=== PATIENT | male | born 1945 | race Caucasian/White ===

== ENCOUNTER 2019-05-22 14:24 | Emergency (ER) | payer OTHER, SELFPAY ==
[2019-05-22 14:37] VITALS: BP 130/67; PULSE 61; RESP 16; TEMP 36.6; O2SAT 96; BMI 32.8
--- NOTE | 2019-05-22 14:43 | ED_ITS ---
Entered by Mary Rob, acting as scribe for May 22, 2019 14:24 HPI - Abdominal Pain General: Chief Complaint: Abdominal Pain Stated Complaint: ABD pain Time Seen by Provider: 05/22/19 14:54 Source: patient and family Mode of arrival: ambulatory Limitations: no limitations History of Present Illness: HPI narrative: 73 yo male presents with abdomen pain. pt states this started couple days ago. pt states has had nausea and diarrhea. pt states nothing makes the pain better and movement makes it worse. pt states in the past 6 years ago he was told he needed his gallbladder out. pt denies any other symptoms at this time. MD elicited complaint: abdominal pain Pertinent past history: none Onset (ago): day(s) Pain Consistency: constant Location: Diffuse Severity: mild Quality: sharp Migration to: no migration Exacerbating factors: nothing Relieving factors: nothing Associated Symptoms: Reports diarrhea, nausea and other (pain with urination ); Denies chills and fever(s) Review of Systems Const: Denies: fever, chills, body aches, change in appetite, fatigue or malaise ENMT: Denies: throat pain, ear pain, nasal discharge or nasal congestion Card: Denies: chest pain, edema, shortness of breath on exertion or shortness of breath when lying down Resp: Denies: shortness of breath, productive cough or non-productive cough GI: Reports: nausea, diarrhea and other (pain with urination ) Skin/Breast: Denies: rash or itching PFSH ED PFSH: Social History Smoking and tobacco status: former smoker Physical Exam Const: COMMON NORMALS: no apparent distress GENERAL APPEARANCE: cooperative and comfortable ORIENTATION/CONSCIOUSNESS: Yes awake, Yes oriented to person, Yes oriented to place and Yes oriented to time HENMT: COMMON NORMALS: normocephalic, head/scalp atraumatic, hearing grossly normal bilaterally, external ears normal, EAC's normal, TM's normal bilaterally, nasal mucous membranes and turbinates normal, moist oral mucous membranes and oropharynx normal HEAD & SCALP: normocephalic and atraumatic NOSE: nasal mucous membranes and turbinates normal EXTERNAL EAR: Yes external ears normal EXTERNAL AUDITORY CANAL: EAC's normal TYMPANIC MEMBRANE: TM's normal bilaterally Eye: COMMON NORMALS: PERRL, EOMs intact bilaterally, conjunctivae normal and no scleral icterus CONJUNCTIVA: Yes conjunctivae normal PUPIL: Yes PERRL Neck/C-Spine: COMMON NORMALS: full ROM, no lymphadenopathy, supple and no JVD Lymph: LYMPHATIC: no lymphadenopathy noted and no lymphedema noted Resp: COMMON NORMALS: normal respiratory effort, no retractions, no use of accessory muscles and clear to auscultation bilaterally AUSCULTATION: clear to auscultation bilaterally Cardio: COMMON NORMALS: no JVD, regular rate, regular rhythm and no murmurs RATE: regular rate RHYTHM: regular rhythm Extremity: COMMON NORMALS: normal to inspection, normal capillary refill, no clubbing, cyanosis or edema, no calf tenderness and no pedal edema Neuro: SENSORIUM/ORIENTATION: Yes oriented to person, Yes oriented to place and Yes oriented to time Skin: COMMON NORMALS: no rashes or lesions noted GENERAL SKIN EXAM: no rashes or lesions noted Course Vital Signs: Vital signs: Vital Signs Temperature 97.8 F 05/22/19 14:37 Pulse Rate 74 05/22/19 17:49 Respiratory Rate 16 05/22/19 17:49 Blood Pressure 135/78 05/22/19 17:49 Pulse Oximetry 94 05/22/19 17:49 MDM - Abdominal Pain MDM Narrative: Medical decision making narrative: Patient had minimal residual. Symptoms are gone now we will go ahead and discharge him home on Flomax follow-up with primary care doctor within the week recheck in the ER if has any worsening or changes symptoms Lab Data: Labs: Lab Results 05/22/19 05/22/19 05/22/19 Range/Units 15:10 15:10 15:16 WBC 8.3 (4.0-10.0) 10^3/ uL RBC 5.02 (4.1-5.3) 10^6/u L Hgb 14.9 (11.7-16.6) g/dL Hct 45.5 (42.0-52.0) % MCV 90.6 (80-94) fL MCH 29.7 (28.0-34.0) pg MCHC 32.7 (30.0-36.0) g/dL RDW 13.2 (12.1-15.1) % Plt Count 198 (130-400) 10^3/c mm MPV 12.2 H (7.4-10.4) fL Neut % (Auto) 56.9 % Lymph % (Auto) 26.5 % [place] % (Auto) 13.7 % Eos % (Auto) 1.7 % Baso % (Auto) 0.7 % Neut # (Auto) 4.7 (1.8-7.7) 10^3/u L Lymph # (Auto) 2.2 (0.8-4.8) 10^3/u L [place] # (Auto) 1.1 H (0.2-0.9) 10^3/u L Eos # (Auto) 0.1 (0.0-0.8) 10^3/u L Baso # (Auto) 0.1 (0.0-0.1) 10^3/u L Nucleated RBC % (a uto) 0 % Nucleated RBCs # 0.0 /100WBC Sodium 138 (136-145) mmol/L Potassium 4.2 (3.5-5.1) mmol/L Chloride 101 (98-107) mmol/L Carbon Dioxide 22 (22-29) mmol/L Anion Gap 19.2 H (5-19) BUN 21 (8-23) mg/dL Creatinine 1.2 (0.7-1.2) mg/dL Glucose 147 H (65-115) mg/dL Calculated Osmolal ity 285 (285-295) mOsm/k g Calcium 9.5 (8.5-10.5) mg/dL Total Bilirubin 0.4 (0.15-1.2) mg/dL AST 25 (0-40) U/L ALT 40 (0-41) U/L Alkaline Phosphata se 66 (40-130) IU/L Total Protein 6.9 (6.6-8.7) g/dL Albumin 4.0 (3.5-5.2) g/dL Globulin 2.9 (1.3-4.6) g/dL Lipase 38 (13-60) U/L Urine Color Yellow (Yellow) Urine Appearance Clear (CLEAR) Urine pH 5 (5-7) Ur Specific Gravit y 1.020 (1.005-1.030) Urine Protein Neg (Negative) Urine Glucose (UA) Norm (Normal) Urine Ketones Negative (Negative) Urine Blood Neg (Negative) Urine Nitrate Negative (Negative) Urine Bilirubin Neg (NEGATIVE) Urine Urobilinogen Norm (Negative) mg/dL Ur Leukocyte Gavi ase Negative (Negative) Imaging Data ^: CT Abd/Pel: Radiologist's impression: [facility] [address] [place] [address] CT Scan Report Signed Patient: Rashad Michel #: [id number] : 7Acct#:[id number] Age/Sex: 73 / MADM Date: 05/22/19 Loc: ERRoom/Bed: Attending Dr: Ordering Provider/Ordering MD: Vasiliy Sevilla DO Date of Service: 05/22/19 Procedure(s): CT abdomen pelvis w con* [id number] Accession Number(s): [id number] Report Number: [id number] WS: [id number] CT ABDOMEN PELVIS TECHNIQUE: Contrast-enhanced CT of the abdomen and pelvis with coronal and sagittal reformatted images. CLINICAL INFORMATION: abd pain COMPARISON: None. DLP: 1140.[address] scans at [facility] use at least one of these dose optimization techniques: automated exposure control; mA and/or kV adjustment per patient size (includes targeted exams where dose is matched to clinical indication); or iterative reconstruction. FINDINGS: Mild diffuse fatty infiltration liver. Normal portal and splenic vein. Normal gallbladder. Splenic and hepatic granulomas. Adrenal glands are normal. Normal renal parenchymal enhancement. Right renal cyst measuring 3.5 cm. Slight atelectasis in the lung bases. A few tiny noncalcified subpleural pulmonary nodules measuring 2-3 mm in the right lower lobe and right middle lobe. Heterogeneous slightly enlarged prostate measuring 4.5 x 4.1 CM. Recommend correlation PSA. Diverticulosis. No evidence of acute diverticulitis. Incidental fat-containing umbilical hernia. Aortic calcification. Normal caliber abdominal aorta. Mild bladder wall thickening can be seen with chronic cystitis or bladder outlet obstruction. CT/CT abdomen pelvis w con* [id number] IMPRESSION: 1. Mild diffuse fatty infiltration the liver. 2. No evidence of small or large bowel obstruction. 3. Enlarged heterogeneous prostate measuring 4.1 x 4.5 cm with heterogeneous central enhancement. Correlation PSA. 4. Diffuse bladder wall thickening can be seen with chronic cystitis or bladder outlet obstruction. 5. Several tiny noncalcified subpleural nodules in the lung bases and right middle lobe. Recommend 12 month follow-up. 6. Right renal cyst measuring 3.5 cm. Dictated By:Chava Bender MD Signed By:Chava Bender MDSigned Date/Time:05/22/19 1620 Discharge Plan Discharge Patient Disposition: Home, Self-Care Clinical Impression: Abdominal pain in male, Benign prostatic hyperplasia Condition: Stable Prescriptions: New Colace Clear 50 mg capsule 50 mg PO BID Qty: 60 RF: 0 Changed Flomax 0.4 mg Capsule 0.8 mg PO QPM Qty: 0 RF: 0 No Action venlafaxine 75 mg Tablet 75 mg PO DAILY RF: 0 Aspir-81 81 mg Tablet,Delayed Release (Dr/Ec) 81 mg PO DAILY RF: 0 pantoprazole 20 mg Tablet,Delayed Release (Dr/Ec) 20 mg PO DAILY RF: 0 meclizine 25 mg Tablet 50 mg PO QPM RF: 0 amlodipine 10 mg Tablet 10 mg PO BEDTIME RF: 0 naproxen sodium 220 mg Tablet 220 mg PO BID PRN (Reason: Pain) RF: 0 metoprolol tartrate 50 mg Tablet 25 mg PO BID RF: 0 ProAir HFA 90 mcg/actuation Hfa Aerosol Inhaler 2 puff INHALATION QID PRN (Reason: Shortness Of Breath) RF: 0 losartan 100 mg Tablet 100 mg PO DAILY RF: 0 rosuvastatin 40 mg Tablet 40 mg PO QPM RF: 0 Fish Oil 1,000 mg (120 mg-180 mg) Capsule 1 cap PO BID RF: 0 tiotropium-olodaterol 2.5-2.5 mcg/actuation Mist 2 puff INHALATION DAILY PRN (Reason: unknown) RF: 0 Discharge Orders: Discharge Order (Routine); Ordered 05/22/19 Ordered By: Vasiliy Sevilla Referrals: Haresh Dorman DO [Primary Care Provider] - Discharge Diet: Usual diet Discharge Activity: Resume usual activity Patient Instructions: Benign Prostatic Hypertrophy (ED), Abdominal Pain (ED) Activity Restrictions/Additional Instructions: Follow-up with your primary care doctor as needed Discharge Date/Time: 05/22/19 17:50 Coding Level of Care Code ED Sample Preparation Supervisor for Chg Fwd Exam Comprehensive The documentation recorded by the Darron spring Bridget Annette, accurately reflects the service I personally performed and the decisions made by Di paulino Curtis L, DO May 22, 2019 14:24
[2019-05-22] MEDS: sodium chloride 0.9% 1,000 ML 999 ML IV (15:14)
[2019-05-22] MEDS: ondansetron 2 mg/ML SDV 2 mL 4 MG IVP (15:14)
[2019-05-22 15:17] LABS: Basophils # 0.1 10^3/uL (0.0-0.1); Basophils % 0.7 %; Eosinophils # 0.1 10^3/uL (0.0-0.8); Eosinophils % 1.7 %; Hematocrit 45.5 % (42.0-52.0); Hemoglobin 14.9 g/dL (11.7-16.6); Lymphocytes # 2.2 10^3/uL (0.8-4.8); Lymphocytes % 26.5 %; Mean Corpuscular HGB Conc 32.7 g/dL (30.0-36.0); Mean Corpuscular Hemoglobin 29.7 pg (28.0-34.0); Mean Corpuscular Volume 90.6 fL (80-94); Mean Platelet Volume 12.2 fL (7.4-10.4); Monocytes # 1.1 10^3/uL (0.2-0.9); Monocytes % 13.7 %; Neutrophils # 4.7 10^3/uL (1.8-7.7); Neutrophils % 56.9 %; Nucleated Red Blood Cells % 0 %; Platelet Count 198 10^3/cmm (130-400); Red Blood Count 5.02 10^6/uL (4.1-5.3); Red Cell Distribution Width 13.2 % (12.1-15.1); White Blood Count 8.3 10^3/uL (4.0-10.0)
--- NOTE | 2019-05-22 15:20 | CT_ITS ---
WS: [id number] CT ABDOMEN PELVIS TECHNIQUE: Contrast-enhanced CT of the abdomen and pelvis with coronal and sagittal reformatted image s. CLINICAL INFORMATION: abd pain COMPARISON: None. DLP: 1140.[address] scans at [facility] use at least one of these dose optimization techniques: automat ed exposure control; mA and/or kV adjustment per patient size (includes targeted exams where dose is matched to clinical indication); or iterative reconstruction. FINDINGS: Mild diffuse fatty infiltration liver. Normal portal and splenic vein. Normal gallbladder. Splenic an d hepatic granulomas. Adrenal glands are normal. Normal renal parenchymal enhancement. Right renal cy st measuring 3.5 cm. Slight atelectasis in the lung bases. A few tiny noncalcified subpleural pulmonary nodules measuring 2-3 mm in the right lower lobe and right middle lobe. Heterogeneous slightly enlarged prostate measur ing 4.5 x 4.1 CM. Recommend correlation PSA. Diverticulosis. No evidence of acute diverticulitis. Incidental fat-containing umbilical hernia. Aort ic calcification. Normal caliber abdominal aorta. Mild bladder wall thickening can be seen with chron ic cystitis or bladder outlet obstruction. CT/CT abdomen pelvis w con* [id number] IMPRESSION: 1. Mild diffuse fatty infiltration the liver. 2. No evidence of small or large bowel obstruction. 3. Enlarged heterogeneous prostate measuring 4.1 x 4.5 cm with heterogeneous c entral enhancement. Correlation PSA. 4. Diffuse bladder wall thickening can be seen with chronic cystitis or bladde r outlet obstruction. 5. Several tiny noncalcified subpleural nodules in the lung bases and right mi ddle lobe. Recommend 12 month follow-up. 6. Right renal cyst measuring 3.5 cm.
[2019-05-22 15:25] LABS: Add Urine Microscopic? NO
[2019-05-22 15:32] LABS: Bilirubin Urine Neg (NEGATIVE); Blood Urine Neg (Negative); Glucose Urine UA Norm (Normal); Ketones Urine Negative (Negative); Leukocyte Esterase Urine Negative (Negative); Nitrate Urine Negative (Negative); Protein Urine Neg (Negative); Urine Appearance Clear (CLEAR); Urine Color Yellow (Yellow); Urobilinogen Urine Norm (Negative); pH Urine 5 (5-7)
[2019-05-22 15:39] LABS: Alanine Aminotransferase 40 U/L (0-41); Alkaline Phosphatase 66 IU/L (40-130); Anion Gap 19.2 (5-19); Blood Urea Nitrogen 21 mg/dL (8-23); Calcium 9.5 mg/dL (8.5-10.5); Carbon Dioxide 22 mmol/L (22-29); Chloride 101 mmol/L (98-107); Globulin 2.9 g/dL (1.3-4.6); Glucose 147 mg/dL (65-115); Lipase 38 U/L (13-60); Osmolality Calculated 285 mOsm/kg (285-295); Potassium 4.2 mmol/L (3.5-5.1); Sodium 138 mmol/L (136-145); Total Bilirubin 0.4 mg/dL (0.15-1.2); Total Protein 6.9 g/dL (6.6-8.7)
[2019-05-22] MEDS: iohexol 300 mg/mL 100 mL Btl IV (15:47)
[2019-05-22 16:05] LABS: Aspartate Amino Transferase 25 U/L (0-40)
[2019-05-22 17:49] VITALS: BP 135/78; PULSE 74; RESP 16; O2SAT 94
== END 2019-05-22 17:50 | disposition home or self-care (01) ==
PROVIDERS: Emergency Provider Family Medicine; Family Provider Emergency Medicine Emergency Medical Services; PCP Emergency Medicine Emergency Medical Services
DX: N40.0 Benign prostatic hyperplasia without lower urinary tract symptoms (principal); R10.9 Unspecified abdominal pain; Z87.891 Personal history of nicotine dependence
CPT/HCPCS: 12345; 36415; 74177; 80053; 81003; 83690; 85025; 96361; 96374; 96375; 99282; 99283; J2405; J7030; Q9967

== ENCOUNTER 2019-07-17 12:33 | Outpatient (CLI) | payer OTHER, SELFPAY ==
--- NOTE | 2019-07-17 13:00 | CT_ITS ---
WS: [id number] CT CHEST TECHNIQUE: Noncontrast CT of the chest with coronal and sagittal reformatted images. CLINICAL INFORMATION: Pulmonary nodule COMPARISON: CTA June 02, [address] abdomen pelvis May 22, 2019 DLP: 1000.[address] scans at [facility] use at least one of these dose optimization techniques: automat ed exposure control; mA and/or kV adjustment per patient size (includes targeted exams where dose is matched to clinical indication); or iterative reconstruction. FINDINGS: Moderate diffuse chronic emphysematous changes. Multiple calcified granulomas. Calcified hilar nodes. A few tiny noncalcified nodules in both lung bases and right middle lobe appears stable since the pr ior examinations. Largest nodule measures approximately 4 mm in the right upper lobe. No mediastinal or hilar lymphadenopathy. No acute pulmonary infiltrates. No consolidation or pleural fluid. Dense thoracic aortic atheromatous disease. . Coronary calcification. No axillary lymphadenopathy. No rmal GE junction. Adrenal glands are normal. Right renal cyst measuring 3.[address]/CT chest wo con [id number] IMPRESSION: 1. Moderate to advanced chronic emphysematous changes. No acute pulmonary infi ltrates. 2. A few small noncalcified pulmonary nodules in both lower lobes and right up per lobe the largest measuring 4 mm. Recommend 12 month follow-up. 3. Chronic granulomatous disease with calcified granulomas. 4. Dense aortic atheromatous disease with coronary calcification.
== END 2019-07-17 12:34 | disposition home or self-care (01) ==
LOC: RADWPI 12:37
PROVIDERS: Family Provider Emergency Medicine Emergency Medical Services; PCP Emergency Medicine Emergency Medical Services; Visit Provider Internal Medicine Critical Care Medicine
DX: R91.8 Other nonspecific abnormal finding of lung field (principal); D71 Functional disorders of polymorphonuclear neutrophils; L92.9 Granulomatous disorder of the skin and subcutaneous tissue, unspecified; I70.0 Atherosclerosis of aorta
CPT/HCPCS: 71250

== ENCOUNTER 2020-09-10 09:55 | Outpatient (CLI) | payer OTHER, SELFPAY ==
--- NOTE | 2020-09-10 10:01 | USCV_ITS ---
Rashad Michel Age: 75 Gender: M : 1945 Exam Date: 09/10/2020 10:19 Ordering Phys: Carlos Gonzalez Technologist: Rosanne Brantley Exam Location: [facility] [place] Indication: ischemic HD BP: / HR: 51 Rhythm: Sinus Technical Quality: Adequate MEASUREMENTS (Male / Female) Normal Values 2D ECHO LV Diastolic Diameter PLAX 4.7 cm 4.2 - 5.9 / 3.9 - 5.3 cm LV Systolic Diameter PLAX 2.4 cm LV Chamber Size 3.5 cm IVS Diastolic Thickness 0.9 cm 0.6 - 1.0 / 0.6 - 0.9 cm IVS Systolic Thickness 1.5 cm LVPW Diastolic Thickness 1.7 cm 0.6 - 1.0 / 0.6 - 0.9 cm LVPW Systolic Thickness 1.7 cm RV Chamber Size 2.0 cm LVOT Diameter 2.0 cm LV Ejection Fraction 2D Teich 80.5 % LV Ejection Fraction MOD 2C 66.3 % LV Ejection Fraction 2C AL 67.2 % LA Diameter 4.3 cm LA Width 2.8 cm LA Height 4.7 cm RA Width 4.1 cm RA Height 4.3 cm Aorta at Sinotubular Diameter 2.4 cm M-MODE LV Diastolic Diameter MM 5.1 cm 4.2 - 5.9 / 3.9 - 5.3 cm LV Systolic Diameter MM 3.1 cm LV Ejection Fraction MM Teich 70.5 % IVS Diastolic Thickness MM 1.7 cm 0.6 - 1.0 / 0.6 - 0.9 cm IVS Systolic Thickness MM 2.0 cm LVPW Diastolic Thickness MM 1.3 cm 0.6 - 1.0 / 0.6 - 0.9 cm LVPW Systolic Thickness MM 1.9 cm RV Diastolic Diameter MM 2.1 cm Aortic Annulus Diameter 2.9 cm LA Ao Ratio MM 1.8 MV E Point Septal Separation 0.9 cm DOPPLER AV Peak Velocity 155.0 cm/s LVOT Peak Velocity 94.0 cm/s AV Area Cont Eq vti 2.1 cm squared AV Area Cont Eq pk 2.0 cm squared MV Area PHT 4.1 cm squared Mitral E to A Ratio 1.6 MV E' Velocity 55.0 cm/s Mitral E to MV E' Ratio 7.2 Mitral E to LV E' Lateral Ratio 7.5 Mitral E to LV E' Septal Ratio 6.9 TR Peak Velocity 277.9 cm/s TR Peak Gradient 30.9 mmHg TR Mean Velocity 208.0 cm/s TR Mean Gradient 19.5 mmHg TR Velocity Time Integral 108.4 cm TV Peak E Velocity 68.0 cm/s Right Atrial Pressure 3.0 mmHg Pulmonary Artery Systolic Pressu 33.9 mmHg PV Peak Velocity 70.0 cm/s RV Acceleration Time 0.1 s RV Ejection Time 0.5 s RV AcT/ET 0.3 FINDINGS Left Ventricle Normal left ventricular size. LV systolic function is normal with EF of 55-60%. No regional wall motion abnormalities. Normal diastolic filling pattern. Right Ventricle The right ventricle is normal in size and function. Right Atrium The right atrium is normal in size. Left Atrium The left atrium is mildly dilated Mitral Valve Structurally normal mitral valve without significant stenosis or prolapse. There is no mitral regurgitation. Aortic Valve Structurally normal aortic valve without significant sclerosis or stenosis. There is no aortic regurgitation. Tricuspid Valve Structurally normal tricuspid valve without significant stenosis. Mild tricuspid regurgitation. RVSP is 30-35mmHg. Pulmonic Valve Structurally normal pulmonic valve without significant stenosis. There is no pulmonic regurgitation. Pericardium Normal pericardium without effusion. Aorta Normal ascending aorta dimension. CONCLUSIONS LV systolic function is normal with EF of 55-60% Diastolic function is normal Mild tricuspid regurgitation. RVSP is 30-35mmHg Compared to prior echocardiogram from 10/08/2018, no significant changes are noted Sourav Padilla MD (Electronically Signed) Final Date: 15 September 2020 18:15 S
[2020-09-10 10:49] LABS: Add Urine Microscopic? NO; Charge for UA Resulting for Rev
[2020-09-10 11:11] LABS: Bilirubin Urine Neg (Negative); Blood Urine Neg (Negative); Glucose Urine UA Norm (Normal); Ketones Urine Negative (Negative); Leukocyte Esterase Urine Negative (Negative); Nitrate Urine Negative (Negative); Protein Urine Neg (Negative); Urine Appearance Clear (CLEAR); Urine Color Yellow (Yellow); Urobilinogen Urine 1 mg/dL (Negative); pH Urine 5 (5-7)
[2020-09-10 11:13] LABS: Alanine Aminotransferase 52 U/L (0-41); Alkaline Phosphatase 67 IU/L (40-130); Anion Gap 13.6 (5-19); Aspartate Amino Transferase 32 U/L (0-40); Blood Urea Nitrogen 20 mg/dL (8-23); Calcium 8.5 mg/dL (8.5-10.5); Carbon Dioxide 27 mmol/L (22-29); Chloride 107 mmol/L (98-107); Globulin 2.7 g/dL (1.3-4.6); Glucose 140 mg/dL (65-115); Osmolality Calculated 301 mOsm/kg (285-295); Potassium 4.6 mmol/L (3.5-5.1); Sodium 143 mmol/L (136-145); Total Bilirubin 0.4 mg/dL (0.15-1.2); Total Protein 6.7 g/dL (6.6-8.7)
== END 2020-09-10 09:56 | disposition home or self-care (01) ==
LOC: RAD 09:59
PROVIDERS: PCP Emergency Medicine Emergency Medical Services; Visit Provider Chiropractor
DX: I25.9 Chronic ischemic heart disease, unspecified (principal); I25.10 Atherosclerotic heart disease of native coronary artery without angina pectoris; I07.1 Rheumatic tricuspid insufficiency
CPT/HCPCS: 36415; 80053; 81003; 93306

== ENCOUNTER 2021-01-29 14:05 | Emergency (ER) | payer OTHER, SELFPAY ==
--- NOTE | 2021-01-29 14:09 | XR_ITS ---
WS: [id number] Portable AP upright chest, 01/29/2021 Clinical Data: chest pain Comparison: Portable chest, 02/05/2019. Findings: No nodules, masses or effusions are seen. The heart is normal. The pulmonary vascularity is not increased. No pneumonia or pneumothorax is seen. The aortic arch shows calcification and tortuos ity. XR/XR chest 1V portable [id number] Impression: Atherosclerosis.
[2021-01-29 14:34] VITALS: BP 166/77; PULSE 118; RESP 18; TEMP 36.9; O2SAT 94; BMI 33.6
[2021-01-29 14:53] VITALS: BP 109/70; PULSE 88; RESP 18; TEMP 36.8; O2SAT 95
[2021-01-29 14:57] LABS: Basophils # 0.1 10^3/uL (0.0-0.1); Basophils % 0.9 %; Eosinophils # 0.2 10^3/uL (0.0-0.8); Eosinophils % 2.6 %; Hematocrit 47.1 % (42.0-52.0); Hemoglobin 15.7 g/dL (11.7-16.6); Lymphocytes # 2.4 10^3/uL (0.8-4.8); Lymphocytes % 30.5 %; Mean Corpuscular HGB Conc 33.3 g/dL (30.0-36.0); Mean Corpuscular Hemoglobin 29.7 pg (28.0-34.0); Mean Corpuscular Volume 89.2 fl (80-94); Mean Platelet Volume 11.4 fL (7.4-10.4); Monocytes # 0.7 10^3/uL (0.2-0.9); Monocytes % 8.8 %; Neutrophils # 4.54 10^3/uL (1.8-7.7); Neutrophils % 56.9 %; Nucleated Red Blood Cells % 0 %; Platelet Count 241 10^3/cmm (130-400); Red Blood Count 5.28 10^6/uL (4.1-5.3); Red Cell Distribution Width 14.1 % (12.1-15.1)
[2021-01-29 15:02] VITALS: O2SAT 95
--- NOTE | 2021-01-29 15:18 | ED_ITS ---
HPI - Chest Pain General: Chief Complaint: Chest Pain Stated Complaint: CHEST PRESSURE,SOB; HR 139 LAST PM: HX AFIB Time Seen by Provider: 01/29/21 14:55 PFSH ED PFSH: Medical History Afib CHF (congestive heart failure) COPD (chronic obstructive pulmonary disease) Depression GERD (gastroesophageal reflux disease) Heart attack Hemorrhoid HTN (hypertension) Hyperlipidemia Prostate enlargement Ventricular arrhythmia Surgical History H/O hemorrhoidectomy Stented coronary artery Family History Father Cancer Lung Mother Cancer Lung Brother , Age 32 CAD (coronary artery disease) Social History Smoking and tobacco status: former smoker Quit status (tobacco): has quit using tobacco Year quit tobacco: 1992 PPD x 40 Years Alcohol intake: never Lives independently: Yes Household members: spouse Marital status: service: Yes Current occupational status: retired History of recent travel: No Current gender identity: Male Physical Exam Const: COMMON NORMALS: no acute distress, patient oriented x3 and healthy appearing HENMT: COMMON NORMALS: normocephalic and atraumatic HEAD & SCALP: normocephalic and atraumatic Eye: COMMON NORMALS: Equal, round and reactive pupils present and EOMs intact bilaterally PUPIL: Yes Equal, round and reactive pupils present Neck/C-Spine: COMMON NORMALS: full ROM, supple and no JVD Lymph: LYMPHATIC: no lymphadenopathy noted Chest: COMMONS NORMALS: normal inspection of the chest and normal palpation of entire chest wall Resp: COMMON NORMALS: normal respiratory effort, No retractions and clear to auscultation bilaterally EFFORT & INSPECTION: Yes able to speak in complete sentences and Yes symmetric chest movement AUSCULTATION: clear to auscultation bilaterally Cardio: COMMON NORMALS: no JVD and regular rhythm RATE: tachycardic RHYTHM: regular rhythm and abnormal rhythm GI: COMMON NORMALS: Normal to inspection, nondistended, normoactive bowel sounds present, Soft to palpation and non-tender INSPECTION: Yes normal to inspection PALPATION: Yes Soft to palpation : COMMON NORMALS: Yes no CVA tenderness BLADDER/KIDNEY EXAM: Yes no CVA tenderness Back/Pelvis: COMMON NORMALS: no CVA tenderness Extremity: COMMON NORMALS: normal to inspection and full ROM Neuro: COMMON NORMALS: patient oriented x3, CN's II-XII intact bilaterally, moves all extremities and no focal motor deficits Psych: COMMON NORMALS: mental status grossly normal, Normal thought process present, cooperative and normal affect THOUGHT PROCESS: Normal thought process present Skin: COMMON NORMALS: no rashes or lesions noted GENERAL SKIN EXAM: no rashes or lesions noted Course ED course: Due to the patient's symptoms and condition lab work and imaging will be obtained underlying A. fib rate controlled in the 90s was noted during his exam and during his time the emergency department. Will be provide the patient with additional dose of Lasix to do with heart failure I believe he may need a stronger dose of his Cardizem or Lopressor however at this time he is stable for subsequent discharged home advised further follow-up with microarray analyst or primary care in 3 to 5 days which is advised return the interim if any of his symptoms persist or worse. Vital Signs: Vital signs: Vital Signs Temperature 98.3 F 01/29/21 14:53 Pulse Rate 90 01/29/21 16:36 Respiratory Rate 16 01/29/21 16:36 Blood Pressure 145/87 01/29/21 16:36 Pulse Oximetry 93 01/29/21 16:36 MDM - Chest Pain Lab Data: Labs: Lab Results 01/29/21 01/29/21 01/29/21 14:30 14:30 14:30 WBC 8.0 10^3/uL 10^3/ uL (4.0-10.0) RBC 5.28 10^6/uL 10^6 /uL (4.1-5.3) Hgb 15.7 g/dL g/dL (11.7-16.6) Hct 47.1 % % (42.0-52.0) MCV 89.2 fl fl (80-94) MCH 29.7 pg pg (28.0-34.0) MCHC 33.3 g/dL g/dL (30.0-36.0) RDW 14.1 % % (12.1-15.1) Plt Count 241 10^3/cmm 10^3 /cmm (130-400) MPV 11.4 fL H fL (7.4-10.4) Neut % (Auto) 56.9 % % Lymph % (Auto) 30.5 % % [place] % (Auto) 8.8 % % Eos % (Auto) 2.6 % % Baso % (Auto) 0.9 % % Neut # (Auto) 4.54 10^3/uL 10^3 /uL (1.8-7.7) Lymph # (Auto) 2.4 10^3/uL 10^3/ uL (0.8-4.8) [place] # (Auto) 0.7 10^3/uL 10^3/ uL (0.2-0.9) Eos # (Auto) 0.2 10^3/uL 10^3/ uL (0.0-0.8) Baso # (Auto) 0.1 10^3/uL 10^3/ uL (0.0-0.1) Nucleated RBC % (a uto) 0 % % Nucleated RBCs # 0.0 /100WBC /100W BC PT INR Sodium 138 mmol/L mmol/L (136-145) Potassium 4.3 mmol/L mmol/L (3.5-5.1) Chloride 105 mmol/L mmol/L (98-107) Carbon Dioxide 17 mmol/L L mmol/ L (22-29) Anion Gap 20.3 H (5-19) BUN 21 mg/dL mg/dL (8-23) Creatinine 0.9 mg/dL mg/dL (0.7-1.2) GFR Calculation Not Reportable Glucose 160 mg/dL H mg/dL (65-115) Calculated Osmolal ity 292 mOsm/kg mOsm/ kg (285-295) Calcium 9.0 mg/dL mg/dL (8.5-10.5) Magnesium 1.9 mg/dL mg/dL (1.7-2.3) Total Bilirubin 0.3 mg/dL mg/dL (0.15-1.2) AST 33 U/L U/L (0-40) ALT 51 U/L H U/L (0-41) Alkaline Phosphata se 59 IU/L IU/L (40-130) Troponin T Baselin e 11 ng/L ng/L (0-15) Troponin T 120 Min [place] Troponin T NT-Pro-B Natriuret Pep Total Protein 6.2 g/dL L g/dL (6.6-8.7) Albumin 4.2 g/dL g/dL (3.5-5.2) Globulin 2.0 g/dL g/dL (1.3-4.6) Lipase TSH 1.74 uIU/mL uIU/m L (0.27-4.20) Urine Color Urine Appearance Urine pH Ur Specific Gravit y Urine Protein Urine Glucose (UA) Urine Ketones Urine Blood Urine Nitrate Urine Bilirubin Urine Urobilinogen Ur Leukocyte Gavi ase 01/29/21 01/29/21 01/29/21 14:30 14:30 15:46 WBC RBC Hgb Hct MCV MCH MCHC RDW Plt Count MPV Neut % (Auto) Lymph % (Auto) [place] % (Auto) Eos % (Auto) Baso % (Auto) Neut # (Auto) Lymph # (Auto) [place] # (Auto) Eos # (Auto) Baso # (Auto) Nucleated RBC % (a uto) Nucleated RBCs # PT 13.90 SECONDS SEC ONDS (12.1-14.9) INR 1.04 (0.8-1.2) Sodium Potassium Chloride Carbon Dioxide Anion Gap BUN Creatinine GFR Calculation Glucose Calculated Osmolal ity Calcium Magnesium Total Bilirubin AST ALT Alkaline Phosphata se Troponin T Baselin e Troponin T 120 Min [place] Troponin T NT-Pro-B Natriuret Pep 1295 pg/mL H pg/m L (0-125) Total Protein Albumin Globulin Lipase 34 U/L U/L (13-60) TSH Urine Color Yellow (Yellow) Urine Appearance Clear (CLEAR) Urine pH 5 (5-7) Ur Specific Gravit y 1.020 (1.005-1.030) Urine Protein Neg (Negative) Urine Glucose (UA) Norm (Normal) Urine Ketones Negative (Negative) Urine Blood Neg (Negative) Urine Nitrate Negative (Negative) Urine Bilirubin Neg (Negative) Urine Urobilinogen Norm mg/dL mg/dL (Negative) Ur Leukocyte Gavi ase Negative (Negative) 01/29/21 16:19 WBC RBC Hgb Hct MCV MCH MCHC RDW Plt Count MPV Neut % (Auto) Lymph % (Auto) [place] % (Auto) Eos % (Auto) Baso % (Auto) Neut # (Auto) Lymph # (Auto) [place] # (Auto) Eos # (Auto) Baso # (Auto) Nucleated RBC % (a uto) Nucleated RBCs # PT INR Sodium Potassium Chloride Carbon Dioxide Anion Gap BUN Creatinine GFR Calculation Glucose Calculated Osmolal ity Calcium Magnesium Total Bilirubin AST ALT Alkaline Phosphata se Troponin T Baselin e Troponin T 120 Min [place] 10.96 ng/L ng/L (0-15) Delta Troponin T -0.04 ABS# L ABS# (0-10) NT-Pro-B Natriuret Pep Total Protein Albumin Globulin Lipase TSH Urine Color Urine Appearance Urine pH Ur Specific Gravit y Urine Protein Urine Glucose (UA) Urine Ketones Urine Blood Urine Nitrate Urine Bilirubin Urine Urobilinogen Ur Leukocyte Gavi ase Discharge Plan Discharge Patient Disposition: Home Clinical Impression: CHF (congestive heart failure), Afib, Dehydration Condition: Stable Prescriptions: New Lasix 40 mg tablet 40 mg PO DAILY Qty: 7 RF: 0 No Action Aspir-81 81 mg tablet,delayed release (DR/EC) 325 mg PO DAILY RF: 0 B Complex Plus Vitamin C 25-63-33-5-300 mg capsule 1 cap PO DAILY RF: 0 metformin 500 mg tablet 500 mg PO BID RF: 0 budesonide-formoterol [Symbicort] 160-4.5 mcg/actuation HFA aerosol inhaler 2 puff INHALATION BID Qty: 10.2 RF: 3 Spiriva Respimat 2.5 mcg/actuation mist 2 inh INHALATION QAM Qty: 4 RF: 3 venlafaxine 75 mg Tablet 75 mg PO DAILY RF: 0 pantoprazole 20 mg Tablet,Delayed Release (Dr/Ec) 20 mg PO DAILY RF: 0 amlodipine 10 mg Tablet 10 mg PO BEDTIME RF: 0 naproxen sodium 220 mg Tablet 220 mg PO BID PRN (Reason: Pain) RF: 0 metoprolol tartrate 50 mg Tablet 25 mg PO BID RF: 0 ProAir HFA 90 mcg/actuation Hfa Aerosol Inhaler 2 puff INHALATION QID PRN (Reason: Shortness Of Breath) RF: 0 losartan 100 mg Tablet 100 mg PO DAILY RF: 0 rosuvastatin 40 mg Tablet 40 mg PO QPM RF: 0 Fish Oil 1,000 mg (120 mg-180 mg) Capsule 1 cap PO BID RF: 0 Flomax 0.4 mg Capsule 0.8 mg PO QPM Qty: 0 RF: 0 Colace Clear 50 mg capsule 50 mg PO BID Qty: 60 RF: 0 meclizine 25 mg tablet 25 mg PO QPM RF: 0 Discharge Orders: Discharge ED (Routine); Ordered 01/29/21 Ordered By: Alirio Vega Referrals: Haresh Dorman, [Primary Care Provider] - Discharge Diet: Advance as tolerated Discharge Activity: Resume usual activity Patient Instructions: Congestive Heart Failure, A-fib (Atrial Fibrillation) (ED), Opioid Safety Activity Restrictions/Additional Instructions: Rashad please follow-up with your primary care doctor or microarray analyst next 2 to 3 days for further evaluation of your medications for your atrial fibrillation and heart failure in addition please increase your water consumption when you are busy at work to reduce the likelihood of additional dehydration and concerns of going in A. fib. Is advised for you to return the interim if any of her symptoms persist or worse. Coding Level of Care Code ED [place] for [place]
[2021-01-29 15:25] LABS: Troponin(5th) Baseline 11 ng/L (0-15)
[2021-01-29 15:28] LABS: Alanine Aminotransferase 51 U/L (0-41); Albumin Level 4.2 g/dL (3.5-5.2); Alkaline Phosphatase 59 IU/L (40-130); Anion Gap 20.3 (5-19); Aspartate Amino Transferase 33 U/L (0-40); Blood Urea Nitrogen 21 mg/dL (8-23); Carbon Dioxide 17 mmol/L (22-29); Chloride 105 mmol/L (98-107); Glucose 160 mg/dL (65-115); Magnesium 1.9 mg/dL (1.7-2.3); Osmolality Calculated 292 mOsm/kg (285-295); Potassium 4.3 mmol/L (3.5-5.1); Sodium 138 mmol/L (136-145); Thyroid Stimulating Hormone 1.74 uIU/mL (0.27-4.20); Total Bilirubin 0.3 mg/dL (0.15-1.2); Total Protein 6.2 g/dL (6.6-8.7)
[2021-01-29 15:38] VITALS: BP 129/78; PULSE 98; RESP 16; O2SAT 96
[2021-01-29 15:46] LABS: INR 1.04 (0.8-1.2)
[2021-01-29 15:51] LABS: Add Urine Microscopic? NO; Charge for UA Resulting for Rev
[2021-01-29 16:03] LABS: Lipase 34 U/L (13-60); NT Pro B Type Natriuretic Pept 1295 pg/mL (0-125)
[2021-01-29 16:07] LABS: Bilirubin Urine Neg (Negative); Blood Urine Neg (Negative); Glucose Urine UA Norm (Normal); Ketones Urine Negative (Negative); Nitrate Urine Negative (Negative); Protein Urine Neg (Negative); Urine Appearance Clear (CLEAR); Urine Color Yellow (Yellow); pH Urine 5 (5-7)
[2021-01-29 16:08] LABS: Leukocyte Esterase Urine Negative (Negative); Urobilinogen Urine Norm (Negative)
[2021-01-29 16:36] VITALS: BP 145/87; PULSE 87; PULSE 90; RESP 16; O2SAT 93
[2021-01-29] MEDS: sodium chloride 0.9% 1,000 ML 999 ML IV (16:36)
--- NOTE | 2021-01-29 17:20 | ECG_ITS ---
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 Measurements Intervals [place] Rate: 90 P: [place]: QRS: 87 QRSD: 112 T: -43 QT: 341 QTc: 418 Interpretive Statements ATRIAL FIBRILLATION INFERIOR MYOCARDIAL INFARCTION , OF INDETERMINATE AGE [40+ ms Q WAVE AND/OR ST/T ABNORMALITY IN II/aVF] Compared to ECG 01/29/2021 14:28:36 Right-axis deviation no longer present Myocardial infarct finding still present Electronically Signed On 01-29-2021 23:56:22 ORACLE SQL DEVELOPER by Siva Bardales M.D. [email or web address].[employer]/store/[id number]
[2021-01-29 17:21] LABS: Troponin 5 2HR 10.96 ng/L (0-15)
[2021-01-29 17:22] LABS: Troponin 5 2HR Delta -0.04 ABS# (0-10)
--- NOTE | 2021-01-29 17:59 | PC.NURSE ---
Report to ERNESTINA Ziegler
[2021-01-29] MEDS: FUROsemide 10 mg/mL SDV 4mL 40 MG IVP (18:03)
--- NOTE | 2021-01-29 20:09 | ECG_ITS ---
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 Measurements Intervals [place] Rate: 118 P: ND: QRS: 106 QRSD: 103 T: -50 QT: 298 QTc: 419 Interpretive Statements ATRIAL FIBRILLATION WITH RAPID VENTRICULAR RESPONSE RIGHT AXIS DEVIATION [QRS AXIS > 100] PROBABLE INFERIOR MYOCARDIAL INFARCTION , OF INDETERMINATE AGE [35 ms Q WAVE IN II/aVF] Nonspecific T wave change Compared to ECG 02/05/2019 18:54:23 Right-axis deviation now present Myocardial infarct finding still present Electronically Signed On 01-29-2021 23:55:49 LAWNMOWER MECHANIC by Siva Bardales M.D. [email or web address].greene county hospitalProject Airplanemercy health anderson hospital.GaBoom/store/Om/[id number]
== END 2021-01-29 18:25 | disposition home or self-care (01) ==
PROVIDERS: Emergency Medicine; Emergency Provider Emergency Medicine; PCP Emergency Medicine Emergency Medical Services
DX: I11.0 Hypertensive heart disease with heart failure (principal); I50.9 Heart failure, unspecified; I48.91 Unspecified atrial fibrillation; E86.0 Dehydration; Z79.84 Long term (current) use of oral hypoglycemic drugs; Z79.82 Long term (current) use of aspirin; J44.9 Chronic obstructive pulmonary disease, unspecified; E78.5 Hyperlipidemia, unspecified; Z87.891 Personal history of nicotine dependence
CPT/HCPCS: 36415; 71045; 80053; 81003; 83690; 83735; 83880; 84443; 84484; 85025; 85610; 93005; 96361; 96374; 99284; J1940; J7030

== ENCOUNTER → 2021-02-19 13:34 | Outpatient (BNVA) | payer OTHER, SELFPAY | PROVIDERS: PCP Emergency Medicine Emergency Medical Services; Visit Provider Specialist | DX: M25.551 Pain in right hip (principal); M25.552 Pain in left hip | CPT/HCPCS: 73523 ==

== ENCOUNTER 2021-02-28 06:00 | Outpatient (RCR) | payer OTHER, SELFPAY | END 2021-02-28 23:59 | disposition home or self-care (01) | LOC: WPT 06:00 | PROVIDERS: PCP Emergency Medicine Emergency Medical Services; Referring Provider Specialist; Visit Provider Specialist | DX: M25.552 Pain in left hip (principal); M25.551 Pain in right hip | CPT/HCPCS: 97110; 97162 ==

== ENCOUNTER 2021-03-01 06:00 | Outpatient (RCR) | payer OTHER, SELFPAY | END 2021-03-31 23:59 | disposition home or self-care (01) | LOC: WPT 06:00 | PROVIDERS: PCP Emergency Medicine Emergency Medical Services; Referring Provider Specialist; Visit Provider Specialist | DX: M25.552 Pain in left hip (principal); M25.551 Pain in right hip | CPT/HCPCS: 97110; 97140; 97530 ==

== ENCOUNTER 2021-04-07 09:48 | Emergency (ER) | payer OTHER, SELFPAY ==
[2021-04-07 10:02] VITALS: BP 99/65; PULSE 87; RESP 16; TEMP 36.7; O2SAT 94; BMI 33.6
--- NOTE | 2021-04-07 10:07 | ECG_ITS ---
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 Measurements Intervals [place] Rate: 87 P: [place]: QRS: 69 QRSD: 109 T: -51 QT: 348 QTc: 420 Interpretive Statements ATRIAL FIBRILLATION INFERIOR MYOCARDIAL INFARCTION , OF INDETERMINATE AGE [40+ ms Q WAVE AND/OR ST/T ABNORMALITY IN II/aVF] INTERPRETATION BASED ON A DEFAULT AGE OF 40 YEARS Compared to ECG 01/29/2021 16:35:17 No significant changes Electronically Signed On 04-08-2021 5:10:01 ROAST MASTER by Jeannette Rodríguez M.D. [email or web address] Attorneyscrestwood medical centerOpen Gardenket[facility].Keen Impressions/store/NU/[id number] f
[2021-04-07 10:25] LABS: Basophils # 0.1 10^3/uL (0.0-0.1); Basophils % 0.9 %; Eosinophils # 0.2 10^3/uL (0.0-0.8); Eosinophils % 2.2 %; Hematocrit 49.9 % (42.0-52.0); Hemoglobin 16.6 g/dL (11.7-16.6); Lymphocytes # 2.4 10^3/uL (0.8-4.8); Lymphocytes % 25.3 %; Mean Corpuscular HGB Conc 33.3 g/dL (30.0-36.0); Mean Corpuscular Hemoglobin 30.1 pg (28.0-34.0); Mean Corpuscular Volume 90.6 fl (80-94); Mean Platelet Volume 11.8 fL (7.4-10.4); Monocytes # 0.9 10^3/uL (0.2-0.9); Monocytes % 9.4 %; Neutrophils # 5.81 10^3/uL (1.8-7.7); Neutrophils % 61.9 %; Nucleated Red Blood Cells % 0 %; Platelet Count 244 10^3/cmm (130-400); Red Blood Count 5.51 10^6/uL (4.1-5.3); Red Cell Distribution Width 13.6 % (12.1-15.1); White Blood Count 9.4 10^3/uL (4.0-10.0)
[2021-04-07 10:42] LABS: Alanine Aminotransferase 83 U/L (0-41); Albumin Level 4.1 g/dL (3.5-5.2); Alkaline Phosphatase 62 IU/L (40-130); Anion Gap 19.5 (5-19); Aspartate Amino Transferase 45 U/L (0-40); Blood Urea Nitrogen 19 mg/dL (8-23); Calcium 9.7 mg/dL (8.5-10.5); Carbon Dioxide 19 mmol/L (22-29); Chloride 104 mmol/L (98-107); Globulin 2.5 g/dL (1.3-4.6); Glucose 193 mg/dL (65-115); Osmolality Calculated 294 mOsm/kg (285-295); Potassium 4.5 mmol/L (3.5-5.1); Sodium 138 mmol/L (136-145); Total Bilirubin 0.4 mg/dL (0.15-1.2); Total Protein 6.6 g/dL (6.6-8.7)
[2021-04-07 10:43] LABS: Troponin(5th) Baseline 13 ng/L (0-15)
[2021-04-07 10:49] VITALS: BP 131/86; PULSE 82; RESP 15; O2SAT 95
--- NOTE | 2021-04-07 10:59 | W.ED.ARRPALP ---
HPI - Arrhythmia/Palpitations General: Chief Complaint: Shortness of Breath/Dyspnea Stated Complaint: afib Time Seen by Provider: 04/07/21 10:41 History of Present Illness: 75-year-old male presents emergency room complaining of palpitations. Patient is a known history of atrial fibrillation and is currently on metoprolol has not missed any doses or any dose change recently. In addition to that he is diabetic. He is ago patient had episode of palpitations and racing heart his heart rate went up to the 140s according to his check and monitoring at home. It resolved and since then he says been in the 70s to the 90s. He does still feel like he is having an irregular heartbeat. He is not on any anticoagulations. No chest pain through any of these episodes. MD complaint: rapid heart beat, heart racing , skipped beats , palpitations and irregular heart beat Onset (ago): hour(s) Duration: intermittent and now resolved Severity: mild Context: occurred during rest Arrhythmia history: atrial fibrillation Associated symptoms: Deny anxiety, cough, diaphoresis, muscle cramps, nausea, paresthesias, pre-syncope, sense of impending doom, short of breath, syncope or vomiting Treatments prior to arrival: beta-leryo Review of Systems Const: Denies: diaphoresis ENMT: Denies: throat pain, ear or mastoid pain, nasal discharge or nasal congestion Card: Denies: syncope or pre-syncope Resp: Denies: dyspnea, productive cough or non-productive cough GI: Denies: nausea or vomiting : Denies: flank pain, dysuria, urinary frequency or urinary urgency Musc: Denies: muscle cramps Skin/Breast: Denies: rash or pruritus Psych: Denies: anxiety PFSH ED PFSH: Medical History Afib CHF (congestive heart failure) COPD (chronic obstructive pulmonary disease) Depression GERD (gastroesophageal reflux disease) Heart attack Hemorrhoid HTN (hypertension) Hyperlipidemia Prostate enlargement Ventricular arrhythmia Surgical History H/O hemorrhoidectomy Stented coronary artery Family History Father Cancer Lung Mother Cancer Lung Brother , Age 32 CAD (coronary artery disease) Social History Quit status (tobacco): has quit using tobacco Year quit tobacco: 1992 - PPD x 40 Years Alcohol intake: never Lives independently: Yes Household members: spouse Marital status: service: Yes Current occupational status: retired History of recent travel: No Current gender identity: Male Physical Exam Const: COMMON NORMALS: no acute distress GENERAL APPEARANCE: cooperative and comfortable ORIENTATION/CONSCIOUSNESS: Yes awake, Yes oriented to person, Yes oriented to place and Yes oriented to time HENMT: COMMON NORMALS: normocephalic, atraumatic and hearing grossly normal bilaterally HEAD & SCALP: normocephalic and atraumatic Neck/C-Spine: COMMON NORMALS: no JVD Resp: COMMON NORMALS: normal respiratory effort, No retractions, No use of accessory muscles and clear to auscultation bilaterally AUSCULTATION: clear to auscultation bilaterally Cardio: COMMON NORMALS: no JVD, regular rate and No murmurs present (Cardio) RATE: regular rate RHYTHM: abnormal rhythm irregularly irregular GI: COMMON NORMALS: Soft to palpation and No hepatosplenomegaly present AUSCULTATION: Yes normoactive bowel sounds PALPATION: Yes Soft to palpation, No Tenderness to palpation present (GI), No Guarding due to palpation present (GI) and Yes No hepatosplenomegaly present Extremity: COMMON NORMALS: normal to inspection, capillary refill normal, no clubbing, cyanosis or edema, no calf tenderness and no pedal edema Neuro: SENSORIUM/ORIENTATION: Yes oriented to person, Yes oriented to place and Yes oriented to time Skin: COMMON NORMALS: no rashes or lesions noted GENERAL SKIN EXAM: no rashes or lesions noted Course Vital Signs: Vital signs: Vital Signs Temperature 98.1 F 04/07/21 10:02 Pulse Rate 102 H 04/07/21 11:15 Respiratory Rate 18 04/07/21 11:15 Blood Pressure 118/80 04/07/21 11:15 Pulse Oximetry 94 04/07/21 11:15 MDM - Arrhythmia/Palpitations Medical Decision Making EKG shows atrial fibrillation no acute ST changes rate well controlled. Decrease amlodipine to 5 mg p.o. daily increase metoprolol to 50 p.o. 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 Return if has further problems. Medical Records I reviewed the patient's medical records. Lab Data I reviewed the patient's lab results. : 04/07/21 10:17 04/07/21 10:17 Laboratory Results WBC 9.4 10^3/uL (4.0-10.0) 04/07/21 10:17 RBC 5.51 10^6/uL (4.1-5.3) H 04/07/21 10:17 Hgb 16.6 g/dL (11.7-16.6) 04/07/21 10:17 Hct 49.9 % (42.0-52.0) 04/07/21 10:17 MCV 90.6 fl (80-94) 04/07/21 10:17 MCH 30.1 pg (28.0-34.0) 04/07/21 10:17 MCHC 33.3 g/dL (30.0-36.0) 04/07/21 10:17 RDW 13.6 % (12.1-15.1) 04/07/21 10:17 Plt Count 244 10^3/cmm (130-400) 04/07/21 10:17 MPV 11.8 fL (7.4-10.4) H 04/07/21 10:17 Neut % (Auto) 61.9 % 04/07/21 10:17 Lymph % (Auto) 25.3 % 04/07/21 10:17 [place] % (Auto) 9.4 % 04/07/21 10:17 Eos % (Auto) 2.2 % 04/07/21 10:17 Baso % (Auto) 0.9 % 04/07/21 10:17 Neut # (Auto) 5.81 10^3/uL (1.8-7.7) 04/07/21 10:17 Lymph # (Auto) 2.4 10^3/uL (0.8-4.8) 04/07/21 10:17 [place] # (Auto) 0.9 10^3/uL (0.2-0.9) 04/07/21 10:17 Eos # (Auto) 0.2 10^3/uL (0.0-0.8) 04/07/21 10:17 Baso # (Auto) 0.1 10^3/uL (0.0-0.1) 04/07/21 10:17 Nucleated RBC % (auto) 0 % 04/07/21 10:17 Nucleated RBCs # 0.0 /100WBC 04/07/21 10:17 Sodium 138 mmol/L (136-145) 04/07/21 10:17 Potassium 4.5 mmol/L (3.5-5.1) 04/07/21 10:17 Chloride 104 mmol/L (98-107) 04/07/21 10:17 Carbon Dioxide 19 mmol/L (22-29) L 04/07/21 10:17 Anion Gap 19.5 (5-19) H 04/07/21 10:17 BUN 19 mg/dL (8-23) 04/07/21 10:17 Creatinine 0.8 mg/dL (0.7-1.2) 04/07/21 10:17 GFR Calculation Not Reportable 04/07/21 10:17 Glucose 193 mg/dL (65-115) H 04/07/21 10:17 Calculated Osmolality 294 mOsm/kg (285-295) 04/07/21 10:17 Calcium 9.7 mg/dL (8.5-10.5) 04/07/21 10:17 Total Bilirubin 0.4 mg/dL (0.15-1.2) 04/07/21 10:17 AST 45 U/L (0-40) H 04/07/21 10:17 ALT 83 U/L (0-41) H 04/07/21 10:17 Alkaline Phosphatase 62 IU/L (40-130) 04/07/21 10:17 Troponin T Baseline 13 ng/L (0-15) 04/07/21 10:17 Total Protein 6.6 g/dL (6.6-8.7) 04/07/21 10:17 Albumin 4.1 g/dL (3.5-5.2) 04/07/21 10:17 Globulin 2.5 g/dL (1.3-4.6) 04/07/21 10:17 Discharge Plan Discharge Patient Disposition: Home Clinical Impression: Afib Condition: Stable Prescriptions: Changed amlodipine 10 mg Tablet 5 mg PO BEDTIME Qty: 0 0RF metoprolol tartrate 50 mg Tablet 50 mg PO BID Qty: 0 0RF No Action Aspir-81 81 mg tablet,delayed release (DR/EC) 325 mg PO DAILY 0RF B Complex Plus Vitamin C 24-02-60-5-300 mg capsule 1 cap PO DAILY 0RF Rx Instructions: give with food (meal/snack) metformin 500 mg tablet 500 mg PO BID 0RF Lasix 20 mg tablet 20 mg PO DAILY Qty: 90 3RF budesonide-formoterol [Symbicort] 160-4.5 mcg/actuation HFA aerosol inhaler 2 puff INHALATION BID Qty: 10.2 3RF Spiriva Respimat 2.5 mcg/actuation mist 2 inh INHALATION QAM Qty: 4 3RF venlafaxine 75 mg Tablet 75 mg PO DAILY 0RF pantoprazole 20 mg Tablet,Delayed Release (Dr/Ec) 20 mg PO DAILY 0RF naproxen sodium 220 mg Tablet 220 mg PO BID PRN (Reason: Pain) 0RF ProAir HFA 90 mcg/actuation Hfa Aerosol Inhaler 2 puff INHALATION QID PRN (Reason: Shortness Of Breath) 0RF losartan 100 mg Tablet 100 mg PO DAILY 0RF rosuvastatin 40 mg Tablet 40 mg PO QPM 0RF Fish Oil 1,000 mg (120 mg-180 mg) Capsule 1 cap PO BID 0RF Flomax 0.4 mg Capsule 0.8 mg PO QPM Qty: 0 0RF Colace Clear 50 mg capsule 50 mg PO BID Qty: 60 0RF meclizine 25 mg tablet 25 mg PO QPM 0RF Discharge Orders: Discharge ED (Routine); Ordered 04/07/21 Ordered By: Vasiliy Sevilla Referrals: Haresh Dorman, DO [Primary Care Provider] - Discharge Diet: Usual diet Discharge Activity: Resume usual activity Patient Instructions: Opioid Safety Activity Restrictions/Additional Instructions: Follow-up with Dr. Schneider within the next week to reevaluate blood pressure and heart rate. Discussed with Dr. Padilla whether or not you should be on anticoagulants. Coding Level of Care Code ED Hand Finisher for Su [place]
[2021-04-07 11:15] VITALS: BP 118/80; PULSE 102; RESP 18; O2SAT 94
== END 2021-04-07 11:16 | disposition home or self-care (01) ==
PROVIDERS: Emergency Provider Family Medicine; PCP Emergency Medicine Emergency Medical Services
DX: I48.91 Unspecified atrial fibrillation (principal); Z79.82 Long term (current) use of aspirin; Z79.84 Long term (current) use of oral hypoglycemic drugs; I11.0 Hypertensive heart disease with heart failure; I50.9 Heart failure, unspecified; J44.9 Chronic obstructive pulmonary disease, unspecified; E78.5 Hyperlipidemia, unspecified; Z87.891 Personal history of nicotine dependence
CPT/HCPCS: 80053; 84484; 85025; 93005; 99283

== ENCOUNTER 2021-07-05 14:20 | Emergency (ER) | payer OTHER, SELFPAY ==
[2021-07-05 14:22] VITALS: BP 133/76; PULSE 71; RESP 20; TEMP 37.2; O2SAT 92
--- NOTE | 2021-07-05 14:35 | XRR_ITS ---
PROCEDURE INFORMATION: Exam: XR Chest Exam date and time: 07/05/2021 3:09 PM Age: 76 years old Clinical indication: Cough and dyspnea; Additional info: Dyspnea/cough TECHNIQUE: Imaging protocol: XR of the chest. Views: 1 view. COMPARISON: CR XR chest 1V portable [id number] 01/29/2021 2:22 PM FINDINGS: Lungs: Bibasilar atelectasis versus infiltrate. Scattered calcified granulomas again seen. Pleural spaces: Unremarkable. No pleural effusion. No pneumothorax. Heart/Mediastinum: Cardiomegaly. Bones/joints: Unremarkable. XR/XR chest 1V portable [id number] IMPRESSION: 1. Cardiomegaly. 2. Bibasilar atelectasis versus infiltrate. 3. Scattered calcified granulomas again seen.
--- NOTE | 2021-07-05 14:36 | ECG_ITS ---
[facility] Test Date: 2021-07-05 Pat Name: Rashad Michel Department: Room: Gender: Male Assessment Nurse: : 1945 Requested By: Vasiliy Lyn Order Number: [id number] Dayanna MD: Siva Bardales M.D. Measurements Intervals [place] Rate: 67 P: 44 [place]: 172 QRS: 68 QRSD: 107 T: -6 QT: 366 QTc: 388 Interpretive Statements SINUS RHYTHM PROBABLE INFERIOR MYOCARDIAL INFARCTION , OF INDETERMINATE AGE [35 ms Q WAVE IN II/aVF] Compared to ECG 04/07/2021 09:57:31 Atrial fibrillation no longer present Myocardial infarct finding still present Electronically Signed On 07-05-2021 22:00:07 CDT by Siva Bardales M.D. [id number]
--- NOTE | 2021-07-05 14:37 | ED_ITS ---
HPI - SOB/Dyspnea General: Chief Complaint: Shortness of Breath/Dyspnea Stated Complaint: SOB, coughing Time Seen by Provider: 07/05/21 14:33 Source: patient Mode of arrival: ambulatory Limitations: no limitations History of Present Illness: HPI Narrative: 76-year-old male presents emergency room with complaints of shortness of breath he says for months he has had shortness of breath with the last few days has been increasing. Moderately productive cough no fever sweats or chills no chest pain no nausea vomiting or diarrhea denies dysuria urgency or frequency. He is on long acting beta agonist inhaled corticosteroid as well as anticholinergics. He denies missing any medications or any change in medicines recently. MD elicited complaint: shortness of breath and cough Pertinent past history: COPD Onset (ago): month(s) (2) Timing: intermittent Severity: moderate Exacerbating factors: exertion and coughing Relieving factors: nothing Associated symptoms: Deny abdominal pain, chest congestion, chest pain, cough, diaphoresis, dizziness, extremity pain, fever(s), hemoptysis, lightheadedness, myalgias, nausea, orthopnea, palpitations, paresthesias, polydipsia, polyuria, rash, sense of impending doom, syncope or vomiting Treatment prior to arrival: none Review of Systems Const: Denies: fever(s), chills, body aches or diaphoresis Card: Denies: chest pain, palpitations, lightheadedness, syncope or orthopnea Resp: Reports: dyspnea, non-productive cough and wheezing; Denies: productive cough, hemoptysis or chest congestion GI: Denies: abdominal pain, nausea or vomiting : Denies: flank pain, difficulty urinating, dysuria, urinary frequency or urinary urgency Musc: Denies: extremity pain Neuro: Denies: dizziness Endo: Denies: polyuria or polydipsia PFSH ED PFSH: Medical History Afib CHF (congestive heart failure) COPD (chronic obstructive pulmonary disease) Depression Diabetes GERD (gastroesophageal reflux disease) Heart attack Hemorrhoid HTN (hypertension) Hyperlipidemia Prostate enlargement Ventricular arrhythmia Surgical History H/O hemorrhoidectomy History of colonoscopy 2017 Stented coronary artery Family History Father Cancer Lung Mother Cancer Lung Brother , Age 32 CAD (coronary artery disease) Social History Smoking and tobacco status: former smoker Quit status (tobacco): has quit using tobacco Year quit tobacco: 1992 - PPD x 40 Years Alcohol intake: never Lives independently: Yes Household members: spouse Marital status: service: Yes Current occupational status: retired History of recent travel: No Current gender identity: Male Physical Exam Const: COMMON NORMALS: no acute distress GENERAL APPEARANCE: cooperative and comfortable ORIENTATION/CONSCIOUSNESS: Yes awake, Yes oriented to person, Yes oriented to place and Yes oriented to time HENMT: COMMON NORMALS: normocephalic, atraumatic and hearing grossly normal bilaterally HEAD & SCALP: normocephalic and atraumatic Neck/C-Spine: COMMON NORMALS: no JVD Resp: COMMON NORMALS: normal respiratory effort, No retractions and No use of accessory muscles AUSCULTATION: wheezes expiratory wheezes (Scant bilateral) Cardio: COMMON NORMALS: no JVD, regular rate, regular rhythm and No murmurs present (Cardio) RATE: regular rate RHYTHM: regular rhythm GI: COMMON NORMALS: Soft to palpation and No hepatosplenomegaly present AUSCULTATION: Yes normoactive bowel sounds PALPATION: Yes Soft to palpation, No Tenderness to palpation present (GI), No Guarding due to palpation present (GI) and Yes No hepatosplenomegaly present Extremity: COMMON NORMALS: normal to inspection, capillary refill normal, no clubbing, cyanosis or edema, no calf tenderness and no pedal edema Neuro: SENSORIUM/ORIENTATION: Yes oriented to person, Yes oriented to place and Yes oriented to time Skin: COMMON NORMALS: no rashes or lesions noted GENERAL SKIN EXAM: no rashes or lesions noted Course Vital Signs: Vital signs: Vital Signs Temperature 99.0 F 07/05/21 14:22 Pulse Rate 79 07/05/21 15:03 Respiratory Rate 17 07/05/21 14:56 Blood Pressure 133/76 07/05/21 14:22 Pulse Oximetry 93 07/05/21 14:56 MDM - SOB/Dyspnea Medical Decision Making No clear infiltrates or signs of congestive heart failure he is improved after being given albuterol inhaler. We will discharge him home on a course of tapering steroids doxycycline encouraged him to use albuterol more aggressively follow-up with his primary care to see about adjustments of his long-term medications. Medical Records I reviewed the patient's medical records. Lab Data I reviewed the patient's lab results. : 07/05/21 14:54 07/05/21 14:54 Labs/Radiology: Radiology Impressions Chest X-Ray 07/05/21 14:35 IMPRESSION: 1. Cardiomegaly. 2. Bibasilar atelectasis versus infiltrate. 3. Scattered calcified granulomas again seen. Laboratory Results WBC 6.8 10^3/uL (4.0-10.0) 07/05/21 14:54 RBC 5.41 10^6/uL (4.1-5.3) H 07/05/21 14:54 Hgb 16.2 g/dL (11.7-16.6) 07/05/21 14:54 Hct 48.4 % (42.0-52.0) 07/05/21 14:54 MCV 89.5 fl (80-94) 07/05/21 14:54 MCH 29.9 pg (28.0-34.0) 07/05/21 14:54 MCHC 33.5 g/dL (30.0-36.0) 07/05/21 14:54 RDW 13.6 % (12.1-15.1) 07/05/21 14:54 Plt Count 213 10^3/cmm (130-400) 07/05/21 14:54 MPV 11.8 fL (7.4-10.4) H 07/05/21 14:54 Neut % (Auto) 60.2 % 07/05/21 14:54 Lymph % (Auto) 25.6 % 07/05/21 14:54 [place] % (Auto) 10.7 % 07/05/21 14:54 Eos % (Auto) 2.8 % 07/05/21 14:54 Baso % (Auto) 0.6 % 07/05/21 14:54 Neut # (Auto) 4.06 10^3/uL (1.8-7.7) 07/05/21 14:54 Lymph # (Auto) 1.7 10^3/uL (0.8-4.8) 07/05/21 14:54 [place] # (Auto) 0.7 10^3/uL (0.2-0.9) 07/05/21 14:54 Eos # (Auto) 0.2 10^3/uL (0.0-0.8) 07/05/21 14:54 Baso # (Auto) 0.0 10^3/uL (0.0-0.1) 07/05/21 14:54 Nucleated RBC % (auto) 0 % 07/05/21 14:54 Nucleated RBCs # 0.0 /100WBC 07/05/21 14:54 Specimen Type Arterial 07/05/21 15:00 Sample Site Radial, right 07/05/21 15:00 ABG pH 7.43 (7.35-7.45) 07/05/21 15:00 ABG pCO2 36.3 mmHg (35-45) 07/05/21 15:00 ABG pO2 64.9 mmHg (80.0-100.0) L 07/05/21 15:00 ABG HCO3 24.1 mmol/L (22-26) 07/05/21 15:00 ABG O2 Saturation 94.5 07/05/21 15:00 ABG Base Excess 0.1 mmol/L (-2.0-2.0) 07/05/21 15:00 Tristin Test Pos 07/05/21 15:00 A-a O2 Gradient 5.0 mmHg (5-10) 07/05/21 15:00 Hematocrit 50.2 % (42-52) 07/05/21 15:00 Hgb O2 Saturation 92.7 % (95-100) L 07/05/21 15:00 Carboxyhemoglobin 1.0 %THgb (0.4-20.1) 07/05/21 15:00 Methemoglobin 0.9 % (0.4-1.5) 07/05/21 15:00 Total Hemoglobin 16.4 g/dL (14-18) 07/05/21 15:00 Sodium 139.0 mmol/L (131-143) 07/05/21 15:00 Potassium 4.2 mmol/L (3.5-5.0) 07/05/21 15:00 Glucose 255.0 mg/dL (70-115) H 07/05/21 15:00 Ionized Calcium 1.2 mmol/L (1.1-1.4) 07/05/21 15:00 O2 Delivery Device Room air 07/05/21 15:00 FiO2 21.0 % 07/05/21 15:00 Silk Screen Repairer ID Ed 07/05/21 15:00 Sodium 135 mmol/L (136-145) L 07/05/21 14:54 Potassium 4.2 mmol/L (3.5-5.1) 07/05/21 14:54 Chloride 100 mmol/L (98-107) 07/05/21 14:54 Carbon Dioxide 22 mmol/L (22-29) 07/05/21 14:54 Anion Gap 17.2 (5-19) 07/05/21 14:54 BUN 14 mg/dL (8-23) 07/05/21 14:54 Creatinine 0.8 mg/dL (0.7-1.2) 07/05/21 14:54 GFR Calculation Not Reportable 07/05/21 14:54 Glucose 263 mg/dL (65-115) H 07/05/21 14:54 Calculated Osmolality 290 mOsm/kg (285-295) 07/05/21 14:54 Calcium 9.3 mg/dL (8.5-10.5) 07/05/21 14:54 Total Bilirubin 0.3 mg/dL (0.15-1.2) 07/05/21 14:54 AST 46 U/L (0-40) H 07/05/21 14:54 ALT 75 U/L (0-41) H 07/05/21 14:54 Alkaline Phosphatase 74 IU/L (40-130) 07/05/21 14:54 Troponin T Baseline 11 ng/L (0-15) 07/05/21 14:54 NT-Pro-B Natriuret Pep 119 pg/mL (0-450) 07/05/21 14:54 Total Protein 6.9 g/dL (6.6-8.7) 07/05/21 14:54 Albumin 4.3 g/dL (3.5-5.2) 07/05/21 14:54 Globulin 2.6 g/dL (1.3-4.6) 07/05/21 14:54 Discharge Plan Discharge Patient Disposition: Home Clinical Impression: Acute exacerbation of chronic obstructive airways disease Condition: Stable Prescriptions: New doxycycline hyclate 100 mg capsule 100 mg PO BID 10 Days Qty: 20 0RF prednisone 20 mg tablet 20 mg PO TID Qty: 15 0RF Rx Instructions: 1 p.o. 3 times daily x3 days, 1 p.o. twice daily x2 days, 1 p.o. daily x2 days albuterol sulfate 90 mcg/actuation HFA aerosol inhaler 2 inh INHALATION Q4H PRN (Reason: shortness of breath or wheezing) Qty: 18 0RF No Action Aspir-81 81 mg tablet,delayed release (DR/EC) 325 mg PO DAILY 0RF B Complex Plus Vitamin C 82-65-10-5-300 mg capsule 1 cap PO DAILY 0RF Rx Instructions: give with food (meal/snack) metformin 500 mg tablet 500 mg PO BID 0RF magnesium oxide 400 mg (241.3 mg magnesium) tablet 400 mg PO DAILY 0RF Eliquis 5 mg tablet 5 mg PO BID Qty: 180 3RF metoprolol tartrate 50 mg tablet 50 mg PO DIRECTED Qty: 0 0RF Rx Instructions: Take 1/2 tab in the AM and take 1 tab in the PM. Lasix 20 mg tablet 20 mg PO DAILY Qty: 90 3RF budesonide-formoterol [Symbicort] 160-4.5 mcg/actuation HFA aerosol inhaler 2 puff INHALATION BID Qty: 10.2 3RF Spiriva Respimat 2.5 mcg/actuation mist 2 inh INHALATION QAM Qty: 4 3RF venlafaxine 75 mg Tablet 75 mg PO DAILY 0RF pantoprazole 20 mg Tablet,Delayed Release (Dr/Ec) 20 mg PO DAILY 0RF ProAir HFA 90 mcg/actuation Hfa Aerosol Inhaler 2 puff INHALATION QID PRN (Reason: Shortness Of Breath) 0RF losartan 100 mg Tablet 100 mg PO DAILY 0RF rosuvastatin 40 mg Tablet 40 mg PO QPM 0RF Fish Oil 1,000 mg (120 mg-180 mg) Capsule 1 cap PO BID 0RF Flomax 0.4 mg Capsule 0.8 mg PO QPM Qty: 0 0RF Colace Clear 50 mg capsule 50 mg PO BID Qty: 60 0RF meclizine 25 mg tablet 25 mg PO QPM 0RF naproxen sodium 220 mg tablet 220 mg PO BID PRN (Reason: Pain) 0RF Label Comments: pt states he is no longer taking amlodipine 10 mg Tablet 5 mg PO BEDTIME Qty: 0 0RF Discharge Orders: Discharge ED (Routine); Ordered 07/05/21 Ordered By: Vasiliy Sevilla Referrals: Haresh Dorman DO [Primary Care Provider] - Discharge Diet: Usual diet Discharge Activity: Increase activity as tolerated Patient Instructions: Opioid Safety Activity Restrictions/Additional Instructions: Follow-up with your doctor within the week. Return to the ER if you have furthe r problems. 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
[2021-07-05 14:56] VITALS: PULSE 69; RESP 17; O2SAT 93
[2021-07-05] MEDS: ipratropium-albuterol 3 mL Neb INHALATION (14:56)
[2021-07-05 15:00] LABS: Basophils % 0.6 %; Eosinophils # 0.2 10^3/uL (0.0-0.8); Eosinophils % 2.8 %; Hematocrit 48.4 % (42.0-52.0); Hemoglobin 16.2 g/dL (11.7-16.6); Lymphocytes # 1.7 10^3/uL (0.8-4.8); Lymphocytes % 25.6 %; Mean Corpuscular HGB Conc 33.5 g/dL (30.0-36.0); Mean Corpuscular Hemoglobin 29.9 pg (28.0-34.0); Mean Corpuscular Volume 89.5 fl (80-94); Mean Platelet Volume 11.8 fL (7.4-10.4); Monocytes # 0.7 10^3/uL (0.2-0.9); Monocytes % 10.7 %; Neutrophils # 4.06 10^3/uL (1.8-7.7); Neutrophils % 60.2 %; Nucleated Red Blood Cells % 0 %; Platelet Count 213 10^3/cmm (130-400); Red Blood Count 5.41 10^6/uL (4.1-5.3); Red Cell Distribution Width 13.6 % (12.1-15.1); White Blood Count 6.8 10^3/uL (4.0-10.0)
[2021-07-05 15:03] VITALS: PULSE 79
[2021-07-05 15:07] LABS: ABG PCO2 36.3 mmHg (35-45); ABG PH Result 7.43 (7.35-7.45); Arterial Blood Gas Hematocrit 50.2 % (42-52); Base Excess ABG 0.1 mmol/L (-2.0-2.0); Blood Gas Allen Test Pos; Blood Gas Operator Identificat ED; Blood Gas Sample Site Radial, right; Blood Gas Sample Type Arterial; HCO3 ABG 24.1 mmol/L (22-26); HGB O2 Sat 92.7 % (95-100); Ionized Calcium Level - ABG 1.2 mmol/L (1.1-1.4); Methemoglobin 0.9 % (0.4-1.5); Oxygen Device ROOM AIR; Oxygen Saturation ABG 94.5; PO2 ABG 64.9 mmHg (80.0-100.0); Potassium Level - ABG 4.2 mmol/L (3.5-5.0); Total Hemoglobin 16.4 g/dL (14-18)
[2021-07-05 15:20] LABS: Troponin(5th) Baseline 11 ng/L (0-15)
[2021-07-05 15:29] LABS: Alanine Aminotransferase 75 U/L (0-41); Albumin Level 4.3 g/dL (3.5-5.2); Alkaline Phosphatase 74 IU/L (40-130); Anion Gap 17.2 (5-19); Aspartate Amino Transferase 46 U/L (0-40); Blood Urea Nitrogen 14 mg/dL (8-23); Calcium 9.3 mg/dL (8.5-10.5); Carbon Dioxide 22 mmol/L (22-29); Chloride 100 mmol/L (98-107); Globulin 2.6 g/dL (1.3-4.6); Glucose 263 mg/dL (65-115); NT Pro B Type Natriuretic Pept 119 pg/mL (0-450); Osmolality Calculated 290 mOsm/kg (285-295); Potassium 4.2 mmol/L (3.5-5.1); Sodium 135 mmol/L (136-145); Total Bilirubin 0.3 mg/dL (0.15-1.2); Total Protein 6.9 g/dL (6.6-8.7)
[2021-07-05 16:02] VITALS: BP 123/71; PULSE 90; RESP 18; O2SAT 90
== END 2021-07-05 16:03 | disposition home or self-care (01) ==
PROVIDERS: Emergency Provider Family Medicine; PCP Emergency Medicine Emergency Medical Services
DX: J44.1 Chronic obstructive pulmonary disease with (acute) exacerbation (principal); E11.9 Type 2 diabetes mellitus without complications; E78.5 Hyperlipidemia, unspecified; K21.9 Gastro-esophageal reflux disease without esophagitis; I48.91 Unspecified atrial fibrillation; I11.0 Hypertensive heart disease with heart failure; I50.9 Heart failure, unspecified; I25.2 Old myocardial infarction
CPT/HCPCS: 36600; 71045; 80048; 80051; 80053; 82330; 82805; 83880; 84484; 85025; 93005; 94640; 99284

== ENCOUNTER → 2021-07-21 15:26 | Outpatient (BNVA) | payer OTHER, SELFPAY | PROVIDERS: PCP Emergency Medicine Emergency Medical Services; Visit Provider Nurse Practitioner Family | DX: I48.91 Unspecified atrial fibrillation (principal); I25.10 Atherosclerotic heart disease of native coronary artery without angina pectoris; I11.0 Hypertensive heart disease with heart failure; I50.9 Heart failure, unspecified; Z87.891 Personal history of nicotine dependence | CPT/HCPCS: 99214 ==

== ENCOUNTER → 2021-07-30 14:07 | Outpatient (BNVA) | payer OTHER, SELFPAY | PROVIDERS: PCP Emergency Medicine Emergency Medical Services; Visit Provider Internal Medicine Critical Care Medicine | DX: J44.9 Chronic obstructive pulmonary disease, unspecified (principal); R91.1 Solitary pulmonary nodule; G47.30 Sleep apnea, unspecified; Z87.891 Personal history of nicotine dependence; I10 Essential (primary) hypertension; E78.5 Hyperlipidemia, unspecified; K21.9 Gastro-esophageal reflux disease without esophagitis; E11.8 Type 2 diabetes mellitus with unspecified complications | CPT/HCPCS: 99214 ==

== ENCOUNTER 2021-10-08 09:55 | Outpatient (CLI) | payer OTHER, SELFPAY ==
--- NOTE | 2021-10-08 14:16 | PFTS_ITS ---
Date of Study:10/08/21 Date of Dictation: 10/13/2021 MECHANICS: Postbronchodilator forced vital capacity (FVC) is reduced. Postbronchodilator forced expiratory volume in one second (FEV1) is moderately reduced. FEV1/FVC is reduced. There is no significant response to bronchodilator. FLOW VOLUME LOOP: Sloping of end expiratory limb suggestive of airflow obstruction . LUNG VOLUMES: Total lung capacity (TLC) is normal. Residual volume (RV) is normal. DIFFUSING CAPACITY FOR CARBON MONOXIDE: Mildly reduced . INTERPRETATION: The postbronchodilator spirometry showed moderate airflow obstruction.? Although the percentage of change in postbronchodilator FVC and FEV1 is less than 12%- patient did have near significant response to bronchodilators.? Lung volumes are normal.? There is mild gas transfer defect.? Clinical correlation recommended. MTDD
== END 2021-10-08 09:56 | disposition home or self-care (01) ==
LOC: RT 09:55
PROVIDERS: PCP Emergency Medicine Emergency Medical Services; Visit Provider Internal Medicine Critical Care Medicine
DX: J44.9 Chronic obstructive pulmonary disease, unspecified (principal)
CPT/HCPCS: 94060; 94618; 94726; 94729; J7611

== ENCOUNTER → 2021-10-16 12:42 | Outpatient (BNVA) | payer OTHER, SELFPAY | PROVIDERS: PCP Emergency Medicine Emergency Medical Services; Visit Provider Internal Medicine | DX: I11.0 Hypertensive heart disease with heart failure (principal); I50.9 Heart failure, unspecified; I48.91 Unspecified atrial fibrillation; Z79.01 Long term (current) use of anticoagulants; E78.5 Hyperlipidemia, unspecified; I25.10 Atherosclerotic heart disease of native coronary artery without angina pectoris; G47.30 Sleep apnea, unspecified; Z87.891 Personal history of nicotine dependence; J43.2 Centrilobular emphysema; R91.1 Solitary pulmonary nodule; Z91.19 Patient's noncompliance with other medical treatment and regimen | CPT/HCPCS: 99214 ==

== ENCOUNTER 2021-11-02 00:23 | Emergency (ER) | payer OTHER, SELFPAY ==
[2021-11-02] VITALS (7 sets, daily range): BP systolic 116–150; BP diastolic 69–85; PULSE 57–74; RESP 14–19; TEMP 36.8; O2SAT 92–98; BMI 31.3
[2021-11-02 04:55] LABS: Basophils # 0.1 10^3/uL (0.0-0.1); Basophils % 0.6 %; Eosinophils # 0.2 10^3/uL (0.0-0.8); Eosinophils % 2.8 %; Hematocrit 50.7 % (42.0-52.0); Hemoglobin 16.7 g/dL (11.7-16.6); Lymphocytes # 2.2 10^3/uL (0.8-4.8); Lymphocytes % 26.1 %; Mean Corpuscular HGB Conc 32.9 g/dL (30.0-36.0); Mean Corpuscular Hemoglobin 30.3 pg (28.0-34.0); Mean Corpuscular Volume 91.8 fl (80-94); Monocytes % 12.3 %; Neutrophils # 4.87 10^3/uL (1.8-7.7); Neutrophils % 57.6 %; Nucleated Red Blood Cells % 0 %; Platelet Count 194 10^3/cmm (130-400); Red Blood Count 5.52 10^6/uL (4.1-5.3); Red Cell Distribution Width 13.1 % (12.1-15.1); White Blood Count 8.5 10^3/uL (4.0-10.0)
[2021-11-02 05:17] LABS: Alanine Aminotransferase 66 U/L (0-41); Albumin Level 4.5 g/dL (3.5-5.2); Alkaline Phosphatase 82 U/L (40-130); Anion Gap 16.6 (5-19); Aspartate Amino Transferase 44 U/L (0-40); Blood Urea Nitrogen 17 mg/dL (8-23); Calcium 9.6 mg/dL (8.5-10.5); Carbon Dioxide 24 mmol/L (22-29); Chloride 99 mmol/L (98-107); Glucose 284 mg/dL (65-115); Lipase 40 U/L (13-60); Osmolality Calculated 292 mOsm/kg (285-295); Potassium 4.6 mmol/L (3.5-5.1); Sodium 135 mmol/L (136-145); Total Bilirubin 0.5 mg/dL (0.15-1.2); Total Protein 7.5 g/dL (6.6-8.7)
--- NOTE | 2021-11-02 05:27 | CTR_ITS ---
PROCEDURE INFORMATION: Exam: CT Abdomen And Pelvis With Contrast Exam date and time: 11/02/2021 6:54 AM Age: 76 years old Clinical indication: Epigastric abdominal pain. TECHNIQUE: Imaging protocol: Computed tomography of the abdomen and pelvis with contrast. Radiation optimization: All CT scans at this facility use at least one of these dose optimization techniques: automated exposure control; mA and/or kV adjustment per patient size (includes targeted exams where dose is matched to clinical indication); or iterative reconstruction. Contrast material: OMNI 350; Contrast volume: 80 ml; Contrast route: INTRAVENOUS (IV); COMPARISON: CT abdomen pelvis w con* [id number] 05/22/2019 3:50 PM RADIATION DOSE METRICS: Total DLP (mGy-cm): 793.36 FINDINGS: Lungs: There are numerous calcified granulomata the lung bases. A solid fissural nodule on the right measures 2.5 mm (image 3). A solid nodule in the left measures 3.2 mm (image 1). These nodules have been stable since at least June 2019 and are almost certainly benign by Fleischner society criteria. Liver: The liver is enlarged measuring 21.1 cm. There is probable hepatic steatosis. There are calcified granulomata in the liver. There is possible early hepatic cirrhosis. Gallbladder and bile ducts: The gallbladder is distended. There is slight haziness adjacent to the gallbladder. No definite stone is seen. The gallbladder wall is mildly prominent. Recommend ultrasound further assess. Pancreas: The pancreas is unremarkable. Spleen: The spleen is enlarged measuring 13.9 cm. Small hypodense lesions in the spleen may reflect hemangiomas. Adrenal glands: The adrenal glands are unremarkable. Kidneys and ureters: A simple right renal cyst measures 3.4 cm. Subcentimeter renal hypodensities are too small to accurately characterize and require no follow-up. Stomach and bowel: The stomach and small bowel are unremarkable. Colonic diverticula without evidence of acute diverticulitis. Appendix: The appendix is unremarkable. Intraperitoneal space: No free intraperitoneal air is seen. Vasculature: Possible pulmonary emboli in the lung bases. Consider CTA chest to further assess. No abdominal aortic aneurysm. Lymph nodes: A periportal lymph node measures 1.8 x 1.0 cm. A lymph node in the jose david hepatis/gallbladder fossa measures 1.1 x 1.0 cm. A gastrohepatic lymph node measures 1.7 x 1.8 cm. Urinary bladder: The bladder wall appears thickened and trabeculated. The prostate is enlarged with mass effect on the bladder base. Reproductive: The prostate measures 4.4 x 4.6 cm. Bones/joints: No acute fracture is identified. Soft tissues: No subcutaneous soft tissue swelling is seen. CT/CT abdomen pelvis w con* [id number] IMPRESSION: 1. The gallbladder is distended. There is slight haziness adjacent to the gallbladder. No definite stone is seen. The gallbladder wall is mildly prominent. Recommend ultrasound further assess. 2. Possible pulmonary emboli in the lung bases. Consider CTA chest to further assess. 3. Hepatosplenomegaly with probable hepatic steatosis, possible early hepatic cirrhosis and periportal/retroperitoneal lymphadenopathy. 4. The bladder wall is thickened and trabeculated. This likely reflects partial bladder outlet obstruction. Superimposed cystitis is not excluded. Correlate with urinalysis. 5. Enlarged prostate. Correlate with serum PSA. 6. Colonic diverticulosis. COMMENTS: Consistent with the [employer]'s Incidental Findings Committee white paper (J Am Nidhi [employer]iol 2018): Any incidental renal lesion less than 1 cm or classified as too small to characterize, or any incidental cystic renal lesion characterized as simple-appearing, is likely benign. No follow-up imaging is recommended for these lesions per consensus recommendations based on imaging criteria.
[2021-11-02 06:39] LABS: Add Urine Microscopic? YES; Bilirubin Urine Neg (Negative); Blood Urine Neg (Negative); Glucose Urine UA 4+ (Normal); Ketones Urine 1+ (Negative); Leukocyte Esterase Urine Negative (Negative); Nitrate Urine Negative (Negative); Protein Urine 1+ (Negative); Urine Appearance Clear (CLEAR); Urine Color Yellow (Yellow); Urobilinogen Urine Norm (Negative); pH Urine 5 (5-7)
[2021-11-02 06:40] LABS: Add Urine Culture? No; Bacteria Urine TRACE /hpf; Coarse Granular Casts Urine 0-4 /lpf; Mucus Urine 1+ /hpf; WBC Urine 0-4 /hpf (0-5)
--- NOTE | 2021-11-02 06:42 | W.ED.ABDPA2 ---
Documented by User: Patrick Sanders DO 11/02/21 16:43 HPI - Abdominal Pain General: Chief Complaint: Abdominal Pain Stated Complaint: abd pain Time Seen by Provider: 11/02/21 05:51 Source: patient and family History of Present Illness: 76-year-old male who has had for the past 3 nights episodes of right upper quadrant and epigastric pain. He has had some diarrhea as well. No vomiting. He has nausea. No fever. He was told long ago that he had a bad gallbladder . He was also told that if it was not bothering him at that time, not to worry about it. He is on anticoagulation. MD elicited complaint: abdominal pain Pertinent past history: other Onset (ago): day(s) Pain Consistency: intermittent Location: RUQ Radiation: none Migration to: no migration Relieving factors: nothing Associated Symptoms: Reports change in bowel habits, nausea and vomiting; Denies dysuria and fever(s) Review of Systems Const: Denies: fever(s) Eyes: Denies: change in vision Card: Denies: chest pain or palpitations Resp: Denies: dyspnea, productive cough, non-productive cough or wheezing GI: Reports: nausea, vomiting and change in bowel habits : Denies: dysuria Skin/Breast: Denies: rash Neuro: Denies: headache(s), weakness in extremities, dizziness or confusion PFSH ED PFSH: Medical History Afib CHF (congestive heart failure) COPD (chronic obstructive pulmonary disease) Depression Diabetes GERD (gastroesophageal reflux disease) Heart attack Hemorrhoid HTN (hypertension) Hyperlipidemia Prostate enlargement Ventricular arrhythmia Surgical History H/O hemorrhoidectomy History of colonoscopy 2017 Stented coronary artery Family History Father Cancer Lung Mother Cancer Lung Brother , Age 32 CAD (coronary artery disease) Social History Smoking and tobacco status: former smoker Quit status (tobacco): has quit using tobacco Year quit tobacco: 1992 - PPD x 40 Years Alcohol intake: never Lives independently: Yes Household members: spouse Marital status: service: Yes Current occupational status: retired History of recent travel: No Current gender identity: Male Physical Exam Const: COMMON NORMALS: no acute distress GENERAL APPEARANCE: cooperative; not ill appearing and not frail appearing HENMT: COMMON NORMALS: normocephalic, atraumatic and Normal external nose present HEAD & SCALP: normocephalic and atraumatic FACE & SINUS: normal facial exam and face symmetric NOSE: Normal external nose present Eye: COMMON NORMALS: Equal, round and reactive pupils present and EOMs intact bilaterally PUPIL: Yes Equal, round and reactive pupils present Neck/C-Spine: GENERAL: Yes trachea midline Chest: CHEST: Yes Symmetrical chest wall rise Resp: COMMON NORMALS: normal respiratory effort, No retractions, No use of accessory muscles and clear to auscultation bilaterally AUSCULTATION: clear to auscultation bilaterally Cardio: COMMON NORMALS: regular rate and regular rhythm RATE: regular rate RHYTHM: regular rhythm GI: COMMON NORMALS: Normal to inspection, nondistended, normoactive bowel sounds present PALPATION: Yes Tenderness to palpation present (GI) Details: RUQ : COMMON NORMALS: Yes no CVA tenderness BLADDER/KIDNEY EXAM: Yes no CVA tenderness Back/Pelvis: COMMON NORMALS: no CVA tenderness Extremity: COMMON NORMALS: no pedal edema Neuro: BISI COMA SCALE: document GCS findings [place] coma scale eye opening: Spontaneous [place] coma scale verbal response: Orientated [place] coma scale motor response: Obey commands B[place] coma scale total score: 15 SENSORY EXAM: Yes extremities (intact) Psych: COMMON NORMALS: speech normal SPEECH: Yes normal speech Skin: COMMON NORMALS: no rashes or lesions noted GENERAL SKIN EXAM: no rashes or lesions noted Course Vital Signs: Vital signs: Vital Signs Temperature 98.3 F 11/02/21 00:34 Pulse Rate 63 11/02/21 09:09 Respiratory Rate 14 11/02/21 09:09 Blood Pressure 150/85 11/02/21 09:09 Pulse Oximetry 92 11/02/21 09:09 Oxygen Delivery Me thod 11/02/21 06:34 MDM - Abdominal Pain Medical Decision Making CBC is not remarkable. BMP shows hyperglycemia. Liver enzymes are not elevated significantly. Bilirubin is 0.5. CT of the abdomen is pending Lab Data : 11/02/21 04:40 11/02/21 04:40 Labs/Radiology: Radiology Impressions Abdomen/Pelvis CT 11/02/21 05:27 IMPRESSION: 1. The gallbladder is distended. There is slight haziness adjacent to the gallbladder. No definite stone is seen. The gallbladder wall is mildly prominent. Recommend ultrasound further assess. 2. Possible pulmonary emboli in the lung bases. Consider CTA chest to further assess. 3. Hepatosplenomegaly with probable hepatic steatosis, possible early hepatic cirrhosis and periportal/retroperitoneal lymphadenopathy. 4. The bladder wall is thickened and trabeculated. This likely reflects partial bladder outlet obstruction. Superimposed cystitis is not excluded. Correlate with urinalysis. 5. Enlarged prostate. Correlate with serum PSA. 6. Colonic diverticulosis. COMMENTS: Consistent with the [place] [employer]'s Incidental Findings Committee white paper (J Am Nidhi Radiol 2018): Any incidental renal lesion less than 1 cm or classified as too small to characterize, or any incidental cystic renal lesion characterized as simple-appearing, is likely benign. No follow-up imaging is recommended for these lesions per consensus recommendations based on imaging criteria. ADDENDUM: 11/02/[address] Cortez at 11/02/2021 7:23 AM CDT. Abdomen Ultrasound 11/02/21 07:23 IMPRESSION: 1. Hepatomegaly with diffuse hepatic steatosis. 2. No cholelithiasis. There is mild nonspecific prominence of the gallbladder wall. Laboratory Results WBC 8.5 10^3/uL (4.0-10.0) 11/02/21 04:40 RBC 5.52 10^6/uL (4.1-5.3) H 11/02/21 04:40 Hgb 16.7 g/dL (11.7-16.6) H 11/02/21 04:40 Hct 50.7 % (42.0-52.0) 11/02/21 04:40 MCV 91.8 fl (80-94) 11/02/21 04:40 MCH 30.3 pg (28.0-34.0) 11/02/21 04:40 MCHC 32.9 g/dL (30.0-36.0) 11/02/21 04:40 RDW 13.1 % (12.1-15.1) 11/02/21 04:40 Plt Count 194 10^3/cmm (130-400) 11/02/21 04:40 MPV 12.0 fL (7.4-10.4) H 11/02/21 04:40 Neut % (Auto) 57.6 % 11/02/21 04:40 Lymph % (Auto) 26.1 % 11/02/21 04:40 [place] % (Auto) 12.3 % 11/02/21 04:40 Eos % (Auto) 2.8 % 11/02/21 04:40 Baso % (Auto) 0.6 % 11/02/21 04:40 Neut # (Auto) 4.87 10^3/uL (1.8-7.7) 11/02/21 04:40 Lymph # (Auto) 2.2 10^3/uL (0.8-4.8) 11/02/21 04:40 [place] # (Auto) 1.0 10^3/uL (0.2-0.9) H 11/02/21 04:40 Eos # (Auto) 0.2 10^3/uL (0.0-0.8) 11/02/21 04:40 Baso # (Auto) 0.1 10^3/uL (0.0-0.1) 11/02/21 04:40 Nucleated RBC % (auto) 0 % 11/02/21 04:40 Nucleated RBCs # 0.0 /100WBC 11/02/21 04:40 D-Dimer 0.75 ug/mIFEU (0-0.59) H 11/02/21 04:40 Sodium 135 mmol/L (136-145) L 11/02/21 04:40 Potassium 4.6 mmol/L (3.5-5.1) 11/02/21 04:40 Chloride 99 mmol/L (98-107) 11/02/21 04:40 Carbon Dioxide 24 mmol/L (22-29) 11/02/21 04:40 Anion Gap 16.6 (5-19) 11/02/21 04:40 BUN 17 mg/dL (8-23) 11/02/21 04:40 Creatinine 0.8 mg/dL (0.7-1.2) 11/02/21 04:40 GFR Calculation Not Reportable 11/02/21 04:40 Glucose 284 mg/dL (65-115) H 11/02/21 04:40 Calculated Osmolality 292 mOsm/kg (285-295) 11/02/21 04:40 Calcium 9.6 mg/dL (8.5-10.5) 11/02/21 04:40 Total Bilirubin 0.5 mg/dL (0.15-1.2) 11/02/21 04:40 AST 44 U/L (0-40) H 11/02/21 04:40 ALT 66 U/L (0-41) H 11/02/21 04:40 Alkaline Phosphatase 82 U/L (40-130) 11/02/21 04:40 Total Protein 7.5 g/dL (6.6-8.7) 11/02/21 04:40 Albumin 4.5 g/dL (3.5-5.2) 11/02/21 04:40 Globulin 3.0 g/dL (1.3-4.6) 11/02/21 04:40 Lipase 40 U/L (13-60) 11/02/21 04:40 Urine Color Yellow (Yellow) 11/02/21 06:20 Urine Appearance Clear (CLEAR) 11/02/21 06:20 Urine pH 5 (5-7) 11/02/21 06:20 Ur Specific [place] 1.030 (1.005-1.030) 11/02/21 06:20 Urine Protein 1+ (Negative) H 11/02/21 06:20 Urine Glucose (UA) 4+ (Normal) H 11/02/21 06:20 Urine Ketones 1+ (Negative) H 11/02/21 06:20 Urine Blood Neg (Negative) 11/02/21 06:20 Urine Nitrate Negative (Negative) 11/02/21 06:20 Urine Bilirubin Neg (Negative) 11/02/21 06:20 Urine Urobilinogen Norm mg/dL (Negative) 11/02/21 06:20 Ur Leukocyte Esterase Negative (Negative) 11/02/21 06:20 Urine RBC None /hpf (0-2) 11/02/21 06:20 Urine WBC 0-4 /hpf (0-5) H 11/02/21 06:20 Ur Squamous Epith Cells None /hpf (0-5) 11/02/21 06:20 Amorphous Sediment Not Reportable 11/02/21 06:20 Urine Bacteria Trace /hpf (NONE) 11/02/21 06:20 Coarse Granular Casts 0-4 /lpf H 11/02/21 06:20 Urine Mucus 1+ /hpf 11/02/21 06:20 Discharge Plan Discharge Patient Disposition: Home Clinical Impression: Prostatic hyperplasia, Urinary obstruction, Abdominal pain Condition: Stable Prescriptions: New Carafate 100 mg/mL suspension 1 g PO Q6H 84 Days Qty: 3360 0RF No Action B Complex Plus Vitamin C 99-03-56-5-300 mg capsule 1 cap PO DAILY Rx Instructions: give with food (meal/snack) metformin 500 mg tablet 500 mg PO BID magnesium oxide 400 mg (241.3 mg magnesium) tablet 400 mg PO DAILY Eliquis 5 mg tablet 5 mg PO BID Qty: 180 3RF metoprolol tartrate 50 mg tablet 50 mg PO DIRECTED Qty: 0 0RF Rx Instructions: Take 1/2 tab in the AM and take 1 tab in the PM. fluticasone propionate [Allergy Relief (fluticasone)] 50 mcg/actuation spray,suspension 2 spray intranasal DAILY Qty: 16 3RF Rx Instructions: administer into each nostril furosemide 20 mg tablet 20 mg PO DAILY PRN (Reason: edema) Qty: 30 3RF Spiriva Respimat 2.5 mcg/actuation mist 2 inh INHALATION QAM Qty: 4 3RF fluticasone propion-salmeterol [Wixela Inhub] 250-50 mcg/dose blister with device 1 inh inhalation BID Qty: 60 6RF venlafaxine 75 mg Tablet 75 mg PO DAILY pantoprazole 20 mg Tablet,Delayed Release (Dr/Ec) 20 mg PO DAILY losartan 100 mg Tablet 100 mg PO DAILY rosuvastatin 40 mg Tablet 40 mg PO QPM Fish Oil 1,000 mg (120 mg-180 mg) Capsule 1 cap PO BID Flomax 0.4 mg Capsule 0.8 mg PO QPM Qty: 0 0RF Colace Clear 50 mg capsule 50 mg PO BID Qty: 60 0RF meclizine 25 mg tablet 25 mg PO QPM naproxen sodium 220 mg tablet 220 mg PO BID PRN (Reason: Pain) Label Comments: pt states he is no longer taking amlodipine 10 mg Tablet 5 mg PO BEDTIME Qty: 0 0RF albuterol sulfate 90 mcg/actuation HFA aerosol inhaler 2 inh INHALATION Q4H PRN (Reason: shortness of breath or wheezing) Qty: 18 0RF Discharge Orders: Discharge ED (Routine); Ordered 11/02/21 Ordered By: Kamran Cortez Referrals: Haresh Dorman DO [Primary Care Provider] - Patient Instructions: Enlarged Prostate (BPH) (ED), Abdominal Pain (ED) Coding Level of Care Code 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 [employer] Documented by User: Kamran Cortez DO 11/02/21 08:30 HPI - Abdominal Pain General: Chief Complaint: Abdominal Pain Stated Complaint: abd pain Time Seen by Provider: 11/02/21 05:51 PFSH ED PFSH: Medical History Afib CHF (congestive heart failure) COPD (chronic obstructive pulmonary disease) Depression Diabetes GERD (gastroesophageal reflux disease) Heart attack Hemorrhoid HTN (hypertension) Hyperlipidemia Prostate enlargement Ventricular arrhythmia Surgical History H/O hemorrhoidectomy History of colonoscopy 2017 Stented coronary artery Family History Father Cancer Lung Mother Cancer Lung Brother , Age 32 CAD (coronary artery disease) Social History Smoking and tobacco status: former smoker Quit status (tobacco): has quit using tobacco Year quit tobacco: 1992 - PPD x 40 Years Alcohol intake: never Lives independently: Yes Household members: spouse Marital status: service: Yes Current occupational status: retired History of recent travel: No Current gender identity: Male Course Vital Signs: Vital signs: Vital Signs Temperature 98.3 F 11/02/21 00:34 Pulse Rate 63 11/02/21 09:09 Respiratory Rate 14 11/02/21 09:09 Blood Pressure 150/85 11/02/21 09:09 Pulse Oximetry 92 11/02/21 09:09 Oxygen Delivery Me thod 11/02/21 06:34 MDM - Abdominal Pain Medical Decision Making CBC is not remarkable. BMP shows hyperglycemia. Liver enzymes are not elevated significantly. Bilirubin is 0.5. CT of the abdomen is pending. Patient signed out to me pending CT abdomen pelvis. CT abdomen pelvis demonstrating haziness around the gallbladder. Right upper quadrant ultrasound is without evidence of acute significant pathology. Liver enzymes are within normal limits. Patient with some question of possible pulmonary embolism. Patient's D-dimer less than 1000. Patient with no respiratory symptoms. Feel pulmonary embolism is unlikely at this time. Patient with enlarged bladder as well as some prostatic hypertrophy. Will refer on to urology for further evaluation and management. Patient was given strict return precautions and recommended routine outpatient follow-up. Lab Data : 11/02/21 04:40 11/02/21 04:40 Labs/Radiology: Radiology Impressions Abdomen/Pelvis CT 11/02/21 05:27 IMPRESSION: 1. The gallbladder is distended. There is slight haziness adjacent to the gallbladder. No definite stone is seen. The gallbladder wall is mildly prominent. Recommend ultrasound further assess. 2. Possible pulmonary emboli in the lung bases. Consider CTA chest to further assess. 3. Hepatosplenomegaly with probable hepatic steatosis, possible early hepatic cirrhosis and periportal/retroperitoneal lymphadenopathy. 4. The bladder wall is thickened and trabeculated. This likely reflects partial bladder outlet obstruction. Superimposed cystitis is not excluded. Correlate with urinalysis. 5. Enlarged prostate. Correlate with serum PSA. 6. Colonic diverticulosis. COMMENTS: Consistent with the [place] [employer]'s Incidental Findings Committee white paper (J Am Nidhi [employer]iol 2018): Any incidental renal lesion less than 1 cm or classified as too small to characterize, or any incidental cystic renal lesion characterized as simple-appearing, is likely benign. No follow-up imaging is recommended for these lesions per consensus recommendations based on imaging criteria. ADDENDUM: 11/02/[address] Cortez at 11/02/2021 7:23 AM CDT. Abdomen Ultrasound 11/02/21 07:23 IMPRESSION: 1. Hepatomegaly with diffuse hepatic steatosis. 2. No cholelithiasis. There is mild nonspecific prominence of the gallbladder wall. Laboratory Results WBC 8.5 10^3/uL (4.0-10.0) 11/02/21 04:40 RBC 5.52 10^6/uL (4.1-5.3) H 11/02/21 04:40 Hgb 16.7 g/dL (11.7-16.6) H 11/02/21 04:40 Hct 50.7 % (42.0-52.0) 11/02/21 04:40 MCV 91.8 fl (80-94) 11/02/21 04:40 MCH 30.3 pg (28.0-34.0) 11/02/21 04:40 MCHC 32.9 g/dL (30.0-36.0) 11/02/21 04:40 RDW 13.1 % (12.1-15.1) 11/02/21 04:40 Plt Count 194 10^3/cmm (130-400) 11/02/21 04:40 MPV 12.0 fL (7.4-10.4) H 11/02/21 04:40 Neut % (Auto) 57.6 % 11/02/21 04:40 Lymph % (Auto) 26.1 % 11/02/21 04:40 [place] % (Auto) 12.3 % 11/02/21 04:40 Eos % (Auto) 2.8 % 11/02/21 04:40 Baso % (Auto) 0.6 % 11/02/21 04:40 Neut # (Auto) 4.87 10^3/uL (1.8-7.7) 11/02/21 04:40 Lymph # (Auto) 2.2 10^3/uL (0.8-4.8) 11/02/21 04:40 [place] # (Auto) 1.0 10^3/uL (0.2-0.9) H 11/02/21 04:40 Eos # (Auto) 0.2 10^3/uL (0.0-0.8) 11/02/21 04:40 Baso # (Auto) 0.1 10^3/uL (0.0-0.1) 11/02/21 04:40 Nucleated RBC % (auto) 0 % 11/02/21 04:40 Nucleated RBCs # 0.0 /100WBC 11/02/21 04:40 D-Dimer 0.75 ug/mIFEU (0-0.59) H 11/02/21 04:40 Sodium 135 mmol/L (136-145) L 11/02/21 04:40 Potassium 4.6 mmol/L (3.5-5.1) 11/02/21 04:40 Chloride 99 mmol/L (98-107) 11/02/21 04:40 Carbon Dioxide 24 mmol/L (22-29) 11/02/21 04:40 Anion Gap 16.6 (5-19) 11/02/21 04:40 BUN 17 mg/dL (8-23) 11/02/21 04:40 Creatinine 0.8 mg/dL (0.7-1.2) 11/02/21 04:40 GFR Calculation Not Reportable 11/02/21 04:40 Glucose 284 mg/dL (65-115) H 11/02/21 04:40 Calculated Osmolality 292 mOsm/kg (285-295) 11/02/21 04:40 Calcium 9.6 mg/dL (8.5-10.5) 11/02/21 04:40 Total Bilirubin 0.5 mg/dL (0.15-1.2) 11/02/21 04:40 AST 44 U/L (0-40) H 11/02/21 04:40 ALT 66 U/L (0-41) H 11/02/21 04:40 Alkaline Phosphatase 82 U/L (40-130) 11/02/21 04:40 Total Protein 7.5 g/dL (6.6-8.7) 11/02/21 04:40 Albumin 4.5 g/dL (3.5-5.2) 11/02/21 04:40 Globulin 3.0 g/dL (1.3-4.6) 11/02/21 04:40 Lipase 40 U/L (13-60) 11/02/21 04:40 Urine Color Yellow (Yellow) 11/02/21 06:20 Urine Appearance Clear (CLEAR) 11/02/21 06:20 Urine pH 5 (5-7) 11/02/21 06:20 Ur Specific [place] 1.030 (1.005-1.030) 11/02/21 06:20 Urine Protein 1+ (Negative) H 11/02/21 06:20 Urine Glucose (UA) 4+ (Normal) H 11/02/21 06:20 Urine Ketones 1+ (Negative) H 11/02/21 06:20 Urine Blood Neg (Negative) 11/02/21 06:20 Urine Nitrate Negative (Negative) 11/02/21 06:20 Urine Bilirubin Neg (Negative) 11/02/21 06:20 Urine Urobilinogen Norm mg/dL (Negative) 11/02/21 06:20 Ur Leukocyte Esterase Negative (Negative) 11/02/21 06:20 Urine RBC None /hpf (0-2) 11/02/21 06:20 Urine WBC 0-4 /hpf (0-5) H 11/02/21 06:20 Ur Squamous Epith Cells None /hpf (0-5) 11/02/21 06:20 Amorphous Sediment Not Reportable 11/02/21 06:20 Urine Bacteria Trace /hpf (NONE) 11/02/21 06:20 Coarse Granular Casts 0-4 /lpf H 11/02/21 06:20 Urine Mucus 1+ /hpf 11/02/21 06:20 Discharge Plan Discharge Patient Disposition: Home Clinical Impression: Prostatic hyperplasia, Urinary obstruction, Abdominal pain Condition: Stable Prescriptions: New Carafate 100 mg/mL suspension 1 g PO Q6H 84 Days Qty: 3360 0RF No Action B Complex Plus Vitamin C 55-49-97-5-300 mg capsule 1 cap PO DAILY Rx Instructions: give with food (meal/snack) metformin 500 mg tablet 500 mg PO BID magnesium oxide 400 mg (241.3 mg magnesium) tablet 400 mg PO DAILY Eliquis 5 mg tablet 5 mg PO BID Qty: 180 3RF metoprolol tartrate 50 mg tablet 50 mg PO DIRECTED Qty: 0 0RF Rx Instructions: Take 1/2 tab in the AM and take 1 tab in the PM. fluticasone propionate [Allergy Relief (fluticasone)] 50 mcg/actuation spray,suspension 2 spray intranasal DAILY Qty: 16 3RF Rx Instructions: administer into each nostril furosemide 20 mg tablet 20 mg PO DAILY PRN (Reason: edema) Qty: 30 3RF Spiriva Respimat 2.5 mcg/actuation mist 2 inh INHALATION QAM Qty: 4 3RF fluticasone propion-salmeterol [Wixela Inhub] 250-50 mcg/dose blister with device 1 inh inhalation BID Qty: 60 6RF venlafaxine 75 mg Tablet 75 mg PO DAILY pantoprazole 20 mg Tablet,Delayed Release (Dr/Ec) 20 mg PO DAILY losartan 100 mg Tablet 100 mg PO DAILY rosuvastatin 40 mg Tablet 40 mg PO QPM Fish Oil 1,000 mg (120 mg-180 mg) Capsule 1 cap PO BID Flomax 0.4 mg Capsule 0.8 mg PO QPM Qty: 0 0RF Colace Clear 50 mg capsule 50 mg PO BID Qty: 60 0RF meclizine 25 mg tablet 25 mg PO QPM naproxen sodium 220 mg tablet 220 mg PO BID PRN (Reason: Pain) Label Comments: pt states he is no longer taking amlodipine 10 mg Tablet 5 mg PO BEDTIME Qty: 0 0RF albuterol sulfate 90 mcg/actuation HFA aerosol inhaler 2 inh INHALATION Q4H PRN (Reason: shortness of breath or wheezing) Qty: 18 0RF Discharge Orders: Discharge ED (Routine); Ordered 11/02/21 Ordered By: Kamran Cortez Referrals: Haresh Dorman DO [Primary Care Provider] - Patient Instructions: Enlarged Prostate (BPH) (ED), Abdominal Pain (ED) Coding Level of Care Code 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
[2021-11-02] MEDS: iohexol 350 mg/mL 100 mL Btl IV (06:56)
--- NOTE | 2021-11-02 07:20 | PC.NURSE ---
pt resting in bed, respirations even and unlabored. lung sounds clear bilat. bowel sounds present x4. skin pink/warm/dry. pt denies current abdominal pain. visitor at bedside. call light within reach. denies needs at this time.
--- NOTE | 2021-11-02 07:23 | USR_ITS ---
PROCEDURE INFORMATION: Exam: US Abdomen, Limited; Right Upper Quadrant Exam date and time: 11/02/2021 7:44 AM Age: 76 years old Clinical indication: Acute abdominal pain. Right upper quadrant abnormality. TECHNIQUE: Imaging protocol: Real time ultrasound of the abdomen with image documentation. Limited exam focused on the right upper quadrant. COMPARISON: CT abdomen pelvis w con* [id number] 11/02/2021 6:54 AM FINDINGS: The hepatic parenchyma is echogenic. The liver measures 20.6 cm. No biliary ductal dilatation. The common bile duct measures 0.5 cm. No cholelithiasis. There is mild nonspecific prominence of the gallbladder wall. The right kidney measures 13.3 cm. No suspicious mass or hydronephrosis. A simple right renal cyst measures 4.2 cm. Pancreas and aorta are largely obscured by overlying bowel gas. The visualized IVC is grossly normal in caliber. US/US abdomen limited [id number] IMPRESSION: 1. Hepatomegaly with diffuse hepatic steatosis. 2. No cholelithiasis. There is mild nonspecific prominence of the gallbladder wall.
[2021-11-02 08:03] LABS: D Dimer 0.75 ug/mIFEU (0-0.59)
[2021-11-02] MEDS: lidocaine 2% viscous 15 ML, aluminum-mag hydrox-simethicon 30 ML, sucralfate oral liq 1 GM PO (08:36)
== END 2021-11-02 09:11 | disposition home or self-care (01) ==
PROVIDERS: Emergency Medicine; Emergency Provider Emergency Medicine; PCP Emergency Medicine Emergency Medical Services
DX: N40.1 Benign prostatic hyperplasia with lower urinary tract symptoms (principal); N13.8 Other obstructive and reflux uropathy; R10.9 Unspecified abdominal pain; Z79.84 Long term (current) use of oral hypoglycemic drugs; Z79.01 Long term (current) use of anticoagulants; I11.0 Hypertensive heart disease with heart failure; I50.9 Heart failure, unspecified; J44.9 Chronic obstructive pulmonary disease, unspecified; E11.9 Type 2 diabetes mellitus without complications; E78.5 Hyperlipidemia, unspecified; Z87.891 Personal history of nicotine dependence
CPT/HCPCS: 36415; 74177; 76705; 80053; 81001; 83690; 85025; 85378; 99285; Q9967

== ENCOUNTER 2021-11-24 00:03 | Observation (INO) | payer OTHER, SELFPAY ==
[2021-11-24] VITALS (15 sets, daily range): BP systolic 116–168; BP diastolic 68–94; PULSE 54–83; RESP 14–22; TEMP 36.5–37.1; O2SAT 90–95; BMI 30.5
--- NOTE | 2021-11-24 00:16 | USR_ITS ---
PROCEDURE INFORMATION: Exam: US Abdomen, Limited; Right Upper Quadrant Exam date and time: 11/24/2021 12:32 AM Age: 76 years old Clinical indication: Abdominal pain; Acute; Patient HX: PT is in severe pain tonight; Additional info: Abd pain TECHNIQUE: Imaging protocol: Real time ultrasound of the abdomen with image documentation. Limited exam focused on the right upper quadrant. COMPARISON: US abdomen limited [id number] 11/02/2021 7:44 AM FINDINGS: Liver: There is diffuse increased echogenicity of the liver parenchyma and attenuation of sound in the deep portions of the liver obscuring fine hepatic detail, consistent with fatty infiltration. Gallbladder: The gallbladder is distended. Mild diffuse gallbladder wall thickening. There are no discrete stones. There is no pericholecystic fluid. There is a Phrygian cap at the gallbladder fundus. Information regarding sonographic Joyce sign is not provided. The systems analysis manager reports the presence of sludge in the gallbladder, but this cannot be confirmed on the images. Biliary ducts: The common bile duct is nondilated measuring 6 mm Pancreas: The visible portion of the pancreas is unremarkable. Right kidney: The right kidney is unremarkable. Aorta: The upper abdominal aorta is unremarkable. Inferior vena cava: The intrahepatic IVC is unremarkable. US/US gall bladder [id number] IMPRESSION: 1. Equivocal findings for acute cholecystitis including gallbladder distension and mild wall thickening. No definite stones or sludge. Information regarding sonographic Joyce sign was not provided. 2. Hepatic steatosis.
[2021-11-24] MEDS: ondansetron 2 mg/ML SDV 2 mL 4 MG IVP (00:25)
[2021-11-24] MEDS: HYDROmorphone 1 mg/mL INJ 1 mL IVP (00:25)
--- NOTE | 2021-11-24 00:28 | ED_ITS ---
HPI - Abdominal Pain General: Chief Complaint: Abdominal Pain Stated Complaint: abdomen pain Time Seen by Provider: 11/24/21 00:04 Source: patient Mode of arrival: ambulatory Limitations: no limitations History of Present Illness: 76-year-old male who is seen here last week for abdominal pain he states that he is followed up and he has an appointment with surgeon next Wednesday for possible gallbladder disease he states tonight he ate soup and he started having severe epigastric and right upper quadrant abdominal pain. He states his pain is currently a 6 out of 10 he has had some nausea denies any vomiting patient denies any chest pain denies any fevers. Associated Symptoms: Reports nausea; Denies chills, dysuria and fever(s) Review of Systems Const: Denies: fever(s), chills, body aches or change in appetite Eyes: Denies: blurry vision or eye discomfort ENMT: Denies: throat pain or dental pain Card: Denies: chest pain Resp: Denies: dyspnea GI: Reports: abdominal pain and nausea : Denies: dysuria Musc: Denies: neck pain or back pain Skin/Breast: Denies: rash Neuro: Denies: headache(s) Psych: Denies: depression [place]/Lymph: Denies: easy bruising All/Imm: Denies: urticaria PFSH ED PFSH: Medical History Afib CHF (congestive heart failure) COPD (chronic obstructive pulmonary disease) Depression Diabetes GERD (gastroesophageal reflux disease) Heart attack Hemorrhoid HTN (hypertension) Hyperlipidemia Prostate enlargement Ventricular arrhythmia Surgical History H/O hemorrhoidectomy History of colonoscopy 2017 Stented coronary artery Family History Father Cancer Lung Mother Cancer Lung Brother , Age 32 CAD (coronary artery disease) Social History Smoking and tobacco status: former smoker Quit status (tobacco): has quit using tobacco Year quit tobacco: 1992 - PPD x 40 Years Alcohol intake: never Lives independently: Yes Household members: spouse Marital status: service: Yes Current occupational status: retired History of recent travel: No Current gender identity: Male Physical Exam Const: COMMON NORMALS: no acute distress, patient oriented x3 and healthy appearing HENMT: COMMON NORMALS: normocephalic and atraumatic HEAD & SCALP: normocephalic and atraumatic Eye: COMMON NORMALS: Equal, round and reactive pupils present and EOMs intact bilaterally PUPIL: Yes Equal, round and reactive pupils present Neck/C-Spine: COMMON NORMALS: full ROM and supple Chest: COMMONS NORMALS: normal inspection of the chest and normal palpation of entire chest wall Resp: COMMON NORMALS: normal respiratory effort, No retractions, No use of accessory muscles and clear to auscultation bilaterally AUSCULTATION: clear to auscultation bilaterally Cardio: COMMON NORMALS: regular rate, regular rhythm and No murmurs present (Cardio) RATE: regular rate RHYTHM: regular rhythm GI: COMMON NORMALS: Normal to inspection, nondistended, normoactive bowel sounds present, Soft to palpation and no masses PALPATION: Yes Soft to palpation OTHER: Epigastric tenderness Extremity: COMMON NORMALS: normal to inspection and full ROM Neuro: COMMON NORMALS: patient oriented x3, moves all extremities and no focal motor deficits Psych: COMMON NORMALS: mental status grossly normal, Normal thought process present and cooperative THOUGHT PROCESS: Normal thought process present Skin: COMMON NORMALS: no rashes or lesions noted and no wounds GENERAL SKIN EXAM: no rashes or lesions noted Course Vital Signs: Vital signs: Vital Signs Pulse Rate 79 11/24/21 01:02 Respiratory Rate 15 11/24/21 01:02 Blood Pressure 168/82 11/24/21 01:02 Pulse Oximetry 92 11/24/21 01:02 MDM - Abdominal Pain Medical Decision Making Patient presents with right upper quadrant abdominal pain he is tender over his gallbladder he is continue to have some pain here after 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 Lab Data : 11/24/21 00:25 11/24/21 00:25 Labs/Radiology: Radiology Impressions Gallbladder Ultrasound 11/24/21 00:16 IMPRESSION: 1. Equivocal findings for acute cholecystitis including gallbladder distension and mild wall thickening. No definite stones or sludge. Information regarding sonographic Joyce sign was not provided. 2. Hepatic steatosis. Laboratory Results WBC 9.5 10^3/uL (4.0-10.0) 11/24/21 00:25 RBC 5.15 10^6/uL (4.1-5.3) 11/24/21 00:25 Hgb 15.5 g/dL (11.7-16.6) 11/24/21 00:25 Hct 46.9 % (42.0-52.0) 11/24/21 00:25 MCV 91.1 fl (80-94) 11/24/21 00:25 MCH 30.1 pg (28.0-34.0) 11/24/21 00:25 MCHC 33.0 g/dL (30.0-36.0) 11/24/21 00:25 RDW 13.2 % (12.1-15.1) 11/24/21 00:25 Plt Count 200 10^3/cmm (130-400) 11/24/21 00:25 MPV 12.0 fL (7.4-10.4) H 11/24/21 00:25 Neut % (Auto) 70.3 % 11/24/21 00:25 Lymph % (Auto) 18.1 % 11/24/21 00:25 [place] % (Auto) 8.8 % 11/24/21 00:25 Eos % (Auto) 1.6 % 11/24/21 00:25 Baso % (Auto) 0.7 % 11/24/21 00:25 Neut # (Auto) 6.70 10^3/uL (1.8-7.7) 11/24/21 00:25 Lymph # (Auto) 1.7 10^3/uL (0.8-4.8) 11/24/21 00:25 [place] # (Auto) 0.8 10^3/uL (0.2-0.9) 11/24/21 00:25 Eos # (Auto) 0.2 10^3/uL (0.0-0.8) 11/24/21 00:25 Baso # (Auto) 0.1 10^3/uL (0.0-0.1) 11/24/21 00:25 Nucleated RBC % (auto) 0 % 11/24/21 00:25 Nucleated RBCs # 0.0 /100WBC 11/24/21 00:25 PT 14.80 SECONDS (12.1-14.9) 11/24/21 00:25 INR 1.13 (0.8-1.2) 11/24/21 00:25 Sodium 138 mmol/L (136-145) 11/24/21 00:25 Potassium 4.2 mmol/L (3.5-5.1) 11/24/21 00:25 Chloride 102 mmol/L (98-107) 11/24/21 00:25 Carbon Dioxide 22 mmol/L (22-29) 11/24/21 00:25 Anion Gap 18.2 (5-19) 11/24/21 00:25 BUN 16 mg/dL (8-23) 11/24/21 00:25 Creatinine 0.8 mg/dL (0.7-1.2) 11/24/21 00:25 GFR Calculation Not Reportable 11/24/21 00:25 Glucose 269 mg/dL (65-115) H 11/24/21 00:25 Calculated Osmolality 297 mOsm/kg (285-295) H 11/24/21 00:25 Lactate 2.7 mmol/L (0.5-2.2) H 11/24/21 00:25 Calcium 9.6 mg/dL (8.5-10.5) 11/24/21 00:25 Total Bilirubin 0.5 mg/dL (0.15-1.2) 11/24/21 00:25 AST 42 U/L (0-40) H 11/24/21 00:25 ALT 72 U/L (0-41) H 11/24/21 00:25 Alkaline Phosphatase 70 U/L (40-130) 11/24/21 00:25 Total Protein 6.8 g/dL (6.6-8.7) 11/24/21 00:25 Albumin 4.3 g/dL (3.5-5.2) 11/24/21 00:25 Globulin 2.5 g/dL (1.3-4.6) 11/24/21 00:25 Lipase 39 U/L (13-60) 11/24/21 00:25 Urine Color Yellow (Yellow) 11/24/21 00:30 Urine Appearance Clear (CLEAR) 11/24/21 00:30 Urine pH 5 (5-7) 11/24/21 00:30 Ur Specific [place] 1.025 (1.005-1.030) 11/24/21 00:30 Urine Protein Neg (Negative) 11/24/21 00:30 Urine Glucose (UA) 4+ (Normal) H 11/24/21 00:30 Urine Ketones 1+ (Negative) H 11/24/21 00:30 Urine Blood Neg (Negative) 11/24/21 00:30 Urine Nitrate Negative (Negative) 11/24/21 00:30 Urine Bilirubin Neg (Negative) 11/24/21 00:30 Urine Urobilinogen Neg mg/dL (Negative) 11/24/21 00:30 Ur Leukocyte Esterase Negative (Negative) 11/24/21 00:30 Discharge Plan Discharge Patient Disposition: Admitted As Inpatient Clinical Impression: Acute cholecystitis Condition: Stable Prescriptions: No Action B Complex Plus Vitamin C 21-02-63-5-300 mg capsule 1 cap PO DAILY Rx Instructions: give with food (meal/snack) metformin 500 mg tablet 500 mg PO BID magnesium oxide 400 mg (241.3 mg magnesium) tablet 400 mg PO DAILY Eliquis 5 mg tablet 5 mg PO BID Qty: 180 3RF metoprolol tartrate 50 mg tablet 50 mg PO DIRECTED Qty: 0 0RF Rx Instructions: Take 1/2 tab in the AM and take 1 tab in the PM. fluticasone propionate [Allergy Relief (fluticasone)] 50 mcg/actuation spray,suspension 2 spray intranasal DAILY Qty: 16 3RF Rx Instructions: administer into each nostril furosemide 20 mg tablet 20 mg PO DAILY PRN (Reason: edema) Qty: 30 3RF Spiriva Respimat 2.5 mcg/actuation mist 2 inh INHALATION QAM Qty: 4 3RF fluticasone propion-salmeterol [Wixela Inhub] 250-50 mcg/dose blister with device 1 inh inhalation BID Qty: 60 6RF venlafaxine 75 mg Tablet 75 mg PO DAILY pantoprazole 20 mg Tablet,Delayed Release (Dr/Ec) 20 mg PO DAILY losartan 100 mg Tablet 100 mg PO DAILY rosuvastatin 40 mg Tablet 40 mg PO QPM Fish Oil 1,000 mg (120 mg-180 mg) Capsule 1 cap PO BID Flomax 0.4 mg Capsule 0.8 mg PO QPM Qty: 0 0RF Colace Clear 50 mg capsule 50 mg PO BID Qty: 60 0RF meclizine 25 mg tablet 25 mg PO QPM naproxen sodium 220 mg tablet 220 mg PO BID PRN (Reason: Pain) Label Comments: pt states he is no longer taking amlodipine 10 mg Tablet 5 mg PO BEDTIME Qty: 0 0RF Carafate 100 mg/mL suspension 1 g PO Q6H 84 Days Qty: 3360 0RF albuterol sulfate 90 mcg/actuation HFA aerosol inhaler 2 inh INHALATION Q4H PRN (Reason: shortness of breath or wheezing) Qty: 18 0RF Referrals: Haresh Dorman DO [Primary Care Provider] - Coding Level of Care Code ED Resin Filterer for Chg Fwd Exam Comprehensive
[2021-11-24 00:31] LABS: Basophils # 0.1 10^3/uL (0.0-0.1); Basophils % 0.7 %; Eosinophils # 0.2 10^3/uL (0.0-0.8); Eosinophils % 1.6 %; Hematocrit 46.9 % (42.0-52.0); Hemoglobin 15.5 g/dL (11.7-16.6); Lymphocytes # 1.7 10^3/uL (0.8-4.8); Lymphocytes % 18.1 %; Mean Corpuscular Hemoglobin 30.1 pg (28.0-34.0); Mean Corpuscular Volume 91.1 fl (80-94); Monocytes # 0.8 10^3/uL (0.2-0.9); Monocytes % 8.8 %; Neutrophils % 70.3 %; Nucleated Red Blood Cells % 0 %; Platelet Count 200 10^3/cmm (130-400); Red Blood Count 5.15 10^6/uL (4.1-5.3); Red Cell Distribution Width 13.2 % (12.1-15.1); White Blood Count 9.5 10^3/uL (4.0-10.0)
[2021-11-24 00:45] LABS: Add Urine Microscopic? NO; Charge for UA Resulting for Rev
[2021-11-24 00:49] LABS: Bilirubin Urine Neg (Negative); Blood Urine Neg (Negative); Glucose Urine UA 4+ (Normal); Ketones Urine 1+ (Negative); Leukocyte Esterase Urine Negative (Negative); Nitrate Urine Negative (Negative); Protein Urine Neg (Negative); Specific Gravity, Urine 1.025 (1.005-1.030); Urine Appearance Clear (CLEAR); Urine Color Yellow (Yellow); Urobilinogen Urine Neg (Negative); pH Urine 5 (5-7)
[2021-11-24 00:52] LABS: Lactate (Lactic Acid level) 2.7 mmol/L (0.5-2.2)
[2021-11-24 00:54] LABS: Alanine Aminotransferase 72 U/L (0-41); Albumin Level 4.3 g/dL (3.5-5.2); Alkaline Phosphatase 70 U/L (40-130); Anion Gap 18.2 (5-19); Aspartate Amino Transferase 42 U/L (0-40); Blood Urea Nitrogen 16 mg/dL (8-23); Calcium 9.6 mg/dL (8.5-10.5); Carbon Dioxide 22 mmol/L (22-29); Chloride 102 mmol/L (98-107); Globulin 2.5 g/dL (1.3-4.6); Glucose 269 mg/dL (65-115); Lipase 39 U/L (13-60); Osmolality Calculated 297 mOsm/kg (285-295); Potassium 4.2 mmol/L (3.5-5.1); Sodium 138 mmol/L (136-145); Total Bilirubin 0.5 mg/dL (0.15-1.2); Total Protein 6.8 g/dL (6.6-8.7)
--- NOTE | 2021-11-24 00:58 | ECG_ITS ---
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 Measurements Intervals [place] Rate: 61 P: 29 ND: 169 QRS: 34 QRSD: 107 T: -8 QT: 390 QTc: 395 Interpretive Statements SINUS RHYTHM Nonspecific T wave changes INFERIOR MYOCARDIAL INFARCTION , OF INDETERMINATE AGE [40+ ms Q WAVE AND/OR ST/T ABNORMALITY IN II/aVF] Compared to ECG 07/05/2021 14:57:44 No significant changes Electronically Signed On 11-25-2021 0:06:50 CDT by Siva Bardales M.D. [id number]
[2021-11-24] MEDS: sodium chloride 0.9% 1,000 ML 999 ML IV (01:13)
[2021-11-24 01:32] LABS: INR 1.13 (0.8-1.2)
[2021-11-24] MEDS: piperacillin-tazobactam 3.375 GM in sodium chloride 0.9% (plus) 50 ML IV ×3 (01:54→18:20)
--- NOTE | 2021-11-24 02:03 | CTR_ITS ---
PROCEDURE INFORMATION: Exam: CT Abdomen And Pelvis With Contrast Exam date and time: 11/24/2021 2:14 AM Age: 76 years old Clinical indication: Bloating; Additional info: Abdomnal distention TECHNIQUE: Imaging protocol: Computed tomography of the abdomen and pelvis with contrast. Radiation optimization: All CT scans at this facility use at least one of these dose optimization techniques: automated exposure control; mA and/or kV adjustment per patient size (includes targeted exams where dose is matched to clinical indication); or iterative reconstruction. Contrast material: OMNI 350; Contrast volume: 80 ml; Contrast route: INTRAVENOUS (IV); COMPARISON: 1. CT abdomen pelvis w con* [id number] 2021-11-02 06:[address] abdomen pelvis w con* [id number] 2019-05-22 15:50 RADIATION DOSE METRICS: Total DLP (mGy-cm): 828.73 FINDINGS: Lungs: Pulmonary granulomas and dependent atelectasis. Liver: Hepatic steatosis and hepatic calcified granulomas. Hepatic enlargement. Gallbladder and bile ducts: Gallbladder distension with some minimal adjacent stranding with a small stone in the cystic duct on axial image 27. No biliary duct dilatation. Correlate for right upper quadrant pain, suspicious for cholecystitis. Pancreas: Normal. No ductal dilation. Spleen: Splenic granulomas. Adrenal glands: Normal. No mass. Kidneys and ureters: Simple benign 3 cm right renal cyst. Stomach and bowel: Gastric distension with some mild thickening along the greater curvature, question gastritis or some delayed emptying. Uncomplicated diverticulosis coli. Appendix: No evidence of appendicitis. Intraperitoneal space: Unremarkable. No free air. No significant fluid collection. Vasculature: Moderate infrarenal aortic atherosclerotic calcifications. Lymph nodes: Unremarkable. No enlarged lymph nodes. Urinary bladder: Unremarkable as visualized. Reproductive: Moderate prostate gland enlargement. Bones/joints: Unremarkable. No acute fracture. Soft tissues: Unremarkable. CT/CT abdomen pelvis w con* [id number] IMPRESSION: 1. Gallbladder distension with some minimal adjacent stranding with a small stone in the cystic duct on axial image 27. No biliary duct dilatation. Correlate for right upper quadrant pain, suspicious for cholecystitis. 2. Moderate prostate gland enlargement. Correlate with PSA. 3. Gastric distension with some mild thickening along the greater curvature, question gastritis or some delayed emptying. COMMENTS: Consistent with the [employer]'s Incidental Findings Committee white paper (J Am Nidhi Radiol 2018): Any incidental renal lesion less than 1 cm or classified as too small to characterize, or any incidental cystic renal lesion characterized as simple-appearing, is likely benign. No follow-up imaging is recommended for these lesions per consensus recommendations based on imaging criteria.
--- NOTE | 2021-11-24 02:08 | P.HP_ITS ---
Providers/Chief Complaint Admitting Physician: Ehsan Henderson MD Primary Care Provider: Haresh Dorman DO Chief Complaint: abdomen pain History of Present Illness Rashad Michel is a 76 year old male with a past medical history of ibp-[id number]-[id number] type 2 diabetes mellitus, atrial fibrillation on Eliquis, BPH, hypertension, who presents [facility] due to abdominal pain. Patient does not that he ate fried chicken this morning, after that he started develop abdominal pain abdominal distention, he had a bowel movement this morning, he has been nauseous this morning, has had episodes of vomiting, no fevers, no chills, no history of food poisoning. No history of bloody or black stools, no history of cholecystitis, no history of appendicitis Review of Systems Card: Denies: chest pain Resp: Denies: dyspnea GI: Reports: abdominal pain, nausea and vomiting Medications/Allergies Home Medications Medication Instructions Recorded Confirmed Last Taken Type docusate sodium 50 mg capsule 50 mg PO BID #60 caps 05/22/19 10/16/21 Unknown Rx (Colace Clear) losartan 100 mg tablet 100 mg PO DAILY 05/22/19 10/16/21 05/21/19 History omega 5-uze-mnh-fish oil 1,000 mg 1 cap PO BID 05/22/19 10/16/21 05/22/19 History (120 mg-180 mg) capsule (Fish Oil) pantoprazole 20 mg tablet,delayed 20 mg PO DAILY 05/22/19 10/16/21 05/22/19 History release rosuvastatin 40 mg tablet 40 mg PO QPM 05/22/19 10/16/21 05/22/19 History tamsulosin 0.4 mg capsule (Flomax) 0.8 mg PO QPM #0 caps 05/22/19 10/16/21 05/21/19 Rx venlafaxine 75 mg tablet 75 mg PO DAILY 05/22/19 10/16/21 05/22/19 History meclizine 25 mg tablet 25 mg PO QPM 09/27/19 10/16/21 Unknown History metformin 500 mg tablet 500 mg PO BID 09/19/20 10/16/21 Unknown History vitamin B comp and C no.3 15 mg-10 1 cap PO DAILY 09/19/20 10/16/21 Unknown History mg-50 mg-5 mg-300 mg capsule (B Complex Plus Vitamin C) amlodipine 10 mg tablet 5 mg PO BEDTIME #0 tabs 04/07/21 10/16/21 05/21/19 Rx apixaban 5 mg tablet (Eliquis) 5 mg PO BID #180 tabs 04/10/21 10/16/21 Unknown Rx magnesium oxide 400 mg (241.3 mg 400 mg PO DAILY 04/10/21 10/16/21 Unknown History magnesium) tablet metoprolol tartrate 50 mg tablet 50 mg PO DIRECTED #0 tabs 04/10/21 10/16/21 Unknown Rx naproxen sodium 220 mg tablet 220 mg PO BID PRN Pain 05/27/21 10/16/21 Unknown History albuterol sulfate 90 mcg/actuation 2 inh inhalation Q4H PRN shortness 07/05/21 10/16/21 Unknown Rx aerosol inhaler of breath or wheezing #18 grams fluticasone propionate 50 2 spray intranasal DAILY #16 grams 08/26/21 10/16/21 Unknown Rx mcg/actuation nasal spray,suspension (Allergy Relief (fluticasone)) furosemide 20 mg tablet 20 mg PO DAILY PRN edema #30 tabs 08/28/21 10/16/21 Unknown Rx tiotropium bromide 2.5 2 inh inhalation QAM #4 grams 09/11/21 10/16/21 Unknown Rx mcg/actuation mist for inhalation (Spiriva Respimat) fluticasone 250 mcg-salmeterol 50 1 inh inhalation BID #60 ea 10/31/21 Unknown Rx mcg/dose blistr powdr for inhalation (Wixela Inhub) sucralfate 100 mg/mL oral 1 g (10 mL) PO Q6H 12 weeks #3,360 11/02/21 Unknown Rx suspension (Carafate) mL Allergies Allergy/AdvReac Type Severity Reaction Status Date / Time lisinopril Allergy Unknown ADR-Cough Verified 10/16/21 13:35 pravastatin Allergy Unknown ADR-Cramping Verified 10/16/21 13:35 of the Muscles simvastatin Allergy Unknown ADR-Cramping Verified 10/16/21 13:35 of the Muscles PFSH Acute PFSH: Medical History Afib CHF (congestive heart failure) COPD (chronic obstructive pulmonary disease) Depression Diabetes GERD (gastroesophageal reflux disease) Heart attack Hemorrhoid HTN (hypertension) Hyperlipidemia Prostate enlargement Ventricular arrhythmia Surgical History H/O hemorrhoidectomy History of colonoscopy 2017 Stented coronary artery Family History Father Cancer Lung Mother Cancer Lung Brother , Age 32 CAD (coronary artery disease) Social History Smoking and tobacco status: former smoker Quit status (tobacco): has quit using tobacco Year quit tobacco: 1992 - PPD x 40 Years Alcohol intake: never Lives independently: Yes Household members: spouse Marital status: service: Yes Current occupational status: retired History of recent travel: No Current gender identity: Male Vitals/I&O/Wt Last Vital Signs Pulse 79 11/24/21 01:02 Resp 15 11/24/21 01:02 BP 168/82 11/24/21 01:02 Pulse Ox 92 11/24/21 01:02 Weight last 48 hrs Weight 88.451 kg Physical Exam Const: COMMON NORMALS: no acute distress and patient oriented x3 HENMT: COMMON NORMALS: normocephalic HEAD & SCALP: normocephalic Neck/C-Spine: COMMON NORMALS: no JVD Resp: COMMON NORMALS: normal respiratory effort, No retractions, No use of accessory muscles and clear to auscultation bilaterally AUSCULTATION: clear t o auscultation bilaterally Cardio: COMMON NORMALS: no JVD, regular rate, regular rhythm, S1 normal heart sound present and S2 normal heart sound present RATE: regular rate RHYTHM: regular rhythm HEART SOUNDS: S1 normal heart sound present and S2 normal heart sound present GI: OTHER: Abdomen soft, distended, decreased bowel sounds in all 4 quadrants, has right upper quadrant tenderness, has right lower quadrant tenderness, Extremity: COMMON NORMALS: no pedal edema Neuro: COMMON NORMALS: patient oriented x3 Psych: COMMON NORMALS: mental status grossly normal Data : 11/24/21 00:25 11/24/21 00:25 A&P Assessment and plan (1) Acute cholecystitis: Plan Abdominal pain -Ultrasound shows equivocal findings of acute cholecystitis, including gallbladder dysfunction, mild gallbladder wall thickening -Patient's abdomen is diffusely tender, particular in the right upper quadrant or right lower quadrant, no guarding, no rebound, no rigidity, decreased bowel sounds, no prior history abdominal surgeries -We will obtain CT scan abdomen pelvis -Continue Zosyn -Keep n.p.o. 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
[2021-11-24] MEDS: iohexol 350 mg/mL 100 mL Btl IV (02:16)
[2021-11-24 02:52] LABS: Procalcitonin 0.08 ng/mL (0-0.5)
[2021-11-24] MEDS: pantoprazole 40 mg SDV IVP (03:03)
[2021-11-24] MEDS: sodium chloride 0.9% 1,000 ML 100 ML IV ×3 (03:04→22:29)
[2021-11-24] MEDS: metoprolol tartrate 50 mg Tablet 25 MG PO ×2 (03:07→09:44)
--- NOTE | 2021-11-24 03:23 | PC.NURSE ---
ADMIT NOTE Pt arrived to floor from the ER via wheelchair at 0230. with pt. Pt is alert and oriented. Says abd pain is at a 2 now. Reporting 3-4 week history of abd pain that has just been getting worse each time. Says was seen in the ER couple of weeks ago and does have an appointment with surgeon about his gallbladder. Yesterday had some fried chicken for lunch and soup for dinner. Began having generalized severe abd pain with N&V and abd bloating. Came to the ER again and now admitted. Received IV Zosyn in the ER. IV fluids now started at 100ml/hr rate. Given now doses of IV Protonix and po Metoprolol with sip of water. Is otherwise NPO. manager shell placed and is showing SR. RN completed admission assessment
[2021-11-24 06:45] LABS: Glucose Point of Care 251 mg/dL (70-110)
--- NOTE | 2021-11-24 07:33 | PM.CONSULT ---
Providers/Reason For Consult Consulting Physician/Specialty*: Rob Mcginnis MD Reason for Consult*: Acute cholecystitis Requesting Physician: Dr. Lynn Attending Physician: Ehsan Henderson MD Primary Care Provider: Haresh Dorman DO History of Present Illness History of Present Illness Mr. Rashad Michel is a pleasant 76 year old male with multiple medical comorbidities in the form of type 2 diabetes mellitus, atrial fibrillation on Eliquis therapy, BPH, hypertension. Started to encounter abdominal pain yesterday after having a fried chicken and subsequently he felt bloated associated with nausea and episodes of vomiting. Denies any fevers chills or jaundice. Patient did after presented to the emergency department of [facility] for further work-up. Undergone an ultrasound of the gallbladder that did show 1. Equivocal findings for acute cholecystitis including gallbladder distension and mild wall thickening. No definite stones or sludge. Information regarding sonographic Joyce sign was not provided. 2. Hepatic steatosis. ? Also the patient undergone a CT of the abdomen and pelvis that did show 1. Gallbladder distension with some minimal adjacent stranding with a small stone in the cystic duct on axial image 27. No biliary duct dilatation. Correlate for right upper quadrant pain, suspicious for cholecystitis. 2. Moderate prostate gland enlargement. Correlate with PSA. 3. Gastric distension with some mild thickening along the greater curvature, question gastritis or some delayed emptying. General surgery was consulted for further evaluation and management. Apparently the patient has an appointment to see general surgery this coming Wednesday to discuss gallbladder surgery Review of Systems General: Reports: 10 or more systems reviewed and unremarkable except in HPI and below Medications/Allergies Home Medications Medication Instructions Recorded Confirmed Last Taken Type docusate sodium 50 mg capsule 50 mg PO BID #60 caps 05/22/19 10/16/21 Unknown Rx (Colace Clear) losartan 100 mg tablet 100 mg PO DAILY 05/22/19 10/16/21 05/21/19 History omega 5-hxx-opc-fish oil 1,000 mg 1 cap PO BID 05/22/19 10/16/21 05/22/19 History (120 mg-180 mg) capsule (Fish Oil) pantoprazole 20 mg tablet,delayed 20 mg PO DAILY 05/22/19 10/16/21 05/22/19 History release rosuvastatin 40 mg tablet 40 mg PO QPM 05/22/19 10/16/21 05/22/19 History tamsulosin 0.4 mg capsule (Flomax) 0.8 mg PO QPM #0 caps 05/22/19 10/16/21 05/21/19 Rx venlafaxine 75 mg tablet 75 mg PO DAILY 05/22/19 10/16/21 05/22/19 History meclizine 25 mg tablet 25 mg PO QPM 09/27/19 10/16/21 Unknown History metformin 500 mg tablet 500 mg PO BID 09/19/20 10/16/21 Unknown History vitamin B comp and C no.3 15 mg-10 1 cap PO DAILY 09/19/20 10/16/21 Unknown History mg-50 mg-5 mg-300 mg capsule (B Complex Plus Vitamin C) amlodipine 10 mg tablet 5 mg PO BEDTIME #0 tabs 04/07/21 10/16/21 05/21/19 Rx apixaban 5 mg tablet (Eliquis) 5 mg PO BID #180 tabs 04/10/21 10/16/21 Unknown Rx magnesium oxide 400 mg (241.3 mg 400 mg PO DAILY 04/10/21 10/16/21 Unknown History magnesium) tablet metoprolol tartrate 50 mg tablet 50 mg PO DIRECTED #0 tabs 04/10/21 10/16/21 Unknown Rx naproxen sodium 220 mg tablet 220 mg PO BID PRN Pain 05/27/21 10/16/21 Unknown History albuterol sulfate 90 mcg/actuation 2 inh inhalation Q4H PRN shortness 07/05/21 10/16/21 Unknown Rx aerosol inhaler of breath or wheezing #18 grams fluticasone propionate 50 2 spray intranasal DAILY #16 grams 08/26/21 10/16/21 Unknown Rx mcg/actuation nasal spray,suspension (Allergy Relief (fluticasone)) furosemide 20 mg tablet 20 mg PO DAILY PRN edema #30 tabs 08/28/21 10/16/21 Unknown Rx tiotropium bromide 2.5 2 inh inhalation QAM #4 grams 09/11/21 10/16/21 Unknown Rx mcg/actuation mist for inhalation (Spiriva Respimat) fluticasone 250 mcg-salmeterol 50 1 inh inhalation BID #60 ea 10/31/21 Unknown Rx mcg/dose blistr powdr for inhalation (Wixela Inhub) sucralfate 100 mg/mL oral 1 g (10 mL) PO Q6H 12 weeks #3,360 11/02/21 Unknown Rx suspension (Carafate) mL Allergies Allergy/AdvReac Type Severity Reaction Status Date / Time lisinopril Allergy Unknown ADR-Cough Verified 11/24/21 07:37 pravastatin Allergy Unknown ADR-Cramping Verified 11/24/21 07:37 of the Muscles simvastatin Allergy Unknown ADR-Cramping Verified 11/24/21 07:37 of the Muscles Current Medications Generic Name Dose Route Start Last Admin Trade Name Freq PRN Reason Stop Dose Admin Sodium Chloride 1,000 mls @ 100 mls/hr 11/24/21 02:38 11/24/21 03:04 Sodium Chloride 0.9% IV 100 mls/hr .Q10H SYDNEY Administration Metoprolol Tartrate 25 mg 11/24/21 02:38 11/24/21 03:07 Metoprolol Tartrate 50 Mg Tablet PO 25 mg DAILY SYDNEY Administration Pantoprazole Sodium 40 mg 11/24/21 02:38 11/24/21 03:03 Pantoprazole 40 Mg Sdv IVP 40 mg Q24H SYDNEY Administration PFSH Acute PFSH: Medical History Afib CHF (congestive heart failure) COPD (chronic obstructive pulmonary disease) Depression Diabetes GERD (gastroesophageal reflux disease) Heart attack Hemorrhoid HTN (hypertension) Hyperlipidemia Prostate enlargement Ventricular arrhythmia Surgical History H/O hemorrhoidectomy History of colonoscopy 2017 Stented coronary artery Family History Father Cancer Lung Mother Cancer Lung Brother , Age 32 CAD (coronary artery disease) Social History Smoking and tobacco status: former smoker Quit status (tobacco): has quit using tobacco Year quit tobacco: 1992 - PPD x 40 Years Alcohol intake: never Lives independently: Yes Household members: spouse Marital status: service: Yes Current occupational status: retired History of recent travel: No Current gender identity: Male Vitals/I&O/Wt Last Vital Signs Temp 97.7 F 11/24/21 04:00 Pulse 83 11/24/21 06:00 Resp 17 11/24/21 04:00 BP 125/69 11/24/21 04:00 Pulse Ox 91 11/24/21 04:00 O2 Del Method 11/24/21 03:09 Weight last 48 hrs Weight 195 lb Physical Exam Const: COMMON NORMALS: no acute distress and patient oriented x3 GENERAL APPEARANCE: cooperative ORIENTATION/CONSCIOUSNESS: Yes awake, Yes oriented to person, Yes oriented to place and Yes oriented to time HENMT: COMMON NORMALS: normocephalic HEAD & SCALP: normocephalic Eye: COMMON NORMALS: Equal, round and reactive pupils present and no scleral icterus PUPIL: Yes Equal, round and reactive pupils present Lymph: LYMPHATIC: no lymphadenopathy noted Chest: COMMONS NORMALS: normal inspection of the chest Resp: COMMON NORMALS: normal respiratory effort and clear to auscultation bilaterally AUSCULTATION: clear to auscultation bilaterally Cardio: COMMON NORMALS: S1 normal heart sound present and S2 normal heart sound present; negative for No murmurs present (Cardio) HEART SOUNDS: S1 normal heart sound present and S2 normal heart sound present GI: COMMON NORMALS: Soft to palpation; negative for No hepatosplenomegaly present INSPECTION: Yes normal to inspection PALPATION: Yes Soft to palpation, No Firmness to palpation present (GI), Yes Tenderness to palpation present (GI) Details: RUQ (Mild tenderness), No Guarding due to palpation present (GI), No Rigid due to palpation and No No hepatosplenomegaly present Neuro: COMMON NORMALS: patient oriented x3 SENSORIUM/ORIENTATION: Yes oriented to person, Yes oriented to place and Yes oriented to time Psych: COMMON NORMALS: mental status grossly normal Skin: COMMON NORMALS: no rashes or lesions noted GENERAL SKIN EXAM: no rashes or lesions noted Data : 11/24/21 00:25 11/24/21 00:25 A&P Assessment and plan (1) Acute cholecystitis: After thorough history physical examination and reviewing the chart and images with my personal interpretation. I did correctional substance abuse counselor the patient for same hospitalization laparoscopic cholecystectomy possible open understanding that he is at higher risk of bleeding because he has been on Eliquis and he does have an enlarged liver that can increase the risk of potential conversion to open and does increase the risk of biliary injury. As the patient feels better I did discuss with him as well option of conservative measures and have the patient follow-up with me as an outpatient for potential elective/interval cholecystectomy, and put him on liquid protein diet for 10 days prior to surgery to downsize the volume of the liver for safer procedure. With that being said. I did explain for the patient in the presence of a stone in the cystic duct that can migrate towards the common bile duct and cause pancreatitis which does carry higher risk of morbidity and mortality. Last resort if the patient is getting worse and not interested to pursue surgery a cholecystostomy tube would be potential option. I would leave it at this point for the patient to discuss it with his spouse and let me know with his final decision. Assurance and education All questions have been answered and all concerns have been addressed to patient's satisfaction. Coding Level of Care Code Acute Ict Developer for [place] Diagnoses Acute cholecystitis K81.0
[2021-11-24] MEDS: losartan 50 mg Tablet 100 MG PO (09:43)
[2021-11-24] MEDS: insulin lispro 100 unit/1 mL SUBCUT ×2 (09:45→12:50)
[2021-11-24] MEDS: venlafaxine 75 mg Tablet PO (09:47)
--- NOTE | 2021-11-24 11:44 | PC.PHAR ---
pts verified the pts medications-aloglipton 12.5mg 2 tabs daily [place] pts states she is unsure about this medication-pts states the pt hasnt started taking glipizide 10mg bid states they just got it in the mail-medication on pts [place] med [place] as a active med-pts states the 81mg aspirin daily was dced states pt not taken for months-va med list has metformin 1000mg daily pts states the dr increased to 1000mg bid-pts [place] med list has metoprolol tartrate 25mg qam and 50mg qpm pts states the pt just takes 25mg bid-notes are made in the pharmacy comments-
[2021-11-24 11:53] LABS: Glucose Point of Care 162 mg/dL (70-110)
--- NOTE | 2021-11-24 12:21 | USCV_ITS ---
Rashad Michel Age: 76 Gender: M : 1945 Exam Date: 11/24/2021 12:48 Ordering Phys: Sara Rogers MD Technologist: Michele Du Exam Location: [facility] [place] Indication: cardiac clearance BP: 143 / 83 HR: 58 Rhythm: Sinus Technical Quality: Adequate MEASUREMENTS (Male / Female) Normal Values 2D ECHO LV Diastolic Diameter PLAX 4.3 cm 4.2 - 5.9 / 3.9 - 5.3 cm LV Systolic Diameter PLAX 2.7 cm IVS Diastolic Thickness 1.1 cm 0.6 - 1.0 / 0.6 - 0.9 cm IVS Systolic Thickness 1.8 cm LVPW Diastolic Thickness 1.2 cm 0.6 - 1.0 / 0.6 - 0.9 cm LVPW Systolic Thickness 1.4 cm LVOT Diameter 2.1 cm LV Ejection Fraction 2D Teich 66.6 % LV Ejection Fraction MOD 2C 72.9 % LV Ejection Fraction 2C AL 73.6 % LA Diameter 4.1 cm Aorta at Sinotubular Diameter 2.0 cm M-MODE Aortic Annulus Diameter 3.3 cm LA Ao Ratio MM 1.3 MV E Point Septal Separation 1.0 cm DOPPLER AV Peak Velocity 153.7 cm/s LVOT Peak Velocity 94.0 cm/s AV Area Cont Eq vti 2.2 cm squared AV Area Cont Eq pk 2.0 cm squared MV Area PHT 5.0 cm squared Mitral E to A Ratio 1.0 MV E' Velocity 44.5 cm/s Mitral E to MV E' Ratio 7.4 Mitral E to LV E' Lateral Ratio 6.9 Mitral E to LV E' Septal Ratio 8.1 TR Peak Velocity 305.7 cm/s TR Peak Gradient 37.4 mmHg TV Peak E Velocity 80.0 cm/s Right Atrial Pressure 3.0 mmHg Pulmonary Artery Systolic Pressu 40.4 mmHg RV Acceleration Time 0.1 s FINDINGS Left Ventricle Normal left ventricular size, systolic function and mildly increased wall thickness, with no regional wall motion abnormalities. Left ventricular ejection fraction is estimated at 60 %. Normal diastolic function. Right Ventricle Normal right ventricular size and systolic function. Right ventricular systolic pressure 46 mmHg. Right Atrium Normal right atrial size. Left Atrium Normal left atrial size. Mitral Valve Structurally normal mitral valve. No mitral valve stenosis. Trace mitral valve regurgitation. Aortic Valve Structurally normal trileaflet aortic valve. No aortic valve stenosis. No aortic valve regurgitation. Tricuspid Valve Structurally normal tricuspid valve. Trace tricuspid valve regurgitation. Pulmonic Valve Structurally normal pulmonic valve. No pulmonary valve stenosis. Trace pulmonary valve regurgitation. Pericardium No pericardial effusion. Aorta Normal size aortic root and proximal ascending aorta. IVC Inferior vena cava not visualized. CONCLUSIONS 1. Normal left ventricular size, systolic function and mildly increased wall thickness, with no regional wall motion abnormalities. Left ventricular ejection fraction is estimated at 60 %. Normal diastolic function. 2. Mild pulmonary hypertension with pulmonary artery pressure estimated 46 mmHg. 3. No significant valvular abnormality. 4. When compared to previous echocardiogram dated 09/10/2020, there has been no significant change. Jeannette Rodríguez MD (Electronically Signed) Final Date: 24 November 2021 17:07 S
--- NOTE | 2021-11-24 12:22 | PM.MISC ---
Miscellaneous Note Note: Seen this morning. Family at bedside. Patient states he had 2 stents placed in 2003 and has not had a heart attack in the past. He usually follows at [facility]. He does see a ice house supervisor here at our hospital. Previously he has seen Dr. Miller but now has a new doctor. His last echo was August 2020. Patient does not complain of any chest pain but does get short of breath on exertion. Patient also has a history of COPD. He had a 6-minute walk test done and walked 1500 feet. Patient was not recommended to go for pulmonary rehab. He saw pulmonology last month. He is supposed to be on Symbicort and Spiriva. Patient is currently on Zosyn and IV fluids. We will continue. Patient interested in having cholecystectomy done as an inpatient. Discussed with general surgery. We will obtain cardiac clearance for the patient. Management as per H&P.
--- NOTE | 2021-11-24 12:26 | PM.CONSULT ---
Providers/Reason For Consult Consulting Physician/Specialty*: Dr. Rodríguez Reason for Consult*: Pre op Clearance Attending Physician: Sara Rogers MD Primary Care Provider: Haresh Dorman DO History of Present Illness History of Present Illness Rashad Michel is a 76 year old male with PMHx of Hypertension, coronary artery disease s/p stents, diastolic heart failure,atrial fibrillation and h/o myocardial infarction. He presented with upper abdominal pain. Based on imaging, plan is to do laproscopic/open cholecystectomy vs conservative management and outpatient sx. I have been asked to see the patient for pre op clerance. Review of Systems Const: Denies: fatigue Eyes: Denies: change in vision ENMT: Denies: throat pain, bleeding gums or epistaxis Card: Denies: chest pain, palpitations, irregular heart rhythm, edema, swelling of feet/ankles, lightheadedness, syncope, pre-syncope, dyspnea on exertion or orthopnea Resp: Denies: dyspnea, productive cough or non-productive cough GI: Denies: abdominal pain, nausea, vomiting, hematemesis, diarrhea, constipation or hematochezia : Denies: dysuria or hematuria Musc: Denies: back pain, extremity swelling, joint pain or muscle weakness Skin/Breast: Denies: rash Neuro: Denies: dizziness Psych: Denies: anxiety or depression Endo: Denies: tired all the time [place]/Lymph: Denies: easy bruising or easy bleeding Medications/Allergies Home Medications Medication Instructions Recorded Confirmed Last Taken Type losartan 100 mg tablet 100 mg PO BEDTIME 05/22/19 11/24/21 05/21/19 History omega 9-ocu-qie-fish oil 1,000 mg 2 cap PO BID 05/22/19 11/24/21 05/22/19 History (120 mg-180 mg) capsule (Fish Oil) pantoprazole 20 mg tablet,delayed 20 mg PO QAM 05/22/19 11/24/21 05/22/19 History release rosuvastatin 40 mg tablet 40 mg PO QPM 05/22/19 11/24/21 05/22/19 History tamsulosin 0.4 mg capsule (Flomax) 0.8 mg PO QPM #0 caps 05/22/19 11/24/21 05/21/19 Rx venlafaxine 75 mg tablet 75 mg PO QAM 05/22/19 11/24/21 05/22/19 History meclizine 25 mg tablet 25 mg PO TID PRN Dizziness 09/27/19 11/24/21 Unknown History amlodipine 10 mg tablet 5 mg PO BEDTIME #0 tabs 04/07/21 11/24/21 05/21/19 Rx apixaban 5 mg tablet (Eliquis) 5 mg PO BID #180 tabs 04/10/21 11/24/21 Unknown Rx magnesium oxide 400 mg (241.3 mg 400 mg PO BEDTIME 04/10/21 11/24/21 Unknown History magnesium) tablet albuterol sulfate 90 mcg/actuation 2 inh inhalation Q4H PRN shortness 07/05/21 11/24/21 Unknown Rx aerosol inhaler of breath or wheezing #18 grams furosemide 20 mg tablet 20 mg PO DAILY PRN edema #30 tabs 08/28/21 11/24/21 Unknown Rx tiotropium bromide 2.5 2 inh inhalation QAM #4 grams 09/11/21 11/24/21 Unknown Rx mcg/actuation mist for inhalation (Spiriva Respimat) fluticasone 250 mcg-salmeterol 50 1 inh inhalation BID #60 ea 10/31/21 11/24/21 Unknown Rx mcg/dose blistr powdr for inhalation (Wixela Inhub) alogliptin 12.5 mg tablet 25 mg PO DAILY 11/24/21 11/24/21 Unknown History cholecalciferol (vitamin D3) 25 25 mcg PO DAILY 11/24/21 11/24/21 Unknown History mcg (1,000 unit) tablet (Vitamin D3) cinnamon bark 500 mg capsule 500 mg PO BID 11/24/21 11/24/21 Unknown History (Cinnamon) clotrimazole 10 mg sofia 10 mg mucous membrane 5XD 11/24/21 11/24/21 Unknown History docusate sodium 100 mg capsule 100 mg PO BID PRN Constipation 11/24/21 11/24/21 Unknown History (Colace) finasteride 5 mg tablet (Proscar) 5 mg PO BEDTIME 11/24/21 11/24/21 Unknown History fluticasone propionate 50 2 spray intranasal DAILY PRN 11/24/21 11/24/21 Unknown History mcg/actuation nasal Allergy Symptoms spray,suspension glipizide 10 mg tablet 10 mg PO BID 11/24/21 11/24/21 Unknown History glucose 4 gram chewable tablet See Rx Instructions .Route .COMPLEX 11/24/21 11/24/21 Unknown History metformin 500 mg tablet,extended 1,000 mg PO BID 11/24/21 11/24/21 Unknown History release 24 hr metoprolol tartrate 50 mg tablet 25 mg PO BID 11/24/21 11/24/21 Unknown History nystatin 100,000 unit/mL oral See Rx Instructions .Route .COMPLEX 11/24/21 11/24/21 Unknown History suspension Allergies Allergy/AdvReac Type Severity Reaction Status Date / Time lisinopril Allergy Unknown ADR-Cough Verified 11/24/21 11:22 pravastatin Allergy Unknown ADR-Cramping Verified 11/24/21 11:22 of the Muscles simvastatin Allergy Unknown ADR-Cramping Verified 11/24/21 11:22 of the Muscles Current Medications Generic Name Dose Route Start Last Admin Trade Name Freq PRN Reason Stop Dose Admin Sodium Chloride 1,000 mls @ 100 mls/hr 11/24/21 02:38 11/24/21 03:04 Sodium Chloride 0.9% IV 100 mls/hr .Q10H SYDNEY Administration Piperacillin Sod/Tazobactam 50 mls @ 12.5 mls/hr 11/24/21 10:00 11/24/21 09:44 Sod 3.375 gm/ Sodium Chloride IV 12.5 mls/hr Q8H SYDNEY Administration Protocol Insulin Human Lispro 0 unit 11/24/21 08:00 11/24/21 09:45 Insulin Lispro 100 Unit/1 Ml SUBCUT 6 unit TIDWM SYDNEY Administration Protocol Losartan Potassium 100 mg 11/24/21 09:00 11/24/21 09:43 Losartan 50 Mg Tablet PO 100 mg DAILY SYDNEY Administration Metoprolol Tartrate 25 mg 11/24/21 02:38 11/24/21 09:44 Metoprolol Tartrate 50 Mg Tablet PO 25 mg DAILY SYDNEY Administration Pantoprazole Sodium 40 mg 11/24/21 02:38 11/24/21 03:03 Pantoprazole 40 Mg Sdv IVP 40 mg Q24H SYDNEY Administration Venlafaxine HCl 75 mg 11/24/21 09:00 11/24/21 09:47 Venlafaxine 75 Mg Tablet PO 75 mg DAILY SYDNEY Administration PFSH Acute PFSH: Medical History Afib CHF (congestive heart failure) COPD (chronic obstructive pulmonary disease) Depression Diabetes GERD (gastroesophageal reflux disease) Heart attack Hemorrhoid HTN (hypertension) Hyperlipidemia Prostate enlargement Ventricular arrhythmia Surgical History H/O hemorrhoidectomy History of colonoscopy 2017 Stented coronary artery Family History Father Cancer Lung Mother Cancer Lung Brother , Age 32 CAD (coronary artery disease) Social History Smoking and tobacco status: former smoker Quit status (tobacco): has quit using tobacco Year quit tobacco: 1992 - PPD x 40 Years Alcohol intake: never Lives independently: Yes Household members: spouse Marital status: service: Yes Current occupational status: retired History of recent travel: No Current gender identity: Male Vitals/I&O/Wt Last Vital Signs Temp 98.1 F 11/24/21 11:56 Pulse 59 L 11/24/21 11:56 Resp 16 11/24/21 11:56 BP 129/77 11/24/21 11:56 Pulse Ox 90 11/24/21 11:56 O2 Del Method 11/24/21 11:56 11/23/21 11/24/21 11/24/21 22:59 06:59 14:59 Intake Total 1050 / 1050 Balance 1050 / 1050 Weight last 48 hrs Weight 195 lb Physical Exam Const: COMMON NORMALS: no acute distress, patient oriented x3 and alert GENERAL APPEARANCE: cooperative, comfortable, well kempt and well hydrated HENMT: COMMON NORMALS: hearing grossly normal bilaterally and external ears normal FACE & SINUS: normal facial exam EXTERNAL EAR: Yes external ears normal Eye: COMMON NORMALS: EOMs intact bilaterally and no scleral icterus GENERAL EYE: appearance normal, both eyes and all related structures ALIGNMENT: Yes alignment normal Neck/C-Spine: COMMON NORMALS: no lymphadenopathy, supple and no JVD GENERAL: Yes normal visual inspection CAROTIDS: Yes normal carotid upstroke Chest: COMMONS NORMALS: normal inspection of the chest and normal palpation of entire chest wall CHEST: Yes Symmetrical chest wall rise and No tenderness Resp: COMMON NORMALS: clear to auscultation bilaterally EFFORT & INSPECTION: Yes able to speak in complete sentences, No tachypneic, No respiratory distress, No pursed lip breathing, No labored and No Actively coughing AUSCULTATION: clear to auscultation bilaterally, no crackles, no rales, no rhonchi and no wheezes Cardio: COMMON NORMALS: no JVD, regular rate, regular rhythm, S1 normal heart sound present, S2 normal heart sound present and Peripheral pulses 2+ throughout PALPATION: normal PMI RATE: regular rate RHYTHM: regular rhythm HEART SOUNDS: S1 normal heart sound present, S2 normal heart sound present, no click, no gallops and no murmurs BRUITS: no carotid bruits PERIPHERAL PULSES: Peripheral pulses 2+ throughout, radial pulses present, posterior tibial pulses present and dorsalis pedis present GI: COMMON NORMALS: Soft to palpation AUSCULTATION: Yes normoactive bowel sounds PALPATION: Yes Soft to palpation, Yes Tenderness to palpation present (GI) Details: RUQ and No Guarding due to palpation present (GI) PERCUSSION: tympanic to percussion Extremity: GENERAL: No clubbing, No cyanosis, Yes edema and No pallor Neuro: COMMON NORMALS: patient oriented x3, CN's II-XII intact bilaterally and no focal motor deficits SENSORIUM/ORIENTATION: Yes alert Psych: COMMON NORMALS: Normal thought process present and speech normal APPEARANCE: Yes well kempt SPEECH: Yes normal speech MOOD & AFFECT: Yes euthymic mood THOUGHT PROCESS: Normal thought process present THOUGHT CONTENT: Yes Normal thought content present Data : 11/24/21 00:25 11/24/21 00:25 Other data: TTE (09/10/20) CONCLUSIONS ?LV systolic function is normal with EF of 55-60% ?Diastolic function is normal ?Mild tricuspid regurgitation. RVSP is 30-35mmHg ?Compared to prior echocardiogram from 10/08/2018, no significant ?changes are noted Lexiscan sestamibi stress test (11/04/2018) IMPRESSIONS #1. Myocardial perfusion imaging revealing a moderate area of severely decreased tracer uptake in the inferior, inferolateral and apical lateral regions with a subtle area reversibility in the basal inferior region, suggestive of myocardial scarring in the distribution of the right coronary artery and circumflex artery with a very small area of possible gary-infarction ischemia. #2. Normal LV ejection fraction of 65% #3. LV wall motion analysis revealing no gross wall motion abnormalities #4. Mildly dilated LV cavity No similar previous studies available for comparison TTE (10/08/2018) CONCLUSIONS 1. Normal left ventricular cavity size, wall thickness and systolic function. Left ventricular ejection fraction is estimated at 55 %. No regional wall motion abnormalities. 2. Normal right ventricular size and systolic function. 3. Right atrial pressure estimated at 3 mmHg. 4. Mild tricuspid valve regurgitation. 5. Trivial pericardial effusion. 6. Normal pulmonary artery pressure. 7. No prior similar studies to compare. EKG showed sinus rhythm, inferior [place] probably old. A&P Assessment and plan (1) Pre-operative cardiovascular examination: Patient is able to take care of himself, walk 1-2 blocks on level ground. 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 No exertional symptoms. -Functional status>4 METs. -No EKG changes, no worsening exertional symptoms. -No significant ischemia on stress test 3 years back -Unchanged echocardiogram -Patient is at low risk for sx -May proceed with sx without ant further testing (2) Acute cholecystitis: (3) Coronary artery disease: (4) CHF (congestive heart failure): (5) HTN (hypertension): (6) Hyperlipidemia: (7) Afib: Coding Level of Care Code Acute Bathing Suit Maker for Chg Fwd Exam Comprehensive Diagnoses Pre-operative cardiovascular examination Z01.810 Acute cholecystitis K81.0 Coronary artery disease I25.10 CHF (congestive heart failure) I50.9 HTN (hypertension) I10 Hyperlipidemia E78.5 Afib I48.91
[2021-11-24 17:24] LABS: Glucose Point of Care 127 mg/dL (70-110)
[2021-11-24] MEDS: tamsulosin 0.4 mg Capsule 0.8 MG PO (18:21)
[2021-11-24 20:35] LABS: Glucose Point of Care 230 mg/dL (70-110)
[2021-11-24] MEDS: metoprolol tartrate 50 mg Tablet PO (20:36)
[2021-11-24] MEDS: amlodipine 5 mg Tablet PO (20:36)
[2021-11-24] MEDS: atorvastatin 40 mg Tablet 80 MG PO (20:36)
[2021-11-25] MEDS: piperacillin-tazobactam 3.375 GM in sodium chloride 0.9% (plus) 50 ML IV ×2 (01:26→11:08)
[2021-11-25] MEDS: pantoprazole 40 mg SDV IVP (01:31)
[2021-11-25 04:00] VITALS: BP 107/64; PULSE 58; RESP 16; TEMP 36.8; O2SAT 92
[2021-11-25] MEDS: sodium chloride 0.9% 1,000 ML 100 ML IV (05:43)
[2021-11-25 06:00] VITALS: PULSE 61
[2021-11-25 06:54] LABS: Glucose Point of Care 171 mg/dL (70-110)
[2021-11-25 08:00] VITALS: BP 123/74; PULSE 53; RESP 16; TEMP 36.8; O2SAT 92
--- NOTE | 2021-11-25 08:50 | PM.PN ---
Subjective Subjective: Patient was seen and evaluated today and cleared by cardiology for surgery. She overall feels better. Medications: Reviewed: Yes Vitals/I&O/Wt Last Vital Signs Temp 98.3 F 11/25/21 08:00 Pulse 53 L 11/25/21 08:00 Resp 16 11/25/21 08:00 BP 123/74 11/25/21 08:00 Pulse Ox 92 11/25/21 08:00 O2 Del Method 11/25/21 08:00 11/24/21 11/25/21 11/25/21 22:59 06:59 14:59 Intake Total 1855 / 4170 773.333 / 4943.333 Output Total 450 / 450 Balance 1855 / 4170 323.333 / 4493.333 Weight last 48 hrs Weight 195 lb Physical Exam Narrative: Patient is conscious alert oriented X3 No apparent distress BMI 30.5 Head and neck examination PERRLA no masses no cervical lymphadenopathy no jaundice Abdomen nontender nondistended soft no organomegaly guarding or rigidity/no signs of peritonitis Data : 11/24/21 00:25 11/24/21 00:25 A&P Assessment and plan (1) Acute cholecystitis: Plan of care; After thorough history physical examination and reviewing the chart and images with my personal intrepreatation.I counseled the patient for laparoscopic cholecystectomy possible open to be done within the same hospitalization versus outpatient procedure understanding the potential risk having a fatty liver then if it would to be done as an outpatient we will place the patient on liquid protein diet to downsize the volume of the liver by 30 to 40%. Indications risks including but not limited injury to the common bile duct and/or other viscera,that may require potential future surgical interventions including but not limited to ERCP and or laparatomy that may include Hepatobiliary surgery.Benefits and alternatives all discussed with the patient and his spouse. Patient decided to proceed with same hospitalization gallbladder surgery. Informed consent per chart Assurance and education All questions have been answered and all concerns have been addressed to patient's satisfaction. Attestations Medical Necessity Statement*: Per admitting service Coding Level of Care Code Acute Sports Management Internship for [facility] Fwd Diagnoses Acute cholecystitis K81.0
[2021-11-25 11:36] VITALS: BP 129/59; PULSE 49; RESP 18; TEMP 36.9; O2SAT 92
[2021-11-25 12:07] LABS: Glucose Point of Care 162 mg/dL (70-110)
--- NOTE | 2021-11-25 12:30 | PM.PN ---
Subjective Subjective: Patient presents bedside. He states he is interested in having his cholecystectomy done during this hospitalization. Dr. Mcginnis notified. No acute events overnight. Patient has been cleared by cardiology for surgery. Vitals/I&O/Wt Last Vital Signs Temp 98.5 F 11/25/21 11:36 Pulse 49 L 11/25/21 11:36 Resp 18 11/25/21 11:36 BP 129/59 11/25/21 11:36 Pulse Ox 92 11/25/21 11:36 O2 Del Method 11/25/21 11:36 11/24/21 11/25/21 11/25/21 22:59 06:59 14:59 Intake Total 1855 / 4170 773.333 / 4943.333 Output Total 450 / 450 800 / 800 Balance 1855 / 4170 323.333 / 4493.333 -800 / -800 Weight last 48 hrs Weight 88.451 kg Physical Exam Narrative: General: Alert oriented x3, patient seen this a.m. resting comfortably in bed. Zosyn running. at bedside. HEENT: Normocephalic, atraumatic, EOMI, breathing comfortably. Cardio: Regular rate rhythm, normal S1-S2, Respiratory: Good bilateral air entry, no wheezes no rhonchi appreciated GI: Abdomen soft, nontender, nondistended, bowel sounds + Extremities: No lower extremity edema bilaterally Data : 11/24/21 00:25 11/24/21 00:25 A&P Assessment and plan (1) Pre-operative cardiovascular examination: (2) Acute cholecystitis: (3) Coronary artery disease: (4) Hyperlipidemia: (5) HTN (hypertension): (6) Stented coronary artery: (7) Afib: (8) COPD (chronic obstructive pulmonary disease): Plan #Acute cholecystitis #Hypertension #History of coronary disease status post PCI x2 #Diabetes mellitus, [id number] #Atrial fibrillation, on chronically Eliquis #GERD #Hyperlipidemia ? N.p.o. since midnight. Holding Eliquis as well ? Plan for cholecystectomy today with general surgery ? Continue IV Zosyn ? Insulin sliding scale low-dose ? Hold metformin. ? Continue IV fluids 100 cc/h ? Continue Effexor, losartan, atorvastatin, amlodipine, metoprolol titrate, Protonix -Cardiology consulted for cardiology clearance. Echo complete. Cleared by cardiology. Full code DVT prophylaxis: SCDs, will start DVT prophylaxis Heparin after surgery and clearance by surgeon. Attestations Medical Necessity Statement*: Patient will be going for cholecystectomy today. Coding Level of Care Code Acute Framing Mechanic for Chg Fwd Diagnoses Pre-operative cardiovascular examination Z01.810 Acute cholecystitis K81.0 Coronary artery disease I25.10 Hyperlipidemia E78.5 HTN (hypertension) I10 Stented coronary artery Z95.5 Afib I48.91 COPD (chronic obstructive pulmonary disease) J44.9
--- NOTE | 2021-11-25 13:10 | PM.DCS ---
Discharge Providers Date of Admission: 11/24/21 09:11 Date of Discharge: November 25, 2021 Attending Provider at Admission: Ehsan Henderson MD Attending Provider at Discharge: Sara Rogres MD Primary Care Provider: Haresh Dorman DO Diagnoses at Discharge Discharge Diagnosis (1) Pre-operative cardiovascular examination: Status: Resolved (2) Acute cholecystitis: Status: Suspected (3) Coronary artery disease: Status: Acute (4) Hyperlipidemia: Status: Acute (5) HTN (hypertension): Status: Acute (6) Stented coronary artery: Status: Acute (7) Afib: Status: Acute (8) COPD (chronic obstructive pulmonary disease): Status: Acute Reason for Visit Reason for Visit: abdomen pain Brief History: Rashad Michel is a 76 year old male with a past medical history of [id number] type 2 diabetes mellitus, atrial fibrillation on Eliquis, BPH, hypertension, who presents [facility] due to abdominal pain.? Patient does not that he ate fried chicken this morning, after that he started develop abdominal pain abdominal distention, he had a bowel movement this morning, he has been nauseous this morning, has had episodes of vomiting, no fevers, no chills, no history of food poisoning.? No history of bloody or black stools, no history of cholecystitis, no history of appendicitis Hospital Course Hospital Course Patient presented to the hospital with acute cholecystitis. He was placed on Zosyn. Eliquis was also held. Plan was to take him for surgery. Cardiology clearance obtained. General surgery evaluated patient. Given patient's history of early cirrhotic changes and extensive hepatomegaly he was very high risk for surgery and advised to follow-up with a grants assistant before going for cholecystectomy. There was also question of recent pulmonary embolism diagnosed on November 02 when he came to the ER. Patient is on Eliquis. Patient discharged home on Augmentin for 7 days to follow-up with hepatology outpatient and general surgery for a planned procedure if needed down the road. Patient demonstrated understanding and was discharged home in stable condition. Patient given referral for grants assistant in [place]. Physical Exam Narrative: General: Alert oriented x3, patient seen this a.m. resting comfortably in bed. at bedside. HEENT: Normocephalic, atraumatic, EOMI, breathing comfortably. Cardio: Regular rate rhythm, normal S1-S2, Respiratory: Good bilateral air entry, no wheezes no rhonchi appreciated GI: Abdomen soft, nontender, nondistended, bowel sounds + Extremities: No lower extremity edema bilaterally Discharge Data Studies Completed and Pending Completed Studies During Hospitalization Category Date Time Status CT abdomen pelvis w con* [id number] Stat Cat Scan 11/24/21 02:03 Completed CV. echo complete* [id number] Routine Ultrasound 11/24/21 12:21 Completed US gall bladder [id number] Stat Ultrasound 11/24/21 00:16 Completed Pending at discharge Category Date Time Status Basic Metabolic Panel AM LABS Lab 11/26/21 04:00 Ordered Complete Blood Count w/Auto AM LABS Lab 11/26/21 04:00 Ordered Magnesium AM LABS Lab 11/26/21 04:00 Ordered Radiology Impressions Gallbladder Ultrasound 11/24/21 00:16 IMPRESSION: 1. Equivocal findings for acute cholecystitis including gallbladder distension and mild wall thickening. No definite stones or sludge. Information regarding sonographic Joyce sign was not provided. 2. Hepatic steatosis. Abdomen/Pelvis CT 11/24/21 02:03 IMPRESSION: 1. Gallbladder distension with some minimal adjacent stranding with a small stone in the cystic duct on axial image 27. No biliary duct dilatation. Correlate for right upper quadrant pain, suspicious for cholecystitis. 2. Moderate prostate gland enlargement. Correlate with PSA. 3. Gastric distension with some mild thickening along the greater curvature, question gastritis or some delayed emptying. COMMENTS: Consistent with the [employer]'s Incidental Findings Committee white paper (J Am Nidhi Radiol 2018): Any incidental renal lesion less than 1 cm or classified as too small to characterize, or any incidental cystic renal lesion characterized as simple-appearing, is likely benign. No follow-up imaging is recommended for these lesions per consensus recommendations based on imaging criteria. Laboratory Results WBC 9.5 10^3/uL (4.0-10.0) 11/24/21 00:25 RBC 5.15 10^6/uL (4.1-5.3) 11/24/21 00:25 Hgb 15.5 g/dL (11.7-16.6) 11/24/21 00:25 Hct 46.9 % (42.0-52.0) 11/24/21 00:25 MCV 91.1 fl (80-94) 11/24/21 00:25 MCH 30.1 pg (28.0-34.0) 11/24/21 00:25 MCHC 33.0 g/dL (30.0-36.0) 11/24/21 00:25 RDW 13.2 % (12.1-15.1) 11/24/21 00:25 Plt Count 200 10^3/cmm (130-400) 11/24/21 00:25 MPV 12.0 fL (7.4-10.4) H 11/24/21 00:25 Neut % (Auto) 70.3 % 11/24/21 00:25 Lymph % (Auto) 18.1 % 11/24/21 00:25 [place] % (Auto) 8.8 % 11/24/21 00:25 Eos % (Auto) 1.6 % 11/24/21 00:25 Baso % (Auto) 0.7 % 11/24/21 00:25 Neut # (Auto) 6.70 10^3/uL (1.8-7.7) 11/24/21 00:25 Lymph # (Auto) 1.7 10^3/uL (0.8-4.8) 11/24/21 00:25 [place] # (Auto) 0.8 10^3/uL (0.2-0.9) 11/24/21 00:25 Eos # (Auto) 0.2 10^3/uL (0.0-0.8) 11/24/21 00:25 Baso # (Auto) 0.1 10^3/uL (0.0-0.1) 11/24/21 00:25 Nucleated RBC % (auto) 0 % 11/24/21 00:25 Nucleated RBCs # 0.0 /100WBC 11/24/21 00:25 PT 14.80 SECONDS (12.1-14.9) 11/24/21 00:25 INR 1.13 (0.8-1.2) 11/24/21 00:25 Sodium 138 mmol/L (136-145) 11/24/21 00:25 Potassium 4.2 mmol/L (3.5-5.1) 11/24/21 00:25 Chloride 102 mmol/L (98-107) 11/24/21 00:25 Carbon Dioxide 22 mmol/L (22-29) 11/24/21 00:25 Anion Gap 18.2 (5-19) 11/24/21 00:25 BUN 16 mg/dL (8-23) 11/24/21 00:25 Creatinine 0.8 mg/dL (0.7-1.2) 11/24/21 00:25 GFR Calculation Not Reportable 11/24/21 00:25 Glucose 269 mg/dL (65-115) H 11/24/21 00:25 POC Glucose 162 mg/dL (70-110) H 11/25/21 11:32 Calculated Osmolality 297 mOsm/kg (285-295) H 11/24/21 00:25 Lactate 2.7 mmol/L (0.5-2.2) H 11/24/21 00:25 Calcium 9.6 mg/dL (8.5-10.5) 11/24/21 00:25 Total Bilirubin 0.5 mg/dL (0.15-1.2) 11/24/21 00:25 AST 42 U/L (0-40) H 11/24/21 00:25 ALT 72 U/L (0-41) H 11/24/21 00:25 Alkaline Phosphatase 70 U/L (40-130) 11/24/21 00:25 C-Reactive Protein 3.0 mg/L (0.0-4.9) 11/24/21 00:25 Total Protein 6.8 g/dL (6.6-8.7) 11/24/21 00:25 Albumin 4.3 g/dL (3.5-5.2) 11/24/21 00:25 Globulin 2.5 g/dL (1.3-4.6) 11/24/21 00:25 Lipase 39 U/L (13-60) 11/24/21 00:25 Procalcitonin 0.08 ng/mL (0-0.5) 11/24/21 00:25 Urine Color Yellow (Yellow) 11/24/21 00:30 Urine Appearance Clear (CLEAR) 11/24/21 00:30 Urine pH 5 (5-7) 11/24/21 00:30 Ur Specific [place] 1.025 (1.005-1.030) 11/24/21 00:30 Urine Protein Neg (Negative) 11/24/21 00:30 Urine Glucose (UA) 4+ (Normal) H 09/26/22 00:30 Urine Ketones 1+ (Negative) H 11/24/21 00:30 Urine Blood Neg (Negative) 11/24/21 00:30 Urine Nitrate Negative (Negative) 11/24/21 00:30 Urine Bilirubin Neg (Negative) 11/24/21 00:30 Urine Urobilinogen Neg mg/dL (Negative) 11/24/21 00:30 Ur Leukocyte Esterase Negative (Negative) 11/24/21 00:30 Vitals Last Vital Signs Temp 98.5 F 11/25/21 11:36 Pulse 49 L 11/25/21 11:36 Resp 18 11/25/21 11:36 BP 129/59 11/25/21 11:36 Pulse Ox 92 11/25/21 11:36 O2 Del Method 11/25/21 11:36 Discharge Plan Discharge Patient Disposition: Home Condition: Stable Prescriptions: New amoxicillin-pot clavulanate 875-125 mg tablet 1 tab PO BID 7 Days Qty: 14 0RF Continued magnesium oxide 400 mg (241.3 mg magnesium) tablet 400 mg PO BEDTIME Eliquis 5 mg tablet 5 mg PO BID Qty: 180 3RF furosemide 20 mg tablet 20 mg PO DAILY PRN (Reason: edema) Qty: 30 3RF Spiriva Respimat 2.5 mcg/actuation mist 2 inh INHALATION QAM Qty: 4 3RF fluticasone propion-salmeterol [Wixela Inhub] 250-50 mcg/dose blister with device 1 inh inhalation BID Qty: 60 6RF venlafaxine 75 mg Tablet 75 mg PO QAM pantoprazole 20 mg Tablet,Delayed Release (Dr/Ec) 20 mg PO QAM losartan 100 mg Tablet 100 mg PO BEDTIME rosuvastatin 40 mg Tablet 40 mg PO QPM omega 1-ftm-eud-fish oil [Fish Oil] 1,000 mg (120 mg-180 mg) Capsule 2 cap PO BID tamsulosin [Flomax] 0.4 mg Capsule 0.8 mg PO QPM Qty: 0 0RF meclizine 25 mg tablet 25 mg PO TID PRN (Reason: Dizziness) amlodipine 10 mg Tablet 5 mg PO BEDTIME Qty: 0 0RF nystatin 100,000 unit/mL Suspension See Rx Instructions .ROUTE .COMPLEX Rx Instructions: place denture in 35 ml of nystatin using disposable cup-soak over night then rinse in the am continue until all solution is finished glipizide 10 mg Tablet 10 mg PO BID glucose 4 gram Tablet,Chewable See Rx Instructions .ROUTE .COMPLEX Rx Instructions: 5 tabs po as directed as needed for low blood sugar metoprolol tartrate 50 mg Tablet 25 mg PO BID Colace 100 mg Capsule 100 mg PO BID PRN (Reason: Constipation) fluticasone propionate 50 mcg/actuation [place],Suspension 2 spray INTRANASAL DAILY PRN (Reason: Allergy Symptoms) Rx Instructions: administer into each nostril metformin 500 mg Tablet Extended Release 24 Hr 1,000 mg PO BID Proscar 5 mg Tablet 5 mg PO BEDTIME Cinnamon 500 mg Capsule 500 mg PO BID Vitamin D3 25 mcg (1,000 unit) Tablet 25 mcg PO DAILY alogliptin 12.5 mg Tablet 25 mg PO DAILY albuterol sulfate 90 mcg/actuation HFA aerosol inhaler 2 inh INHALATION Q4H PRN (Reason: shortness of breath or wheezing) Qty: 18 0RF Held clotrimazole 10 mg Selena 10 mg MUCOUS MEMBRANE 5XD Hold Instructions: see pcp before resuming Rx Instructions: for 14 days Discharge Orders: Discharge Order (Routine); Ordered 11/25/21 Ordered By: Sara Rogers Referrals: Rob Mcginnis MD [Physician] - 12/03/21 2:15 pm Cristino Nichols MD [Referring] - 1 week (Liver cirrhosis FAXED REFERRAL FOR APPOINTMENT) Haresh Dorman DO [Primary Care Provider] - 4-7 days ([facility]GE [facility] CALL WITH [facility]POINTMENT) Discharge Diet: Low Fat and GI Soft Discharge Activity: Resume usual activity Patient Instructions: Amoxicillin/Clavulanate Potassium (By mouth), Cholecystitis (GEN), Opioid Safety Discharge Attestations Time Spent in Discharge Care*: less than 30 min Quality Metrics Clinical Quality Measures [ No reported AMI, CVA or VTE this stay] Coding Level of Care Code Acute Chg [facility] note Diagnoses Pre-operative cardiovascular examination Z01.810 Acute cholecystitis K81.0 Coronary artery disease I25.10 Hyperlipidemia E78.5 HTN (hypertension) I10 Stented coronary artery Z95.5 Afib I48.91 COPD (chronic obstructive pulmonary disease) J44.9
== END 2021-11-25 14:42 | disposition home or self-care (01) ==
LOC: ER 01:44 → MEDSURG 03:13
PROVIDERS: Admitting Provider Family Medicine; Emergency Provider Emergency Medicine; PCP Emergency Medicine Emergency Medical Services; Visit Provider Internal Medicine
DX: K81.0 Acute cholecystitis (principal); I25.10 Atherosclerotic heart disease of native coronary artery without angina pectoris; I11.0 Hypertensive heart disease with heart failure; I50.9 Heart failure, unspecified; E78.5 Hyperlipidemia, unspecified; I48.91 Unspecified atrial fibrillation; Z95.5 Presence of coronary angioplasty implant and graft; J44.9 Chronic obstructive pulmonary disease, unspecified; F32.A Depression, unspecified; I10 Essential (primary) hypertension; E11.9 Type 2 diabetes mellitus without complications; Z79.01 Long term (current) use of anticoagulants; K21.9 Gastro-esophageal reflux disease without esophagitis; N40.0 Benign prostatic hyperplasia without lower urinary tract symptoms; Z87.891 Personal history of nicotine dependence
CPT/HCPCS: 36416; 74177; 76705; 80053; 81003; 82962; 83605; 83690; 84145; 85025; 85610; 86140; 93005; 93306; 96365; 96372; 96375; 99285; C9113; G0378; J1100; J1170; J1815; J2405; J2543; J2704; J3490; J7030; Q9967

== ENCOUNTER → 2021-12-03 13:50 | Outpatient (BNVA) | payer OTHER, SELFPAY | PROVIDERS: PCP Emergency Medicine Emergency Medical Services; Visit Provider Surgery | DX: K81.0 Acute cholecystitis (principal); K74.60 Unspecified cirrhosis of liver | CPT/HCPCS: 99213 ==

== ENCOUNTER 2021-12-11 09:51 | Outpatient (CLI) | payer OTHER, SELFPAY ==
--- NOTE | 2021-12-11 10:01 | US_ITS ---
WS: [id number] RIGHT UPPER QUADRANT ULTRASOUND HISTORY: RIGHT UPPER QUAD PAIN COMPARISON: 11/24/2021 Liver: 19.1 cm in length. Liver is moderately enlarged. Surface is irregular from cirrhosis. Coarse e chotexture. No mass identified. No bile duct dilatation. Portal Vein: Normal hepatopetal flow with monophasic waveform. Gallbladder: Normally distended gallbladder with no stones or wall thickening. CBD: 0.5 cm Pancreas: Normal size and echogenicity. Right kidney: 11.7 cm in length. Normal size kidney. No hydronephrosis. Hypoechoic mass from the medi al kidney measures 3.7 x 3.8 x 4.1 cm. There is through transmission. Cyst has been described since 2 019 at this location. There is no increase in size. Aorta and IVC: Unremarkable abdominal aorta and IVC. No ascites. US/US abdomen limited [id number] IMPRESSION: 1. Enlarged cervical carotid appearing liver. No mass or bile duct dilatation. 2. Normal gallbladder. 3. RIGHT renal cyst, stable since 2019.
== END 2021-12-11 09:52 | disposition home or self-care (01) ==
LOC: RAD 09:52
PROVIDERS: PCP Emergency Medicine Emergency Medical Services; Visit Provider Emergency Medicine Emergency Medical Services
DX: R10.11 Right upper quadrant pain (principal); N28.1 Cyst of kidney, acquired; Z01.89 Encounter for other specified special examinations
CPT/HCPCS: 76705

== ENCOUNTER 2021-12-18 20:57 | Inpatient (IN) | payer OTHER, SELFPAY ==
[2021-12-18 21:05] VITALS: BP 155/82; PULSE 73; RESP 17; TEMP 36.3; O2SAT 94; BMI 31.9
--- NOTE | 2021-12-18 21:47 | ED_ITS ---
Documented by User: Abdiel Barth MD 12/23/21 18:50 HPI - Abdominal Pain General: Chief Complaint: Abdominal Pain Stated Complaint: socrates bowers, N/V Time Seen by Provider: 12/18/21 21:41 History of Present Illness: Mr. Wright is a 76-year-old gentleman with history of cirrhosis, cholecystitis nonoperatively managed, CAD, CHF, hypertension, hyperlipidemia, COPD presenting to the emergency department due to abdominal pain. Onset of symptoms was acute shortly prior to arrival. He describes diffuse abdominal pain which is aching and sharp in nature. He notes additional abdominal bloating. Symptoms are moderate to severe in intensity and worse with palpation and movement. Multiple episodes of nonbilious and nonbloody emesis. He reports normal bowel movement earlier today. He has had normal urination. Subjective fevers and chills. No other specific changes in health, exacerbating, or alleviating factors identified. Onset (ago): hour(s) Pain Consistency: constant Location: Diffuse Severity: severe Quality: aching Radiation: none Migration to: no migration Exacerbating factors: movement Relieving factors: nothing Context: other Associated Symptoms: Reports chills, nausea and vomiting Review of Systems General: Reports: 10 or more systems reviewed and unremarkable except in HPI and below Const: Reports: chills GI: Reports: nausea and vomiting PFSH ED PFSH: Medical History (Updated 12/23/21 @ 00:01 by ) Afib Bladder outlet obstruction CHF (congestive heart failure) COPD (chronic obstructive pulmonary disease) Depression Diabetes GERD (gastroesophageal reflux disease) Heart attack Hemorrhoid HTN (hypertension) Hyperlipidemia Prostate enlargement Ventricular arrhythmia Surgical History H/O hemorrhoidectomy History of colonoscopy 2017 Stented coronary artery Family History Father Cancer Lung Mother Cancer Lung Brother , Age 32 CAD (coronary artery disease) Social History Smoking and tobacco status: former smoker Quit status (tobacco): has quit using tobacco Year quit tobacco: 1992 - PPD x 40 Years Alcohol intake: never Lives independently: Yes Household members: spouse Marital status: service: Yes Current occupational status: retired History of recent travel: No Current gender identity: Male Physical Exam Const: COMMON NORMALS: alert GENERAL APPEARANCE: cooperative, well developed and in distress (due to pain) HENMT: COMMON NORMALS: normocephalic and atraumatic HEAD & SCALP: normocephalic and atraumatic Eye: COMMON NORMALS: conjunctivae normal CONJUNCTIVA: Yes conjunctivae normal SCLERA: sclerae normal Neck/C-Spine: COMMON NORMALS: supple GENERAL: Yes trachea midline Resp: COMMON NORMALS: clear to auscultation bilaterally EFFORT & INS PECTION: Yes able to speak in complete sentences AUSCULTATION: clear to auscultation bilaterally Cardio: COMMON NORMALS: regular rate and regular rhythm RATE: regular rate RHYTHM: regular rhythm GI: COMMON NORMALS: Soft to palpation PALPATION: Yes Soft to palpation, Yes Tenderness to palpation present (GI), Yes Guarding due to palpation present (GI) and No Rigid due to palpation Extremity: GENERAL: Yes normal exam except as noted and No edema Neuro: COMMON NORMALS: moves all extremities SENSORIUM/ORIENTATION: Yes alert and No Orientation impaired Psych: COMMON NORMALS: mental status grossly normal and Normal thought process present THOUGHT PROCESS: Normal thought process present Course Vital Signs: Vital signs: Vital Signs Temperature 98.2 F 12/22/21 16:00 Pulse Rate 63 12/22/21 16:00 Respiratory Rate 16 12/22/21 16:00 Blood Pressure 113/62 12/22/21 16:00 Pulse Oximetry 90 12/22/21 16:00 Oxygen Delivery Me thod 12/22/21 09:59 Oxygen Flow Rate 2 12/21/21 14:20 MDM - Abdominal Pain Medical Decision Making 76-year-old gentleman presenting with abdominal symptoms. Patient is nontoxic but does have abdominal tenderness on exam, no evidence of acute surgical abdomen. Vital signs reviewed. Laboratory studies notable for normal leukocytosis, likely hemoconcentration. Metabolic panel with elevated lactic acid and mild transaminitis. No urinary tract infection. Chest x-ray with no lobar consolidation or pneumothorax. CT abdomen and pelvis negative for acute injury or abdominal pathology. Patient handed off to Dr. Lynn pending completion of ED evaluation for disposition. Patient presents with abdominal pain he is quite tender in his right upper quadrant his ultrasound does show some gallbladder wall thickening with possible chronic cholecystitis he does have liver cirrhosis as well. Patient started on antibiotics here spoke to surgeon along with hospitalist will admit for serial abdominal exams. Medical Records I reviewed the patient's medical records. Lab Data I reviewed the patient's lab results. : 12/22/21 02:35 12/22/21 02:35 Labs/Radiology: Radiology Impressions Chest X-Ray 12/18/21 21:55 IMPRESSION: No acute findings. Abdomen/Pelvis CT 12/18/21 22:07 IMPRESSION: No acute findings. COMMENTS: Consistent with the [employer] [place] [employer]'s Incidental Findings Committee white paper (J Am Nidhi Radiol 2018): Any incidental renal lesion less than 1 cm or classified as too small to characterize, or any incidental cystic renal lesion characterized as simple-appearing, is likely benign. No follow-up imaging is recommended for these lesions per consensus recommendations based on imaging criteria. Gallbladder Ultrasound 12/18/21 23:31 IMPRESSION: 1. Gallbladder wall thickening which given history may reflect chronic cholecystitis. 2. Hepatic steatosis. Laboratory Results WBC 10.3 10^3/uL (4.0-10.0) H 12/18/21 22:03 RBC 5.24 10^6/uL (4.1-5.3) 12/18/21 22:03 Hgb 16.0 g/dL (11.7-16.6) 12/18/21 22:03 Hct 47.9 % (42.0-52.0) 12/18/21 22:03 MCV 91.4 fl (80-94) 12/18/21 22:03 MCH 30.5 pg (28.0-34.0) 12/18/21 22:03 MCHC 33.4 g/dL (30.0-36.0) 12/18/21 22:03 RDW 13.6 % (12.1-15.1) 12/18/21 22:03 Plt Count 201 10^3/cmm (130-400) 12/18/21 22:03 MPV 11.7 fL (7.4-10.4) H 12/18/21 22:03 Neut % (Auto) 67.3 % 12/18/21 22:03 Lymph % (Auto) 20.4 % 12/18/21 22:03 [place] % (Auto) 9.4 % 12/18/21 22:03 Eos % (Auto) 1.7 % 12/18/21 22:03 Baso % (Auto) 0.7 % 12/18/21 22:03 Neut # (Auto) 6.94 10^3/uL (1.8-7.7) 12/18/21 22:03 Lymph # (Auto) 2.1 10^3/uL (0.8-4.8) 12/18/21 22:03 [place] # (Auto) 1.0 10^3/uL (0.2-0.9) H 12/18/21 22:03 Eos # (Auto) 0.2 10^3/uL (0.0-0.8) 12/18/21 22:03 Baso # (Auto) 0.1 10^3/uL (0.0-0.1) 12/18/21 22:03 Nucleated RBC % (auto) 0 % 12/18/21 22:03 Nucleated RBCs # 0.0 /100WBC 12/18/21 22:03 PT 15.00 SECONDS (12.1-14.9) H 12/18/21 23:47 INR 1.14 (0.8-1.2) 12/18/21 23:47 Sodium 139 mmol/L (136-145) 12/18/21 22:03 Potassium 4.4 mmol/L (3.5-5.1) 12/18/21 22:03 Chloride 100 mmol/L (98-107) 12/18/21 22:03 Carbon Dioxide 24 mmol/L (22-29) 12/18/21 22:03 Anion Gap 19.4 (5-19) H 12/18/21 22:03 BUN 19 mg/dL (8-23) 12/18/21 22:03 Creatinine 1.0 mg/dL (0.7-1.2) 12/18/21 22:03 GFR Calculation Not Reportable 12/18/21 22:03 Glucose 171 mg/dL (65-115) H 12/18/21 22:03 Calculated Osmolality 294 mOsm/kg (285-295) 12/18/21 22:03 Lactic Acid 3.1 mmol/L (0.5-2.2) H 12/18/21 22:25 Lactic Acid (Sepsis) 2.5 mmol/L (0.5-2.2) H 12/19/21 00:42 Calcium 10.0 mg/dL (8.5-10.5) 12/18/21 22:03 Total Bilirubin 0.6 mg/dL (0.15-1.2) 12/18/21 22:03 AST 44 U/L (0-40) H 12/18/21 22:03 ALT 83 U/L (0-41) H 12/18/21 22:03 Alkaline Phosphatase 64 U/L (40-130) 12/18/21 22:03 Total Protein 7.5 g/dL (6.6-8.7) 12/18/21 22:03 Albumin 4.4 g/dL (3.5-5.2) 12/18/21 22:03 Globulin 3.1 g/dL (1.3-4.6) 12/18/21 22:03 Lipase 38 U/L (13-60) 12/18/21 22:03 Urine Color Yellow (Yellow) 12/18/21 22:17 Urine Appearance Clear (CLEAR) 12/18/21 22:17 Urine pH 5 (5-7) 12/18/21 22:17 Ur Specific [place] 1.030 (1.005-1.030) 12/18/21 22:17 Urine Protein Neg (Negative) 12/18/21 22:17 Urine Glucose (UA) Norm (Normal) 12/18/21 22:17 Urine Ketones 1+ (Negative) H 12/18/21 22:17 Urine Blood Neg (Negative) 12/18/21 22:17 Urine Nitrate Negative (Negative) 12/18/21 22:17 Urine Bilirubin Neg (Negative) 12/18/21 22:17 Urine Urobilinogen Norm mg/dL (Negative) 12/18/21 22:17 Ur Leukocyte Esterase Negative (Negative) 12/18/21 22:17 Discharge Plan Discharge Patient Disposition: Admitted As Inpatient Admit Provider: Gerda Troncoso Clinical Impression: Abdominal pain Condition: Stable Discharge Diet: Regular and Low Fat Discharge Activity: Increase activity as tolerated Coding Level of Care Code ED Guard Immigration for Chg Fwd Exam Comprehensive Documented by User: Philomena Lynn MD 12/19/21 01:30 HPI - Abdominal Pain General: Chief Complaint: Abdominal Pain Stated Complaint: socrates bowers, N/V Time Seen by Provider: 12/18/21 21:41 [facility] ED PFSH: Medical History (Updated 12/23/21 @ 00:01 by ) Afib Bladder outlet obstruction CHF (congestive heart failure) COPD (chronic obstructive pulmonary disease) Depression Diabetes GERD (gastroesophageal reflux disease) Heart attack Hemorrhoid HTN (hypertension) Hyperlipidemia Prostate enlargement Ventricular arrhythmia Surgical History H/O hemorrhoidectomy History of colonoscopy 2017 Stented coronary artery Family History Father Cancer Lung Mother Cancer Lung Brother , Age 32 CAD (coronary artery disease) Social History Smoking and tobacco status: former smoker Quit status (tobacco): has quit using tobacco Year quit tobacco: 1992 - PPD x 40 Years Alcohol intake: never Lives independently: Yes Household members: spouse Marital status: service: Yes Current occupational status: retired History of recent travel: No Current gender identity: Male Course Vital Signs: Vital signs: Vital Signs Temperature 98.2 F 12/22/21 16:00 Pulse Rate 63 12/22/21 16:00 Respiratory Rate 16 12/22/21 16:00 Blood Pressure 113/62 12/22/21 16:00 Pulse Oximetry 90 12/22/21 16:00 Oxygen Delivery Me thod 12/22/21 09:59 Oxygen Flow Rate 2 12/21/21 14:20 MDM - Abdominal Pain Medical Decision Making Patient presents with abdominal pain he is quite tender in his right upper quadrant his ultrasound does show some gallbladder wall thickening with possible chronic cholecystitis he does have liver cirrhosis as well. Patient started on antibiotics here spoke to surgeon along with hospitalist will admit for serial abdominal exams. Lab Data : 12/22/21 02:35 12/22/21 02:35 Labs/Radiology: Radiology Impressions Chest X-Ray 12/18/21 21:55 IMPRESSION: No acute findings. Abdomen/Pelvis CT 12/18/21 22:07 IMPRESSION: No acute findings. COMMENTS: Consistent with the [place] [employer]'s Incidental Findings Committee white paper (J Am Nidhi Radiol 2018): Any incidental renal lesion less than 1 cm or classified as too small to characterize, or any incidental cystic renal lesion characterized as simple-appearing, is likely benign. No follow-up imaging is recommended for these lesions per consensus recommendations based on imaging criteria. Gallbladder Ultrasound 12/18/21 23:31
--- NOTE | 2021-12-18 21:55 | XRR_ITS ---
PROCEDURE INFORMATION: Exam: XR Chest Exam date and time: 12/18/2021 10:01 PM Age: 76 years old Clinical indication: Pain; Other: Epi gastric; Additional info: Epigastric pain, eval free air TECHNIQUE: Imaging protocol: Radiologic exam of the chest. Views: 1 view. COMPARISON: CR XR chest 1V portable [id number] 07/05/2021 3:09 PM FINDINGS: Lungs: Unremarkable. No consolidation. Pleural spaces: Unremarkable. No pleural effusion. No pneumothorax. Heart/Mediastinum: Unremarkable. No cardiomegaly. Bones/joints: Unremarkable. Intraperitoneal space: No evidence of free air underneath the diaphragms. XR/XR chest 1V portable [id number] IMPRESSION: No acute findings.
--- NOTE | 2021-12-18 22:07 | CTR_ITS ---
PROCEDURE INFORMATION: Exam: CT Abdomen And Pelvis With Contrast Exam date and time: 12/18/2021 10:50 PM Age: 76 years old Clinical indication: Abdominal pain; Generalized; Additional info: Severe abd pain, HX gallbladder disease TECHNIQUE: Imaging protocol: Computed tomography of the abdomen and pelvis with contrast. Radiation optimization: All CT scans at this facility use at least one of these dose optimization techniques: automated exposure control; mA and/or kV adjustment per patient size (includes targeted exams where dose is matched to clinical indication); or iterative reconstruction. Contrast material: OMNI 350; Contrast volume: 100 ml; Contrast route: INTRAVENOUS (IV); COMPARISON: CT abdomen pelvis w con* [id number] 11/24/2021 2:14 AM RADIATION DOSE METRICS: Total DLP (mGy-cm): 766.23 FINDINGS: Liver: Calcified granulomas noted in the liver. No mass. Gallbladder and bile ducts: Punctate stone again projects in region of the distal cystic duct. No gallbladder distention or wall thickening. No ductal dilation. Pancreas: Normal. No ductal dilation. Spleen: Calcified granulomas noted in the spleen. Subcentimeter low-attenuation lesion noted in the spleen likely a small cyst or hemangioma. No splenomegaly. Adrenal glands: Normal. No mass. Kidneys and ureters: Scattered cysts noted in both kidneys, predominantly subcentimeter in size, the largest measures 4 cm in the right kidney. No hydronephrosis. Stomach and bowel: Colonic diverticulosis. No obstruction. No mucosal thickening. Appendix: No evidence of appendicitis. Intraperitoneal space: No free air. No significant fluid collection. Vasculature: No abdominal aortic aneurysm. Lymph nodes: No enlarged lymph nodes. Urinary bladder: Unremarkable as visualized. Reproductive: Unremarkable as visualized. Bones/joints: No acute fracture. Soft tissues: Unremarkable. CT/CT abdomen pelvis w con* [id number] IMPRESSION: No acute findings. COMMENTS: Consistent with the [employer]'s Incidental Findings Committee white paper (J Am Nidhi Radiol 2018): Any incidental renal lesion less than 1 cm or classified as too small to characterize, or any incidental cystic renal lesion characterized as simple-appearing, is likely benign. No follow-up imaging is recommended for these lesions per consensus recommendations based on imaging criteria.
[2021-12-18 22:08] VITALS: RESP 22
[2021-12-18] MEDS: morphine 4 mg/mL SDV 1 mL IVP (22:08)
[2021-12-18] MEDS: ondansetron 2 mg/ML SDV 2 mL 4 MG IVP (22:08)
[2021-12-18 22:19] LABS: Basophils # 0.1 10^3/uL (0.0-0.1); Basophils % 0.7 %; Eosinophils # 0.2 10^3/uL (0.0-0.8); Eosinophils % 1.7 %; Hematocrit 47.9 % (42.0-52.0); Lymphocytes # 2.1 10^3/uL (0.8-4.8); Lymphocytes % 20.4 %; Mean Corpuscular HGB Conc 33.4 g/dL (30.0-36.0); Mean Corpuscular Hemoglobin 30.5 pg (28.0-34.0); Mean Corpuscular Volume 91.4 fl (80-94); Mean Platelet Volume 11.7 fL (7.4-10.4); Monocytes % 9.4 %; Neutrophils # 6.94 10^3/uL (1.8-7.7); Neutrophils % 67.3 %; Nucleated Red Blood Cells % 0 %; Platelet Count 201 10^3/cmm (130-400); Red Blood Count 5.24 10^6/uL (4.1-5.3); Red Cell Distribution Width 13.6 % (12.1-15.1); White Blood Count 10.3 10^3/uL (4.0-10.0)
[2021-12-18 22:26] LABS: Add Urine Microscopic? NO; Charge for UA Resulting for Rev
[2021-12-18 22:29] LABS: Urine Appearance Clear (CLEAR); Urine Color Yellow (Yellow)
[2021-12-18 22:31] LABS: Bilirubin Urine Neg (Negative); Blood Urine Neg (Negative); Glucose Urine UA Norm (Normal); Ketones Urine 1+ (Negative); Leukocyte Esterase Urine Negative (Negative); Nitrate Urine Negative (Negative); Protein Urine Neg (Negative); Urobilinogen Urine Norm (Negative); pH Urine 5 (5-7)
[2021-12-18 22:39] LABS: Alanine Aminotransferase 83 U/L (0-41); Albumin Level 4.4 g/dL (3.5-5.2); Alkaline Phosphatase 64 U/L (40-130); Blood Urea Nitrogen 19 mg/dL (8-23); Carbon Dioxide 24 mmol/L (22-29); Chloride 100 mmol/L (98-107); Globulin 3.1 g/dL (1.3-4.6); Glucose 171 mg/dL (65-115); Lipase 38 U/L (13-60); Osmolality Calculated 294 mOsm/kg (285-295); Sodium 139 mmol/L (136-145); Total Bilirubin 0.6 mg/dL (0.15-1.2); Total Protein 7.5 g/dL (6.6-8.7)
[2021-12-18 22:42] LABS: Anion Gap 19.4 (5-19); Aspartate Amino Transferase 44 U/L (0-40); Potassium 4.4 mmol/L (3.5-5.1)
[2021-12-18 22:43] VITALS: RESP 22
[2021-12-18] MEDS: HYDROmorphone 1 mg/mL INJ 1 mL 0.5 MG IVP ×2 (22:43→23:42)
[2021-12-18] MEDS: iohexol 350 mg/mL 100 mL Btl IV (22:48)
[2021-12-18 22:54] LABS: Lactic Sepsis W/Reflex 3.1 mmol/L (0.5-2.2)
[2021-12-18 23:09] LABS: Reflex Lactate Order REFLEX LACTIC ORDERD
--- NOTE | 2021-12-18 23:31 | ECG_ITS ---
[facility] Test Date: 2021-12-19 Pat Name: Rashad Michel Department: Room: Gender: Male Detail Manager: : 1945 Requested By: Philomena Lynn Order Number: [id number] Dayanna MD: Siva Bardales M.D. Measurements Intervals [place] Rate: 86 P: 55 PA: 166 QRS: 73 QRSD: 114 T: -16 QT: 382 QTc: 459 Interpretive Statements SINUS RHYTHM INFERIOR MYOCARDIAL INFARCTION , OF INDETERMINATE AGE [40+ ms Q WAVE AND/OR ST/T ABNORMALITY IN II/aVF] Compared to ECG 11/24/2021 00:58:50 T-wave abnormality no longer present Myocardial infarct finding still present Electronically Signed On 12-19-2021 16:48:48 CDT by Siva Bardales M.D. [email or web address]
--- NOTE | 2021-12-18 23:31 | USR_ITS ---
PROCEDURE INFORMATION: Exam: US Abdomen, Limited; Right Upper Quadrant Exam date and time: 12/19/2021 12:05 AM Age: 76 years old Clinical indication: Abdominal pain; Other: Chronic ruq pain for months, was seen here 3 weeks ago for same presentation; Patient HX: Chronic ruq pain for months, was seen here 3 weeks ago for same symptoms; Additional info: Abd pain TECHNIQUE: Imaging protocol: Real time ultrasound of the abdomen with image documentation. Limited exam focused on the right upper quadrant. COMPARISON: US abdomen limited [id number] 12/11/2021 10:08 AM FINDINGS: Liver: Diffusely increased echogenicity of the liver consistent with hepatic steatosis. No masses. Gallbladder: No gallstones noted within the gallbladder. Gallbladder wall thickening noted. Positive sonographic Joyce sign. Biliary ducts: Normal. No stones. No dilation. Pancreas: Visualized pancreas is unremarkable. Right kidney: The right kidney measures 12.8 cm in length. Simple appearing cyst noted in the upper pole measuring up to 3.5 cm. No mass. No hydronephrosis. US/US gall bladder [id number] IMPRESSION: 1. Gallbladder wall thickening which given history may reflect chronic cholecystitis. 2. Hepatic steatosis.
[2021-12-18 23:42] VITALS: RESP 17
[2021-12-18] MEDS: sodium chloride 0.9% 1,000 ML 999 ML IV (23:43)
[2021-12-19] VITALS (15 sets, daily range): BP systolic 130–154; BP diastolic 70–82; PULSE 60–91; RESP 14–18; TEMP 36.2–37.4; O2SAT 88–96
[2021-12-19 00:13] LABS: INR 1.14 (0.8-1.2)
[2021-12-19] MEDS: sodium chloride 0.9% 500 ML 999 ML IV (00:30)
[2021-12-19 01:02] LABS: Lactic Acid level (Lactate) 2.5 mmol/L (0.5-2.2)
[2021-12-19] MEDS: piperacillin-tazobactam 3.375 GM in sodium chloride 0.9% (plus) 50 ML IV ×3 (01:24→19:58)
--- NOTE | 2021-12-19 03:27 | P.HP_ITS ---
Providers/Chief Complaint Admitting Physician: Gerda Troncoso MD Primary Care Provider: Haresh Dorman DO Chief Complaint: abd pian, N/V History of Present Illness Rashad Michel is a 76 year old male with PMH type 2 diabetes mellitus, atrial fibrillation on Eliquis, BPH, hypertension, recently admitted here between November 24 to November 25 after presenting with right upper quadrant pain. CT at that time had showed findings suspicious for acute cholecystitis including gallbladder distention and mild wall thickening. No definite stones or sludge were noted at the time. There was a small stone in the cystic duct at the time. General surgery was consulted, acute surgical intervention was deferred as patient symptoms appear to have improved by the next morning with conservative management. Additionally there was concerns for underlying cirrhosis for which she was referred to hepatology. Followed up with surgery on December 03, 2021 at which point there were noted to be no further concerns with pain. Patient has not been able to make appointment with hepatology thus far. He returns to the emergency room with complaints of right upper quadrant pain.Description is a sharp stabbing type, 9 out of 10 at peak intensity. No apparent exacerbating or relieving factors. Patient has strictly been following a fat-free diet. Similar symptoms have occurred a few days ago while he was on a car trip returning from [place], however that was relieved with pain me dication. He denies any nausea vomiting diarrhea or chills fever. CT of the abdomen pelvis performed today showed punctate gallbladder stones in the region of the distal cystic duct. No gallbladder wall distention or thickening. Gallbladder wall thickening was noted on ultrasound however which showed chronic cholecystitis. Liver findings were with hepatic steatosis Review of Systems General: Reports: 10 or more systems reviewed and unremarkable except in HPI and below Const: Denies: fever(s), chills or body aches Eyes: Denies: change in vision, blurry vision or photophobia ENMT: Reports: hoarseness; Denies: throat pain, enlarged tonsils, odynophagia or nasal congestion Card: Denies: chest pain, palpitations, irregular heart rhythm, edema, swelling of feet/ankles, lightheadedness, pre-syncope, dyspnea on exertion or orthopnea Resp: Denies: dyspnea, productive cough, non-productive cough, wheezing, stridor, pain on inspiration, change in phlegm color, hemoptysis or chest congestion GI: Denies: abdominal pain, nausea, vomiting, hematemesis, coffee ground emesis, dysphagia, heartburn, diarrhea, constipation, GI cramping, change in stool character, hematochezia or melena : Denies: flank pain, dysuria, urinary frequency, urinary urgency, urinary hesitancy or hematuria Musc: Denies: neck pain, back pain, extremity pain, joint swelling, joint warmth or deformity Neuro: Denies: headache(s), numbness in extremities, weakness in extremities, sensory changes, difficulty walking, frequent falls, dizziness, vertigo, behavioral changes, Slurred speech present or seizure-like activity Psych: Denies: anxiety, depression, suicidal ideation or homicidal ideation Endo: Denies: polyuria, polydipsia, tired all the time, cold intolerance or hot flashes [place]/Lymph: Denies: easy bruising or easy bleeding Medications/Allergies Home Medications Medication Instructions Recorded Confirmed Last Taken Type losartan 100 mg tablet 100 mg PO BEDTIME 05/22/19 12/06/21 05/21/19 History omega 7-owl-bol-fish oil 1,000 mg 2 cap PO BID 05/22/19 12/06/21 05/22/19 History (120 mg-180 mg) capsule (Fish Oil) pantoprazole 20 mg tablet,delayed 20 mg PO QAM 05/22/19 12/06/21 05/22/19 History release rosuvastatin 40 mg tablet 40 mg PO QPM 05/22/19 12/06/21 05/22/19 History tamsulosin 0.4 mg capsule (Flomax) 0.8 mg PO QPM #0 caps 05/22/19 12/06/21 05/21/19 Rx venlafaxine 75 mg tablet 75 mg PO QAM 05/22/19 12/06/21 05/22/19 History meclizine 25 mg tablet 25 mg PO TID PRN Dizziness 09/27/19 12/06/21 Unknown History amlodipine 10 mg tablet 5 mg PO BEDTIME #0 tabs 04/07/21 12/06/21 05/21/19 Rx apixaban 5 mg tablet (Eliquis) 5 mg PO BID #180 tabs 04/10/21 12/06/21 Unknown Rx magnesium oxide 400 mg (241.3 mg 400 mg PO BEDTIME 04/10/21 12/06/21 Unknown History magnesium) tablet albuterol sulfate 90 mcg/actuation 2 inh inhalation Q4H PRN shortness 07/05/21 12/06/21 Unknown Rx aerosol inhaler of breath or wheezing #18 grams furosemide 20 mg tablet 20 mg PO DAILY PRN edema #30 tabs 08/28/21 12/06/21 Unknown Rx tiotropium bromide 2.5 2 inh inhalation QAM #4 grams 09/11/21 12/06/21 Unknown Rx mcg/actuation mist for inhalation (Spiriva Respimat) fluticasone 250 mcg-salmeterol 50 1 inh inhalation BID #60 ea 10/31/21 12/06/21 Unknown Rx mcg/dose blistr powdr for inhalation (Wixela Inhub) alogliptin 12.5 mg tablet 25 mg PO DAILY 11/24/21 12/06/21 Unknown History cholecalciferol (vitamin D3) 25 25 mcg PO DAILY 11/24/21 12/06/21 Unknown History mcg (1,000 unit) tablet (Vitamin D3) cinnamon bark 500 mg capsule 500 mg PO BID 11/24/21 12/06/21 Unknown History (Cinnamon) clotrimazole 10 mg sofia 10 mg mucous membrane 5XD 11/24/21 12/06/21 Unknown History docusate sodium 100 mg capsule 100 mg PO BID PRN Constipation 11/24/21 12/06/21 Unknown History (Colace) finasteride 5 mg tablet (Proscar) 5 mg PO BEDTIME 11/24/21 12/06/21 Unknown History fluticasone propionate 50 2 spray intranasal DAILY PRN 11/24/21 12/06/21 Unknown History mcg/actuation nasal Allergy Symptoms spray,suspension glipizide 10 mg tablet 10 mg PO BID 11/24/21 12/06/21 Unknown History glucose 4 gram chewable tablet See Rx Instructions .Route .COMPLEX 11/24/21 12/06/21 Unknown History metformin 500 mg tablet,extended 1,000 mg PO BID 11/24/21 12/06/21 Unknown History release 24 hr metoprolol tartrate 50 mg tablet 25 mg PO BID 11/24/21 12/06/21 Unknown History nystatin 100,000 unit/mL oral See Rx Instructions .Route .COMPLEX 11/24/21 12/06/21 Unknown History suspension Allergies Allergy/AdvReac Type Severity Reaction Status Date / Time lisinopril Allergy Unknown ADR-Cough Verified 12/06/21 10:05 pravastatin Allergy Unknown ADR-Cramping Verified 12/06/21 10:05 of the Muscles simvastatin Allergy Unknown ADR-Cramping Verified 12/06/21 10:05 of the Muscles PFSH Acute PFSH: Medical History Afib CHF (congestive heart failure) COPD (chronic obstructive pulmonary disease) Depression Diabetes GERD (gastroesophageal reflux disease) Heart attack Hemorrhoid HTN (hypertension) Hyperlipidemia Prostate enlargement Ventricular arrhythmia Surgical History H/O hemorrhoidectomy History of colonoscopy 2017 Stented coronary artery Family History Father Cancer Lung Mother Cancer Lung Brother , Age 32 CAD (coronary artery disease) Social History Smoking and tobacco status: former smoker Quit status (tobacco): has quit using tobacco Year quit tobacco: 1992 - PPD x 40 Years Alcohol intake: never Lives independently: Yes Household members: spouse Marital status: service: Yes Current occupational status: retired History of recent travel: No Current gender identity: Male Vitals/I&O/Wt Last Vital Signs Temp 97.8 F 12/19/21 02:21 Pulse 91 12/19/21 02:21 Resp 17 12/19/21 02:21 BP 136/79 12/19/21 02:21 Pulse Ox 93 12/19/21 02:21 O2 Del Method 12/19/21 02:21 12/18/21 12/18/21 12/19/21 14:59 22:59 06:59 Intake Total 1000 / 1000 Balance 1000 / 1000 Weight last 48 hrs Weight 88.536 kg Weight 89.811 kg Physical Exam Narrative: General: No acute distress, AO x3 HEENT: PERRLA, pupils bilaterally equal and reactive, pallors not present Chest: Normal vesicular breath sounds, no added sounds, equal good air entry bilaterally CVS: S1-S2 regular, no murmurs, no tachycardia, no gallops, no rubs Abdomen: TTP in the RUQ Neuro: No focal deficits, no facial deformity, AO x3, power 5/5 in all limbs Data : 12/18/21 22:03 12/18/21 22:03 Micro: Microbiology 12/18/21 22:25 Blood Culture - Preliminary Blood SPECIMEN COLLECTED 12/18/21 22:25 Blood Culture - Preliminary Blood SPECIMEN COLLECTED A&P Assessment and plan (1) Abdominal pain: (2) Acute cholecystitis: Plan . Patient currently admitted with right upper quadrant pain since last night with similar presentation and admission to the hospital 1 month ago with a diagnosis of acute cholecystitis. Additionally had 1 more episode in the intervening weeks. States that currently pain is worse than his previous episodes., Partially relieved with opiates at this time. Positive Joyce sign in the right upper quadrant. CT of the abdomen and pelvis today with punctate stones in the region of the d istal cystic duct without ductal dilatation. ultrasound shows gallbladder wall thickening and hepatic steatosis. Patient be patient's third episode of pain in the last 1 month. Findings are likely loss prevention representative of cholecystitis. N.p.o. for possible surgical intervention. General surgery has been consulted. Holding Eliquis in view of anticipated surgical intervention. Pain control with IV Dilaudid IV fluid normal saline at 75 cc an hour while being n.p.o. Uncontrolled diabetes mellitus: Insulin sliding scale while in the hospital. COPD: Not currently exacerbated. DuoNeb inhalation every 6 hours. BPH: Continue home doses of Flomax DVT prophylaxis: Taken Eliquis today. Further doses on hold for anticipated surgical procedure. Full code Attestations Medical Necessity Statement*: Anticipate greater than 2 midnight admission for above defined care Coding Level of Care Code Acute Call Center Representative for [facility] Fwd Diagnoses Abdominal pain R10.9 Acute cholecystitis K81.0
[2021-12-19] MEDS: sodium chloride 0.9% 1,000 ML 75 ML IV ×2 (03:54→17:31)
[2021-12-19] MEDS: HYDROmorphone 1 mg/mL INJ 1 mL 0.5 MG IVP ×3 (03:54→23:19)
[2021-12-19] MEDS: venlafaxine 75 mg Tablet PO (06:04)
[2021-12-19 08:42] LABS: Basophils % 0.3 %; Eosinophils # 0.1 10^3/uL (0.0-0.8); Eosinophils % 0.8 %; Hematocrit 44.3 % (42.0-52.0); Hemoglobin 14.5 g/dL (11.7-16.6); Lymphocytes # 1.8 10^3/uL (0.8-4.8); Lymphocytes % 19.9 %; Mean Corpuscular HGB Conc 32.7 g/dL (30.0-36.0); Mean Corpuscular Hemoglobin 29.7 pg (28.0-34.0); Mean Corpuscular Volume 90.8 fl (80-94); Mean Platelet Volume 11.7 fL (7.4-10.4); Monocytes % 10.7 %; Neutrophils # 6.18 10^3/uL (1.8-7.7); Nucleated Red Blood Cells % 0 %; Platelet Count 196 10^3/cmm (130-400); Red Blood Count 4.88 10^6/uL (4.1-5.3); Red Cell Distribution Width 13.6 % (12.1-15.1); White Blood Count 9.1 10^3/uL (4.0-10.0)
[2021-12-19 09:19] LABS: Alanine Aminotransferase 67 U/L (0-41); Albumin Level 3.9 g/dL (3.5-5.2); Alkaline Phosphatase 57 U/L (40-130); Anion Gap 15.7 (5-19); Aspartate Amino Transferase 28 U/L (0-40); Blood Urea Nitrogen 11 mg/dL (8-23); Calcium 8.7 mg/dL (8.5-10.5); Carbon Dioxide 25 mmol/L (22-29); Chloride 101 mmol/L (98-107); Globulin 2.5 g/dL (1.3-4.6); Glucose 129 mg/dL (65-115); Osmolality Calculated 287 mOsm/kg (285-295); Potassium 3.7 mmol/L (3.5-5.1); Sodium 138 mmol/L (136-145); Total Bilirubin 0.6 mg/dL (0.15-1.2); Total Protein 6.4 g/dL (6.6-8.7)
[2021-12-19] MEDS: ipratropium-albuterol 3 mL Neb INHALATION ×3 (09:29→20:16)
[2021-12-19] MEDS: budesonide 0.5 mg/2 mL Neb INHALATION ×2 (09:29→20:16)
--- NOTE | 2021-12-19 10:10 | PC.CHAP ---
Pastoral Care Encounter/Spiritual Assessment Type of Contact [] Declined medical terminologist visit [] Patient/Family/Request visit [] Outpatient visit [] Follow-up visit [] Physician referral [] Code/Alert [x] Routine visit [] Staff referral [] Actively dying [] Patient sleeping [] Family support [] [] Out of room [] Palliative care [] [] Receiving care in room [] Pre-surgical visit [] Trauma [] Long length of stay [] ICU visit [] Other: Relational/Emotional Strength [x] Patient feels connected with others/family/visitors/staff [] Distress [] Loneliness/isolation [] Abandonment Spirituality of Patient [x] Person of Tammie [x] Attends Faith of their Tammie [x] Believes in Prayer [] Reads Bible or Pentecostalism materials [] There are Spiritual issues to be addressed Chiropractic Doctor Interventions [x] Prayer [x] Active listening [x Non-anxious presence [] Spiritual/emotional support [] Crisis/trauma care [] Spiritual counseling [] Bereavement support [] Provided bereavement packet [] Provided Bible/devotional materials [] Provided toy/stuffed animal, coloring book to patient or family member [] Provided Communion [] Anointing/Cross Anchor [] Salvation [x Completed spiritual assessment [] Other: Impact on Illness or Injury [] Angry [] Fearful [] Anxious [] Often cries [] Exhaustion [] Unable to work [] Unable to attend quaker [] Unable to walk/stand [] Unable to read [] Unable to drive [] Unable to eat/drink [] Unable to sleep [] Unable to be with family [] Patient intubated [] Other: Summary Time spent with patient 10 min
[2021-12-19 11:04] LABS: Glucose Point of Care 123 mg/dL (70-110)
--- NOTE | 2021-12-19 12:47 | PM.CONSULT ---
Providers/Reason For Consult Consulting Physician/Specialty*: General Surgery/Curtis Marcial MD, FACS, RPVI Reason for Consult*: Abdominal pain Attending Physician: Misael David MD Primary Care Provider: Haresh Dorman DO History of Present Illness History of Present Illness Rashad Michel is a 76 year old male He presented to the emergency room with abdominal pain, nausea, vomiting. He had similar episodes of pain over the last months and was recently admitted to the hospital for consideration of laparoscopic cholecystectomy. His pain resolved and GI consult was recommended to evaluate for hepatomegaly. He was not able to make his to see a product technician. His pain started several days ago and was getting progressively worse so he decided to seek medical attention. He is on Eliquis for atrial fibrillation. He also has multiple other medical problems. His spouse is present his spouse is present at bedside. Both the patient and his are asking to remove the gallbladder because he is tired from the same pain being on and off for months or longer. On apixaban for atrial fibrillation, last dose was yesterday morning, he vomited shortly after the second dose in the evening, probably it did not absorb. Medications/Allergies Home Medications Medication Instructions Recorded Confirmed Last Taken Type losartan 100 mg tablet 100 mg PO BEDTIME 05/22/19 12/19/21 05/21/19 History omega 0-sgn-pyj-fish oil 1,000 mg 2 cap PO BID 05/22/19 12/19/21 05/22/19 History (120 mg-180 mg) capsule (Fish Oil) pantoprazole 20 mg tablet,delayed 20 mg PO QAM 05/22/19 12/19/21 05/22/19 History release rosuvastatin 40 mg tablet 40 mg PO QPM 05/22/19 12/19/21 05/22/19 History tamsulosin 0.4 mg capsule (Flomax) 0.8 mg PO QPM #0 caps 05/22/19 12/19/21 05/21/19 Rx venlafaxine 75 mg tablet 75 mg PO QAM 05/22/19 12/19/21 05/22/19 History meclizine 25 mg tablet 25 mg PO TID PRN Dizziness 09/27/19 12/19/21 Unknown History amlodipine 10 mg tablet 5 mg PO BEDTIME #0 tabs 02/09/1912/19/21 05/21/19 Rx apixaban 5 mg tablet (Eliquis) 5 mg PO BID #180 tabs 04/10/21 12/19/21 Unknown Rx magnesium oxide 400 mg (241.3 mg 400 mg PO BEDTIME 04/10/21 12/19/21 Unknown History magnesium) tablet albuterol sulfate 90 mcg/actuation 2 inh inhalation Q4H PRN shortness 07/05/21 12/19/21 Unknown Rx aerosol inhaler of breath or wheezing #18 grams furosemide 20 mg tablet 20 mg PO DAILY PRN edema #30 tabs 08/28/21 12/19/21 Unknown Rx tiotropium bromide 2.5 2 inh inhalation QAM #4 grams 09/11/21 12/19/21 Unknown Rx mcg/actuation mist for inhalation (Spiriva Respimat) fluticasone 250 mcg-salmeterol 50 1 inh inhalation BID #60 ea 10/31/21 12/19/21 Unknown Rx mcg/dose blistr powdr for inhalation (Wixela Inhub) alogliptin 12.5 mg tablet 25 mg PO DAILY 11/24/21 12/19/21 Unknown History cholecalciferol (vitamin D3) 25 25 mcg PO DAILY 11/24/21 12/19/21 Unknown History mcg (1,000 unit) tablet (Vitamin D3) docusate sodium 100 mg capsule 100 mg PO BID PRN Constipation 11/24/21 12/19/21 Unknown History (Colace) finasteride 5 mg tablet (Proscar) 5 mg PO BEDTIME 11/24/21 12/19/21 Unknown History fluticasone propionate 50 2 spray intranasal DAILY PRN 11/24/21 12/19/21 Unknown History mcg/actuation nasal Allergy Symptoms spray,suspension glipizide 10 mg tablet 10 mg PO BID 11/24/21 12/19/21 Unknown History glucose 4 gram chewable tablet See Rx Instructions .Route .COMPLEX 11/24/21 12/19/21 Unknown History metformin 500 mg tablet,extended 1,000 mg PO BID 11/24/21 12/19/21 Unknown History release 24 hr metoprolol tartrate 50 mg tablet 25 mg PO BID 11/24/21 12/19/21 Unknown History Allergies Allergy/AdvReac Type Severity Reaction Status Date / Time lisinopril Allergy Unknown ADR-Cough Verified 12/19/21 09:02 pravastatin Allergy Unknown ADR-Cramping Verified 12/19/21 09:02 of the Muscles simvastatin Allergy Unknown ADR-Cramping Verified 12/19/21 09:02 of the Muscles niacin Allergy Unknown Verified 12/19/21 09:02 Current Medications Generic Name Dose Route Start Last Admin Trade Name Freq PRN Reason Stop Dose Admin Albuterol/Ipratropium 3 ml 12/19/21 08:00 12/19/21 09:29 Ipratropium-Albuterol 3 Ml Neb INHALATION 3 ml Q6H.RESP SYDNEY Administration Budesonide 0.5 mg 12/19/21 08:00 12/19/21 09:29 Budesonide 0.5 Mg/2 Ml Neb INHALATION 0.5 mg BID.RESPIRATORY SYDNEY Administration Hydromorphone HCl 0.5 mg 12/19/21 03:21 12/19/21 03:54 Hydromorphone 1 Mg/Ml Inj 1 Ml IVP 0.5 mg Q6H PRN Administration PAIN Sodium Chloride 1,000 mls @ 75 mls/hr 12/19/21 03:30 12/19/21 03:54 Sodium Chloride 0.9% IV 75 mls/hr .[id number] SYDNEY Administration Insulin Human Lispro 0 unit 12/19/21 08:00 12/19/21 11:04 Insulin Lispro 100 Unit/1 Ml SUBCUT Not Given WM&BEDTIME SYDNEY Protocol Metoprolol Tartrate 25 mg 12/19/21 09:00 12/19/21 10:16 Metoprolol Tartrate 50 Mg Tablet PO Not Given BID SYDNEY Venlafaxine HCl 75 mg 12/19/21 06:00 12/19/21 06:04 Venlafaxine 75 Mg Tablet PO 75 mg QAM SYDNEY Administration PFSH Acute PFSH: Medical History Afib CHF (congestive heart failure) COPD (chronic obstructive pulmonary disease) Depression Diabetes GERD (gastroesophageal reflux disease) Heart attack Hemorrhoid HTN (hypertension) Hyperlipidemia Prostate enlargement Ventricular arrhythmia Surgical History H/O hemorrhoidectomy History of colonoscopy 2017 Stented coronary artery Family History Father Cancer Lung Mother Cancer Lung Brother , Age 32 CAD (coronary artery disease) Social History Smoking and tobacco status: former smoker Quit status (tobacco): has quit using tobacco Year quit tobacco: 1992 - PPD x 40 Years Alcohol intake: never Lives independently: Yes Household members: spouse Marital status: service: Yes Current occupational status: retired History of recent travel: No Current gender identity: Male Vitals/I&O/Wt Last Vital Signs Temp 98.0 F 12/19/21 12:00 Pulse 71 12/19/21 12:00 Resp 16 12/19/21 12:00 BP 131/70 12/19/21 12:00 Pulse Ox 90 12/19/21 12:00 O2 Del Method 12/19/21 12:00 12/18/21 12/19/21 12/19/21 22:59 06:59 14:59 Intake Total 1550 / 1550 Balance 1550 / 1550 Weight last 48 hrs Weight 195 lb 3 oz Weight 198 lb Physical Exam Narrative: General: No acute distress Psych: [AAOx3] Eyes: [sclerae are white] Head/ENT: [normocephalic, symmetric] CV: [regular] pulse, [tachychardic], no JVD Lungs: [symmetrical chest rise] Abdomen: [soft, ND], tender to palpation in the right upper quadrant. No peritoneal signs. No palpable masses. Ext: [no obvious traumatic deformities] Skin: warm Data : 12/19/21 08:20 12/19/21 08:20 Micro: Microbiology 12/18/21 22:25 Blood Culture - Preliminary Blood SPECIMEN COLLECTED 12/18/21 22:25 Blood Culture - Preliminary Blood SPECIMEN COLLECTED A&P Assessment and plan (1) Acute cholecystitis: (2) Coronary artery disease: (3) CHF (congestive heart failure): (4) Stented coronary artery: (5) Hyperlipidemia: (6) HTN (hypertension): (7) Afib: Plan The patient does have signs of acute on chronic cholecystitis. Recurrent biliary colic. He will clearly benefit from laparoscopic cholecystectomy with intraoperative cholangiogram. He has extensive medical problems. We will ask for risks education from the medical team. Last dose of Eliquis yesterday p.m. He will be ready for surgery on Wednesday. I will schedule him for Wednesday. Risks and benefits of surgery were discussed with the patient and his . We discussed possible complications including infection, bleeding, damage to surrounding structures, bile leak, damage to the bile duct, incisional hernia, general principles of ERCP, complications related to general anesthesia, blood clots. The patient agreed to proceed with a laparoscopic cholecystectomy with IOC. All questions were answered. I will order LFTs and coags for Wednesday a.m. Okay for clear liquid diet. Continue antibiotics for acute cholecystitis, he does have persistent pain. Coding Level of Care Code Acute Associate Software Engineer for g Fwd Diagnoses Acute cholecystitis K81.0 Coronary artery disease I25.10 CHF (congestive heart failure) I50.9 Stented coronary artery Z95.5 Hyperlipidemia E78.5 HTN (hypertension) I10 Afib I48.91
--- NOTE | 2021-12-19 13:28 | PM.PN ---
Subjective Subjective: Admitted overnight. Examination patient states he is feeling a lot better. Denies any nausea, vomiting, headache. States abdominal pain is better as well. Vitals/I&O/Wt Last Vital Signs Temp 98.0 F 12/19/21 12:00 Pulse 71 12/19/21 12:00 Resp 16 12/19/21 12:00 BP 131/70 12/19/21 12:00 Pulse Ox 90 12/19/21 12:00 O2 Del Method 12/19/21 12:00 12/18/21 12/19/21 12/19/21 22:59 06:59 14:59 Intake Total 1550 / 1550 240 / 240 Balance 1550 / 1550 240 / 240 Weight last 48 hrs Weight 88.536 kg Weight 89.811 kg Physical Exam Narrative: General: No acute distress, AO x3 HEENT: PERRLA, pupils bilaterally equal and reactive, pallors not present Chest: Normal vesicular breath sounds, no added sounds, equal good air entry bilaterally CVS: S1-S2 regular, no murmurs, no tachycardia, no gallops, no rubs Abdomen: TTP in the RUQ Neuro: No focal deficits, no facial deformity, AO x3, power 5/5 in all limbs Data : 12/19/21 08:20 12/19/21 08:20 Micro: Microbiology 12/18/21 22:25 Blood Culture - Preliminary Blood SPECIMEN COLLECTED 12/18/21 22:25 Blood Culture - Preliminary Blood SPECIMEN COLLECTED A&P Assessment and plan (1) Abdominal pain: (2) Acute cholecystitis: Surgery consulted from the ER. Diet as per surgical team. Plan to take to the OR on Wednesday. Continue Zosyn perioperatively for now. (3) Coronary artery disease: No active chest pain. Echocardiogram done in October 2021 shows an EF of 60%,, mild LVH, normal diastolic function without regional wall motion abnormality, mild pulmonary hypertension. Continue home dose of beta-leroy, statin. Check A1c, lipid panel. (4) Afib: Rate controlled. Continue home dose of metoprolol. Takes Eliquis 5 mg twice daily for anticoagulation. Hold off in view of surgery. Start on heparin drip. Can be stopped on the day of surgery. Last Eliquis on 12/18 morning. (5) HTN (hypertension): Goal blood pressure less than 140/90 mmHg. Continue with home dose of losartan, metoprolol. Plan Type 2 diabetes mellitus: Insulin sliding scale. Check A1c. RCRI score 3. Recent echocardiogram within normal limits. Patient denies any active chest pain. Patient is medically stable to undergo moderately emergent low risk surgery with moderate risk. Full code. Clear liquid diet, n.p.o. prior to surgery. Heparin drip will suffice for DVT prophylaxis Protonix for PUD prophylaxis. 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
[2021-12-19] MEDS: heparin drip 25,000 UNIT/500 ML PREMIX 26 UNIT IV (14:01)
[2021-12-19 14:26] LABS: Partial Thromboplastin Time 31.7 SECONDS (23.9-36.7)
[2021-12-19 15:04] LABS: Alanine Aminotransferase 61 U/L (0-41); Albumin Level 3.4 g/dL (3.5-5.2); Alkaline Phosphatase 52 U/L (40-130); Anion Gap 15.6 (5-19); Aspartate Amino Transferase 30 U/L (0-40); Blood Urea Nitrogen 10 mg/dL (8-23); Calcium 8.2 mg/dL (8.5-10.5); Carbon Dioxide 21 mmol/L (22-29); Chloride 102 mmol/L (98-107); Globulin 2.4 g/dL (1.3-4.6); Glucose 130 mg/dL (65-115); Osmolality Calculated 281 mOsm/kg (285-295); Potassium 3.6 mmol/L (3.5-5.1); Sodium 135 mmol/L (136-145); Total Bilirubin 0.5 mg/dL (0.15-1.2); Total Protein 5.8 g/dL (6.6-8.7)
[2021-12-19 17:04] LABS: Glucose Point of Care 120 mg/dL (70-110)
[2021-12-19] MEDS: tamsulosin 0.4 mg Capsule 0.8 MG PO (17:32)
[2021-12-19] MEDS: metoprolol tartrate 50 mg Tablet 25 MG PO (17:32)
[2021-12-19] MEDS: atorvastatin 40 mg Tablet 80 MG PO (17:32)
[2021-12-19] MEDS: losartan 50 mg Tablet 100 MG PO (19:57)
[2021-12-19] MEDS: amlodipine 5 mg Tablet PO (19:57)
[2021-12-19 20:19] LABS: Glucose Point of Care 137 mg/dL (70-110)
[2021-12-19 20:39] LABS: Partial Thromboplastin Time 66.1 SECONDS (23.9-36.7)
--- NOTE | 2021-12-19 23:04 | PC.NURSE ---
Patient c/o abdominal pain. It is not time for PRN Dilaudid at this time. Dr. Troncoso notified. Dilaudid PRN frequency increased and Toradol PRN ordered.
[2021-12-19] MEDS: ketorolac 30 mg/mL INJ 15 MG IVP (23:19)
[2021-12-20] VITALS (12 sets, daily range): BP systolic 119–145; BP diastolic 69–91; PULSE 56–71; RESP 16–18; TEMP 36.6–37.7; O2SAT 92–97
[2021-12-20 05:02] LABS: Basophils % 0.6 %; Eosinophils # 0.2 10^3/uL (0.0-0.8); Hemoglobin 13.3 g/dL (11.7-16.6); Lymphocytes # 2.2 10^3/uL (0.8-4.8); Lymphocytes % 32.1 %; Mean Corpuscular HGB Conc 31.7 g/dL (30.0-36.0); Mean Corpuscular Hemoglobin 29.8 pg (28.0-34.0); Mean Platelet Volume 11.6 fL (7.4-10.4); Monocytes # 0.7 10^3/uL (0.2-0.9); Monocytes % 9.9 %; Neutrophils # 3.66 10^3/uL (1.8-7.7); Neutrophils % 54.1 %; Nucleated Red Blood Cells % 0 %; Platelet Count 161 10^3/cmm (130-400); Red Blood Count 4.47 10^6/uL (4.1-5.3); Red Cell Distribution Width 13.7 % (12.1-15.1); White Blood Count 6.8 10^3/uL (4.0-10.0)
[2021-12-20 05:24] LABS: Partial Thromboplastin Time 80.3 SECONDS (23.9-36.7)
[2021-12-20 05:33] LABS: Alanine Aminotransferase 52 U/L (0-41); Albumin Level 3.3 g/dL (3.5-5.2); Alkaline Phosphatase 56 U/L (40-130); Anion Gap 13.2 (5-19); Aspartate Amino Transferase 28 U/L (0-40); Blood Urea Nitrogen 8 mg/dL (8-23); Carbon Dioxide 25 mmol/L (22-29); Chloride 106 mmol/L (98-107); Globulin 2.4 g/dL (1.3-4.6); Glucose 125 mg/dL (65-115); Osmolality Calculated 290 mOsm/kg (285-295); Potassium 4.2 mmol/L (3.5-5.1); Sodium 140 mmol/L (136-145); Total Bilirubin 0.6 mg/dL (0.15-1.2); Total Protein 5.7 g/dL (6.6-8.7)
[2021-12-20] MEDS: venlafaxine 75 mg Tablet PO (05:37)
[2021-12-20] MEDS: piperacillin-tazobactam 3.375 GM in sodium chloride 0.9% (plus) 50 ML IV ×3 (05:37→21:04)
[2021-12-20] MEDS: sodium chloride 0.9% 1,000 ML 75 ML IV ×2 (05:37→21:48)
[2021-12-20] MEDS: heparin drip 25,000 UNIT/500 ML PREMIX 24 UNIT IV (05:38)
[2021-12-20 06:21] LABS: Glucose Point of Care 106 mg/dL (70-110)
--- NOTE | 2021-12-20 07:08 | P.PN_ITS ---
Subjective Subjective: No acute events overnight. Continues to have mild pain in the right upper quadrant. Tolerating clears without significant nausea or vomiting. He is on heparin drip. LFTs remain normal Vitals/I&O/Wt Last Vital Signs Temp 98.2 F 12/20/21 04:00 Pulse 56 L 12/20/21 04:00 Resp 18 12/20/21 04:00 BP 125/91 12/20/21 04:00 Pulse Ox 94 12/20/21 04:00 O2 Del Method 12/19/21 20:16 O2 Flow Rate 2 12/19/21 20:16 12/19/21 12/20/21 12/20/21 22:59 06:59 14:59 Intake Total 1410 / 1650 1363.467 / 3013.467 Output Total 650 / 650 1050 / 1700 Balance 760 / 1000 313.467 / 1313.467 Weight last 48 hrs Weight 203 lb 1.6 oz Weight 205 lb Weight 195 lb 3 oz Weight 198 lb Physical Exam Narrative: General: No acute distress Psych: AAOx3 Eyes: Sclerae are white Head/ENT: Normocephalic, symmetric CV: Regular pulse, tachychardic, no JVD Lungs: Symmetrical chest rise Abdomen: Soft, ND, tender to palpation in the right upper quadrant. No peritoneal signs. No palpable masses. Ext: No obvious traumatic deformities Skin: warm Data : 12/20/21 04:19 12/20/21 04:19 Micro: Microbiology 12/18/21 22:25 Blood Culture - Preliminary Blood NEGATIVE TO DATE 12/18/21 22:25 Blood Culture - Preliminary Blood NEGATIVE TO DATE A&P Assessment and plan (1) Acute cholecystitis: (2) Coronary artery disease: (3) CHF (congestive heart failure): (4) Stented coronary artery: (5) Hyperlipidemia: (6) HTN (hypertension): (7) Afib: Plan The patient remains stable. No evidence of choledocholithiasis. LFTs are normal. Waiting for effect of Eliquis to wear off. Schedule surgery for tomorrow. Continue Zosyn IV, high likelihood that the gallbladder is obstructed. Attestations Medical Necessity Statement*: Management of anticoagulation, acute cholecystitis Coding Level of Care Code Acute Cash Posting Representative for [facility] Diagnoses Acute cholecystitis K81.0 Coronary artery disease I25.10 CHF (congestive heart failure) I50.9 Stented coronary artery Z95.5 Hyperlipidemia E78.5 HTN (hypertension) I10 Afib I48.91
[2021-12-20] MEDS: ipratropium-albuterol 3 mL Neb INHALATION ×3 (07:59→19:40)
[2021-12-20] MEDS: budesonide 0.5 mg/2 mL Neb INHALATION ×2 (07:59→19:40)
[2021-12-20 11:08] LABS: Glucose Point of Care 130 mg/dL (70-110)
[2021-12-20] MEDS: metoprolol tartrate 50 mg Tablet 25 MG PO ×2 (11:23→17:33)
[2021-12-20] MEDS: ketorolac 30 mg/mL INJ 15 MG IVP ×2 (11:23→18:40)
[2021-12-20 11:51] LABS: Partial Thromboplastin Time 65.1 SECONDS (23.9-36.7)
--- NOTE | 2021-12-20 11:52 | P.PN_ITS ---
Subjective Subjective: Events overnight. Has remained hemodynamically stable and afebrile. Family at bedside. Still feeling soreness in the right upper part of the abdomen as per the patient. Denies any nausea, vomiting, headache. Vitals/I&O/Wt Last Vital Signs Temp 98.1 F 12/20/21 11:47 Pulse 67 12/20/21 11:47 Resp 16 12/20/21 11:47 BP 119/69 12/20/21 11:47 Pulse Ox 95 12/20/21 11:47 O2 Del Method 12/20/21 11:47 O2 Flow Rate 2 12/20/21 11:47 12/19/21 12/20/21 12/20/21 22:59 06:59 14:59 Intake Total 1410 / 1650 1363.467 / 3013.467 720 / 720 Output Total 650 / 650 1050 / 1700 400 / 400 Balance 760 / 1000 313.467 / 1313.467 320 / 320 Weight last 48 hrs Weight 92.125 kg Weight 92.986 kg Weight 88.536 kg Weight 89.811 kg Physical Exam Narrative: General: No acute distress, AO x3 HEENT: PERRLA, pupils bilaterally equal and reactive, pallors not present Chest: Normal vesicular breath sounds, no added sounds, equal good air entry bilaterally CVS: S1-S2 regular, no murmurs, no tachycardia, no gallops, no rubs Abdomen: TTP in the RUQ Neuro: No focal deficits, no facial deformity, AO x3, power 5/5 in all limbs Data : 12/20/21 04:19 12/20/21 04:19 Micro: Microbiology 12/18/21 22:25 Blood Culture - Preliminary Blood NEGATIVE TO DATE 12/18/21 22:25 Blood Culture - Preliminary Blood NEGATIVE TO DATE A&P Assessment and plan (1) Abdominal pain: (2) Acute cholecystitis: Surgery consulted from the ER. Diet as per surgical team. Plan to take to the OR on Wednesday. Continue Zosyn perioperatively for now. (3) Coronary artery disease: No active chest pain. Echocardiogram done in October 2021 shows an EF of 60%,, mild LVH, normal diastolic function without regional wall motion abnormality, mild pulmonary hypertension. Continue home dose of beta-leroy, statin. Check A1c, lipid panel. (4) Afib: Rate controlled. Continue home dose of metoprolol. Takes Eliquis 5 mg twice daily for anticoagulation. Hold off in view of surgery. Start on heparin drip. Can be stopped on the day of surgery. Last Eliquis on 12/18 morning. (5) HTN (hypertension): Goal blood pressure less than 140/90 mmHg. Continue with home dose of losartan, metoprolol. Plan Type 2 diabetes mellitus: Insulin sliding scale. Check A1c. RCRI score 3. Recent echocardiogram within normal limits. Patient denies any active chest pain. Patient is medically stable to undergo moderately emergent low risk surgery with moderate risk. Plan for the day: Continue with heparin drip. Continue with Zosyn. N.p.o. after midnight. Stop heparin drip early tomorrow morning in preparation for the cholecystectomy. A ppreciate surgical recommendations. Incentive spirometry. Full code. Clear liquid diet, n.p.o. prior to surgery. Heparin drip will suffice for DVT prophylaxis Protonix for PUD prophylaxis. Attestations Medical Necessity Statement*: Requires further hospitalization for management of acute cholecystitis awaiting cholecystectomy in setting of andelderly gentleman with history of CAD, atrial fibrillation on Eliquis as an outpatient with last dose on 12/18 Time Spent in Patient Care: Greater than 35 minutes Coding Level of Care Code Acute Store Host for [facility] Kenn Diagnoses Abdominal pain R10.9 Acute cholecystitis K81.0 Coronary artery disease I25.10 Afib I48.91 HTN (hypertension) I10
[2021-12-20] MEDS: HYDROmorphone 1 mg/mL INJ 1 mL 0.5 MG IVP ×2 (15:36→21:03)
[2021-12-20 17:09] LABS: Glucose Point of Care 133 mg/dL (70-110)
[2021-12-20] MEDS: atorvastatin 40 mg Tablet 80 MG PO (17:33)
[2021-12-20] MEDS: tamsulosin 0.4 mg Capsule 0.8 MG PO (17:33)
[2021-12-20 18:58] LABS: Partial Thromboplastin Time 63.9 SECONDS (23.9-36.7)
[2021-12-20 20:44] LABS: Glucose Point of Care 108 mg/dL (70-110)
[2021-12-20] MEDS: amlodipine 5 mg Tablet PO (21:05)
[2021-12-20] MEDS: losartan 50 mg Tablet 100 MG PO (21:05)
[2021-12-20 22:41] LABS: Partial Thromboplastin Time 60.5 SECONDS (23.9-36.7)
[2021-12-21] VITALS (27 sets, daily range): BP systolic 81–142; BP diastolic 45–82; PULSE 63–90; RESP 15–20; TEMP 36.1–38; O2SAT 90–98
--- NOTE | 2021-12-21 | SCC_ITS ---
Procedure: Laparoscopic cholecystectomy with IOC (CPT 11821; CPT 79896, mod 26) 15 seconds of fluoroscopic guidance, for a cumulative dose of 95.6 mGy, was provided to Dr. Marcial by the radiology department. C-arm images of the abdomen were saved for the patient's permanent record. [facility]
--- NOTE | 2021-12-21 00:17 | PC.NURSE ---
Nurse notified about patients temperature.
[2021-12-21] MEDS: HYDROmorphone 1 mg/mL INJ 1 mL IVP ×3 (00:27→21:06)
[2021-12-21] MEDS: ipratropium-albuterol 3 mL Neb INHALATION ×4 (02:42→20:01)
--- NOTE | 2021-12-21 04:40 | PC.NURSE ---
Heprin GTT stopped at this time to hold for surgery this am.
[2021-12-21 05:20] LABS: Basophils % 0.4 %; Eosinophils # 0.1 10^3/uL (0.0-0.8); Hematocrit 41.8 % (42.0-52.0); Hemoglobin 13.6 g/dL (11.7-16.6); Lymphocytes # 1.8 10^3/uL (0.8-4.8); Lymphocytes % 24.7 %; Mean Corpuscular HGB Conc 32.5 g/dL (30.0-36.0); Mean Corpuscular Hemoglobin 30.2 pg (28.0-34.0); Mean Corpuscular Volume 92.7 fl (80-94); Mean Platelet Volume 11.9 fL (7.4-10.4); Monocytes # 0.8 10^3/uL (0.2-0.9); Monocytes % 11.2 %; Neutrophils # 4.38 10^3/uL (1.8-7.7); Neutrophils % 61.4 %; Nucleated Red Blood Cells % 0 %; Platelet Count 153 10^3/cmm (130-400); Red Blood Count 4.51 10^6/uL (4.1-5.3); Red Cell Distribution Width 13.5 % (12.1-15.1); White Blood Count 7.1 10^3/uL (4.0-10.0)
[2021-12-21] MEDS: piperacillin-tazobactam 3.375 GM in sodium chloride 0.9% (plus) 50 ML IV ×3 (05:21→22:59)
[2021-12-21] MEDS: venlafaxine 75 mg Tablet PO (05:21)
[2021-12-21 05:33] LABS: Partial Thromboplastin Time 61.4 SECONDS (23.9-36.7)
[2021-12-21 05:51] LABS: Alanine Aminotransferase 53 U/L (0-41); Albumin Level 3.1 g/dL (3.5-5.2); Alkaline Phosphatase 58 U/L (40-130); Anion Gap 12.8 (5-19); Aspartate Amino Transferase 33 U/L (0-40); Blood Urea Nitrogen 5 mg/dL (8-23); Calcium 8.2 mg/dL (8.5-10.5); Carbon Dioxide 24 mmol/L (22-29); Chloride 103 mmol/L (98-107); Globulin 2.8 g/dL (1.3-4.6); Glucose 123 mg/dL (65-115); Osmolality Calculated 281 mOsm/kg (285-295); Potassium 3.8 mmol/L (3.5-5.1); Sodium 136 mmol/L (136-145); Total Bilirubin 0.8 mg/dL (0.15-1.2); Total Protein 5.9 g/dL (6.6-8.7)
[2021-12-21 06:37] LABS: Glucose Point of Care 103 mg/dL (70-110)
[2021-12-21] MEDS: budesonide 0.5 mg/2 mL Neb INHALATION ×2 (08:13→20:01)
[2021-12-21 09:09] LABS: INR 1.09 (0.8-1.2)
--- NOTE | 2021-12-21 09:23 | P.ANESASSM_ITS ---
Pre-Anesthetic Assessment Height/Weight: Height 1.68 m Weight 92.125 kg Temp Pulse Resp BP Pulse Ox O2 Del Method O2 Flow Rate 97.3 F L 86 18 140/75 96 1 12/21/21 09:06 12/21/21 09:06 12/21/21 09:06 12/21/21 09:06 12/21/21 09:06 12/21/21 09:06 12/21/21 08:10 Preop Diagnosis: Acute cholecystitis Operation Date: 12/21/21 09:30 Proposed Procedures p Laparoscopic Cholecystectomy w/ Cholangiograms(Not Applicable) - Curtis Marcial MD Familial anesthetic complications: none Was Beta Keke taken within 24 hours: Yes Was Clonidine taken within 24 hours: N/A Social No alcohol and No tobacco Airway Submandibular: within normal limits Cervical ROM: within normal limits Mallampati: Class II Dentition: false Pulmonary Chronic Obstructive Pulmonary Disease and Sleep Apnea CV/HEM Atrial Fibrillation, Coronary Artery Disease (stents), Congestive Heart Failure, Hypertension and Myocardial Infarction Hepatic Cirrhosis GI Gastroesophageal Reflux Disease Metabolic Diabetes Mellitus, Hyperlipidemia and Morbid Obesity Anesthetic Plan ASA status: 3 Anesthesia: General Medications/Allergies Home Medications Medication Instructions Recorded Confirmed Last Taken Type losartan 100 mg tablet 100 mg PO BEDTIME 05/22/19 12/19/21 05/21/19 History omega [id number]-fish oil 1,000 mg 2 cap PO BID 05/22/19 12/19/21 05/22/19 History (120 mg-180 mg) capsule (Fish Oil) pantoprazole 20 mg tablet,delayed 20 mg PO QAM 05/22/19 12/19/21 05/22/19 History release rosuvastatin 40 mg tablet 40 mg PO QPM 05/22/19 12/19/21 05/22/19 History tamsulosin 0.4 mg capsule (Flomax) 0.8 mg PO QPM #0 caps 05/22/19 12/19/21 05/21/19 Rx venlafaxine 75 mg tablet 75 mg PO QAM 05/22/19 12/19/21 05/22/19 History meclizine 25 mg tablet 25 mg PO TID PRN Dizziness 09/27/19 12/19/21 Unknown History amlodipine 10 mg tablet 5 mg PO BEDTIME #0 tabs 04/07/21 12/19/21 05/21/19 Rx apixaban 5 mg tablet (Eliquis) 5 mg PO BID #180 tabs 04/10/21 12/19/21 Unknown Rx magnesium oxide 400 mg (241.3 mg 400 mg PO BEDTIME 04/10/21 12/19/21 Unknown History magnesium) tablet albuterol sulfate 90 mcg/actuation 2 inh inhalation Q4H PRN shortness 07/05/21 12/19/21 Unknown Rx aerosol inhaler of breath or wheezing #18 grams furosemide 20 mg tablet 20 mg PO DAILY PRN edema #30 tabs 08/28/21 12/19/21 Unknown Rx tiotropium bromide 2.5 2 inh inhalation QAM #4 grams 09/11/21 12/19/21 Unknown Rx mcg/actuation mist for inhalation (Spiriva Respimat) fluticasone 250 mcg-salmeterol 50 1 inh inhalation BID #60 ea 10/31/21 12/19/21 Unknown Rx mcg/dose blistr powdr for inhalation (Wixela Inhub) alogliptin 12.5 mg tablet 25 mg PO DAILY 11/24/21 12/19/21 Unknown History cholecalciferol (vitamin D3) 25 25 mcg PO DAILY 11/24/21 12/19/21 Unknown History mcg (1,000 unit) tablet (Vitamin D3) docusate sodium 100 mg capsule 100 mg PO BID PRN Constipation 11/24/21 12/19/21 Unknown History (Colace) finasteride 5 mg tablet (Proscar) 5 mg PO BEDTIME 11/24/21 12/19/21 Unknown History fluticasone propionate 50 2 spray intranasal DAILY PRN 11/24/21 12/19/21 Unknown History mcg/actuation nasal Allergy Symptoms spray,suspension glipizide 10 mg tablet 10 mg PO BID 11/24/21 12/19/21 Unknown History glucose 4 gram chewable tablet See Rx Instructions .Route .COMPLEX 11/24/21 12/19/21 Unknown History metformin 500 mg tablet,extended 1,000 mg PO BID 11/24/21 12/19/21 Unknown History release 24 hr metoprolol tartrate 50 mg tablet 25 mg PO BID 11/24/21 12/19/21 Unknown History Allergies Allergy/AdvReac Type Severity Reaction Status Date / Time lisinopril Allergy Unknown ADR-Cough Verified 12/19/21 09:02 pravastatin Allergy Unknown ADR-Cramping Verified 12/19/21 09:02 of the Muscles simvastatin Allergy Unknown ADR-Cramping Verified 12/19/21 09:02 of the Muscles niacin Allergy Unknown Verified 12/19/21 09:02 Current Medications Generic Name Dose Route Start Last Admin Trade Name Freq PRN Reason Stop Dose Admin Albuterol/Ipratropium 3 ml 12/19/21 08:00 12/21/21 08:13 Ipratropium-Albuterol 3 Ml Neb INHALATION 3 ml Q6H.RESP SYDNEY Administration Amlodipine Besylate 5 mg 12/19/21 21:00 12/20/21 21:05 Amlodipine 5 Mg Tablet PO 5 mg BEDTIME SYDNEY Administration Atorvastatin Calcium 80 mg 12/19/21 18:00 12/20/21 17:33 Atorvastatin 40 Mg Tablet PO 80 mg QPM SYDNEY Administration Budesonide 0.5 mg 12/19/21 08:00 12/21/21 08:13 Budesonide 0.5 Mg/2 Ml Neb INHALATION 0.5 mg BID.RESPIRATORY SYDNEY Administration Hydromorphone HCl 1 mg 12/21/21 00:18 12/21/21 00:27 Hydromorphone 1 Mg/Ml Inj 1 Ml IVP 1 mg Q4H PRN Administration PAIN Sodium Chloride 1,000 mls @ 75 mls/hr 12/19/21 03:30 12/20/21 21:48 Sodium Chloride 0.9% IV 75 mls/hr .[id number] SYDNEY Administration Heparin Sodium/Sodium Chloride 25,000 unit in 500 mls @ 0 mls/hr 12/19/21 11:15 12/21/21 04:38 Heparin Drip IV Infused .Q0M SYDNEY Titration Protocol Per Protocol Piperacillin Sod/Tazobactam 50 mls @ 12.5 mls/hr 12/19/21 14:00 12/21/21 05: 21 Sod 3.375 gm/ Sodium Chloride IV 12.5 mls/hr Q8H SYDNEY Administration Protocol As Directed Insulin Human Lispro 0 unit 12/19/21 08:00 12/21/21 07:18 Insulin Lispro 100 Unit/1 Ml SUBCUT Not Given WM&BEDTIME SYDNEY Protocol Ketorolac Tromethamine 15 mg 12/19/21 23:04 12/20/21 18:40 Ketorolac 30 Mg/Ml Inj IVP 12/24/21 23:03 15 mg Q8H PRN Administration MODERATE PAIN Losartan Potassium 100 mg 12/19/21 21:00 12/20/21 21:05 Losartan 50 Mg Tablet PO 100 mg BEDTIME SYDNEY Administration Metoprolol Tartrate 25 mg 12/19/21 09:00 12/20/21 17:33 Metoprolol Tartrate 50 Mg Tablet PO 25 mg BID SYDNEY Administration Tamsulosin HCl 0.8 mg 12/19/21 18:00 12/20/21 17:33 Tamsulosin 0.4 Mg Capsule PO 0.8 mg QPM SYDNEY Administration Venlafaxine HCl 75 mg 12/19/21 06:00 12/21/21 05:21 Venlafaxine 75 Mg Tablet PO 75 mg QAM SYDNEY Administration PFSH Anesthesia Medical History (Updated 12/19/21 @ 13:31 by Misael David MD) Afib Bladder outlet obstruction CHF (congestive heart failure) COPD (chronic obstructive pulmonary disease) Depression Diabetes GERD (gastroesophageal reflux disease) Heart attack Hemorrhoid HTN (hypertension) Hyperlipidemia Prostate enlargement Ventricular arrhythmia Surgical History H/O hemorrhoidectomy History of colonoscopy 2017 Stented coronary artery Family History Father Cancer Lung Mother Cancer Lung Brother , Age 32 CAD (coronary artery disease) Social History Smoking and tobacco status: former smoker Quit status (tobacco): has quit using tobacco Year quit tobacco: 1992 PPD x 40 Years Alcohol intake: never Lives independently: Yes Household members: spouse Marital status: service: Yes Current occupational status: retired History of recent travel: No Current gender identity: Male Data Anesthesia : 12/21/21 04:25 12/21/21 04:25 Short CBC 12/20/21 12/21/21 Range/Units 04:19 04:25 WBC 6.8 7.1 (4.0-10.0) 10^3/uL Hgb 13.3 13.6 (11.7-16.6) g/dL Hct 42.0 41.8 L (42.0-52.0) % MCV 94.0 92.7 (80-94) fl Plt Count 161 153 (130-400) 10^3/cmm Neut % (Auto) 54.1 61.4 % Neut # (Auto) 3.66 4.38 (1.8-7.7) 10^3/uL BMP 12/19/21 12/20/21 12/21/21 14:04 04:19 04:25 Sodium 135 L 140 136 Potassium 3.6 4.2 3.8 Chloride 102 106 103 Carbon Dioxide 21 L 25 24 BUN 10 8 5 L Creatinine 0.7 0.8 0.8 Glucose 130 H 125 H 123 H Calcium 8.2 L 8.0 L 8.2 L Liver Function 12/19/21 12/20/21 12/21/21 Range/Units 14:04 04:19 04:25 Total Bilirubin 0.5 0.6 0.8 (0.15-1.2) mg/dL AST 30 28 33 (0-40) U/L ALT 61 H 52 H 53 H (0-41) U/L Alkaline Phosphatase 52 56 58 (40-130) U/L Albumin 3.4 L 3.3 L 3.1 L (3.5-5.2) g/dL Coags 12/19/21 12/19/21 12/20/21 14:04 20:11 04:19 PT INR APTT 31.7 66.1 H D 80.3 H 12/20/21 12/20/21 12/20/21 11:12 18:40 21:50 PT INR APTT 65.1 H 63.9 H 60.5 H 12/21/21 12/21/21 04:25 08:04 PT 14.50 INR 1.09 APTT 61.4 H Cardiac Studies: Echocardiogram 11/24/21
[2021-12-21] MEDS: sodium chloride 0.9% (100 ml) 100 ML 30 ML (09:41)
--- NOTE | 2021-12-21 11:27 | PM.PN ---
Subjective Subjective: No acute events overnight. Chart review done. Patient unable to be physically seen as he was taken to the OR. Vitals/I&O/Wt Last Vital Signs Temp 97.3 F L 12/21/21 09:06 Pulse 86 12/21/21 09:06 Resp 18 12/21/21 09:06 BP 140/75 12/21/21 09:06 Pulse Ox 96 12/21/21 09:06 O2 Del Method 12/21/21 09:06 O2 Flow Rate 1 12/21/21 08:10 12/20/21 12/21/21 12/21/21 22:59 06:59 14:59 Intake Total 1870 / 3240 550 / 3790 Output Total 725 / 1125 675 / 1800 Balance 114 / 2114 -1989 Weight last 48 hrs Weight 92.125 kg Weight 92.986 kg Physical Exam Narrative: Did not examine. Data : 12/21/21 04:25 12/21/21 04:25 A&P Assessment and plan (1) Abdominal pain: (2) Acute cholecystitis: Surgery consulted from the ER. Diet as per surgical team. Plan to take to the OR on Wednesday. Continue Zosyn perioperatively for now. (3) Coronary artery disease: No active chest pain. Echocardiogram done in October 2021 shows an EF of 60%,, mild LVH, normal diastolic function without regional wall motion abnormality, mild pulmonary hypertension. Continue home dose of beta-leroy, statin. Check A1c, lipid panel. (4) Afib: Rate controlled. Continue home dose of metoprolol. Takes Eliquis 5 mg twice daily for anticoagulation. Hold off in view of surgery. Start on heparin drip. Can be stopped on the day of surgery. Last Eliquis on 12/18 morning. (5) HTN (hypertension): Goal blood pressure less than 140/90 mmHg. Continue with home dose of losartan, metoprolol. Plan Type 2 diabetes mellitus: Insulin sliding scale. Check A1c. RCRI score 3. Recent echocardiogram within normal limits. Patient denies any active chest pain. Patient is medically stable to undergo moderately emergent low risk surgery with moderate risk. Plan for the day: Continue with Zosyn. N.p.o. since midnight. Heparin drip was stopped early today morning in preparation for the cholecystectomy. Appreciate surgical recommendations. Patient to get cholecystectomy today. Incentive spirometry. -Diet as per surgery after procedure today. ? DVT prophylaxis dose to be started after clearance from general surgery ? We will continue to keep Eliquis on hold for the time being. Will discuss with GEN vora for restarting. Full code. N.p.o. at this time for surgery today. DVT prophylaxis: SCDs Protonix for PUD prophylaxis. Attestations Medical Necessity Statement*: Cholecystectomy today. Will reevaluate patient after surgery and decide further disposition. Coding Level of Care Code Acute Catalytic Converter Operator Helper for Chg Fwd Diagnoses Abdominal pain R10.9 Acute cholecystitis K81.0 Coronary artery disease I25.10 Afib I48.91 HTN (hypertension) I10
--- NOTE | 2021-12-21 12:44 | ANE.PACU2 ---
Inpatient post-anesthesia follow up: Airway intact: Yes Vital signs: Temperature 97.0 F Pulse Rate 81 Respiratory Rate 18 Blood Pressure 96/60 Pulse Oximetry 94 Oxygen Delivery Me thod Simple Mask Oxygen Flow Rate 5 Fraction of Inspir ed Oxygen Hydration adequate: Yes Nausea and vomiting: No Pain level: 3 Mental status: Baseline
--- NOTE | 2021-12-21 12:49 | PM.OP ---
Operative Report Date of procedure: December 21, 2021 Pre-op diagnosis: Preoperative diagnosis: Symptomatic gallstones_. Postoperative diagnosis: Acute calculus cholecystitis_. Procedure: Laparoscopic cholecystectomy with IOC (CPT 05465; CPT 16637, mod 26) Surgeon: Curtis Marcial MD Start/End time: please, see nursing documentation. Beveling Machine Operator: none Anesthesia: General Endotracheal Anesthesiologist/PRODUCTION STATISTICAL CLERK: please, see anesthesia documentation. EBL, ml: 10 ml Specimen: gallbladder, submitted to pathology Complications: none Findings: Normal biliary anatomy. Gallbladder wall a lot of edema, swelling, tears out easily, almost no bleeding upon the dissection, consistent with gangrenous changes. Liver was enlarged, consistent with fatty liver, however, no obvious cirrhotic changes Indications: 76-year-old male_ with a clinical picture of right upper quadrant pain,_ confirmed by RUQ US and CT scan_ We discussed the natural course and management of the disease. We discussed indications for laparoscopic cholecystectomy, including risks and benefits of a surgical procedure. We discussed possible complications, including infection, bleeding, damage to surrounding tissue, intraabdominal abscess, hernia at the incision site, bowel obstruction, deep venous thrombosis, pulmonary embolism, and . We specifically discussed biliary anatomy and the possibility of a common bile duct injury and bile leak with all the associated morbidity and the need for another procedure to repair it. We discussed the possibility of a retained stones and the general principles of ERCP and bile duct exploration. The patient agreed to proceed with laparoscopic cholecystectomy with IOC and signed the informed consent. Details of the procedure: The patient was identified in the holding area and brought to the operating room and positioned supine on the operating table. Sequential compression devices were applied to bilateral lower extremities to prevent deep venous thromboembolism. Subsequently, general endotracheal anesthesia was initiated without any complications. The surgical area was prepped and draped in a regular sterile fashion. TIME OUT: Immediately prior to procedure, time out was performed to include correct patient, agreement on the procedure to be performed, correct side, site, position, accurate procedure consent, relevant images, antibiotics, fluids. Everybody agreed. The skin at the umbilicus was anesthetized with Marcaine and periumbilical incision was made and carried down to the fascia. The umbilical stalk was grasped with a Rach clamp and lifted up. The fascia was incised vertically through the linea alba. Two 0-Vicryl stay sutures were placed. The peritoneum was penetrated bluntly with a hemostat. The absence of adhesions was confirmed with a finger swipe. A balloon trocar was placed and the abdomen was insufflated to 15 mm Hg. A 10 mm 30 degree angle camera was introduced into the abdomen. Three additional 5mm trocars were placed in the epigastric area and in the RUQ under direct vision. The patient was placed in reversed Trendelenburg position and rotated right side up. The gallbladder was located in the normal anatomic position in the RUQ. It was acutely inflamed. Upon attempt to grasp the gallbladder, the wall perforated, essentially, disintegrated. Bile and several stones were aspirated through the hole in the gallbladder. There were omental adhesions around the gallbladder. These were taken down with blunt dissection and cautery. The fundus of the gallbladder was grasped and retracted cephalad. The infundibulum was identified and retracted laterally. The peritoneum was opened with hook cautery over the infundibulum of the gallbladder on the medial and lateral sides. Upon blunt dissection at the Callot?s triangle I identified the cystic duct and the cystic artery. Both were bluntly dissected circumferentially. A critical view of safety was obtained with only cystic artery and cystic duct coming from the gallbladder to the hepatoduodenal ligament and the liver clearly seen behind the cystic artery and duct. The cystic artery was doubly clipped and divided. The cystic duct was clipped at the junction with a gallbladder and a small ductotomy was made below the clip with cold scissors. A cholangiogram catheter was introduced into the cystic duct. The patient was positioned supine. A cholangiogram was performed. It showed a smooth tapering of the CBD, a normal passage of dye into the duodenum and right and left hepatic ducts. There were no filling defects. The cholangiogram catheter was removed. The proximal part of the cystic duct was clipped three times_ and divided at the site of previously made ductotomy. Then I mobilized the gallbladder off the liver bed with hook cautery. There was no spillage of bile. There was no spillage of stones. The gallbladder was dissected off the liver bed and was placed into the Endocatch bag. The liver bed was inspected. Minor oozing from the liver bed was controlled with bovie cautery. All the blood clots were aspirated. The RUQ and subhepatic space were irrigated with normal saline until clear. All the irrigation fluid was aspirated. All the trocars were removed under direct vision and the abdomen was desufflated. The specimen was removed from the abdomen through the umbilical incision and passed off the field. The fascia at the umbilical incision was closed with two interrupted 0-Vicryl sutures, stay sutures were tied down as well. Then the wound was irrigated with saline and injected with Marcaine. Skin incisions were closed primarily with 4-0 Monocryl. Steristrips were applied. The needle, instrument and sponge counts were correct x 2. The patient tolerated the procedure well, was extubated in the OR and was transferred to the recovery in stable condition.
[2021-12-21] MEDS: atorvastatin 40 mg Tablet 80 MG PO (16:59)
[2021-12-21] MEDS: docusate sodium 100 mg Capsule PO (16:59)
[2021-12-21] MEDS: tamsulosin 0.4 mg Capsule 0.8 MG PO (16:59)
[2021-12-21] MEDS: metoprolol tartrate 50 mg Tablet 25 MG PO (17:00)
[2021-12-21] MEDS: HYDROcodone-acetaminophen 5-325 mg Tablet 1 TAB PO (17:00)
[2021-12-21 17:06] LABS: Glucose Point of Care 154 mg/dL (70-110)
[2021-12-21 20:13] LABS: Partial Thromboplastin Time 28.9 SECONDS (23.9-36.7)
[2021-12-21] MEDS: heparin drip 25,000 UNIT/500 ML PREMIX 20 UNIT IV (20:35)
[2021-12-21 20:55] LABS: Glucose Point of Care 202 mg/dL (70-110)
[2021-12-21] MEDS: sennosides 8.6 mg Tablet 17.2 MG PO (21:05)
[2021-12-21] MEDS: amlodipine 5 mg Tablet PO (21:05)
[2021-12-21] MEDS: losartan 50 mg Tablet 100 MG PO (21:05)
[2021-12-21] MEDS: insulin lispro 100 unit/1 mL SUBCUT (21:14)
[2021-12-22] VITALS (8 sets, daily range): BP systolic 110–136; BP diastolic 62–72; PULSE 62–96; RESP 16–17; TEMP 36.8–37.4; O2SAT 89–95
[2021-12-22] MEDS: HYDROcodone-acetaminophen 5-325 mg Tablet 1 TAB PO ×3 (01:39→15:29)
[2021-12-22] MEDS: HYDROmorphone 1 mg/mL INJ 1 mL IVP (03:13)
[2021-12-22 03:18] LABS: Basophils % 0.1 %; Eosinophils % 0.1 %; Hematocrit 41.9 % (42.0-52.0); Hemoglobin 13.4 g/dL (11.7-16.6); Mean Corpuscular Volume 93.9 fl (80-94); Mean Platelet Volume 11.8 fL (7.4-10.4); Monocytes # 1.1 10^3/uL (0.2-0.9); Monocytes % 12.1 %; Neutrophils # 6.89 10^3/uL (1.8-7.7); Neutrophils % 76.1 %; Nucleated Red Blood Cells % 0 %; Platelet Count 162 10^3/cmm (130-400); Red Blood Count 4.46 10^6/uL (4.1-5.3); Red Cell Distribution Width 13.5 % (12.1-15.1); White Blood Count 9.1 10^3/uL (4.0-10.0)
[2021-12-22 03:30] LABS: Partial Thromboplastin Time 24.3 SECONDS (23.9-36.7)
[2021-12-22 03:46] LABS: Blood Urea Nitrogen 9 mg/dL (8-23)
[2021-12-22 04:00] LABS: Anion Gap 14.9 (5-19); Calcium 8.4 mg/dL (8.5-10.5); Carbon Dioxide 19 mmol/L (22-29); Chloride 101 mmol/L (98-107); Glucose 142 mg/dL (65-115); Osmolality Calculated 273 mOsm/kg (285-295); Potassium 3.9 mmol/L (3.5-5.1); Sodium 131 mmol/L (136-145)
[2021-12-22] MEDS: heparin 5,000 unit/mL INJ 1 mL IV (04:08)
[2021-12-22] MEDS: piperacillin-tazobactam 3.375 GM in sodium chloride 0.9% (plus) 50 ML IV (05:44)
[2021-12-22] MEDS: venlafaxine 75 mg Tablet PO (05:46)
[2021-12-22 06:35] LABS: Glucose Point of Care 124 mg/dL (70-110)
--- NOTE | 2021-12-22 06:40 | P.PN_ITS ---
Subjective Subjective: No acute events overnight. Doing well. Passing gas. Tolerated diet. On physical exam abdomen is soft, nondistended, appropriately tender to palpation around incisions. Wounds are clean dry intact. He is in no acute distress. Breathing normally, symmetrical chest rise. Labs reviewed, hemoglobin is stable. Uncomplicated postoperative. -I ordered LFTs to be drawn with PTT at 10:00. If LFTs are normal, he can be discharged home today from surgical standpoint. -Okay to continue therapeutic anticoagulation from surgery standpoint. -Follow-up with general surgery at [facility], Dr. Mcginnis in 2 weeks Vitals/I&O/Wt Last Vital Signs Temp 99 F 12/22/21 04:00 Pulse 68 12/22/21 04:00 Resp 17 12/22/21 04:00 BP 136/68 12/22/21 04:00 Pulse Ox 91 12/22/21 04:00 O2 Del Method 12/21/21 20:01 O2 Flow Rate 2 12/21/21 14:20 12/21/21 12/21/21 12/22/21 14:59 22:59 06:59 Intake Total 50 / 50 170 / 220 201.333 / 421.333 Output Total 450 / 475 400 / 875 Balance -280 / -255 -198.667 / -453.667 Weight last 48 hrs Weight 201 lb 9.6 oz Data : 12/22/21 02:35 12/22/21 02:35 Attestations Medical Necessity Statement*: Per primary team Coding Level of Care Code Acute Wound Care Nurse for Yulissag Kenn
--- NOTE | 2021-12-22 06:43 | PM.PN ---
Subjective Subjective: DIET: - Solid meals. - Start taking stool softner/laxatives if you do not have a bowel movement in 1-2 days after surgery. WOUND CARE: - Apply ice pack to your wounds for 20 min every 4 hours x 2-3 days and as needed to prevent swelling and reduce pain. - Ok to shower tomorrow. [Do not remove paper strips from your wound.] Let the water and soap run over the wounds, do not scrub. No soaking in a bath tab. Pat it dry after the shower and replace the band aid. ACTIVITY: - No heavy lifting, no more than 15 lbs x 4 weeks. No heavy pushing. - All other activities as tolerated, avoid strenuous exercise of any sort for 2 weeks. PAIN CONTROL: - First line: Tylenol 650mg PO q6h x 5 days; stop taking it if you have no pain at all. - Second line: Ibuprofen 800 mg PO q8h for 5 days as needed for pain - Back up thirud line: Tramadol 50 mg PO q4-6h PRN for pain; start taking Tramadol if Tylenol with Ibuprofen are not effective FOLLOW-UP CARE: Please, call to confirm/arrange for appointment, - with General Surgery, in 2 weeks; please, call to confirm an appointment PRECAUTIONS: If you taking any opioids, including but not limited to [place]/Vicodin/Percocet/Tramadol/Codeine: Do not drive or operate any heavy machinery Do not consume alcohol, tranquilizers Contact surgery office/go to emergency room with any of the following: Fever over 101 F. Pain not relieved by medications ordered. Increase redness, warmth, swelling or hardness around the operative area. Blood-soaked dressing (small amounts of drainage may be normal). Increasing drainage from the surgical area or exam site. Inability to urinate, Persistent nausea, vomiting, inability to tolerate oral intake, worsening abdominal pain/distention, inability to pass gas for more than 24h. Vitals/I&O/Wt Last Vital Signs Temp 99 F 12/22/21 04:00 Pulse 68 12/22/21 04:00 Resp 17 12/22/21 04:00 BP 136/68 12/22/21 04:00 Pulse Ox 91 12/22/21 04:00 O2 Del Method 12/21/21 20:01 O2 Flow Rate 2 12/21/21 14:20 12/21/21 12/21/21 12/22/21 14:59 22:59 06:59 Intake Total 50 / 50 170 / 220 201.333 / 421.333 Output Total 450 / 475 400 / 875 Balance -280 / -255 -198.667 / -453.667 Weight last 48 hrs Weight 201 lb 9.6 oz Data : 12/22/21 02:35 12/22/21 02:35 Attestations Medical Necessity Statement*: Per primary team Coding Level of Care Code Acute Military Technology Manager for Chg Kenn
[2021-12-22] MEDS: docusate sodium 100 mg Capsule PO (08:24)
[2021-12-22] MEDS: pantoprazole DR 40 mg Tablet PO (08:25)
[2021-12-22] MEDS: metoprolol tartrate 50 mg Tablet 25 MG PO (08:25)
--- NOTE | 2021-12-22 08:51 | PC.SOCIAL ---
IMM update IMM updated with patient and at bedside. Verbalized an understanding. Copy Pg 2 provided. Initialled, dated, timed, and placed in chart.
[2021-12-22] MEDS: budesonide 0.5 mg/2 mL Neb INHALATION (09:59)
[2021-12-22] MEDS: ipratropium-albuterol 3 mL Neb INHALATION (09:59)
[2021-12-22 10:44] LABS: Partial Thromboplastin Time 69.6 SECONDS (23.9-36.7)
[2021-12-22 10:47] LABS: Alanine Aminotransferase 77 U/L (0-41); Albumin Level 3.2 g/dL (3.5-5.2); Alkaline Phosphatase 65 U/L (40-130); Aspartate Amino Transferase 54 U/L (0-40); Total Bilirubin 0.7 mg/dL (0.15-1.2); Total Protein 6.2 g/dL (6.6-8.7)
[2021-12-22 11:06] LABS: Glucose Point of Care 159 mg/dL (70-110)
[2021-12-22] MEDS: polyethylene glycol 3350 Pkt 17 gm PO (11:44)
--- NOTE | 2021-12-22 12:44 | P.DS_ITS ---
Discharge Providers Date of Admission: 12/19/21 01:48 Date of Discharge: December 22, 2021 Attending Provider at Admission: Gerda Troncoso MD Attending Provider at Discharge: Sara Rogers MD Primary Care Provider: Haresh Dorman DO Diagnoses at Discharge Discharge Diagnosis (1) Abdominal pain: Status: Resolved (2) Acute cholecystitis: Status: Resolved (3) Coronary artery disease: Status: Acute (4) Afib: Status: Acute (5) HTN (hypertension): Status: Acute Reason for Visit Reason for Visit: socrates bowers, N/V Brief History: As per Dr. Troncoso Rashad Michel is a 76 year old male with PMH type 2 diabetes mellitus, atrial fibrillation on Eliquis, BPH, hypertension, recently admitted here between November 24 to November 25 after presenting with right upper quadrant pain.? CT at that time had showed findings suspicious for acute cholecystitis including gallbladder distention and mild wall thickening.? No definite stones or sludge were noted at the time.? There was a small stone in the cystic duct at the time.? General surgery was consulted, acute surgical intervention was deferred as patient symptoms appear to have improved by the next morning with conservative management.? Additionally there was concerns for underlying cirrhosis for which she was referred to hepatology.? Followed up with surgery on December 03, 2021 at which point there were noted to be no further concerns with pain.? Patient has not been able to make appointment with hepatology thus far. He returns to the emergency room with complaints of right upper quadrant pain.Description is a sharp stabbing type, 9 out of 10 at peak intensity.? No apparent exacerbating or relieving factors.? Patient has strictly been following a fat-free diet.? Similar symptoms have occurred a few days ago while he was on a car trip returning from [place], however that was relieved with pain medication.? He denies any nausea vomiting diarrhea or chills fever. CT of the abdomen pelvis performed today showed punctate gallbladder stones in the region of the distal cystic duct.? No gallbladder wall distention or thickening.? Gallbladder wall thickening was noted on ultrasound however which showed chronic cholecystitis.? Liver findings were with hepatic steatosi Hospital Course Hospital Course Patient was admitted for right upper quadrant pain and diagnosed with acute cholecystitis. Since patient was on Eliquis 48-hour washout was done. Patient was placed on a heparin drip to bridge. He underwent cholecystectomy during hospital stay on 12/21/2021. At discharge surgery evaluated patient and indicated there was no contraindication to therapeutic anticoagulation. His Eliquis was restarted at discharge. Of note patient on Eliquis for recently diagnosed pulmonary embolism about a month and a half ago. Patient to continue to follow-up with hepatology outpatient. He was given pain medication at discharge. Patient given stool softener at discharge. MiraLAX and docusate senna added on at discharge. All questions answered and discharged home in stable condition. Cleared by surgery for discharge. Patient to follow-up with primary care doctor and general surgery as an outpatient after discharge. Physical Exam Narrative: General: Alert oriented x3, patient seen this a.m. resting comfortably in bed. present at bedside HEENT: Normocephalic, atraumatic, EOMI, breathing comfortably. Cardio: Regular rate rhythm, normal S1-S2, Respiratory: Good bilateral air entry, no wheezes no rhonchi appreciated GI: Abdomen soft, nontender, nondistended, bowel sounds + laparoscopic incisions covered with Band-Aid. Mildly tender to palpation around that area. Extremities: No lower extremity edema bilaterally Discharge Data Studies Completed and Pending Completed Studies During Hospitalization Category Date Time Status CT abdomen pelvis w con* [id number] Stat Cat Scan 12/18/21 22:07 Completed XR chest 1V portable [id number] Stat Exams 12/18/21 21:55 Completed XR cholangio operative [id number] Routine Exams 12/21/21 Completed US gall bladder [id number] Stat Ultrasound 12/18/21 23:31 Completed Pending at discharge Category Date Time Status C-arm Fluoroscopy [id number] Routine Exams 12/21/21 09:07 Taken Blood Culture Stat Lab 12/18/21 22:25 Results Platelet Count Q2D Lab 12/23/21 04:00 Ordered Pathology: Surgical [PTH] Routine Pth 12/21/21 11:36 Received Radiology Impressions Chest X-Ray 12/18/21 21:55 IMPRESSION: No acute findings. Abdomen/Pelvis CT 12/18/21 22:07 IMPRESSION: No acute findings. COMMENTS: Consistent with the [employer]'s Incidental Findings Committee white paper (J Am Nidhi Radiol 2018): Any incidental renal lesion less than 1 cm or classified as too small to characterize, or any incidental cystic renal lesion characterized as simple-appearing, is likely benign. No follow-up imaging is recommended for these lesions per consensus recommendations based on imaging criteria. Gallbladder Ultrasound 12/18/21 23:31 IMPRESSION: 1. Gallbladder wall thickening which given history may reflect chronic cholecystitis. 2. Hepatic steatosis. Laboratory Results WBC 9.1 10^3/uL (4.0-10.0) 12/22/21 02:35 RBC 4.46 10^6/uL (4.1-5.3) 12/22/21 02:35 Hgb 13.4 g/dL (11.7-16.6) 12/22/21 02:35 Hct 41.9 % (42.0-52.0) L 12/22/21 02:35 MCV 93.9 fl (80-94) 12/22/21 02:35 MCH 30.0 pg (28.0-34.0) 12/22/21 02:35 MCHC 32.0 g/dL (30.0-36.0) 12/22/21 02:35 RDW 13.5 % (12.1-15.1) 12/22/21 02:35 Plt Count 162 10^3/cmm (130-400) 12/22/21 02:35 MPV 11.8 fL (7.4-10.4) H 12/22/21 02:35 Neut % (Auto) 76.1 % 12/22/21 02:35 Lymph % (Auto) 11.0 % 12/22/21 02:35 [place] % (Auto) 12.1 % 12/22/21 02:35 Eos % (Auto) 0.1 % 12/22/21 02:35 Baso % (Auto) 0.1 % 12/22/21 02:35 Neut # (Auto) 6.89 10^3/uL (1.8-7.7) 12/22/21 02:35 Lymph # (Auto) 1.0 10^3/uL (0.8-4.8) 12/22/21 02:35 [place] # (Auto) 1.1 10^3/uL (0.2-0.9) H 12/22/21 02:35 Eos # (Auto) 0.0 10^3/uL (0.0-0.8) 12/22/21 02:35 Baso # (Auto) 0.0 10^3/uL (0.0-0.1) 12/22/21 02:35 Nucleated RBC % (auto) 0 % 12/22/21 02:35 Nucleated RBCs # 0.0 /100WBC 12/22/21 02:35 PT 14.50 SECONDS (12.1-14.9) 12/21/21 08:04 INR 1.09 (0.8-1.2) 12/21/21 08:04 APTT 69.6 SECONDS (23.9-36.7) H D 12/22/21 10:03 Sodium 131 mmol/L (136-145) L 12/22/21 02:35 Potassium 3.9 mmol/L (3.5-5.1) 12/22/21 02:35 Chloride 101 mmol/L (98-107) 12/22/21 02:35 Carbon Dioxide 19 mmol/L (22-29) L 12/22/21 02:35 Anion Gap 14.9 (5-19) 12/22/21 02:35 BUN 9 mg/dL (8-23) 12/22/21 02:35 Creatinine 0.8 mg/dL (0.7-1.2) 12/22/21 02:35 GFR Calculation Not Reportable 12/22/21 02:35 Glucose 142 mg/dL (65-115) H 12/22/21 02:35 POC Glucose 159 mg/dL (70-110) H 12/22/21 10:58 Calculated Osmolality 273 mOsm/kg (285-295) L 12/22/21 02:35 Lactic Acid 3.1 mmol/L (0.5-2.2) H 12/18/21 22:25 Lactic Acid (Sepsis) 2.5 mmol/L (0.5-2.2) H 12/19/21 00:42 Calcium 8.4 mg/dL (8.5-10.5) L 12/22/21 02:35 Total Bilirubin 0.7 mg/dL (0.15-1.2) 12/22/21 10:03 Direct Bilirubin 0.30 mg/dL (0.00-0.30) 12/22/21 10:03 AST 54 U/L (0-40) H 12/22/21 10:03 ALT 77 U/L (0-41) H 12/22/21 10:03 Alkaline Phosphatase 65 U/L (40-130) 12/22/21 10:03 Total Protein 6.2 g/dL (6.6-8.7) L 12/22/21 10:03 Albumin 3.2 g/dL (3.5-5.2) L 12/22/21 10:03 Globulin 3.0 g/dL (1.3-4.6) 12/22/21 10:03 Lipase 38 U/L (13-60) 12/18/21 22:03 Urine Color Yellow (Yellow) 12/18/21 22:17 Urine Appearance Clear (CLEAR) 12/18/21 22:17 Urine pH 5 (5-7) 12/18/21 22:17 Ur Specific Rudy 1.030 (1.005-1.030) 12/18/21 22:17 Urine Protein Neg (Negative) 12/18/21 22:17 Urine Glucose (UA) Norm (Normal) 12/18/21 22:17 Urine Ketones 1+ (Negative) H 12/18/21 22:17 Urine Blood Neg (Negative) 12/18/21 22:17 Urine Nitrate Negative (Negative) 12/18/21 22:17 Urine Bilirubin Neg (Negative) 12/18/21 22:17 Urine Urobilinogen Norm mg/dL (Negative) 12/18/21 22:17 Ur Leukocyte Esterase Negative (Negative) 12/18/21 22:17 Vitals Last Vital Signs Temp 98.3 F 12/22/21 08:00 Pulse 89 12/22/21 10:04 Resp 16 12/22/21 09:59 BP 110/64 12/22/21 08:00 Pulse Ox 95 12/22/21 11:08 O2 Del Method 12/22/21 09:59 O2 Flow Rate 2 12/21/21 14:20 Discharge Plan Discharge Patient Disposition: Home Condition: Stable Prescriptions: New hydrocodone-acetaminophen 5-300 mg tablet 1 tab PO Q6H PRN (Reason: pain) 3 Days Qty: 10 0RF Miralax 17 gram/dose powder 4 g PO DAILY 14 Days Qty: 119 0RF Senna with Docusate Sodium 8.6-50 mg tablet 1 tab-cap PO BID PRN (Reason: constipation) 7 Days Qty: 14 0RF Continued magnesium oxide 400 mg (241.3 mg magnesium) tablet 400 mg PO BEDTIME Eliquis 5 mg tablet 5 mg PO BID Qty: 180 3RF furosemide 20 mg tablet 20 mg PO DAILY PRN (Reason: edema) Qty: 30 3RF Spiriva Respimat 2.5 mcg/actuation mist 2 inh INHALATION QAM Qty: 4 3RF fluticasone propion-salmeterol [Wixela Inhub] 250-50 mcg/dose blister with device 1 inh inhalation BID Qty: 60 6RF venlafaxine 75 mg Tablet 75 mg PO QAM pantoprazole 20 mg Tablet,Delayed Release (Dr/Ec) 20 mg PO QAM losartan 100 mg Tablet 100 mg PO BEDTIME rosuvastatin 40 mg Tablet 40 mg PO QPM omega 0-xik-rzf-fish oil [Fish Oil] 1,000 mg (120 mg-180 mg) Capsule 2 cap PO BID tamsulosin [Flomax] 0.4 mg Capsule 0.8 mg PO QPM Qty: 0 0RF meclizine 25 mg tablet 25 mg PO TID PRN (Reason: Dizziness) amlodipine 10 mg Tablet 5 mg PO BEDTIME Qty: 0 0RF glipizide 10 mg Tablet 10 mg PO BID glucose 4 gram Tablet,Chewable See Rx Instructions .ROUTE .COMPLEX Rx Instructions: 5 tabs po as directed as needed for low blood sugar metoprolol tartrate 50 mg Tablet 25 mg PO BID fluticasone propionate 50 mcg/actuation [place],Suspension 2 spray INTRANASAL DAILY PRN (Reason: Allergy Symptoms) Rx Instructions: administer into each nostril metformin 500 mg Tablet Extended Release 24 Hr 1,000 mg PO BID finasteride [Proscar] 5 mg Tablet 5 mg PO BEDTIME cholecalciferol (vitamin D3) [Vitamin D3] 25 mcg (1,000 unit) Tablet 25 mcg PO DAILY alogliptin 12.5 mg Tablet 25 mg PO DAILY albuterol sulfate 90 mcg/actuation HFA aerosol inhaler 2 inh INHALATION Q4H PRN (Reason: shortness of breath or wheezing) Qty: 18 0RF Discontinued docusate sodium [Colace] 100 mg Capsule 100 mg PO BID PRN (Reason: Constipation) Discharge Orders: Discharge Order (Routine); Ordered 12/22/21 Ordered By: Sara Rogers Referrals: Rob Mcginnis MD [Physician] - 01/01/22 1:50 pm Haresh Dorman, [Primary Care Provider] - 4-7 days (Please call in 1-2 days to schedule your followup appointment.) Discharge Diet: Regular and Low Fat Discharge Activity: Increase activity as tolerated Patient Instructions: Hydrocodone/Acetaminophen (By mouth), Polyethylene Glycol 3350 (By mouth), Senna (By mouth), Laparoscopic Cholecystectomy (DC), Opioid Safety Activity Restrictions/Additional Instructions: - Apply ice pack to your wounds for 20 min every 4 hours x 2-3 days and as needed to prevent swelling and reduce pain. - Ok to shower tomorrow. [Do not remove paper strips from your wound.] Let the water and soap run over the wounds, do not scrub. No soaking in a bath tab. Pat it dry after the shower and replace the band aid. ACTIVITY: - No heavy lifting, no more than 15 lbs x 4 weeks. No heavy pushing. - All other activities as tolerated, avoid strenuous exercise of any sort for 2 weeks. PAIN CONTROL: - First line: Ibuprofen 800 mg PO q8h for 5 days as needed for pain - Second line: Hydrocodone-acetaminophen 5-325 mg Q6H as needed x 5 days; stop taking it if you have no pain at all. Only take this if ibuprofen does not work. DO NOT TAKE TYLENOL more than 2000 mg together w/ your Hydrocodone. Your hydrocone has tylenol. FOLLOW-UP CARE: Please, call to confirm/arrange for appointment, - with General Surgery, in 2 weeks; please, call to confirm an appointment PRECAUTIONS: If you taking any opioids, including but not limited to [place]/Vicodin/Percocet/Tramadol/Codeine: Do not drive or operate any heavy machinery Do not consume alcohol, tranquilizers Contact surgery office/go to emergency room with any of the following: Fever over 101 F. Pain not relieved by medications ordered. Increase redness, warmth, swelling or hardness around the operative area. Blood-soaked dressing (small amounts of drainage may be normal). Increasing drainage from the surgical area or exam site. Inability to urinate, Persistent nausea, vomiting, inability to tolerate oral intake, worsening abdominal pain/distention, inability to pass gas for more than 24h. Discharge Attestations Time Spent in Discharge Care*: greater than 30 min Quality Metrics Clinical Quality Measures [ No reported AMI, CVA or VTE this stay] Coding Level of Care Code Acute Chg FW DC note Diagnoses Abdominal pain R10.9 Acute cholecystitis K81.0 Coronary artery disease I25.10 Afib I48.91 HTN (hypertension) I10
--- NOTE | 2021-12-22 15:35 | PC.NURSE ---
Written script provided for Hydrocodone per Dr. Rogers. Photocopy placed in chart.
== END 2021-12-22 16:35 | disposition home or self-care (01) | DRG 419 ==
LOC: ER 12-19 00:58 → MEDSURG 12-19 01:29
PROVIDERS: Emergency Medicine; Internal Medicine; Student in an Organized Health Care Education/Training Program; Surgery; Admitting Provider Student in an Organized Health Care Education/Training Program; Emergency Provider Emergency Medicine; PCP Emergency Medicine Emergency Medical Services; Visit Provider Internal Medicine
PROC: 0FT44ZZ Resection of Gallbladder, Percutaneous Endoscopic Approach (ICD-10-PCS; CPT 47562; principal; 2021-12-21 09:30)
DX: K80.12 Calculus of gallbladder with acute and chronic cholecystitis without obstruction (principal); E11.9 Type 2 diabetes mellitus without complications; I48.91 Unspecified atrial fibrillation; N40.0 Benign prostatic hyperplasia without lower urinary tract symptoms; I11.0 Hypertensive heart disease with heart failure; I50.9 Heart failure, unspecified; J44.9 Chronic obstructive pulmonary disease, unspecified; F32.A Depression, unspecified; K21.9 Gastro-esophageal reflux disease without esophagitis; I25.2 Old myocardial infarction; E78.5 Hyperlipidemia, unspecified; I25.10 Atherosclerotic heart disease of native coronary artery without angina pectoris; Z95.5 Presence of coronary angioplasty implant and graft; Z87.891 Personal history of nicotine dependence; Z79.51 Long term (current) use of inhaled steroids; Z79.84 Long term (current) use of oral hypoglycemic drugs; Z79.01 Long term (current) use of anticoagulants
CPT/HCPCS: 12345; 36415; 36416; 71045; 74177; 74300; 76000; 76705; 80048; 80053; 80076; 81003; 82962; 83605; 83690; 85025; 85610; 85730; 87040; 88304; 93005; 94640; 94760; 96365; 96372; 96375; 96376; 99285; J1100; J1170; J1644; J1815; J1885; J2270; J2370; J2405; J2543; J2704; J2710; J3010; J3490; J7030; J7040; J7626; Q9967

== ENCOUNTER → 2022-01-01 13:25 | Outpatient (BNVA) | payer OTHER, SELFPAY | PROVIDERS: PCP Emergency Medicine Emergency Medical Services; Visit Provider Surgery | DX: Z09 Encounter for follow-up examination after completed treatment for conditions other than malignant neoplasm (principal) | CPT/HCPCS: 99024 ==

== ENCOUNTER → 2022-03-19 08:15 | Outpatient (BNVA) | payer OTHER, SELFPAY | PROVIDERS: PCP Emergency Medicine Emergency Medical Services; Visit Provider Urology | DX: N40.1 Benign prostatic hyperplasia with lower urinary tract symptoms (principal); N13.8 Other obstructive and reflux uropathy; Z12.5 Encounter for screening for malignant neoplasm of prostate | CPT/HCPCS: 51741; 51798; 81003; 99203 ==

== ENCOUNTER 2022-04-13 09:15 | Outpatient (CLI) | payer OTHER, SELFPAY ==
--- NOTE | 2022-04-13 09:57 | MR_ITS ---
WS: [id number] MRI HEAD WITHOUT CONTRAST WITH ATTENTION TO THE INTERNAL AUDITORY CANALS TECHNIQUE: Sagittal T1, T2 axial, T2 axial flair, axial susceptibility weighted imaging, axial diffus ion weighted images, and coronal T2 images were obtained. ADC and FSPGR images. Noncontrast IACs. Ax ial fiesta imaging. CLINICAL INFORMATION: SENSOSRINEURAL HEARING LOSS,BILATERAL/DIZZINESS GIDDINESS COMPARISON: None. FINDINGS: Contrast not administered. Unable to obtain IV access. No evidence of restricted diffusion to suggest acute ischemia. Ventricular system and basal cisterns are patent. Mild small vessel changes. Moderate parenchymal volume loss. Normal posterior nasopharynx . Normal parapharyngeal fat. Mild mucosal thickening in the RIGHT mastoid air cells. Normal posterior fossa. Normal vascular flow voids at the skull base. No extra-axial fluid collections. No evidence o f mass or mass effect. No hemosiderin on the susceptibly weighted images. Normal cavernous sinuses an d Meckel's cave. Noncontrast 7th and 8th cranial nerves are normal in appearance. Normal trigeminal nerve root entry z ones. No visualized IAC or CP angle mass. No other suspicious findings. MR/MR iac's wo con [id number] IMPRESSION:Contrast not administered. Unable to obtain IV access. 1. No evidence of restricted diffusion to suggest acute ischemia. 2. Mild small vessel changes with moderate parenchymal volume loss. Small vess el changes in the heavenly. 3. Noncontrast 7th and 8th cranial nerves are normal in appearance. Normal tri geminal nerve root entry zones. 4. Paranasal sinuses are well aerated. 5. Mild mucosal thickening in the RIGHT greater than LEFT mastoid air cells. 6. No hemosiderin on the susceptibly weighted images.
== END 2022-04-13 09:16 | disposition home or self-care (01) ==
LOC: RAD 09:17
PROVIDERS: PCP Emergency Medicine Emergency Medical Services; Visit Provider Specialist
DX: H90.3 Sensorineural hearing loss, bilateral (principal); R42 Dizziness and giddiness
CPT/HCPCS: 70551

== ENCOUNTER → 2022-04-20 08:52 | Outpatient (BNVA) | payer OTHER, SELFPAY | PROVIDERS: PCP Emergency Medicine Emergency Medical Services; Visit Provider Internal Medicine Pulmonary Disease | DX: J44.9 Chronic obstructive pulmonary disease, unspecified (principal); R91.1 Solitary pulmonary nodule; G47.30 Sleep apnea, unspecified; I27.20 Pulmonary hypertension, unspecified; R53.81 Other malaise; Z87.891 Personal history of nicotine dependence | CPT/HCPCS: 99214 ==

== ENCOUNTER 2022-06-16 14:03 | Emergency (ER) | payer OTHER, SELFPAY ==
[2022-06-16 14:16] VITALS: BP 122/74; PULSE 136; RESP 18; TEMP 36.7; O2SAT 95
--- NOTE | 2022-06-16 14:36 | XR_ITS ---
WS: [id number] Portable AP upright chest, 06/16/2022 Clinical Data: sob Comparison: Portable chest, 12/18/2021 Findings: No nodules, masses or effusions are seen. The heart is normal. The pulmonary vascularity is not increased. No pneumonia or pneumothorax is seen. There is calcification of the aortic arch with slight tortuosity of the descending thoracic aorta. Monitor leads are on the chest wall. XR/XR chest 1V portable [id number] Impression: Atherosclerosis.
[2022-06-16 14:45] LABS: Basophils # 0.1 10^3/uL (0.0-0.1); Basophils % 0.7 %; Eosinophils # 0.2 10^3/uL (0.0-0.8); Eosinophils % 1.9 %; Hematocrit 50.3 % (42.0-52.0); Hemoglobin 16.5 g/dL (11.7-16.6); Lymphocytes # 3.1 10^3/uL (0.8-4.8); Lymphocytes % 29.7 %; Mean Corpuscular HGB Conc 32.8 g/dL (30.0-36.0); Mean Corpuscular Hemoglobin 29.8 pg (28.0-34.0); Mean Platelet Volume 11.6 fL (7.4-10.4); Monocytes # 1.1 10^3/uL (0.2-0.9); Monocytes % 11.1 %; Neutrophils # 5.77 10^3/uL (1.8-7.7); Neutrophils % 56.2 %; Nucleated Red Blood Cells % 0 %; Platelet Count 237 10^3/cmm (130-400); Red Blood Count 5.53 10^6/uL (4.1-5.3); Red Cell Distribution Width 14.5 % (12.1-15.1); White Blood Count 10.3 10^3/uL (4.0-10.0)
[2022-06-16] MEDS: dilTIAZem 5 mg/mL SDV 5 mL 15 MG IVP (14:45)
--- NOTE | 2022-06-16 14:51 | ED_ITS ---
HPI - Arrhythmia/Palpitations General: Chief Complaint: Arrhythmia/Palpitations Stated Complaint: heart racing Time Seen by Provider: 06/16/22 14:35 History of Present Illness: Patient with a history of A-fib on metoprolol and Eliquis, [place], HTN, DM presents to the emergency department with his due to complaint that his heart is racing. Patient states that his symptoms started [facility] on [facility] and got worse yesterday. He called the nurse at the [facility] who wanted him to come into the emergency department but he decided to wait until today. He states that his symptoms have slightly improved today. He denies any chest pain or chest pressure, but does endorse shoulder pain which is very mild, bilateral, but right now only on the left. He denies any nausea or vomiting but endorses some diaphoresis, as well as shortness of breath. He also endorses blurred v ision and lightheadedness. He states that his symptoms are significantly worse with exertion. He states that he has been compliant with all of his medications except for fish oil because his pharmacy has been out of it. He states he sees Dr. Schneider as his power builder developer. No other modifying factors, no other associated symptoms. Review of Systems General: Reports: 10 or more systems reviewed and unremarkable except in HPI and below PFSH ED PFSH: Medical History Afib Bladder outlet obstruction CHF (congestive heart failure) COPD (chronic obstructive pulmonary disease) Depression Diabetes GERD (gastroesophageal reflux disease) Heart attack Hemorrhoid HTN (hypertension) Hyperlipidemia Prostate enlargement Ventricular arrhythmia Surgical History H/O hemorrhoidectomy History of colonoscopy 2017 Stented coronary artery Family History Father , at age 63 Cancer Lung Mother , at age 68 Cancer Lung Brother , Age 32 CAD (coronary artery disease) Social History Smoking and tobacco status: former smoker Quit status (tobacco): has quit using tobacco Year quit tobacco: 1992 - PPD x 40 Years Alcohol intake: never Lives independently: Yes Household members: spouse Marital status: service: Yes Current occupational status: retired Current gender identity: Male Physical Exam Const: COMMON NORMALS: no acute distress and patient oriented x3 GENERAL APPEARANCE: cooperative and well kempt NUTRITIONAL APPEARANCE: obese ORIENTATION/CONSCIOUSNESS: Yes awake HENMT: COMMON NORMALS: normocephalic, atraumatic, hearing grossly normal bilaterally, external ears normal and Normal external nose present HEAD & SCALP: normocephalic and atraumatic FACE & SINUS: normal facial exam NOSE: Normal external nose present EXTERNAL EAR: Yes external ears normal MOUTH: Normal oral and palatal mucosa present THROAT: posterior oropharynx normal Eye: COMMON NORMALS: Equal, round and reactive pupils present and EOMs intact bilaterally PUPIL: Yes Equal, round and reactive pupils present Neck/C-Spine: COMMON NORMALS: supple GENERAL: Yes normal visual inspection CERVICAL SPINE: No Cervical spine tenderness and No step off deformity Chest: COMMONS NORMALS: normal inspection of the chest Resp: COMMON NORMALS: normal respiratory effort, No retractions, No use of accessory muscles and clear to auscultation bilaterally AUSCULTATION: clear to auscultation bilaterally Cardio: COMMON NORMALS: Peripheral pulses 2+ throughout RATE: tachycardic RHYTHM: abnormal rhythm irregularly irregular PERIPHERAL PULSES: Peripheral pulses 2+ throughout GI: COMMON NORMALS: Normal to inspection, nondistended, normoactive bowel ray nds present, Soft to palpation and non-tender INSPECTION: Yes central obesity PALPATION: Yes Soft to palpation : COMMON NORMALS: Yes no CVA tenderness BLADDER/KIDNEY EXAM: Yes no CVA tenderness Back/Pelvis: COMMON NORMALS: no CVA tenderness and thoracic and lumbar spine normal to inspection THORACIC SPINE/UPPER BACK: Yes normal to inspection LUMBAR SPINE/LOWER BACK: Yes normal to inspection Extremity: COMMON NORMALS: normal to inspection and full ROM GENERAL: No clubbing and No cyanosis Neuro: COMMON NORMALS: patient oriented x3, moves all extremities, no focal motor deficits and no sensory deficits noted Psych: COMMON NORMALS: mental status grossly normal, Normal thought process present, cooperative and activity/motor behavior normal APPEARANCE: Yes well kempt ATTITUDE: Yes calm THOUGHT PROCESS: Normal thought process present Skin: COMMON NORMALS: no rashes or lesions noted GENERAL SKIN EXAM: no rashes or lesions noted Course Reevaluation(s): Reevaluation #1: Patient reevaluated, he continues to be rate controlled and normotensive off of Cardizem drip. He was able to ambulate in the emergency department without symptoms. I advised the patient and his to increase his metoprolol to 50 mg twice daily and follow-up with cardiology. Patient advised to follow-up as directed, return to the emergency department with any new or worsening symptoms or if unable to follow-up as directed or tolerate p.o. intake. Patient verbalized understanding and agreement with this plan, all questions answered. Time: 19:00 Consultations: Consultation #1: Spoke with cardiology Dr. Miller covering for Dr. Schneider, he request that since the patient is already on metoprolol and on a low dose, that we go up on the metoprolol rather than starting p.o. Cardizem, he states that given the patient's normal blood pressure the metoprolol will cause less hypotension than starting the Cardizem. Patient is currently tachycardic, will start the metoprolol, and attempt to discontinue the Cardizem drip. He states that if we are unable to control the patient's heart rate here in the emergency department the patient will need to be admitted to the hospitalist service, he will be happy to be on consult. Time: 15:46 Vital Signs: Vital signs: Vital Signs Temperature 98.0 F 06/16/22 14:16 Pulse Rate 96 06/16/22 17:22 Respiratory Rate 14 06/16/22 17:22 Blood Pressure 123/89 06/16/22 17:22 Pulse Oximetry 92 06/16/22 17:22 Oxygen Delivery Me thod Room Air 06/16/22 17:22 MDM - Arrhythmia/Palpitations Medical Decision Making Patient appears to be in A-fib RVR, he appears to be on a rate control strategy with anticoagulation. No clear underlying reason for his RVR, however will perform full laboratory work-up to rule out potential causes including infectious as well as ACS especially given the patient's potential anginal equivalents. Will start IV bolus Cardizem, start patient on Cardizem drip, and plan to transition to p.o. Cardizem. We will also contact patient's power builder developer regarding disposition planning. Lab Data 06/16/22 14:30 06/16/22 14:30 Radiology Impressions Chest X-Ray 06/16/22 14:36 Impression: Atherosclerosis. Laboratory Results WBC 10.3 10^3/uL (4.0-10.0) H 06/16/22 14:30 RBC 5.53 10^6/uL (4.1-5.3) H 06/16/22 14:30 Hgb 16.5 g/dL (11.7-16.6) 06/16/22 14:30 Hct 50.3 % (42.0-52.0) 06/16/22 14:30 MCV 91.0 fl (80-94) 06/16/22 14:30 MCH 29.8 pg (28.0-34.0) 06/16/22 14:30 MCHC 32.8 g/dL (30.0-36.0) 06/16/22 14:30 RDW 14.5 % (12.1-15.1) 06/16/22 14:30 Plt Count 237 10^3/cmm (130-400) 06/16/22 14:30 MPV 11.6 fL (7.4-10.4) H 06/16/22 14:30 Neut % (Auto) 56.2 % 06/16/22 14:30 Lymph % (Auto) 29.7 % 06/16/22 14:30 Grand % (Auto) 11.1 % 06/16/22 14:30 Eos % (Auto) 1.9 % 06/16/22 14:30 Baso % (Auto) 0.7 % 06/16/22 14:30 Neut # (Auto) 5.77 10^3/uL (1.8-7.7) 06/16/22 14:30 Lymph # (Auto) 3.1 10^3/uL (0.8-4.8) 06/16/22 14:30 Grand # (Auto) 1.1 10^3/uL (0.2-0.9) H 06/16/22 14:30 Eos # (Auto) 0.2 10^3/uL (0.0-0.8) 06/16/22 14:30 Baso # (Auto) 0.1 10^3/uL (0.0-0.1) 06/16/22 14:30 Nucleated RBC % (auto) 0 % 06/16/22 14:30 Nucleated RBCs # 0.0 /100WBC 06/16/22 14:30 Sodium 135 mmol/L (136-145) L 06/16/22 14:30 Potassium 4.4 mmol/L (3.5-5.1) 06/16/22 14:30 Chloride 101 mmol/L (98-107) 06/16/22 14:30 Carbon Dioxide 19 mmol/L (22-29) L 06/16/22 14:30 Anion Gap 19.4 (5-19) H 06/16/22 14:30 BUN 20 mg/dL (8-23) 06/16/22 14:30 Creatinine 1.1 mg/dL (0.7-1.2) 06/16/22 14:30 GFR Calculation Not Reportable 06/16/22 14:30 Glucose 159 mg/dL (65-115) H 06/16/22 14:30 Calculated Osmolality 286 mOsm/kg (285-295) 06/16/22 14:30 Calcium 9.5 mg/dL (8.5-10.5) 06/16/22 14:30 Magnesium 2.1 mg/dL (1.7-2.3) 06/16/22 14:30 Total Bilirubin 0.5 mg/dL (0.15-1.2) 06/16/22 14:30 AST 47 U/L (0-40) H 06/16/22 14:30 ALT 100 U/L (0-41) H 06/16/22 14:30 Alkaline Phosphatase 53 U/L (40-130) 06/16/22 14:30 Troponin T Baseline 22 ng/L (0-15) H 06/16/22 14:30 Troponin T 120 Minute 20.47 ng/L (0-15) H 06/16/22 16:42 Delta Troponin T -1.53 ABS# (0-10) L 06/16/22 16:42 NT-Pro-B Natriuret Pep 1675 pg/mL (0-450) H 06/16/22 14:30 Total Protein 6.9 g/dL (6.6-8.7) 06/16/22 14:30 Albumin 4.0 g/dL (3.5-5.2) 06/16/22 14:30 Globulin 2.9 g/dL (1.3-4.6) 06/16/22 14:30 TSH 2.14 uIU/mL (0.27-4.20) 06/16/22 14:30 Urine Color Yellow (Yellow) 06/16/22 15:20 Urine Appearance Clear (CLEAR) 06/16/22 15:20 Urine pH 5 (5-7) 06/16/22 15:20 Ur Specific [place] 1.030 (1.005-1.030) 06/16/22 15:20 Urine Protein Neg (Negative) 06/16/22 15:20 Urine Glucose (UA) Norm (Normal) 06/16/22 15:20 Urine Ketones 1+ (Negative) H 06/16/22 15:20 Urine Blood Neg (Negative) 06/16/22 15:20 Urine Nitrate Negative (Negative) 06/16/22 15:20 Urine Bilirubin Neg (Negative) 06/16/22 15:20 Urine Urobilinogen Norm mg/dL (Negative) 06/16/22 15:20 Ur Leukocyte Esterase Negative (Negative) 06/16/22 15:20 Critical Care Time 2 Critical Care Time: Critical Care Time: Yes Total Critical Care Time: 33 Attestation: This case had a high probability of a clinically significant, sudden, or life threatening deterioration of this patient's condition which required my full and direct attention, intervention and personal management. Discharge Plan Discharge Patient Disposition: Home Clinical Impression: Atrial fibrillation with RVR Condition: Stable Prescriptions: Changed metoprolol tartrate 50 mg Tablet 50 mg PO BID Qty: 30 0RF No Action magnesium oxide 400 mg (241.3 mg magnesium) tablet 400 mg PO BEDTIME miscellaneous medical supply Kit See Rx Instructions miscellaneous .COMPLEX Qty: 1 0RF Rx Instructions: home and portable oxygen concentrators @ 2LPM per [facility] and all necessary tubing and supplies furosemide 20 mg tablet 20 mg PO DAILY PRN (Reason: edema) Qty: 30 3RF Spiriva Respimat 2.5 mcg/actuation mist 2 inh INHALATION QAM Qty: 4 3RF fluticasone propion-salmeterol [Wixela Inhub] 250-50 mcg/dose blister with device 1 inh inhalation BID Qty: 60 6RF Eliquis 5 mg tablet 5 mg PO BID Qty: 180 3RF venlafaxine 75 mg Tablet 75 mg PO QAM losartan 100 mg Tablet 100 mg PO BEDTIME rosuvastatin 40 mg Tablet 40 mg PO QPM tamsulosin [Flomax] 0.4 mg Capsule 0.8 mg PO QPM Qty: 0 0RF meclizine 25 mg tablet 25 mg PO TID PRN (Reason: Dizziness) glipizide 10 mg Tablet 10 mg PO QPM glucose 4 gram Tablet,Chewable See Rx Instructions .ROUTE .COMPLEX Rx Instructions: 5 tabs po as directed as needed for low blood sugar fluticasone propionate 50 mcg/actuation [place],Suspension 2 spray INTRANASAL DAILY PRN (Reason: Allergy Symptoms) Rx Instructions: administer into each nostril metformin 500 mg Tablet Extended Release 24 Hr 1,000 mg PO QPM finasteride [Proscar] 5 mg Tablet 5 mg PO BEDTIME cholecalciferol (vitamin D3) [Vitamin D3] 25 mcg (1,000 unit) Tablet 25 mcg PO QAM amlodipine 5 mg tablet 5 mg PO BEDTIME alogliptin 25 mg Tablet 25 mg PO QAM multivitamin Tablet 1 tab PO QAM Flexeril 10 mg Tablet 10 mg PO TID PRN (Reason: Muscle Spasm) clotrimazole 10 mg Selena 10 mg MUCOUS MEMBRANE 5XD PRN (Reason: unknown) Zofran 8 mg Tablet 4 mg PO Q6H PRN (Reason: Nausea And Vomiting) albuterol sulfate 90 mcg/actuation HFA aerosol inhaler 2 inh INHALATION Q4H PRN (Reason: shortness of breath or wheezing) Qty: 18 0RF Discharge Orders: Discharge ED (Routine); Ordered 06/16/22 Ordered By: Olman Golden Referrals: Haresh Dorman DO [Primary Care Provider] - Sourav Padilla M.D [Physician] - 1-3 days Patient Instructions: A-fib (Atrial Fibrillation) (ED) Coding Level of Care Code ED Forming [employer]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
[2022-06-16 14:54] VITALS: BP 109/89; PULSE 99; RESP 14; O2SAT 91
[2022-06-16] MEDS: dilTIAZem 100 MG in sodium chloride 0.9% (add-van) 100 ML IV (14:58)
[2022-06-16 15:06] LABS: Troponin(5th) Baseline 22 ng/L (0-15)
[2022-06-16 15:16] LABS: Alanine Aminotransferase 100 U/L (0-41); Alkaline Phosphatase 53 U/L (40-130); Anion Gap 19.4 (5-19); Aspartate Amino Transferase 47 U/L (0-40); Blood Urea Nitrogen 20 mg/dL (8-23); Calcium 9.5 mg/dL (8.5-10.5); Carbon Dioxide 19 mmol/L (22-29); Chloride 101 mmol/L (98-107); Globulin 2.9 g/dL (1.3-4.6); Glucose 159 mg/dL (65-115); Magnesium 2.1 mg/dL (1.7-2.3); NT Pro B Type Natriuretic Pept 1675 pg/mL (0-450); Osmolality Calculated 286 mOsm/kg (285-295); Potassium 4.4 mmol/L (3.5-5.1); Sodium 135 mmol/L (136-145); Thyroid Stimulating Hormone 2.14 uIU/mL (0.27-4.20); Total Bilirubin 0.5 mg/dL (0.15-1.2); Total Protein 6.9 g/dL (6.6-8.7)
[2022-06-16] MEDS: dilTIAZem 60 mg Tablet PO (15:19)
[2022-06-16 15:44] LABS: Add Urine Microscopic? NO; Charge for UA Resulting for Rev
[2022-06-16 16:28] LABS: Bilirubin Urine Neg (Negative); Blood Urine Neg (Negative); Glucose Urine UA Norm (Normal); Ketones Urine 1+ (Negative); Leukocyte Esterase Urine Negative (Negative); Nitrate Urine Negative (Negative); Protein Urine Neg (Negative); Urine Appearance Clear (CLEAR); Urine Color Yellow (Yellow); Urobilinogen Urine Norm (Negative); pH Urine 5 (5-7)
--- NOTE | 2022-06-16 16:36 | ECG_ITS ---
[facility] Test Date: 2022-06-16 Pat Name: Rashad Michel Department: Room: Gender: Male [facility] Nursing Director: : 1945 Requested By: Olman Golden Order Number: [id number] Dayanna MD: Sourav Padilla M.D. Measurements Intervals [place] Rate: 114 P: 0 MS: 0 QRS: 64 QRSD: 112 T: -56 QT: 315 QTc: 434 Interpretive Statements ATRIAL FIBRILLATION WITH RAPID VENTRICULAR RESPONSE POSSIBLE INFERIOR MYOCARDIAL INFARCTION , OF INDETERMINATE AGE [30 ms Q WAVE IN II/aVF] Compared to ECG 12/19/2021 00:39:51 Sinus rhythm no longer present Myocardial infarct finding still present Electronically Signed On 06-16-2022 17:07:40 CDT by Sourav Padilla M.D. [id number]
--- NOTE | 2022-06-16 16:44 | PC.PHAR ---
pts verified pts medications-pts states the pt takes glipizide 10mg qpm pts [facility] med list has 10mg bid-pts states the pt takes metformin er 500mg takes 1000mg qpm pts va med list has 1000mg bid-pts states the pt takes metoprolol tartrate 25mg bid medication not on pts va med list-pts states he no longer takes pantoprazole 20mg qam or fish oil 2caps bid both medications were on pts va med list-notes are made in the pharmacy comments
[2022-06-16] MEDS: metoprolol tartrate 50 mg Tablet PO (16:47)
[2022-06-16 17:22] VITALS: BP 123/89; PULSE 96; RESP 14; O2SAT 92
[2022-06-16 17:26] LABS: Troponin 5 2HR 20.47 ng/L (0-15); Troponin 5 2HR Delta -1.53 ABS# (0-10)
[2022-06-16 18:59] VITALS: BP 103/60; PULSE 73; RESP 16; O2SAT 92
[2022-06-16 19:27] VITALS: BP 100/72; PULSE 70; RESP 16; O2SAT 91
== END 2022-06-16 19:28 | disposition home or self-care (01) ==
PROVIDERS: Emergency Provider Emergency Medicine; PCP Emergency Medicine Emergency Medical Services
DX: I48.20 Chronic atrial fibrillation, unspecified (principal); Z79.01 Long term (current) use of anticoagulants; Z79.84 Long term (current) use of oral hypoglycemic drugs; I11.0 Hypertensive heart disease with heart failure; I50.9 Heart failure, unspecified; J44.9 Chronic obstructive pulmonary disease, unspecified; E11.9 Type 2 diabetes mellitus without complications; E78.5 Hyperlipidemia, unspecified; Z87.891 Personal history of nicotine dependence
CPT/HCPCS: 36415; 71045; 80053; 81003; 83735; 83880; 84443; 84484; 85025; 93005; 96365; 96366; 96375; 99285; J3490

== ENCOUNTER 2022-06-18 14:40 | Emergency (ER) | payer OTHER, SELFPAY ==
[2022-06-18 14:44] VITALS: BP 115/70; PULSE 93; RESP 18; TEMP 36.7; O2SAT 95
[2022-06-18 14:46] VITALS: BP 118/80; PULSE 97; RESP 16; O2SAT 94
--- NOTE | 2022-06-18 14:46 | ECG_ITS ---
[facility] Test Date: 2022-06-18 Pat Name: Rashad Michel Department: Room: Gender: Male Change Lead: : 1945 Requested By: Vasiliy Lyn Order Number: [id number] Dayanna MD: Siva Bardales M.D. Measurements Intervals [place] Rate: 97 P: 0 TX: 0 QRS: 141 QRSD: 121 T: -30 QT: 322 QTc: 411 Interpretive Statements ATRIAL FIBRILLATION POSSIBLE RIGHT VENTRICULAR HYPERTROPHY [SOME/ALL OF: PROMINENT R IN V1, LATE TRANSITION, RAD, GLENROY, SSS] INFERIOR MYOCARDIAL INFARCTION , OF INDETERMINATE AGE [40+ ms Q WAVE AND/OR ST/T ABNORMALITY IN II/aVF] INTERPRETATION BASED ON A DEFAULT AGE OF 40 YEARS Compared to ECG 06/16/2022 16:52:32 Atrial abnormality now present Myocardial infarct finding still present Electronically Signed On 06-19-2022 1:33:39 CDT by Siva Bardales M.D. [id number]
--- NOTE | 2022-06-18 15:03 | XRR_ITS ---
PROCEDURE INFORMATION: Exam: XR Chest Exam date and time: 06/18/2022 3:23 PM Age: 77 years old Clinical indication: Shortness of breath; Additional info: SOB TECHNIQUE: Imaging protocol: Radiologic exam of the chest. Views: 1 view. COMPARISON: CR XR chest 1V portable [id number] 12/18/2021 10:01 PM FINDINGS: Lungs: Calcified granulomas. Left lower lobe atelectasis. Pleural spaces: Unremarkable. No pleural effusion. No pneumothorax. Heart/Mediastinum: Cardiomegaly and mild pulmonary vascular congestion. Bones/joints: Unremarkable. XR/XR chest 1V portable [id number] IMPRESSION: 1. Cardiomegaly and mild pulmonary vascular congestion. 2. Calcified granulomas. 3. Left lower lobe atelectasis.
[2022-06-18 15:24] LABS: Basophils # 0.1 10^3/uL (0.0-0.1); Basophils % 1.1 %; Eosinophils # 0.2 10^3/uL (0.0-0.8); Eosinophils % 2.5 %; Hemoglobin 15.4 g/dL (11.7-16.6); Lymphocytes % 25.8 %; Mean Corpuscular HGB Conc 32.8 g/dL (30.0-36.0); Mean Corpuscular Hemoglobin 29.6 pg (28.0-34.0); Mean Corpuscular Volume 90.2 fl (80-94); Mean Platelet Volume 11.5 fL (7.4-10.4); Monocytes # 0.8 10^3/uL (0.2-0.9); Monocytes % 9.8 %; Neutrophils # 4.75 10^3/uL (1.8-7.7); Neutrophils % 60.5 %; Nucleated Red Blood Cells % 0 %; Platelet Count 230 10^3/cmm (130-400); Red Blood Count 5.21 10^6/uL (4.1-5.3); Red Cell Distribution Width 14.3 % (12.1-15.1); White Blood Count 7.9 10^3/uL (4.0-10.0)
[2022-06-18 15:53] LABS: Troponin(5th) Baseline 15 ng/L (0-15)
--- NOTE | 2022-06-18 15:58 | W.ED.SOB ---
HPI - SOB/Dyspnea General: Chief Complaint: Shortness of Breath/Dyspnea Stated Complaint: Afib Time Seen by Provider: 06/18/22 15:27 Source: patient Mode of arrival: ambulatory History of Present Illness: HPI Narrative: 77-year-old male presents emergency room with complaints of shortness of breath and rapid heart rate. He notes that with any activity he gets short of breath he feels pelvic Tatian's. He was seen recently with A-fib with RVR was started on metoprolol and apixaban. He is not having any chest discomfort. He is also on several other antihypertensives amlodipine 5 mg p.o. daily losartan 100 p.o. daily MD elicited complaint: shortness of breath and cough Pertinent past history: other (Atrial fibrillation) Onset (ago): minute(s) Timing: constant Exacerbating factors: exertion Relieving factors: nothing Associated symptoms: Deny abdominal pain, chest congestion, chest pain, cough, diaphoresis, dizziness, extremity pain, fever(s), hemoptysis, lightheadedness, myalgias, nausea, orthopnea, palpitations, paresthesias, polydipsia, polyuria, rash, sense of impending doom, syncope or vomiting Treatment prior to arrival: none Review of Systems Const: Denies: fever(s), chills, fatigue, malaise or diaphoresis ENMT: Denies: throat pain, ear or mastoid pain, nasal discharge or nasal congestion Card: Denies: chest pain, palpitations, lightheadedness, syncope or orthopnea Resp: Denies: dyspnea, productive cough, non-productive cough, wheezing, hemoptysis or chest congestion GI: Denies: abdominal pain, nausea or vomiting : Denies: flank pain, dysuria, urinary frequency or urinary urgency Musc: Denies: extremity pain Skin/Breast: Denies: rash or pruritus Neuro: Denies: dizziness Endo: Denies: polyuria or polydipsia PFSH ED PFSH: Medical History Afib Bladder outlet obstruction CHF (congestive heart failure) COPD (chronic obstructive pulmonary disease) Depression Diabetes GERD (gastroesophageal reflux disease) Heart attack Hemorrhoid HTN (hypertension) Hyperlipidemia Prostate enlargement Ventricular arrhythmia Surgical History H/O hemorrhoidectomy History of colonoscopy 2017 Stented coronary artery Family History Father , at age 63 Cancer Lung Mother , at age 68 Cancer Lung Brother , Age 32 CAD (coronary artery disease) Social History Smoking and tobacco status: former smoker Quit status (tobacco): has quit using tobacco Year quit tobacco: 1992 - PPD x 40 Years Alcohol intake: never Substance/Drug Use: never Lives independently: Yes Household members: spouse Marital status: service: Yes Current occupational status: retired Do you think of yourself as: Straight/Heterosexual Current gender identity: Male Physical Exam Const: GENERAL APPEARANCE: cooperative and comfortable ORIENTATION/CONSCIOUSNESS: Yes awake, Yes oriented to person, Yes oriented to place and Yes oriented to time HENMT: COMMON NORMALS: normocephalic, atraumatic and hearing grossly normal bilaterally HEAD & SCALP: normocephalic and atraumatic Resp: COMMON NORMALS: normal respiratory effort, No retractions, No use of accessory muscles and clear to auscultation bilaterally AUSCULTATION: clear to auscultation bilaterally Cardio: COMMON NORMALS: regular rate, regular rhythm and No murmurs present (Cardio) RATE: regular rate RHYTHM: regular rhythm GI: COMMON NORMALS: Soft to palpation and No hepatosplenomegaly present AUSCULTATION: Yes normoactive bowel sounds PALPATION: Yes Soft to palpation, No Tenderness to palpation present (GI), No Guarding due to palpation present (GI) and Yes No hepatosplenomegaly present Extremity: COMMON NORMALS: normal to inspection, capillary refill normal, no clubbing, cyanosis or edema, no calf tenderness and no pedal edema Neuro: SENSORIUM/ORIENTATION: Yes oriented to person, Yes oriented to place and Yes oriented to time Skin: COMMON NORMALS: no rashes or lesions noted GENERAL SKIN EXAM: no rashes or lesions noted Course Vital Signs: Vital signs: Vital Signs Temperature 98.0 F 06/18/22 14:44 Pulse Rate 92 06/18/22 17:20 Respiratory Rate 17 06/18/22 16:16 Blood Pressure 131/79 06/18/22 17:20 Pulse Oximetry 99 06/18/22 17:20 Oxygen Delivery Me thod Room Air 06/18/22 16:16 MDM - SOB/Dyspnea Medical Decision Making Patient's amlodipine. Change from metoprolol to tartrate to metoprolol succinate 50 mg daily continue Eliquis. He will need a Holter monitor and follow-up to see if he is having any further breakthrough rapid ventricular response. At this time labs imaging and EKG reviewed as found on the chart no acute findings. Medical Records I reviewed the patient's medical records. Lab Data I reviewed the patient's lab results. 06/18/22 15:15 06/18/22 16:00 Labs/Radiology: Radiology Impressions Chest X-Ray 06/18/22 15:03 IMPRESSION: 1. Cardiomegaly and mild pulmonary vascular congestion. 2. Calcified granulomas. 3. Left lower lobe atelectasis. Laboratory Results WBC 7.9 10^3/uL (4.0-10.0) 06/18/22 15:15 RBC 5.21 10^6/uL (4.1-5.3) 06/18/22 15:15 Hgb 15.4 g/dL (11.7-16.6) 06/18/22 15:15 Hct 47.0 % (42.0-52.0) 06/18/22 15:15 MCV 90.2 fl (80-94) 06/18/22 15:15 MCH 29.6 pg (28.0-34.0) 06/18/22 15:15 MCHC 32.8 g/dL (30.0-36.0) 06/18/22 15:15 RDW 14.3 % (12.1-15.1) 06/18/22 15:15 Plt Count 230 10^3/cmm (130-400) 06/18/22 15:15 MPV 11.5 fL (7.4-10.4) H 06/18/22 15:15 Neut % (Auto) 60.5 % 06/18/22 15:15 Lymph % (Auto) 25.8 % 06/18/22 15:15 [place] % (Auto) 9.8 % 06/18/22 15:15 Eos % (Auto) 2.5 % 06/18/22 15:15 Baso % (Auto) 1.1 % 06/18/22 15:15 Neut # (Auto) 4.75 10^3/uL (1.8-7.7) 06/18/22 15:15 Lymph # (Auto) 2.0 10^3/uL (0.8-4.8) 06/18/22 15:15 [place] # (Auto) 0.8 10^3/uL (0.2-0.9) 06/18/22 15:15 Eos # (Auto) 0.2 10^3/uL (0.0-0.8) 06/18/22 15:15 Baso # (Auto) 0.1 10^3/uL (0.0-0.1) 06/18/22 15:15 Nucleated RBC % (auto) 0 % 06/18/22 15:15 Nucleated RBCs # 0.0 /100WBC 06/18/22 15:15 PT 15.60 SECONDS (12.1-14.9) H 06/18/22 16:00 INR 1.20 (0.8-1.2) 06/18/22 16:00 APTT 32.3 SECONDS (23.9-36.7) 06/18/22 16:00 D-Dimer 0.77 ug/mIFEU (0-0.59) H 06/18/22 16:00 Sodium 139 mmol/L (136-145) 06/18/22 16:00 Potassium 4.7 mmol/L (3.5-5.1) 06/18/22 16:00 Chloride 105 mmol/L (98-107) 06/18/22 16:00 Carbon Dioxide 21 mmol/L (22-29) L 06/18/22 16:00 Anion Gap 17.7 (5-19) 06/18/22 16:00 BUN 20 mg/dL (8-23) 06/18/22 16:00 Creatinine 0.9 mg/dL (0.7-1.2) 06/18/22 16:00 GFR Calculation Not Reportable 06/18/22 16:00 Glucose 193 mg/dL (65-115) H 06/18/22 16:00 Calculated Osmolality 296 mOsm/kg (285-295) H 06/18/22 16:00 Calcium 8.5 mg/dL (8.5-10.5) 06/18/22 16:00 Total Bilirubin 0.4 mg/dL (0.15-1.2) 06/18/22 16:00 AST 48 U/L (0-40) H 06/18/22 16:00 ALT 70 U/L (0-41) H 06/18/22 16:00 Alkaline Phosphatase 52 U/L (40-130) 06/18/22 16:00 Troponin T Baseline 15 ng/L (0-15) 06/18/22 15:15 NT-Pro-B Natriuret Pep 1704 pg/mL (0-450) H 06/18/22 16:00 Total Protein 6.5 g/dL (6.6-8.7) L 06/18/22 16:00 Albumin 3.7 g/dL (3.5-5.2) 06/18/22 16:00 Globulin 2.8 g/dL (1.3-4.6) 06/18/22 16:00 Discharge Plan Discharge Patient Disposition: Home Clinical Impression: Afib Condition: Stable Prescriptions: New Toprol XL 50 mg tablet extended release 24 hr 50 mg PO DAILY Qty: 30 0RF Discontinued amlodipine 5 mg tablet 5 mg PO BEDTIME metoprolol tartrate 50 mg Tablet 50 mg PO BID Qty: 30 0RF No Action magnesium oxide 400 mg (241.3 mg magnesium) tablet 400 mg PO BEDTIME miscellaneous medical supply Kit See Rx Instructions miscellaneous .COMPLEX Qty: 1 0RF Rx Instructions: home and portable oxygen concentrators @ 2LPM per NC and all necessary tubing and supplies furosemide 20 mg tablet 20 mg PO DAILY PRN (Reason: edema) Qty: 30 3RF Spiriva Respimat 2.5 mcg/actuation mist 2 inh INHALATION QAM Qty: 4 3RF fluticasone propion-salmeterol [Wixela Inhub] 250-50 mcg/dose blister with device 1 inh inhalation BID Qty: 60 6RF Eliquis 5 mg tablet 5 mg PO BID Qty: 180 3RF venlafaxine 75 mg Tablet 75 mg PO QAM losartan 100 mg Tablet 100 mg PO BEDTIME rosuvastatin 40 mg Tablet 40 mg PO QPM tamsulosin [Flomax] 0.4 mg Capsule 0.8 mg PO QPM Qty: 0 0RF meclizine 25 mg tablet 25 mg PO TID PRN (Reason: Dizziness) glipizide 10 mg Tablet 10 mg PO QPM glucose 4 gram Tablet,Chewable See Rx Instructions .ROUTE .COMPLEX Rx Instructions: 5 tabs po as directed as needed for low blood sugar fluticasone propionate 50 mcg/actuation [place],Suspension 2 spray INTRANASAL DAILY PRN (Reason: Allergy Symptoms) Rx Instructions: administer into each nostril metformin 500 mg Tablet Extended Release 24 Hr 1,000 mg PO QPM finasteride [Proscar] 5 mg Tablet 5 mg PO BEDTIME cholecalciferol (vitamin D3) [Vitamin D3] 25 mcg (1,000 unit) Tablet 25 mcg PO QAM alogliptin 25 mg Tablet 25 mg PO QAM multivitamin Tablet 1 tab PO QAM Flexeril 10 mg Tablet 10 mg PO TID PRN (Reason: Muscle Spasm) clotrimazole 10 mg Selena 10 mg MUCOUS MEMBRANE 5XD PRN (Reason: unknown) Zofran 8 mg Tablet 4 mg PO Q6H PRN (Reason: Nausea And Vomiting) albuterol sulfate 90 mcg/actuation HFA aerosol inhaler 2 inh INHALATION Q4H PRN (Reason: shortness of breath or wheezing) Qty: 18 0RF Discharge Orders: Discharge ED (Routine); Ordered 06/18/22 Ordered By: Vasiliy Sevilla Referrals: Haresh Dorman DO [Primary Care Provider] - Patient Instructions: Opioid Safety, Pain Management Activity Restrictions/Additional Instructions: You were seen today for complaints of shortness of breath and rapid heart rate. This is likely due to your metoprolol. We will increase your metoprolol to Toprol XL 50 mg once daily recommend that you stop the amlodipine. Continue the Lasix and the apixaban. Follow-up with your doctor in the office within 1 week. marketing effectiveness manager will make arrangements for you to have a 48-hour Holter monitor to monitor for increase in your heart rate. 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
[2022-06-18 16:16] VITALS: BP 102/58; PULSE 101; RESP 17; O2SAT 91
[2022-06-18 16:40] LABS: D Dimer 0.77 ug/mIFEU (0-0.59)
[2022-06-18 16:58] LABS: Partial Thromboplastin Time 32.3 SECONDS (23.9-36.7)
[2022-06-18 17:02] LABS: Alanine Aminotransferase 70 U/L (0-41); Albumin Level 3.7 g/dL (3.5-5.2); Alkaline Phosphatase 52 U/L (40-130); Anion Gap 17.7 (5-19); Aspartate Amino Transferase 48 U/L (0-40); Blood Urea Nitrogen 20 mg/dL (8-23); Calcium 8.5 mg/dL (8.5-10.5); Carbon Dioxide 21 mmol/L (22-29); Chloride 105 mmol/L (98-107); Creatinine Clr Calc Pharmacy 75.4386; Globulin 2.8 g/dL (1.3-4.6); Glucose 193 mg/dL (65-115); NT Pro B Type Natriuretic Pept 1704 pg/mL (0-450); Osmolality Calculated 296 mOsm/kg (285-295); Potassium 4.7 mmol/L (3.5-5.1); Sodium 139 mmol/L (136-145); Total Bilirubin 0.4 mg/dL (0.15-1.2); Total Protein 6.5 g/dL (6.6-8.7)
[2022-06-18 17:20] VITALS: BP 131/79; PULSE 92; O2SAT 99
--- NOTE | 2022-06-19 09:28 | DCPLANNER ---
Addendum entered by Shannon Ayala 07/17/22 10:40: Patient had a follow up appointment schedule with [facility] - patient did attend appointment Addendum entered by Shannon Ayala 06/22/22 15:29: Patient has a follow up appointment scheduled for , July 16, 2022 at 2:[address] Padilla at [facility]. Original Note: strategic development manager had message to schedule an outpatient 48 hour halter monitor for patient. The patient has [employer] insurance, patient was referred to cardiology. strategic development manager sent patients information to the front office staff at [facility]. Patients information will be printed and reviewed. Clinic will call patient with appointment information.
== END 2022-06-18 17:23 | disposition home or self-care (01) ==
PROVIDERS: Emergency Medicine; Emergency Provider Family Medicine; PCP Emergency Medicine Emergency Medical Services
DX: I48.91 Unspecified atrial fibrillation (principal); Z79.01 Long term (current) use of anticoagulants; Z79.84 Long term (current) use of oral hypoglycemic drugs; I11.0 Hypertensive heart disease with heart failure; I50.9 Heart failure, unspecified; J44.9 Chronic obstructive pulmonary disease, unspecified; E11.9 Type 2 diabetes mellitus without complications; E78.5 Hyperlipidemia, unspecified; Z87.891 Personal history of nicotine dependence
CPT/HCPCS: 36415; 71045; 80053; 83880; 84484; 85025; 85378; 85610; 85730; 93005; 99285

== ENCOUNTER 2022-07-14 06:00 | Outpatient (RCR) | payer OTHER, SELFPAY | END 2022-07-29 23:59 | disposition home or self-care (01) | LOC: WPT 06:00 | PROVIDERS: PCP Emergency Medicine Emergency Medical Services; Visit Provider Internal Medicine Pulmonary Disease | DX: I27.20 Pulmonary hypertension, unspecified (principal); R91.1 Solitary pulmonary nodule; J44.9 Chronic obstructive pulmonary disease, unspecified | CPT/HCPCS: 97110; 97161; 97530 ==

== ENCOUNTER → 2022-07-16 13:48 | Outpatient (BNVA) | payer OTHER, SELFPAY | PROVIDERS: PCP Emergency Medicine Emergency Medical Services; Visit Provider Internal Medicine | DX: I48.91 Unspecified atrial fibrillation (principal); I11.0 Hypertensive heart disease with heart failure; I50.9 Heart failure, unspecified; E78.5 Hyperlipidemia, unspecified; G47.30 Sleep apnea, unspecified; I25.10 Atherosclerotic heart disease of native coronary artery without angina pectoris; Z79.01 Long term (current) use of anticoagulants | CPT/HCPCS: 99214 ==

== ENCOUNTER 2022-07-30 06:00 | Outpatient (RCR) | payer OTHER, SELFPAY | END 2022-08-28 23:59 | disposition home or self-care (01) | LOC: WPT 06:00 | PROVIDERS: PCP Emergency Medicine Emergency Medical Services; Visit Provider Internal Medicine Pulmonary Disease | DX: I27.20 Pulmonary hypertension, unspecified (principal); R91.1 Solitary pulmonary nodule; J44.9 Chronic obstructive pulmonary disease, unspecified | CPT/HCPCS: 97110; 97530 ==

== ENCOUNTER 2022-10-06 10:36 | Outpatient (RCR) | payer OTHER, SELFPAY | END 2022-10-29 23:59 | disposition home or self-care (01) | LOC: SPT 10:36 | PROVIDERS: PCP Emergency Medicine Emergency Medical Services; Visit Provider Emergency Medicine Emergency Medical Services | DX: H81.319 Aural vertigo, unspecified ear (principal) | CPT/HCPCS: 95992; 97161 ==

== ENCOUNTER → 2022-10-19 09:40 | Outpatient (BNVA) | payer OTHER, SELFPAY | PROVIDERS: PCP Emergency Medicine Emergency Medical Services; Visit Provider Internal Medicine Pulmonary Disease | DX: J44.9 Chronic obstructive pulmonary disease, unspecified (principal); R91.1 Solitary pulmonary nodule; G47.30 Sleep apnea, unspecified; I27.20 Pulmonary hypertension, unspecified; R53.81 Other malaise; Z87.891 Personal history of nicotine dependence | CPT/HCPCS: 99214 ==

== ENCOUNTER 2022-10-23 20:01 | Emergency (ER) | payer OTHER, SELFPAY ==
[2022-10-23 20:06] VITALS: BP 121/73; PULSE 104; RESP 18; TEMP 36.8; O2SAT 93; BMI 33.9
[2022-10-23] MEDS: fluorescein 1 mg Strip EYE-RIGHT (21:45)
[2022-10-23] MEDS: tetracaine 0.5% Op Soln 4 mL Btl 1 DROP EYE-RIGHT (21:45)
--- NOTE | 2022-10-23 21:45 | PC.NURSE ---
TETRACAINE AND FLURESCEIN ADMINISTERED BY DR. DANIELS.
[2022-10-23] MEDS: ketorolac 0.5% Op 5 mL Btl 1 DROP EYE-RIGHT (23:10)
[2022-10-23] MEDS: eye irrigation 30 mL Btl EYE-RIGHT (23:11)
--- NOTE | 2022-10-24 05:00 | ED_ITS ---
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 says she believes there is a speck present. She is experiencing eye pain with tearing. Mild blurry vision on that side. No bleeding or hemorrhage. Associated symptoms: Deny fever(s) or vomiting Review of Systems Const: Denies: fever(s) Card: Denies: chest pain Resp: Denies: dyspnea GI: Denies: vomiting Skin/Breast: Denies: rash PFSH ED PFSH: Medical History Afib Bladder outlet obstruction CHF (congestive heart failure) COPD (chronic obstructive pulmonary disease) Depression Diabetes GERD (gastroesophageal reflux disease) Heart attack Hemorrhoid HTN (hypertension) Hyperlipidemia Prostate enlargement Ventricular arrhythmia Surgical History H/O hemorrhoidectomy History of colonoscopy 2017 Stented coronary artery Family History Father , at age 63 Cancer Lung Mother , at age 68 Cancer Lung Brother , Age 32 CAD (coronary artery disease) Social History Smoking and tobacco status: former smoker Quit status (tobacco): has quit using tobacco Year quit tobacco: 1992 PPD x 40 Years Alcohol intake: never Substance/Drug Use: never Lives independently: Yes Household members: spouse Marital status: service: Yes Current occupational status: retired Do you think of yourself as: Straight/Heterosexual Current gender identity: Male Physical Exam Const: COMMON NORMALS: no acute distress GENERAL APPEARANCE: cooperative; not ill appearing and not frail appearing HENMT: COMMON NORMALS: normocephalic, atraumatic and Normal external nose present HEAD & SCALP: normocephalic and atraumatic NOSE: Normal external nose present and Normal nares present Eye: COMMON NORMALS: Equal, round and reactive pupils present and EOMs intact bilaterally CORNEA: Yes fluorescein used and other (Small foreign body present, 3 o'clock position.) PUPIL: Yes Equal, round and reactive pupils present Chest: CHEST: Yes Symmetrical chest wall rise Resp: COMMON NORMALS: normal respiratory effort and No use of accessory muscles Cardio: COMMON NORMALS: regular rate and regular rhythm RATE: regular rate RHYTHM: regular rhythm Procedures FB Removal Eye Time Out performed: No Location: eye (R) Topical anesthetic used: tetracaine Foreign body: metal Evidence of corneal penetration: No Technique: irrigation and cotton tip swab Procedure performed under: direct visualization with magnification Post-procedure medication: ophthalmic antibiotic and topical anesthetic Patient tolerated procedure: well and no complications Course Vital Signs: Vital signs: Vital Signs Temperature 98.2 F 10/23/22 20:06 Pulse Rate 104 H 10/23/22 20:06 Respiratory Rate 18 10/23/22 20:06 Blood Pressure 121/73 10/23/22 20:06 Pulse Oximetry 93 10/23/22 20:06 Oxygen Delivery Me thod Room Air 10/23/22 20:06 MDM - Skin/Abscess/Foreign Bdy Medicial Decision Making Small fragment removed with cotton swab and irrigation under local anesthesia using tetracaine. No complication. He did quite well. Large corneal abrasion is not seen, however, small corneal abrasion appears present. Will treat with TauroLock eyedrops for pain, as well as antibiotic coverage. The patient had a recent eye procedure, lens implants, and has a new bottle of antibiotics at home. They will begin this tonight. Close outpatient follow-up with ophthalmology. To return for worsening vision or pain Discharge Plan Discharge Patient Disposition: Home Clinical Impression: Abrasion, corneal Condition: Stable Prescriptions: No Action magnesium oxide 400 mg (241.3 mg magnesium) tablet 400 mg PO BEDTIME omega 7-vai-ftc-fish oil [Fish Oil] 1,000 mg (120 mg-180 mg) capsule 1 cap PO BID miscellaneous medical supply Kit See Rx Instructions miscellaneous .COMPLEX Qty: 1 0RF Rx Instructions: home and portable oxygen concentrators @ 2LPM per NC and all necessary tubing and supplies Spiriva Respimat 2.5 mcg/actuation mist 2 inh INHALATION QAM Qty: 4 3RF fluticasone propion-salmeterol [Wixela Inhub] 250-50 mcg/dose blister with device 1 inh inhalation BID Qty: 60 6RF Eliquis 5 mg tablet 5 mg PO BID Qty: 180 3RF furosemide 20 mg tablet 20 mg PO DAILY PRN (Reason: edema) Qty: 30 3RF venlafaxine 75 mg Tablet 75 mg PO QAM losartan 100 mg Tablet 100 mg PO BEDTIME rosuvastatin 40 mg Tablet 40 mg PO QPM tamsulosin [Flomax] 0.4 mg Capsule 0.8 mg PO QPM Qty: 0 0RF meclizine 25 mg tablet 25 mg PO TID PRN (Reason: Dizziness) glipizide 10 mg Tablet 10 mg PO QPM glucose 4 gram Tablet,Chewable See Rx Instructions .ROUTE .COMPLEX Rx Instructions: 5 tabs po as directed as needed for low blood sugar fluticasone propionate 50 mcg/actuation [place],Suspension 2 spray INTRANASAL DAILY PRN (Reason: Allergy Symptoms) Rx Instructions: administer into each nostril metformin 500 mg Tablet Extended Release 24 Hr 1,000 mg PO QPM finasteride [Proscar] 5 mg Tablet 5 mg PO BEDTIME cholecalciferol (vitamin D3) [Vitamin D3] 25 mcg (1,000 unit) Tablet 25 mcg PO QAM alogliptin 25 mg Tablet 25 mg PO QAM multivitamin Tablet 1 tab PO QAM Flexeril 10 mg Tablet 10 mg PO TID PRN (Reason: Muscle Spasm) clotrimazole 10 mg Selena 10 mg MUCOUS MEMBRANE 5XD PRN (Reason: unknown) Zofran 8 mg Tablet 4 mg PO Q6H PRN (Reason: Nausea And Vomiting) Toprol XL 50 mg tablet extended release 24 hr 50 mg PO DAILY Qty: 30 0RF albuterol sulfate 90 mcg/actuation HFA aerosol inhaler 2 inh INHALATION Q4H PRN (Reason: shortness of breath or wheezing) Qty: 18 0RF Discharge Orders: Discharge ED (Routine); Ordered 10/23/22 Ordered By: Patrick Sanders Referrals: Haresh Karimi [Physician] - 1-3 days Haresh Dorman DO [Primary Care Provider] - Patient Instructions: Corneal Abrasion (ED) Activity Restrictions/Additional Instructions: Use eyedrops you were dispensed every 6 hours as needed for pain. Use the drops you have at home (antibiotic drops) every 4 hours while awake for the next 5 days or so. Call ophthalmology clinic on Wednesday for a follow-up appointment and repeat exam. 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 Return for worsening pain despite treatment, worsening vision despite treatment, other concerning symptoms. Coding Level of Care Code ED Family Medicine Resident for [facility] [place]
== END 2022-10-23 23:14 | disposition home or self-care (01) ==
PROVIDERS: Emergency Provider Emergency Medicine; PCP Emergency Medicine Emergency Medical Services
DX: S05.01XA Injury of conjunctiva and corneal abrasion without foreign body, right eye, initial encounter (principal); Z79.01 Long term (current) use of anticoagulants; Z79.84 Long term (current) use of oral hypoglycemic drugs; Z87.891 Personal history of nicotine dependence; I11.0 Hypertensive heart disease with heart failure; I50.9 Heart failure, unspecified; J44.9 Chronic obstructive pulmonary disease, unspecified; E11.9 Type 2 diabetes mellitus without complications; E78.5 Hyperlipidemia, unspecified; X58.XXXA Exposure to other specified factors, initial encounter
CPT/HCPCS: 99283

== ENCOUNTER → 2022-10-26 13:05 | Outpatient (BNVA) | payer OTHER, SELFPAY | PROVIDERS: PCP Emergency Medicine Emergency Medical Services; Referring Provider Emergency Medicine Emergency Medical Services; Visit Provider Specialist | DX: M16.0 Bilateral primary osteoarthritis of hip (principal) | CPT/HCPCS: 73522; 99214 ==

== ENCOUNTER → 2022-12-21 09:14 | Outpatient (BNVA) | payer OTHER, SELFPAY | PROVIDERS: PCP Emergency Medicine Emergency Medical Services; Referring Provider Emergency Medicine Emergency Medical Services; Visit Provider Psychiatry & Neurology Neurology | DX: M54.9 Dorsalgia, unspecified (principal); R25.1 Tremor, unspecified | CPT/HCPCS: 99203 ==

== ENCOUNTER 2023-01-19 09:38 | Outpatient (CLI) | payer OTHER, SELFPAY ==
--- NOTE | 2023-01-19 10:15 | MR_ITS ---
WS: [id number] MRI LUMBAR SPINE NONCONTRAST TECHNIQUE: Sagittal T1, T2 and STIR imaging. Axial T1 and T2 imaging. CLINICAL INFORMATION: M54.9 - Dorsalgia, unspecified COMPARISON: None. FINDINGS: Mild lumbar curve. No acute compression. Mild disc bulging worse at L3-L4 and L4-L5. Simple RIGHT toyin al cyst measuring 3.7 cm. Smaller RIGHT renal cyst. Mild central canal stenosis in the cervical spine claim benefit specialist imaging at C5-6. L1-L2: Mild annular bulging. Mild facet arthropathy. Spinal canal and foramen are patent. L2-L3: Mild annular bulging. Moderate facet arthropathy. Spinal canal and foramen are patent. L3-L4: Mild annular bulging with mild central canal stenosis. Impingement traversing RIGHT greater th an LEFT L4 nerve roots in the subarticular recess. Moderate facet arthropathy. Small LEFT foraminal p rotrusion with mild LEFT foraminal narrowing. Mild RIGHT foraminal narrowing. L4-L5: Mild annular bulging. Narrowing of the RIGHT greater than LEFT subarticular recess. Moderate f acet arthropathy. Mild RIGHT greater than LEFT foraminal narrowing. L5-S1: Mild annular bulging. Moderate facet arthropathy. Mild bilateral foraminal narrowing. Visualized pelvic bony structures: Normal. Paravertebral soft tissues: Normal. IMPRESSION: 1. Mild lumbar curve. No acute compression. No high-grade central canal stenosis. 2. Mild disc bulging L3-L4 and L4-L5 with mild central canal stenosis and impingement on the subarti cular recess at these levels. 3. Small LEFT foraminal protrusion L3-4 slightly impinges the exiting LEFT L3 nerve root. 4. Mild RIGHT greater than LEFT L4-5 foraminal narrowing. 5. Moderate facet arthropathy L3-L5. 6. Mild bilateral L5-S1 foraminal narrowing. 7. Mild central canal stenosis in the cervical spine claim benefit specialist imaging at C5-6. This could be followed u p with cervical spine MRI.
== END 2023-01-19 09:39 | disposition home or self-care (01) ==
LOC: RAD 09:38
PROVIDERS: PCP Emergency Medicine Emergency Medical Services; Visit Provider Psychiatry & Neurology Neurology
DX: M51.36 Other intervertebral disc degeneration, lumbar region (principal); M48.07 Spinal stenosis, lumbosacral region; M47.817 Spondylosis without myelopathy or radiculopathy, lumbosacral region; M48.02 Spinal stenosis, cervical region
CPT/HCPCS: 72148

== ENCOUNTER → 2023-03-09 14:24 | Outpatient (BNVA) | payer OTHER, SELFPAY | PROVIDERS: PCP Emergency Medicine Emergency Medical Services; Visit Provider Psychiatry & Neurology Neurology | DX: G25.3 Myoclonus (principal); M54.9 Dorsalgia, unspecified | CPT/HCPCS: 99212 ==

== ENCOUNTER → 2023-03-25 15:49 | Outpatient (BNVA) | payer OTHER, SELFPAY | PROVIDERS: PCP Emergency Medicine Emergency Medical Services; Visit Provider Orthopaedic Surgery | DX: M48.062 Spinal stenosis, lumbar region with neurogenic claudication (principal) | CPT/HCPCS: 72110; 99204 ==

== ENCOUNTER 2023-03-31 12:01 | Outpatient (CLI) | payer OTHER, SELFPAY ==
--- NOTE | 2023-03-31 12:30 | USCV_ITS ---
Rashad Michel Age: 77 Gender: M : 1945 Exam Date: 03/31/2023 12:12 Ordering Phys: Kevin Ott MD Technologist: CT Exam Location: [facility] [place]_ Indication: stenosis Risk Factors: Previous Vascular Surgery: Right Brachial BP: / Left Brachial BP: / Right Left Velocity (cm/s) Spectral Plaque Velocity (cm/s) Spectral Plaque Syst/Diast Broadening Syst/Diast Broadening 59.20/ 12.00 Prox CCA 86.90 / 14.60 89.20/ 18.00 Mid CCA 83.30 / 15.20 79.80/ 11.10 Distal CCA 70.30 / 14.60 54.40/ 13.30 Prox ICA 44.10 / 8.90 67.80/ 18.40 Mid ICA 70.50 / 14.00 66.10/ 17.90 Distal ICA 70.70 / 16.80 91.80 ECA 69.50 0.76 ICA/CCA 0.81 Antegrade Vertebral Antegrade 18.80/ 5.10 cm/s 35.90/ 8.80 cm/s Tri Subclavian Tri 74.80 92.50 FINDINGS Comparison: none available. No significant elevation of systolic or diastolic velocities. Diffuse bilateral scattered calcified plaque and intimal thickening throughout the common carotid arteries and extending through the bifurcation. Antegrade vertebral arteries. CONCLUSIONS Bilateral ICA stenosis less than 50%. Diffuse heterongenous plaque. Dr. Karlie Middleton DO (Electronically Signed) Final Date: 31 March 2023 13:33 S
--- NOTE | 2023-03-31 13:00 | MR_ITS ---
WS: [id number] MRI THORACIC SPINE WITH CONTRAST TECHNIQUE: Sagittal T1, T2 and STIR imaging. Axial T2 imaging. Post gadolinium imaging was obtained. CLINICAL INFORMATION: R25.1 - Tremor, unspecified COMPARISON: None. FINDINGS: Mild thoracic curve. Mild thoracic kyphosis. No acute compression fractures. No high-grade central ca nal stenosis. Cord signal is normal. Small central protrusion at T7-T8 with slight contact of the tho racic cord. No significant central canal stenosis. Moderate facet arthropathy lower thoracic spine. N o abnormal gadolinium enhancement. A few endplate Schmorl's nodes in the midthoracic spine. Incidenta l hemangioma LEFT T9 vertebral body. Partially visualized RIGHT renal cyst measuring 4.2 x 3.5 cm. Tiny RIGHT renal cyst. Normal caliber v isualized thoracic aorta.Tiny disc protrusions in the cervical spine at C4-C5 and C5-C6 with mild srinivas tral canal stenosis at C5-C6. IMPRESSION: 1. Mild thoracic curve. Mild thoracic kyphosis. No acute compression fractures. 2. Tiny shallow central protrusion at T7-T8 with slight contact of the thoracic cord. No significant central canal stenosis. 3. Cord signal appears normal considering patient motion. 4. No abnormal gadolinium enhancement. 5. Tiny disc protrusions in the cervical spine at C4-C5 and C5-C6 with mild central canal stenosis a t C5-C6. 6. No other suspicious findings.
[2023-03-31] MEDS: gadobenate dimeglumine 20 mL vial IV (13:14)
== END 2023-03-31 12:02 | disposition home or self-care (01) ==
LOC: RAD 12:01
PROVIDERS: PCP Emergency Medicine Emergency Medical Services; Visit Provider Psychiatry & Neurology Neurology
DX: I65.23 Occlusion and stenosis of bilateral carotid arteries (principal); R25.1 Tremor, unspecified; M54.9 Dorsalgia, unspecified; M40.204 Unspecified kyphosis, thoracic region; M51.24 Other intervertebral disc displacement, thoracic region; M50.221 Other cervical disc displacement at C4-C5 level; M48.02 Spinal stenosis, cervical region
CPT/HCPCS: 72157; 93880; A9577

== ENCOUNTER → 2023-04-19 13:22 | Outpatient (BNVA) | payer OTHER, SELFPAY | PROVIDERS: PCP Emergency Medicine Emergency Medical Services; Visit Provider Internal Medicine | DX: I48.91 Unspecified atrial fibrillation (principal); I11.0 Hypertensive heart disease with heart failure; I50.9 Heart failure, unspecified; E78.5 Hyperlipidemia, unspecified; G47.30 Sleep apnea, unspecified; I25.10 Atherosclerotic heart disease of native coronary artery without angina pectoris; Z87.891 Personal history of nicotine dependence; Z79.01 Long term (current) use of anticoagulants | CPT/HCPCS: 99214 ==

== ENCOUNTER → 2023-04-20 08:30 | Outpatient (BNVA) | payer OTHER, SELFPAY | PROVIDERS: PCP Emergency Medicine Emergency Medical Services; Visit Provider Psychiatry & Neurology Neurology | DX: G25.3 Myoclonus (principal) | CPT/HCPCS: 95812 ==

== ENCOUNTER → 2023-05-17 08:27 | Outpatient (BNVA) | payer OTHER, SELFPAY | PROVIDERS: PCP Emergency Medicine Emergency Medical Services; Visit Provider Anesthesiology Pain Medicine | DX: M51.37 Other intervertebral disc degeneration, lumbosacral region; M51.9 Unspecified thoracic, thoracolumbar and lumbosacral intervertebral disc disorder; M47.816 Spondylosis without myelopathy or radiculopathy, lumbar region; M48.061 Spinal stenosis, lumbar region without neurogenic claudication | CPT/HCPCS: 99204 ==

== ENCOUNTER → 2023-05-24 14:56 | Outpatient (BNVA) | payer OTHER, SELFPAY | PROVIDERS: PCP Emergency Medicine Emergency Medical Services; Visit Provider Psychiatry & Neurology Neurology | DX: G25.3 Myoclonus (principal) | CPT/HCPCS: 99212 ==

== ENCOUNTER → 2023-05-27 14:14 | Outpatient (BNVA) | payer OTHER, SELFPAY | PROVIDERS: PCP Emergency Medicine Emergency Medical Services; Visit Provider Anesthesiology Pain Medicine | DX: M54.16 Radiculopathy, lumbar region (principal) | CPT/HCPCS: 64483; 64484; J1100; J3490 ==

== ENCOUNTER → 2023-07-22 08:52 | Outpatient (BNVA) | payer OTHER, SELFPAY | PROVIDERS: PCP Emergency Medicine Emergency Medical Services; Visit Provider Anesthesiology Pain Medicine | DX: M47.816 Spondylosis without myelopathy or radiculopathy, lumbar region (principal); M48.062 Spinal stenosis, lumbar region with neurogenic claudication; M51.37 Other intervertebral disc degeneration, lumbosacral region; M51.9 Unspecified thoracic, thoracolumbar and lumbosacral intervertebral disc disorder | CPT/HCPCS: 99214 ==

== ENCOUNTER → 2023-10-15 08:56 | Outpatient (BNVA) | payer OTHER, SELFPAY | PROVIDERS: PCP Emergency Medicine Emergency Medical Services; Visit Provider Physician Assistant | DX: M25.561 Pain in right knee (principal); M17.11 Unilateral primary osteoarthritis, right knee; M25.562 Pain in left knee | CPT/HCPCS: 73560; 73565 ==

== ENCOUNTER 2023-10-15 10:07 | Outpatient (CLI) | payer OTHER, SELFPAY | END 2023-10-15 10:08 | disposition home or self-care (01) | LOC: SPT 10:08 | PROVIDERS: PCP Emergency Medicine Emergency Medical Services; Visit Provider Physician Assistant | DX: Z46.89 Encounter for fitting and adjustment of other specified devices (principal); M17.11 Unilateral primary osteoarthritis, right knee | CPT/HCPCS: 20610; 99203; J3301; L1852 ==

== ENCOUNTER → 2024-01-17 13:51 | Outpatient (BNVA) | payer OTHER, SELFPAY | PROVIDERS: Visit Provider Nurse Practitioner Family | DX: I48.0 Paroxysmal atrial fibrillation (principal); E78.5 Hyperlipidemia, unspecified; E11.9 Type 2 diabetes mellitus without complications; I27.20 Pulmonary hypertension, unspecified; I50.32 Chronic diastolic (congestive) heart failure; I25.2 Old myocardial infarction; Z87.891 Personal history of nicotine dependence | CPT/HCPCS: 99213 ==

== ENCOUNTER 2024-04-23 01:21 | Observation (INO) | payer OTHER, SELFPAY ==
[2024-04-23] VITALS (45 sets, daily range): BP systolic 102–131; BP diastolic 60–95; PULSE 81–131; RESP 0–26; TEMP 36.6–37; O2SAT 86–98; BMI 32.3
--- NOTE | 2024-04-23 01:26 | ECG_ITS ---
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1945 Requested By: Patrick Del Valle Order Number: [id number] Reading MD: NIXON LANDRY Measurements Intervals Bard Rate: 142 P: 0 FL: 0 QRS: 86 QRSD: 111 T: -55 QT: 283 QTc: 435 Interpretive Statements ATRIAL FIBRILLATION WITH RAPID VENTRICULAR RESPONSE PROBABLE INFERIOR MYOCARDIAL INFARCTION , OF INDETERMINATE AGE [35 ms Q WAVE IN II/aVF] Compared to ECG 06/18/2022 14:49:41 Atrial abnormality no longer present Myocardial infarct finding still present Electronically Signed On 04-25-2024 23:39:03 LEGAL ARBITRATOR by NIXON LANDRY [email or web address]
--- NOTE | 2024-04-23 01:29 | XRR_ITS ---
PROCEDURE INFORMATION: Exam: XR Chest Exam date and time: 04/23/2024 1:28 AM Age: 78 years old Clinical indication: Chest pressure; Prior surgery; Surgery date: 6+ months; Surgery type: Coronary stents; C/O chest pain; Additional info: Cp TECHNIQUE: Imaging protocol: Radiologic exam of the chest. Views: 1 view. COMPARISON: CR XR chest 1V portable [id number] 06/18/2022 3:23 PM FINDINGS: Lungs: Unremarkable. No consolidation. Pleural spaces: Unremarkable. No pleural effusion. No pneumothorax. Heart/Mediastinum: Stable cardiomegaly. Vasculature: Calcific plaque involves the aortic knob. Bones/joints: Unremarkable. XR/XR chest 1V portable [id number] IMPRESSION: No acute abnormality.
--- NOTE | 2024-04-23 01:33 | W.ED.CHESTPA ---
HPI - Chest Pain General: Chief Complaint: Chest Pain Stated Complaint: CP SOB Nitro Time Seen by Provider: 04/23/24 01:28 History of Present Illness: 78-year-old male with a history of atrial fibrillation, COPD. He presents with chest discomfort that started around an hour and a half prior to arrival. He states that while he was going to bed, his A-fib kicked in and he felt a fluttering in his chest, with pain, that radiated into his back from his chest. He was short of breath. He took a nitroglycerin. His pain is now gone. His heart rate is still elevated despite taking an extra one half dose of his metoprolol when he noticed his heart rate was up. He states that he has been sick for a week, with respiratory illness, cough and congestion, etc. He has been on antibiotics and steroids, and was starting to improve from this. Related Data Home Medications ?Medication ?Instructions ?Recorded ?Confirmed losartan 100 mg tablet 100 mg PO BEDTIME 05/22/19 01/17/24 rosuvastatin 40 mg tablet 40 mg PO QPM 05/22/19 01/17/24 venlafaxine 75 mg tablet 75 mg PO QAM 05/22/19 01/17/24 meclizine 25 mg tablet 25 mg PO TID PRN Dizziness 09/27/19 01/17/24 magnesium oxide 400 mg (241.3 mg 400 mg PO BEDTIME 04/10/21 01/17/24 magnesium) tablet cholecalciferol (vitamin D3) 25 25 mcg PO QAM 11/24/21 01/17/24 mcg (1,000 unit) tablet (Vitamin D3) finasteride 5 mg tablet (Proscar) 5 mg PO BEDTIME 11/24/21 01/17/24 fluticasone propionate 50 2 spray intranasal DAILY PRN 11/24/21 01/17/24 mcg/actuation nasal Allergy Symptoms spray,suspension glipizide 10 mg tablet 10 mg PO QPM 11/24/21 01/17/24 glucose 4 gram chewable tablet See Rx Instructions .Route .COMPLEX 11/24/21 01/17/24 cyclobenzaprine 10 mg tablet 10 mg PO TID PRN Muscle Spasm 06/16/22 01/17/24 ondansetron HCl 8 mg tablet 4 mg PO Q6H PRN Nausea And Vomiting 06/16/22 01/17/24 omega 9-zvd-doo-fish oil 1,000 mg 1 cap PO BID 10/19/22 01/17/24 (120 mg-180 mg) capsule (Fish Oil) apixaban 5 mg tablet (Eliquis) 2.5 mg PO BID 04/21/23 01/17/24 ezetimibe 10 mg tablet (Zetia) 10 mg PO DAILY 04/21/23 01/17/24 Previous Rx's ?Medication ?Instructions ?Recorded tamsulosin 0.4 mg capsule (Flomax) 0.8 mg (2 x 0.4 mg) PO QPM #0 caps 05/22/19 albuterol sulfate 90 mcg/actuation 2 inh inhalation Q4H PRN shortness 07/05/21 aerosol inhaler of breath or wheezing #18 grams fluticasone 250 mcg-salmeterol 50 1 inh inhalation BID #60 ea 10/31/21 mcg/dose blistr powdr for inhalation (Wixela Inhub) miscellaneous medical supply See Rx Instructions miscellaneous 04/20/22 .COMPLEX #1 ea furosemide 20 mg tablet 20 mg PO DAILY PRN edema #30 tabs 09/29/22 tiotropium bromide 2.5 2 inh inhalation QAM #4 grams 10/26/22 mcg/actuation mist for inhalation (Spiriva Respimat) hydrocodone 5 mg-acetaminophen 325 1 tab PO TID PRN pain 7 days #21 07/22/23 mg tablet tabs right knee medial slot floor person brace #1 ea 10/15/23 metoprolol succinate 50 mg 50 mg PO DAILY 90 days #90 tabs 01/17/24 tablet,extended release 24 hr (Toprol XL) Allergies Allergy/AdvReac Type Severity Reaction Status Date / Time lisinopril Allergy Unknown ADR-Cough Verified 01/17/24 13:56 pravastatin Allergy Unknown ADR-Cramping Verified 01/17/24 13:56 of the Muscles simvastatin Allergy Unknown ADR-Cramping Verified 01/17/24 13:56 of the Muscles niacin Allergy Unknown Verified 01/17/24 13:56 PFS ED PFSH: Medical History Bladder outlet obstruction Diabetes CHF (congestive heart failure) Ventricular arrhythmia COPD (chronic obstructive pulmonary disease) Afib Heart attack Prostate enlargement Depression Hemorrhoid GERD (gastroesophageal reflux disease) Surgical History History of colonoscopy 2017 Stented coronary artery H/O hemorrhoidectomy Family History Father , at age 63 Cancer Lung Mother , at age 68 Cancer Lung Brother , Age 32 CAD (coronary artery disease) Social History Smoking and tobacco/nicotine status: former use of tobacco/nicotine Quit status (tobacco/nicotine): has quit using Year quit tobacco: 1992 - PPD x 40 Years Alcohol intake: never Substance/Drug Use: never Lives independently: Yes Household members: spouse Marital status: service: Yes Current occupational status: retired Do you think of yourself as: Straight/Heterosexual Current gender identity: Male Physical Exam Const: COMMON NORMALS: no acute distress GENERAL APPEARANCE: cooperative; not ill appearing and not frail appearing HENMT: COMMON NORMALS: normocephalic, atraumatic and Normal external nose present HEAD & SCALP: normocephalic and atraumatic FACE & SINUS: normal facial exam and face symmetric NOSE: Normal external nose present Eye: COMMON NORMALS: Equal, round and reactive pupils present and EOMs intact bilaterally PUPIL: Yes Equal, round and reactive pupils present Neck/C-Spine: GENERAL: Yes trachea midline Chest: CHEST: Yes Symmetrical chest wall rise Resp: COMMON NORMALS: normal respiratory effort, No retractions, No use of accessory muscles and clear to auscultation bilaterally AUSCULTATION: clear to auscultation bilaterally Cardio: RATE: tachycardic RHYTHM: abnormal rhythm irregularly irregular GI: COMMON NORMALS: Normal to inspection, nondistended, normoactive bowel sounds present Extremity: COMMON NORMALS: no pedal edema Neuro: BISI COMA SCALE: document GCS findings [place] coma scale eye opening: Spontaneous [place] coma scale verbal response: Orientated [place] coma scale motor response: Obey commands Bisi coma scale total score: 15 SENSORY EXAM: Yes extremities (intact) Psych: COMMON NORMALS: speech normal SPEECH: Yes normal speech Skin: COMMON NORMALS: no rashes or lesions noted GENERAL SKIN EXAM: no rashes or lesions noted Course Vital Signs: Vital signs: Vital Signs Temperature 98 F 04/23/24 01:26 Pulse Rate 117 H 04/23/24 03:55 Respiratory Rate 15 04/23/24 03:55 Blood Pressure 119/83 04/23/24 03:55 Pulse Oximetry 90 04/23/24 03:55 Oxygen Delivery Me thod Room Air 04/23/24 03:11 MDM - Chest Pain Medical Decision Making 78-year-old male in atrial fibrillation with RVR. Heart rate is 140 on presentation. This is despite taking extra metoprolol at home. He was given 15 mg bolus of diltiazem with transient improvement, but rate was back in the 130s. He is started on diltiazem drip. He is currently at 10, with a rate of 105. White blood cell count is 14.6. BMP shows a sugar of 235 with a BUN of 26 creatinine of 1. He is given a liter bolus. His first troponin is 19 with a delta of 2.4. Chest x-ray is nonacute. EKG initially showed atrial fibrillation with RVR, no ST elevation. Repeat EKG shows atrial fibrillation with a rate of [address] elevation. Minimal ST segment depression laterally present on the first EKG has resolved on the second. He will be admitted to CSU. Hospitalist is aware. Lab Data 04/23/24 01:32 04/23/24 01:32 Radiology Impressions Chest X-Ray 04/23/24 01:29 IMPRESSION: No acute abnormality. Laboratory Results WBC 14.62 10^3/uL (3.29-11.43) H 04/23/24 01:32 RBC 5.03 10^6/uL (3.85-5.65) 04/23/24 01:32 Hgb 15.50 g/dL (11.27-16.99) 04/23/24 01:32 Hct 47.9 % (37-53) 04/23/24 01:32 MCV 95.2 fl (82-101) 04/23/24 01:32 MCH 30.8 pg (27-33) 04/23/24 01:32 MCHC 32.4 g/dL (30-55) 04/23/24 01:32 RDW 14.6 % (12.1-15.1) 04/23/24 01:32 Plt Count 289 10^3/cmm (157-399) 04/23/24 01:32 MPV 10.6 fL (7.4-10.4) H 04/23/24 01:32 Neut % (Auto) 74.4 % 04/23/24 01:32 Lymph % (Auto) 13.4 % 04/23/24 01:32 Archuleta % (Auto) 10.1 % 04/23/24 01:32 Eos % (Auto) 0.1 % 04/23/24 01:32 Baso % (Auto) 0.3 % 04/23/24 01:32 Neut # (Auto) 10.86 10^3/uL (1.8-7.7) H 04/23/24 01:32 Lymph # (Auto) 2.0 10^3/uL (0.8-4.8) 04/23/24 01:32 Archuleta # (Auto) 1.5 10^3/uL (0.2-0.9) H 04/23/24 01:32 Eos # (Auto) 0.0 10^3/uL (0.0-0.8) 04/23/24 01:32 Baso # (Auto) 0.1 10^3/uL (0.0-0.1) 04/23/24 01:32 Nucleated RBC % (auto) 0 % 04/23/24 01:32 Nucleated RBCs # 0.0 /100WBC 04/23/24 01:32 Sodium 137 mmol/L (136-145) 04/23/24 01:32 Potassium 4.6 mmol/L (3.5-5.1) 04/23/24 01:32 Chloride 100 mmol/L (98-107) 04/23/24 01:32 Carbon Dioxide 23 mmol/L (22-29) 04/23/24 01:32 Anion Gap 18.6 (5-19) 04/23/24 01:32 BUN 26 mg/dL (8-23) H 04/23/24 01:32 Creatinine 1.0 mg/dL (0.7-1.2) 04/23/24 01:32 GFR Calculation Not Reportable 04/23/24 01:32 Glucose 235 mg/dL (65-115) H 04/23/24 01:32 Calculated Osmolality 296 mOsm/kg (285-295) H 04/23/24 01:32 Calcium 9.3 mg/dL (8.5-10.5) 04/23/24 01:32 Troponin T Baseline 19 ng/L (0-15) H 04/23/24 01:32 Troponin T 120 Minute 21.35 ng/L (0-15) H 04/23/24 03:00 Delta Troponin T 2.35 ABS# (0-10) 04/23/24 03:00 NT-Pro-B Natriuret Pep 463 pg/mL (0-450) H 04/23/24 01:32 All radiology interpretation(s) finalized by discharge Critical Care Time Critical Care Time: Critical Care Time: Yes Total Critical Care Time: 35 Attestation: This case had a high probability of a clinically significant, sudden, or life threatening deterioration of this patient's condition which required my full and direct attention, intervention and personal management. Time is independent of any procedures performed. Discharge Plan Discharge Patient Disposition: Admitted As Inpatient Clinical Impression: Chest pain, Atrial fibrillation with rapid ventricular response Condition: Fair Prescriptions: No Action magnesium oxide 400 mg (241.3 mg magnesium) tablet 400 mg PO BEDTIME omega 2-jsx-gza-fish oil [Fish Oil] 1,000 mg (120 mg-180 mg) capsule 1 cap PO BID Eliquis 5 mg tablet 2.5 mg PO BID Rx Instructions: 1 tab in AM, 0.5 tab in PM ezetimibe [Zetia] 10 mg tablet 10 mg PO DAILY Toprol XL 50 mg tablet extended release 24 hr 50 mg PO DAILY 90 Days Qty: 90 0RF hydrocodone-acetaminophen 5-325 mg tablet 1 tab PO TID MDD 3 PRN (Reason: pain) 7 Days Qty: 21 0RF Rx Instructions: Do not take with other opioids alcohol or sedatives miscellaneous medical supply Kit See Rx Instructions miscellaneous .COMPLEX Qty: 1 0RF Rx Instructions: home and portable oxygen concentrators @ 2LPM per [place] and all necessary tubing and supplies (DME) right knee medial slot floor person brace See Rx Instructions .Route .MEDSUPPLY Qty: 1 0RF Rx Instructions: As directed fluticasone propion-salmeterol [Wixela Inhub] 250-50 mcg/dose blister with device 1 inh inhalation BID Qty: 60 6RF furosemide 20 mg tablet 20 mg PO DAILY PRN (Reason: edema) Qty: 30 3RF Spiriva Respimat 2.5 mcg/actuation mist 2 inh INHALATION QAM Qty: 4 3RF venlafaxine 75 mg Tablet 75 mg PO QAM losartan 100 mg Tablet 100 mg PO BEDTIME rosuvastatin 40 mg Tablet 40 mg PO QPM tamsulosin [Flomax] 0.4 mg Capsule 0.8 mg PO QPM Qty: 0 0RF meclizine 25 mg tablet 25 mg PO TID PRN (Reason: Dizziness) glipizide 10 mg Tablet 10 mg PO QPM glucose 4 gram Tablet,Chewable See Rx Instructions .ROUTE .COMPLEX Rx Instructions: 5 tabs po as directed as needed for low blood sugar fluticasone propionate 50 mcg/actuation Decker,Suspension 2 spray INTRANASAL DAILY PRN (Reason: Allergy Symptoms) Rx Instructions: administer into each nostril finasteride [Proscar] 5 mg Tablet 5 mg PO BEDTIME cholecalciferol (vitamin D3) [Vitamin D3] 25 mcg (1,000 unit) Tablet 25 mcg PO QAM Flexeril 10 mg Tablet 10 mg PO TID PRN (Reason: Muscle Spasm) Zofran 8 mg Tablet 4 mg PO Q6H PRN (Reason: Nausea And Vomiting) albuterol sulfate 90 mcg/actuation HFA aerosol inhaler 2 inh INHALATION Q4H PRN (Reason: shortness of breath or wheezing) Qty: 18 0RF Referrals: Carolyn Linares APRN [Primary Care Provider] - Print Language: French Coding Level of Care Code ED Appellate Conferee for [place]
[2024-04-23 01:42] LABS: Basophils # 0.1 10^3/uL (0.0-0.1); Basophils % 0.3 %; Eosinophils % 0.1 %; Hematocrit 47.9 % (37-53); Lymphocytes % 13.4 %; Mean Corpuscular HGB Conc 32.4 g/dL (30-55); Mean Corpuscular Hemoglobin 30.8 pg (27-33); Mean Corpuscular Volume 95.2 fl (82-101); Mean Platelet Volume 10.6 fL (7.4-10.4); Monocytes # 1.5 10^3/uL (0.2-0.9); Monocytes % 10.1 %; Neutrophils # 10.86 10^3/uL (1.8-7.7); Neutrophils % 74.4 %; Nucleated Red Blood Cells % 0 %; Platelet Count 289 10^3/cmm (157-399); Red Blood Count 5.03 10^6/uL (3.85-5.65); Red Cell Distribution Width 14.6 % (12.1-15.1); White Blood Count 14.62 10^3/uL (3.29-11.43)
[2024-04-23] MEDS: dilTIAZem 5 mg/mL SDV 5 mL 15 MG IVP (01:52)
[2024-04-23 02:09] LABS: Anion Gap 18.6 (5-19); Blood Urea Nitrogen 26 mg/dL (8-23); Calcium 9.3 mg/dL (8.5-10.5); Carbon Dioxide 23 mmol/L (22-29); Chloride 100 mmol/L (98-107); Creatinine Clr Calc Pharmacy 65.2463; Glucose 235 mg/dL (65-115); Osmolality Calculated 296 mOsm/kg (285-295); Potassium 4.6 mmol/L (3.5-5.1); Sodium 137 mmol/L (136-145); Troponin(5th) Baseline 19 ng/L (0-15)
[2024-04-23 02:18] LABS: NT Pro B Type Natriuretic Pept 463 pg/mL (0-450)
[2024-04-23] MEDS: dilTIAZem 100 MG in sodium chloride 0.9% (add-van) 100 ML IV (03:13)
[2024-04-23] MEDS: sodium chloride 0.9% 1,000 ML 999 ML IV (03:13)
--- NOTE | 2024-04-23 03:26 | ECG_ITS ---
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
[2024-04-23 03:27] LABS: Troponin 5 2HR 21.35 ng/L (0-15); Troponin 5 2HR Delta 2.35 ABS# (0-10)
--- NOTE | 2024-04-23 04:05 | PM.HP ---
Providers/Chief Complaint Primary Care Provider: Carolyn Linares APRN Chief Complaint: CP SOB Nitro History of Present Illness Rashad Michel is a 78 year old male with history of A-fib, takes Eliquis, presenting with chief complaint of shortness of breath and palpitations. Patient is stating that after taking medication yesterday he went to bed but as soon as he laid down he started experiencing palpitations which made him very uncomfortable he started having chest pain which was radiating towards his shoulder, his gave him nitroglycerin and brought him to the ER he was diagnosed with A-fib RVR heart rate was 145, he was put on Cardizem drip at the time of my evaluation patient is chest pain-free, no active shortness of breath hemodynamic stable heart rate around 90s A-fib patient not endorsing any discomfort at all. Patient is stating that he secondary to epistaxis his Eliquis dose [facility] 2[facility]5 mg [facility]. Patient is stating that he has been sick for last 2 weeks, has had loose stools, low-grade fever and excessive coughing spells, his PCP gave him steroid as well. Review of Systems Const: Denies: fever(s) Eyes: Denies: change in vision ENMT: Denies: throat pain Card: Reports: chest pain Resp: Reports: dyspnea GI: Denies: abdominal pain : Denies: flank pain Musc: Denies: neck pain Skin/Breast: Denies: rash Neuro: Reports: headache(s) Medications/Allergies Home Medications ?Medication ?Instructions ?Recorded ?Confirmed ?Last Taken ?Type losartan 100 mg tablet 100 mg PO BEDTIME 05/22/19 01/17/24 06/15/22 History rosuvastatin 40 mg tablet 40 mg PO QPM 05/22/19 01/17/24 06/15/22 History tamsulosin 0.4 mg capsule (Flomax) 0.8 mg (2 x 0.4 mg) PO QPM #0 caps 05/22/19 01/17/24 06/15/22 Rx venlafaxine 75 mg tablet 75 mg PO QAM 05/22/19 01/17/24 06/16/22 History meclizine 25 mg tablet 25 mg PO TID PRN Dizziness 09/27/19 01/17/24 06/15/22 History magnesium oxide 400 mg (241.3 mg 400 mg PO BEDTIME 04/10/21 01/17/24 06/15/22 History magnesium) tablet albuterol sulfate 90 mcg/actuation 2 inh inhalation Q4H PRN shortness 07/05/21 01/17/24 Unknown Rx aerosol inhaler of breath or wheezing #18 grams fluticasone 250 mcg-salmeterol 50 1 inh inhalation BID #60 ea 10/31/21 01/17/24 06/16/22 Rx mcg/dose blistr powdr for inhalation (Wixela Inhub) cholecalciferol (vitamin D3) 25 25 mcg PO QAM 11/24/21 01/17/24 06/16/22 History mcg (1,000 unit) tablet (Vitamin D3) finasteride 5 mg tablet (Proscar) 5 mg PO BEDTIME 11/24/21 01/17/24 06/15/22 History fluticasone propionate 50 2 spray intranasal DAILY PRN 11/24/21 01/17/24 Unknown History mcg/actuation nasal Allergy Symptoms spray,suspension glipizide 10 mg tablet 10 mg PO QPM 11/24/21 01/17/24 06/15/22 History see pharmacy comment glucose 4 gram chewable tablet See Rx Instructions .Route .COMPLEX 11/24/21 01/17/24 Unknown History miscellaneous medical supply See Rx Instructions miscellaneous 04/20/22 01/17/24 Unknown Rx .COMPLEX #1 ea cyclobenzaprine 10 mg tablet 10 mg PO TID PRN Muscle Spasm 06/16/22 01/17/24 Unknown History ondansetron HCl 8 mg tablet 4 mg PO Q6H PRN Nausea And Vomiting 06/16/22 01/17/24 Unknown History furosemide 20 mg tablet 20 mg PO DAILY PRN edema #30 tabs 09/29/22 01/17/24 Unknown Rx omega 8-sqd-rbu-fish oil 1,000 mg 1 cap PO BID 10/19/22 01/17/24 Unknown History (120 mg-180 mg) capsule (Fish Oil) tiotropium bromide 2.5 2 inh inhalation QAM #4 grams 10/26/22 01/17/24 Unknown Rx mcg/actuation mist for inhalation (Spiriva Respimat) apixaban 5 mg tablet (Eliquis) 2.5 mg PO BID 04/21/23 01/17/24 Unknown History ezetimibe 10 mg tablet (Zetia) 10 mg PO DAILY 04/21/23 01/17/24 Unknown History hydrocodone 5 mg-acetaminophen 325 1 tab PO TID PRN pain 7 days #21 07/22/23 01/17/24 Unknown Rx mg tablet tabs right knee medial principal account clerk brace #1 ea 10/15/23 10/15/23 Unknown Rx metoprolol succinate 50 mg 50 mg PO DAILY 90 days #90 tabs 01/17/24 01/17/24 Unknown Rx tablet,extended release 24 hr (Toprol XL) Allergies Allergy/AdvReac Type Severity Reaction Status Date / Time lisinopril Allergy Unknown ADR-Cough Verified 01/17/24 13:56 pravastatin Allergy Unknown ADR-Cramping Verified 01/17/24 13:56 of the Muscles simvastatin Allergy Unknown ADR-Cramping Verified 01/17/24 13:56 of the Muscles niacin Allergy Unknown Verified 01/17/24 13:56 PFSH Acute PFSH: Medical History Bladder outlet obstruction Diabetes CHF (congestive heart failure) Ventricular arrhythmia COPD (chronic obstructive pulmonary disease) Afib Heart attack Prostate enlargement Depression Hemorrhoid GERD (gastroesophageal reflux disease) Surgical History History of colonoscopy 2017 Stented coronary artery H/O hemorrhoidectomy Family History Father , at age 63 Cancer Lung Mother , at age 68 Cancer Lung Brother , Age 32 CAD (coronary artery disease) Social History Smoking and tobacco/nicotine status: former use of tobacco/nicotine Quit status (tobacco/nicotine): has quit using Year quit tobacco: 1992 - PPD x 40 Years Alcohol intake: never Substance/Drug Use: never Lives independently: Yes Household members: spouse Marital status: service: Yes Current occupational status: retired Do you think of yourself as: Straight/Heterosexual Current gender identity: Male Vitals/I&O/Wt Last Vital Signs Temp 98 F 04/23/24 01:26 Pulse 117 H 04/23/24 03:55 Resp 15 04/23/24 03:55 BP 119/83 04/23/24 03:55 Pulse Ox 90 04/23/24 03:55 O2 Del Method Room Air 04/23/24 03:11 04/22/24 04/22/24 04/23/24 14:59 22:59 06:59 Intake Total 3.917 / 3.917 Balance 3.917 / 3.917 Weight last 48 hrs Weight 90.718 kg Physical Exam Narrative: Patient awake and alert No active sign of heart failure No active chest pain GCS 15 A-fib without RVR Heart rate around 90 Hemodynamically stable Patient laying supine without any active discomfort No audible stridor or wheezing Currently on room air is at the bedside Data 04/23/24 01:32 04/23/24 01:32 A&P Assessment and plan (1) HTN (hypertension): (2) Pulmonary hypertension: (3) Stented coronary artery: (4) Coronary artery disease: (5) Afib: Qualifiers: Atrial fibrillation type: paroxysmal Qualified Code(s): I48.0 - Paroxysmal atrial fibrillation (6) Atrial fibrillation with rapid ventricular response: (7) Diabetes: Qualifiers: Diabetes mellitus type: type 2 Diabetes mellitus snf insulin use: unspecified snf insulin use status Diabetes mellitus complication status: without complication Qualified Code(s): E11.9 - Type 2 diabetes mellitus without complications (8) BPH loc w urin obs/LUTS: Plan A-fib RVR Currently heart rate is around 90 I have decreased her Cardizem dose to 5 mg/h I will increase the dose of metoprolol to 100 mg daily Patient should be on Eliquis 5 mg twice daily regimen No active sign of bleeding No abnormal creatinine or other any other indication to decrease the dose of Eliquis History of congestive heart failure: No active signs of decompensation BPH: Continue tamsulosin Full code Cardiac diet Insulin with sliding scale Patient might be able to go home today if heart rate stays controlled PDMP PDMP Reviewed: Not Reviewed Attestations Medical Necessity Statement*: Anticipating discharge within 24 to 48 hours Diagnoses HTN (hypertension) I10 Pulmonary hypertension I27.20 Stented coronary artery Z95.5 Coronary artery disease I25.10 Paroxysmal atrial fibrillation I48.0 Atrial fibrillation type: paroxysmal Atrial fibrillation with rapid ventricular response I48.91 Type 2 diabetes mellitus without complication, unspecified whether snf insulin use E11.9 Diabetes mellitus type: type 2 Diabetes mellitus ad terminal makeup operator insulin use: unspecified ad terminal makeup operator insulin use status Diabetes mellitus complication status: without complication BPH loc w urin obs/LUTS N40.1
--- NOTE | 2024-04-23 05:47 | PC.NURSE ---
AT 0440, NURSE CONSULTED DR DANIELS ABOUT HR OF 106 AND DRIP GOING AT 10 MLS/HR. DR DANIELS VERBALIZED THAT DRIP SHOULD STAY AT 10 MLS/HR.
--- NOTE | 2024-04-23 05:48 | PC.NURSE ---
NURSE CONSULTED DR SPICER ABOUT HR AND DRIP. VERBALIZED THAT DRIP SHOULD BE TITRATED AND THAT HE TITRATED IT DOWN WHEN HE WAS IN THE ROOM.
--- NOTE | 2024-04-23 07:26 | ECG_ITS ---
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
--- NOTE | 2024-04-23 07:35 | PC.NURSE ---
Patient transferred from ED to CSU via a bed with cardizem drip going 5ml/hr at 0737. Patient ambulated to our CSU bed.
[2024-04-23] MEDS: ipratropium-albuterol 3 mL Neb INHALATION ×2 (08:04→13:27)
[2024-04-23 08:18] LABS: Troponin 5 6HR 23.85 ng/L (0-15); Troponin 5 6HR Delta 4.85 ng/L (0-12)
[2024-04-23] MEDS: metoprolol succinate ER (24 HR) 50 mg Tablet 100 MG PO (08:47)
[2024-04-23] MEDS: insulin lispro 100 unit/1 mL SUBCUT ×2 (08:47→12:39)
[2024-04-23] MEDS: apixaban 5 mg Tablet PO ×2 (08:47→17:35)
[2024-04-23 08:57] LABS: Glucose Point of Care 195 mg/dL (70-110)
[2024-04-23] MEDS: venlafaxine ER (24HR) 75 mg Capsule PO (09:45)
[2024-04-23 12:18] LABS: Glucose Point of Care 161 mg/dL (70-110)
[2024-04-23] MEDS: dilTIAZem 30 mg Tablet PO ×3 (12:39→23:35)
[2024-04-23] MEDS: acetaminophen 500 mg Tablet PO (14:36)
--- NOTE | 2024-04-23 16:40 | PM.PN ---
Subjective Subjective: Patient was seen this morning, denies any fevers, chills, no cough, no chest pain Vitals/I&O/Wt Last Vital Signs Temp 98.5 F 04/23/24 11:46 Pulse 89 04/23/24 14:00 Resp 18 04/23/24 13:28 BP 126/74 04/23/24 11:46 Pulse Ox 92 04/23/24 13:28 O2 Del Method Room Air 04/23/24 13:28 04/23/24 04/23/24 04/23/24 06:59 14:59 22:59 Intake Total 23.084 / 23.084 1369.000 / 1369.000 Balance 23.084 / 23.084 1369.000 / 1369.000 Weight last 48 hrs Weight 105.687 kg Weight 90.718 kg Physical Exam Const: COMMON NORMALS: no acute distress and patient oriented x3 Resp: COMMON NORMALS: normal respiratory effort, No retractions, No use of accessory muscles and clear to auscultation bilaterally AUSCULTATION: clear to auscultation bilaterally Cardio: COMMON NORMALS: S1 normal heart sound present and S2 normal heart sound present RATE: tachycardic RHYTHM: abnormal rhythm irregularly irregular HEART SOUNDS: S1 normal heart sound present and S2 normal heart sound present GI: COMMON NORMALS: Normal to inspection, nondistended, normoactive bowel sounds present and non-tender Extremity: COMMON NORMALS: no pedal edema Neuro: COMMON NORMALS: patient oriented x3 Psych: COMMON NORMALS: mental status grossly normal Data 04/23/24 01:32 04/23/24 01:32 A&P Assessment and plan (1) HTN (hypertension): (2) Pulmonary hypertension: (3) Stented coronary artery: (4) Coronary artery disease: (5) Afib: Qualifiers: Atrial fibrillation type: paroxysmal Qualified Code(s): I48.0 - Paroxysmal atrial fibrillation (6) Atrial fibrillation with rapid ventricular response: (7) Diabetes: Qualifiers: Diabetes mellitus type: type 2 Diabetes mellitus penitentiary insulin use: unspecified penitentiary insulin use status Diabetes mellitus complication status: without complication Qualified Code(s): E11.9 - Type 2 diabetes mellitus without complications (8) BPH loc w urin obs/LUTS: Plan A-fib RVR Currently heart rate is around 90 Cardizem drip, transition to p.o. Cardizem Metoprolol 100 mg daily Eliquis 5 mg twice daily History of congestive heart failure: No active signs of decompensation BPH: Continue tamsulosin Full code Cardiac diet Insulin with sliding scale Patient might be able to go home today if heart rate stays controlled PDMP PDMP Reviewed: Not Reviewed Attestations Medical Necessity Statement*: Patient requires hospitalization for A-fib with RVR Diagnoses HTN (hypertension) I10 Pulmonary hypertension I27.20 Stented coronary artery Z95.5 Coronary artery disease I25.10 Paroxysmal atrial fibrillation I48.0 Atrial fibrillation type: paroxysmal Atrial fibrillation with rapid ventricular response I48.91 Type 2 diabetes mellitus without complication, unspecified whether 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
[2024-04-23] MEDS: tamsulosin 0.4 mg Capsule 0.8 MG PO (17:35)
[2024-04-23 18:49] LABS: Glucose Point of Care 129 mg/dL (70-110)
[2024-04-23] MEDS: atorvastatin 40 mg Tablet 80 MG PO (19:57)
[2024-04-23] MEDS: finasteride 5 mg Tablet PO (19:57)
[2024-04-23] MEDS: magnesium oxide 400 mg tablet PO (19:58)
[2024-04-23 21:02] LABS: Glucose Point of Care 158 mg/dL (70-110)
--- NOTE | 2024-04-23 23:40 | PC.NURSE ---
Patient c/o indigestion. Informed Dr Lima and received onetime order for GI cocktail.
[2024-04-23] MEDS: lidocaine 2% viscous 15 ML, aluminum-mag hydrox-simethicon 30 ML, sucralfate oral liq 1 GM PO (23:55)
[2024-04-24] VITALS: BP 130/76; PULSE 92; PULSE 98; TEMP 36.6; O2SAT 90
[2024-04-24 03:52] VITALS: BP 109/57; PULSE 94; TEMP 36.5; O2SAT 90
[2024-04-24] MEDS: dilTIAZem 30 mg Tablet PO ×3 (05:49→17:31)
[2024-04-24 06:00] VITALS: PULSE 91
[2024-04-24 06:07] LABS: Basophils # 0.1 10^3/uL (0.0-0.1); Basophils % 0.5 %; Eosinophils # 0.1 10^3/uL (0.0-0.8); Eosinophils % 0.5 %; Hematocrit 45.3 % (37-53); Lymphocytes # 2.7 10^3/uL (0.8-4.8); Lymphocytes % 20.2 %; Mean Corpuscular Hemoglobin 30.2 pg (27-33); Mean Corpuscular Volume 94.4 fl (82-101); Mean Platelet Volume 10.7 fL (7.4-10.4); Monocytes # 1.2 10^3/uL (0.2-0.9); Monocytes % 9.2 %; Neutrophils # 9.08 10^3/uL (1.8-7.7); Neutrophils % 68.1 %; Nucleated Red Blood Cells % 0 %; Platelet Count 240 10^3/cmm (157-399); Red Cell Distribution Width 14.8 % (12.1-15.1)
[2024-04-24 06:22] LABS: Anion Gap 15.3 (5-19); Blood Urea Nitrogen 26 mg/dL (8-23); Calcium 8.4 mg/dL (8.5-10.5); Carbon Dioxide 23 mmol/L (22-29); Chloride 102 mmol/L (98-107); Creatinine Clr Calc Pharmacy 76.4649; Glucose 144 mg/dL (65-115); Magnesium 2.1 mg/dL (1.7-2.3); Osmolality Calculated 289 mOsm/kg (285-295); Potassium 4.3 mmol/L (3.5-5.1); Sodium 136 mmol/L (136-145)
[2024-04-24 06:45] LABS: Glucose Point of Care 142 mg/dL (70-110)
[2024-04-24 08:00] VITALS: BP 118/74; PULSE 92; RESP 20; TEMP 36.9; O2SAT 92
[2024-04-24] MEDS: venlafaxine ER (24HR) 75 mg Capsule PO (08:24)
[2024-04-24] MEDS: insulin lispro 100 unit/1 mL SUBCUT (08:25)
[2024-04-24] MEDS: apixaban 5 mg Tablet PO ×2 (08:25→17:31)
[2024-04-24] MEDS: metoprolol succinate ER (24 HR) 50 mg Tablet 100 MG PO (08:25)
--- NOTE | 2024-04-24 09:31 | PC.CHAP ---
Pastoral Care Encounter/Spiritual Assessment Type of Contact [] Declined grades 1 thru 6 home teacher visit [] Patient/Family/Request visit [] Outpatient visit [] Follow-up visit [] Physician referral [] Code/Alert [x] Routine visit [] Staff referral [] Actively dying [] Patient sleeping [] Family support [] [] Out of room [] Palliative care [] [] Receiving care in room [] Pre-surgical visit [] Trauma [] Long length of stay [] ICU visit [] Other: Relational/Emotional Strength [] Patient feels connected with others/family/visitors/staff [] Distress [] Loneliness/isolation [] Abandonment Spirituality of Patient [x] Person of Tammie [] Attends Jew of their Tammie [x] Believes in Prayer [] Reads Bible or Zoroastrian materials [] There are Spiritual issues to be addressed Maternity Floor Supervisor Interventions [x] Prayer [x] Active listening [] Non-anxious presence [] Spiritual/emotional support [] Crisis/trauma care [] Spiritual counseling [] Bereavement support [] Provided bereavement packet [] Provided Bible/devotional materials [] Provided toy/stuffed animal, coloring book to patient or family member [] Provided Communion [] Anointing/[place] [] Salvation [x] Completed spiritual assessment [] Other: Impact on Illness or Injury [] Angry [] Fearful [] Anxious [] Often cries [] Exhaustion [] Unable to work [] Unable to attend congregational [] Unable to walk/stand [] Unable to read [] Unable to drive [] Unable to eat/drink [] Unable to sleep [] Unable to be with family [] Patient intubated [] Other: Summary Time spent with patient 20 min
[2024-04-24 10:10] LABS: Add Urine Microscopic? NO
[2024-04-24 10:17] LABS: Bilirubin Urine Negative (Negative); Blood Urine Negative (Negative); Glucose Urine UA Negative (Normal); Ketones Urine Negative (Negative); Leukocyte Esterase Urine Negative (Negative); Nitrate Urine Negative (Negative); Protein Urine Negative (Negative); Specific Gravity, Urine 1.018 (1.005-1.030); Urine Appearance Clear (CLEAR); Urine Color Yellow (Yellow); Urobilinogen Urine 0.2 mg/dL (Negative); pH Urine 6.5 (5-7)
[2024-04-24 10:30] LABS: Add Urine Culture? No; Charge for UA Resulting for Rev
--- NOTE | 2024-04-24 11:15 | PC.NURSE ---
Provider is updated that nursing and Mr Anand, walked down the bates and back his HR was 100-120, with a spike to 140 for a second. when he sat back down his HR returned under 100 within 5 minutes. O2 90% BP 103/60. No chest pain. No new orders given at this time.
[2024-04-24 11:43] VITALS: BP 102/72; PULSE 92; RESP 24; TEMP 37.2; O2SAT 92
--- NOTE | 2024-04-24 12:12 | XRR_ITS ---
PROCEDURE INFORMATION: Exam: XR Chest Exam date and time: 04/24/2024 12:20 PM Age: 78 years old Clinical indication: Shortness of breath; Additional info: SOB TECHNIQUE: Imaging protocol: Radiologic exam of the chest. Views: 1 view. COMPARISON: CR (CHEST, ) 04/23/2024 1:28 AM FINDINGS: Lungs: Stable calcified granulomas in both lungs. No focal consolidation. No pulmonary edema. Pleural spaces: No pleural effusion. No pneumothorax. Heart/Mediastinum: Stable mild enlargement of the cardiac silhouette. Mediastinal contours are unremarkable. Vasculature: Stable vascular calcifications in the aorta. Bones/joints: Unremarkable for age. XR/XR chest 1V portable [id number] IMPRESSION: 1. No acute cardiopulmonary process. 2. Incidental/nonacute findings are listed in the report.
--- NOTE | 2024-04-24 12:13 | USCV_ITS ---
Rashad Michel Age: 78 Gender: M : 1945 Exam Date: 04/24/2024 15:23 Ordering Phys: Ehsan Henderson MD Technologist: Exam Location: [facility] [place] Indication: chf BP: 132 / 74 HR: 93 Rhythm: Sinus Technical Quality: Adequate MEASUREMENTS (Male / Female) Normal Values 2D ECHO LV Diastolic Diameter PLAX 3.7 cm 4.2 - 5.9 / 3.9 - 5.3 cm IVS Diastolic Thickness 2.1 cm 0.6 - 1.0 / 0.6 - 0.9 cm IVS Systolic Thickness 1.7 cm LVPW Diastolic Thickness 1.8 cm 0.6 - 1.0 / 0.6 - 0.9 cm LVPW Systolic Thickness 1.8 cm LVOT Diameter 2.1 cm LV Ejection Fraction 2D Teich 52.0 % LV Ejection Fraction MOD 4C 60.5 % LV Ejection Fraction MOD 2C 50.6 % LV Ejection Fraction 2C AL 51.6 % LA Diameter 4.4 cm RA Systolic Volume 4C AL 42.6 ml RA Systolic Volume 4C MOD 43.8 ml Aorta at Sinotubular Diameter 3.0 cm M-MODE LA Ao Ratio MM 1.2 AV Cusp Separation MM 2.0 cm DOPPLER AV Peak Velocity 142.0 cm/s LVOT Peak Velocity 77.0 cm/s AV Area Cont Eq vti 2.2 cm squared AV Area Cont Eq pk 1.8 cm squared MV Peak Velocity 88.0 cm/s MV Area PHT 6.0 cm squared Mitral E to A Ratio 1.9 TV Peak Velocity 205.5 cm/s TR Peak Velocity 304.0 cm/s TR Peak Gradient 37.0 mmHg TV Peak E Velocity 79.0 cm/s PV Peak Velocity 104.0 cm/s FINDINGS Left Ventricle Normal left ventricular size, systolic function and wall thickness, with no regional wall motion abnormalities. Left ventricular ejection fraction is estimated at 60 %. Grade II/IV diastolic dysfunction, moderately elevated filling pressures. Right Ventricle The right ventricle is normal in size and function. Right Atrium The right atrium is normal in size. Left Atrium The left atrium is normal in size. Mitral Valve Moderately thickened mitral valve. No mitral valve stenosis. Mild mitral valve regurgitation. Aortic Valve Moderate aortic valve calcification. Mild aortic valve stenosis, mean gradient 3.3 mmHg, JUVENTINO 2.2 cm squared. Trace aortic valve regurgitation. Tricuspid Valve Structurally normal tricuspid valve without significant stenosis or regurgitation. Pulmonary artery systolic pressure is normal. Pulmonic Valve Structurally normal pulmonic valve without significant stenosis. There is no pulmonic regurgitation. Pericardium Normal pericardium without effusion. Aorta Normal ascending aorta dimension. IVC The inferior vena cava appears normal. CONCLUSIONS Normal left ventricular size, systolic function and wall thickness, with no regional wall motion abnormalities. Left ventricular ejection fraction is estimated at 60 %. Grade II/IV diastolic dysfunction, moderately elevated filling pressures. Moderately thickened mitral valve. No mitral valve stenosis. Mild mitral valve regurgitation. Moderate aortic valve calcification. Mild aortic valve stenosis, mean gradient 3.3 mmHg, JUVENTINO 2.2 cm squared. Trace aortic valve regurgitation. There is no pericardial effusion. Right atrial pressure is around 5 mm of mercury. Balta Loya MD (Electronically Signed) Final Date: 25 April 2024 22:11 S
[2024-04-24 12:18] LABS: Glucose Point of Care 131 mg/dL (70-110)
--- NOTE | 2024-04-24 12:52 | PM.DCS ---
Discharge Providers Date of Admission: 04/23/24 06:15 Date of Discharge: April 24, 2024 Attending Provider at Admission: Balta Lima MD Attending Provider at Discharge: Ehsan Henderson MD Primary Care Provider: Carolyn Linares APRN Diagnoses at Discharge Discharge Diagnosis (1) HTN (hypertension): Status: Acute (2) Pulmonary hypertension: Status: Acute (3) Stented coronary artery: Status: Acute (4) Coronary artery disease: Status: Acute (5) Afib: Status: Acute Qualifiers: Atrial fibrillation type: paroxysmal Qualified Code(s): I48.0 - Paroxysmal atrial fibrillation (6) Atrial fibrillation with rapid ventricular response: Status: Resolved (7) Diabetes: Status: Acute Qualifiers: Diabetes mellitus complication status: without complication Diabetes mellitus usp insulin use: unspecified exterminator helper insulin use status Diabetes mellitus type: type 2 Qualified Code(s): E11.9 - Type 2 diabetes mellitus without complications (8) BPH loc w urin obs/LUTS: Status: Acute Reason for Visit Reason for Visit: LINDA Garcia Hospital Course Hospital Course This is a 78-year-old male with past medical history of atrial fibrillation taking Eliquis who presents [facility] for palpitations Patient was admitted to [facility] for A-fib with RVR managed on Cardizem drip transition to p.o. Cardizem, will be discharged on Cardizem 60 twice daily, Metroprolol 100 mg daily, Eliquis 5 mg twice daily Patient also had neutrophilic leukocytosis of undetermined etiology during his hospitalization, no fevers, no chills, no cough, UA within normal limits, chest x-ray within normal limits, inflammatory markers within normal limits, COVID/flu/RSV within normal limits. Discussed with patient if he has any fevers, chills, symptomatology please come back to the hospital. Follow-up with primary care provider for recheck white blood cell count in 48 hours Physical Exam Const: COMMON NORMALS: no acute distress and patient oriented x3 Neck/C-Spine: COMMON NORMALS: no JVD Resp: COMMON NORMALS: normal respiratory effort, No retractions, No use of accessory muscles and clear to auscultation bilaterally AUSCULTATION: clear to auscultation bilaterally Cardio: COMMON NORMALS: no JVD, regular rate, regular rhythm, S1 normal heart sound present and S2 normal heart sound present RATE: regular rate RHYTHM: regular rhythm HEART SOUNDS: S1 normal heart sound present and S2 normal heart sound present GI: COMMON NORMALS: Normal to inspection, nondistended, normoactive bowel sounds present and non-tender Extremity: COMMON NORMALS: no pedal edema Neuro: COMMON NORMALS: patient oriented x3 Psych: COMMON NORMALS: mental status grossly normal Discharge Data Studies Completed and Pending Completed Studies During Hospitalization Category Date Time Status XR chest 1V portable [id number] Routine Exams 04/24/24 12:12 Completed XR chest 1V portable [id number] Stat Exams 04/23/24 01:29 Completed Pending at discharge Category Date Time Status Covid / Flu / RSV PCR Stat Lab 04/24/24 12:12 Ordered Procalcitonin Routine Lab 04/24/24 12:35 Received CV. echo complete* [id number] Routine Ultrasound 04/24/24 12:13 Ordered Radiology Impressions Chest X-Ray 04/24/24 12:12 IMPRESSION: 1. No acute cardiopulmonary process. 2. Incidental/nonacute findings are listed in the report. Laboratory Results WBC 13.30 10^3/uL (3.29-11.43) H 04/24/24 04:40 RBC 4.80 10^6/uL (3.85-5.65) 04/24/24 04:40 Hgb 14.50 g/dL (11.27-16.99) 04/24/24 04:40 Hct 45.3 % (37-53) 04/24/24 04:40 MCV 94.4 fl (82-101) 04/24/24 04:40 MCH 30.2 pg (27-33) 04/24/24 04:40 MCHC 32.0 g/dL (30-55) 04/24/24 04:40 RDW 14.8 % (12.1-15.1) 04/24/24 04:40 Plt Count 240 10^3/cmm (157-399) 04/24/24 04:40 MPV 10.7 fL (7.4-10.4) H 04/24/24 04:40 Neut % (Auto) 68.1 % 04/24/24 04:40 Lymph % (Auto) 20.2 % 04/24/24 04:40 Will % (Auto) 9.2 % 04/24/24 04:40 Eos % (Auto) 0.5 % 04/24/24 04:40 Baso % (Auto) 0.5 % 04/24/24 04:40 Neut # (Auto) 9.08 10^3/uL (1.8-7.7) H 04/24/24 04:40 Lymph # (Auto) 2.7 10^3/uL (0.8-4.8) 04/24/24 04:40 Will # (Auto) 1.2 10^3/uL (0.2-0.9) H 04/24/24 04:40 Eos # (Auto) 0.1 10^3/uL (0.0-0.8) 04/24/24 04:40 Baso # (Auto) 0.1 10^3/uL (0.0-0.1) 04/24/24 04:40 Nucleated RBC % (auto) 0 % 04/24/24 04:40 Nucleated RBCs # 0.0 /100WBC 04/24/24 04:40 Sodium 136 mmol/L (136-145) 04/24/24 04:40 Potassium 4.3 mmol/L (3.5-5.1) 04/24/24 04:40 Chloride 102 mmol/L (98-107) 04/24/24 04:40 Carbon Dioxide 23 mmol/L (22-29) 04/24/24 04:40 Anion Gap 15.3 (5-19) 04/24/24 04:40 BUN 26 mg/dL (8-23) H 04/24/24 04:40 Creatinine 0.9 mg/dL (0.7-1.2) 04/24/24 04:40 GFR Calculation Not Reportable 04/24/24 04:40 Glucose 144 mg/dL (65-115) H 04/24/24 04:40 POC Glucose 131 mg/dL (70-110) H 04/24/24 11:47 Calculated Osmolality 289 mOsm/kg (285-295) 04/24/24 04:40 Calcium 8.4 mg/dL (8.5-10.5) L 04/24/24 04:40 Magnesium 2.1 mg/dL (1.7-2.3) 04/24/24 04:40 Troponin T Baseline 19 ng/L (0-15) H 04/23/24 01:32 Troponin T 120 Minute 21.35 ng/L (0-15) H 04/23/24 03:00 Delta Troponin T 2.35 ABS# (0-10) 04/23/24 03:00 Troponin T Hi Sens 6Hr 23.85 ng/L (0-15) H 04/23/24 07:43 Troponin T Hi Sens 6Hr Delta 4.85 ng/L (0-12) 04/23/24 07:43 C-Reactive Protein 3.0 mg/L (0.0-4.9) 04/24/24 04:40 NT-Pro-B Natriuret Pep 463 pg/mL (0-450) H 04/23/24 01:32 Urine Color Yellow (Yellow) 04/24/24 10:00 Urine Appearance Clear (CLEAR) 04/24/24 10:00 Urine pH 6.5 (5-7) 04/24/24 10:00 Ur Specific [place] 1.018 (1.005-1.030) 04/24/24 10:00 Urine Protein Negative (Negative) 04/24/24 10:00 Urine Glucose (UA) Negative (Normal) 04/24/24 10:00 Urine Ketones Negative (Negative) 04/24/24 10:00 Urine Blood Negative (Negative) 04/24/24 10:00 Urine Nitrate Negative (Negative) 04/24/24 10:00 Urine Bilirubin Negative (Negative) 04/24/24 10:00 Urine Urobilinogen 0.2 mg/dL (Negative) 04/24/24 10:00 Ur Leukocyte Esterase Negative (Negative) 04/24/24 10:00 Amorphous Sediment Not Reportable 04/24/24 10:00 Vitals Last Vital Signs Temp 98.9 F 04/24/24 11:43 Pulse 92 04/24/24 11:43 Resp 24 H 04/24/24 11:43 BP 102/72 04/24/24 11:43 Pulse Ox 92 04/24/24 11:43 O2 Del Method Room Air 04/24/24 11:43 Discharge Plan Discharge Patient Disposition: Home Condition: Stable Prescriptions: New diltiazem HCl [Cardizem] 60 mg tablet 60 mg PO BID 30 Days Qty: 60 0RF Continued magnesium oxide 400 mg (241.3 mg magnesium) tablet 400 mg PO BEDTIME omega 3-asg-wvh-fish oil [Fish Oil] 1,000 mg (120 mg-180 mg) capsule 1 cap PO BID ezetimibe [Zetia] 10 mg tablet 10 mg PO DAILY (DME) right knee medial inpatient nursing aide brace See Rx Instructions .Route .MEDSUPPLY Qty: 1 0RF Rx Instructions: As directed fluticasone propion-salmeterol [Wixela Inhub] 250-50 mcg/dose blister with device 1 inh inhalation BID Qty: 60 6RF furosemide 20 mg tablet 20 mg PO DAILY PRN (Reason: edema) Qty: 30 3RF venlafaxine 75 mg Tablet 75 mg PO QAM losartan 100 mg Tablet 100 mg PO BEDTIME rosuvastatin 40 mg Tablet 40 mg PO QPM tamsulosin [Flomax] 0.4 mg Capsule 0.8 mg PO QPM Qty: 0 0RF meclizine 25 mg tablet 25 mg PO TID PRN (Reason: Dizziness) glipizide 10 mg Tablet 10 mg PO QPM glucose 4 gram Tablet,Chewable See Rx Instructions .ROUTE .COMPLEX Rx Instructions: 5 tabs po as directed as needed for low blood sugar fluticasone propionate 50 mcg/actuation [place],Suspension 2 spray INTRANASAL DAILY PRN (Reason: Allergy Symptoms) Rx Instructions: administer into each nostril finasteride [Proscar] 5 mg Tablet 5 mg PO BEDTIME cholecalciferol (vitamin D3) [Vitamin D3] 25 mcg (1,000 unit) Tablet 25 mcg PO QAM cyclobenzaprine 10 mg Tablet 10 mg PO TID PRN (Reason: Muscle Spasm) ondansetron HCl 8 mg Tablet 4 mg PO Q6H PRN (Reason: Nausea And Vomiting) albuterol sulfate 90 mcg/actuation HFA aerosol inhaler 2 inh INHALATION Q4H PRN (Reason: shortness of breath or wheezing) Qty: 18 0RF Changed metoprolol succinate [Toprol XL] 50 mg tablet extended release 24 hr 100 mg PO DAILY 90 Days Qty: 90 0RF Eliquis 5 mg tablet 5 mg PO BID 30 Days Qty: 60 0RF Discharge Orders: Discharge Order (Routine); Ordered 04/24/24 Ordered By: Ehsan Henderson Referrals: Carolyn Linares, GRAPHIC USER INTERFACE DESIGNER [Primary Care Provider] - 4-7 days ([facility] support will contact you to schedule an follow-up apoointment within 4 to 7 days. Thank you ) Balta Loya MD [Physician] - 05/09/24 2:30 pm Discharge Diet: Cardiac Discharge Activity: Resume usual activity Patient Instructions: Diltiazem (By mouth) (Cardizem, Cardizem CD, Cardizem LA, Cardizem SR), A-fib (Atrial Fibrillation) (DC), Chest Pain (DC), Hypertension (DC), Chest Pain Stoplight, Opioid Safety Activity Restrictions/Additional Instructions: - If you have any chest pain or palpitations please go to the emergency room -Please follow-up with your primary care provider, you do have leukocytosis recommend your white blood cell count rechecked in 24 to 48 hours -If you develop fevers or chills or cough please go to the emergency room -Please follow-up with cardiology Discharge Attestations Time Spent in Discharge Care*: greater than 30 min Quality Metrics Clinical Quality Measures [ No reported AMI, CVA or VTE this stay] Coding Level of Care Code 48967 Total time (in minutes) for Discharge: 45 Diagnoses HTN (hypertension) I10 Pulmonary hypertension I27.20 Stented coronary artery Z95.5 Coronary artery disease I25.10 Paroxysmal atrial fibrillation I48.0 Atrial fibrillation type: paroxysmal Atrial fibrillation with rapid ventricular response I48.91 Type 2 diabetes mellitus without complication, unspecified whether exterminator helper insulin use E11.9 Diabetes mellitus complication status: without complication Diabetes mellitus exterminator helper insulin use: unspecified exterminator helper insulin use status Diabetes mellitus type: type 2 BPH loc w urin obs/LUTS N40.1
[2024-04-24 13:19] LABS: Procalcitonin 0.07 ng/mL (0-0.5)
[2024-04-24 13:43] LABS: Influenza A NEGATIVE (Negative); Influenza B NEGATIVE (Negative); Respiratory Syncytial Virus Ce NEGATIVE (Negative); SARS-CoV-2 PCR NEGATIVE (Negative)
--- NOTE | 2024-04-24 14:02 | PC.NURSE ---
Patient appointment could not be obtained due to clinic did not answering phone. Misa with [facility] support will contact patient with date and time for follow-up.
--- NOTE | 2024-04-24 16:11 | PC.NURSE ---
Provider is updated that nursing just walked him in the hallway again. His HR 88-110. No shortness of breath. He said he felt better walking now than earlier today. They just finished the echo not long ago.
[2024-04-24 16:40] LABS: Glucose Point of Care 111 mg/dL (70-110)
[2024-04-24] MEDS: tamsulosin 0.4 mg Capsule 0.8 MG PO (17:31)
[2024-04-24 17:34] VITALS: BP 110/70; PULSE 89; RESP 20; O2SAT 92
[2024-04-24 17:35] LABS: Alanine Aminotransferase 41 U/L (0-41); Albumin Level 3.6 g/dL (3.5-5.2); Alkaline Phosphatase 67 U/L (40-130); Gamma Glutamyl Transferase 42 U/L (8-61); Globulin 2.5 g/dL (1.3-4.6); Lipase 37 U/L (13-60); Total Bilirubin 0.7 mg/dL (0.15-1.2); Total Protein 6.1 g/dL (6.6-8.7)
[2024-04-24 17:38] LABS: Aspartate Amino Transferase 26 U/L (0-40)
== END 2024-04-24 17:48 | disposition home or self-care (01) ==
LOC: ER 04:07 → CSU 06:27
PROVIDERS: Admitting Provider Internal Medicine; Emergency Provider Emergency Medicine; PCP Nurse Practitioner Family; Visit Provider Family Medicine
DX: I48.0 Paroxysmal atrial fibrillation (principal); J44.9 Chronic obstructive pulmonary disease, unspecified; E11.9 Type 2 diabetes mellitus without complications; I50.9 Heart failure, unspecified; K21.9 Gastro-esophageal reflux disease without esophagitis; F32.A Depression, unspecified; I27.20 Pulmonary hypertension, unspecified; N40.1 Benign prostatic hyperplasia with lower urinary tract symptoms; D72.828 Other elevated white blood cell count; I25.2 Old myocardial infarction; R19.7 Diarrhea, unspecified; R06.00 Dyspnea, unspecified; R51.9 Headache, unspecified; Z95.5 Presence of coronary angioplasty implant and graft; Z79.899 Other long term (current) drug therapy; Z79.01 Long term (current) use of anticoagulants; Z88.8 Allergy status to other drugs, medicaments and biological substances; Z80.1 Family history of malignant neoplasm of trachea, bronchus and lung; Z87.891 Personal history of nicotine dependence; Z11.52 Encounter for screening for COVID-19
CPT/HCPCS: 36415; 36416; 71045; 80048; 80076; 81003; 82962; 82977; 83690; 83735; 83880; 84145; 84484; 85025; 86140; 87637; 93005; 93306; 94640; 96365; 96372; 96375; 99285; G0378; J1815; J3490; J7030

== ENCOUNTER 2024-05-04 16:11 | Emergency (ER) | payer OTHER, SELFPAY ==
[2024-05-04 16:11] VITALS: BP 104/59; PULSE 60; RESP 16; TEMP 36.8; O2SAT 97; BMI 36.1
--- NOTE | 2024-05-04 16:11 | ECG_ITS ---
[facility] Test Date: 2024-05-04 Pat Name: Rashad Michel Department: Room: Gender: Male Customer Development Representative: : 1945 Requested By: Philomena Lynn Order Number: [id number] Dayanna MD: Sourav Padilla M.D. Measurements Intervals [place] Rate: 58 P: -10 ND: 184 QRS: -7 QRSD: 102 T: -90 QT: 407 QTc: 403 Interpretive Statements SINUS BRADYCARDIA LOW QRS VOLTAGE IN PRECORDIAL LEADS [QRS DEFLECTION < 1.0 mV IN CHEST LEADS] MINIMAL ST DEPRESSION [0.025+ mV ST DEPRESSION] ABNORMAL QRS-T ANGLE [QRS-T AXIS DIFFERENCE > 60] Compared to ECG 04/23/2024 08:04:02 Low QRS voltage now present ST (T wave) deviation now present Atrial fibrillation no longer present Myocardial infarct finding no longer present Electronically Signed On 05-06-2024 18:04:03 LEGAL CASHIER by Sourav Padilla M.D. [email or web address]
--- NOTE | 2024-05-04 16:11 | XRR_ITS ---
PROCEDURE INFORMATION: Exam: XR Chest Exam date and time: 05/04/2024 4:55 PM Age: 78 years old Clinical indication: Pain; Chest pressure; Additional info: Cp TECHNIQUE: Imaging protocol: Radiologic exam of the chest. Views: 1 view. COMPARISON: CR XR chest 1V portable [id number] 04/24/2024 12:20 PM FINDINGS: Lungs: Unremarkable. No consolidation or mass. Pleural spaces: Unremarkable. No pleural effusion. No pneumothorax. Heart/Mediastinum: Unremarkable. No cardiomegaly. Bones/joints: Unremarkable. XR/XR chest 1V portable [id number] IMPRESSION: No acute findings.
--- NOTE | 2024-05-04 16:34 | W.ED.CHESTPA ---
HPI - Chest Pain General: Chief Complaint: Chest Pain Stated Complaint: chest pain Time Seen by Provider: 05/04/24 16:11 Source: patient Mode of arrival: ambulatory Limitations: no limitations History of Present Illness: 78-year-old male states that he felt like his heart has not felt right over the last 3 to 4 days he was admitted last week for A-fib. He is not in A-fib here he states he had some mild dyspnea and discomfort to his chest he denies any fever denies any worse improving factors he is resting comfortably currently. Associated symptoms: Reports dyspnea; Deny abdominal pain, fever(s), nausea or vomiting Related Data Home Medications ?Medication ?Instructions ?Recorded ?Confirmed losartan 100 mg tablet 100 mg PO BEDTIME 05/22/19 05/04/24 rosuvastatin 40 mg tablet 40 mg PO QPM 05/22/19 05/04/24 venlafaxine 75 mg tablet 75 mg PO QAM 05/22/19 05/04/24 meclizine 25 mg tablet 25 mg PO TID PRN Dizziness 09/27/19 05/04/24 magnesium oxide 400 mg (241.3 mg 400 mg PO BEDTIME 04/10/21 05/04/24 magnesium) tablet cholecalciferol (vitamin D3) 25 25 mcg PO QAM 11/24/21 05/04/24 mcg (1,000 unit) tablet (Vitamin D3) finasteride 5 mg tablet (Proscar) 5 mg PO BEDTIME 11/24/21 05/04/24 fluticasone propionate 50 2 spray intranasal DAILY PRN 11/24/21 05/04/24 mcg/actuation nasal Allergy Symptoms spray,suspension glipizide 10 mg tablet 10 mg PO QPM 11/24/21 05/04/24 glucose 4 gram chewable tablet See Rx Instructions .Route .COMPLEX 11/24/21 05/04/24 cyclobenzaprine 10 mg tablet 10 mg PO TID PRN Muscle Spasm 06/16/22 05/04/24 ondansetron HCl 8 mg tablet 4 mg PO Q6H PRN Nausea And Vomiting 06/16/22 05/04/24 omega 7-qww-ito-fish oil 1,000 mg 1 cap PO BID 10/19/22 05/04/24 (120 mg-180 mg) capsule (Fish Oil) ezetimibe 10 mg tablet (Zetia) 10 mg PO DAILY 04/21/23 05/04/24 Previous Rx's ?Medication ?Instructions ?Recorded tamsulosin 0.4 mg capsule (Flomax) 0.8 mg (2 x 0.4 mg) PO QPM #0 caps 05/22/19 albuterol sulfate 90 mcg/actuation 2 inh inhalation Q4H PRN shortness 07/05/21 aerosol inhaler of breath or wheezing #18 grams fluticasone 250 mcg-salmeterol 50 1 inh inhalation BID #60 ea 10/31/21 mcg/dose blistr powdr for inhalation (Wixela Inhub) furosemide 20 mg tablet 20 mg PO DAILY PRN edema #30 tabs 09/29/22 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 #1 ea 10/15/23 apixaban 5 mg tablet (Eliquis) 5 mg PO BID 30 days #60 tabs 04/24/24 metoprolol succinate 50 mg 100 mg (2 x 50 mg) PO DAILY 90 04/24/24 tablet,extended release 24 hr days #90 tabs (Toprol XL) diltiazem HCl 60 mg tablet 60 mg PO BID 30 days #60 tabs 04/25/24 (Cardizem) Allergies Allergy/AdvReac Type Severity Reaction Status Date / Time lisinopril Allergy Unknown ADR-Cough Verified 01/17/24 13:56 pravastatin Allergy Unknown ADR-Cramping Verified 01/17/24 13:56 of the Muscles simvastatin Allergy Unknown ADR-Cramping Verified 01/17/24 13:56 of the Muscles niacin Allergy Unknown Verified 01/17/24 13:56 Review of Systems Const: Denies: fever(s), chills, body aches or change in appetite ENMT: Denies: throat pain or dental pain Card: Reports: chest pain Resp: Reports: dyspnea GI: Denies: abdominal pain, nausea, vomiting or diarrhea : Denies: dysuria Musc: Denies: neck pain or back pain Skin/Breast: Denies: rash Neuro: Denies: headache(s) PFSH ED PFSH: Medical History Bladder outlet obstruction Diabetes CHF (congestive heart failure) Ventricular arrhythmia COPD (chronic obstructive pulmonary disease) Afib Heart attack Prostate enlargement Depression Hemorrhoid GERD (gastroesophageal reflux disease) Surgical History History of colonoscopy 2017 Stented coronary artery H/O hemorrhoidectomy Family History Father , at age 63 Cancer Lung Mother , at age 68 Cancer Lung Brother , Age 32 CAD (coronary artery disease) Social History Smoking and tobacco/nicotine status: former use of tobacco/nicotine Quit status (tobacco/nicotine): has quit using Year quit tobacco: 1992 - PPD x 40 Years Alcohol intake: never Substance/Drug Use: never Lives independently: Yes Household members: spouse Marital status: service: Yes Current occupational status: retired Do you think of yourself as: Straight/Heterosexual Current gender identity: Male Physical Exam Const: COMMON NORMALS: patient oriented x3 HENMT: COMMON NORMALS: normocephalic and atraumatic HEAD & SCALP: normocephalic and atraumatic Eye: COMMON NORMALS: Equal, round and reactive pupils present and EOMs intact bilaterally PUPIL: Yes Equal, round and reactive pupils present Neck/C-Spine: COMMON NORMALS: full ROM and supple Chest: COMMONS NORMALS: normal inspection of the chest and normal palpation of entire chest wall Resp: COMMON NORMALS: normal respiratory effort, No retractions, No use of accessory muscles and clear to auscultation bilaterally AUSCULTATION: clear to auscultation bilaterally Cardio: COMMON NORMALS: regular rate, regular rhythm and No murmurs present (Cardio) RATE: regular rate RHYTHM: regular rhythm GI: COMMON NORMALS: Normal to inspection, nondistended, normoactive bowel sounds present, Soft to palpation, non-tender and no masses PALPATION: Yes Soft to palpation Extremity: COMMON NORMALS: normal to inspection and full ROM Neuro: COMMON NORMALS: patient oriented x3, moves all extremities and no focal motor deficits Psych: COMMON NORMALS: mental status grossly normal, Normal thought process present and cooperative THOUGHT PROCESS: Normal thought process present Skin: COMMON NORMALS: no rashes or lesions noted and no wounds GENERAL SKIN EXAM: no rashes or lesions noted Course Vital Signs: Vital signs: Vital Signs Temperature 98.3 F 05/04/24 16:11 Pulse Rate 64 05/04/24 19:36 Respiratory Rate 19 H 05/04/24 19:36 Blood Pressure 116/73 05/04/24 19:36 Pulse Oximetry 94 05/04/24 19:36 Oxygen Delivery Me thod Room Air 05/04/24 18:02 MDM - Chest Pain Medical Decision Making Patient presents for chest pain is atypical in nature blood work EKG here are normal no signs of acute coronary syndrome he has no signs of pulmonary embolism or dissection he stable for discharge his follow-up with cardiology in 2 weeks he is to follow-up as scheduled return if worsening. Medical Records I reviewed the patient's medical records. Lab Data I reviewed the patient's lab results. 05/04/24 16:25 05/04/24 16:25 Radiology Impressions Chest X-Ray 05/04/24 16:11 IMPRESSION: No acute findings. Laboratory Results WBC 7.97 10^3/uL (3.29-11.43) 05/04/24 16:25 RBC 4.73 10^6/uL (3.85-5.65) 05/04/24 16:25 Hgb 14.70 g/dL (11.27-16.99) 05/04/24 16:25 Hct 45.9 % (37-53) 05/04/24 16:25 MCV 97.0 fl (82-101) 05/04/24 16:25 MCH 31.1 pg (27-33) 05/04/24 16:25 MCHC 32.0 g/dL (30-55) 05/04/24 16:25 RDW 15.1 % (12.1-15.1) 05/04/24 16:25 Plt Count 270 10^3/cmm (157-399) 05/04/24 16:25 MPV 11.2 fL (7.4-10.4) H 05/04/24 16:25 Neut % (Auto) 67.8 % 05/04/24 16:25 Lymph % (Auto) 21.5 % 05/04/24 16:25 Ada % (Auto) 8.4 % 05/04/24 16:25 Eos % (Auto) 1.3 % 05/04/24 16:25 Baso % (Auto) 0.5 % 05/04/24 16:25 Neut # (Auto) 5.41 10^3/uL (1.8-7.7) 05/04/24 16:25 Lymph # (Auto) 1.7 10^3/uL (0.8-4.8) 05/04/24 16:25 Ada # (Auto) 0.7 10^3/uL (0.2-0.9) 05/04/24 16:25 Eos # (Auto) 0.1 10^3/uL (0.0-0.8) 05/04/24 16:25 Baso # (Auto) 0.0 10^3/uL (0.0-0.1) 05/04/24 16:25 Nucleated RBC % (auto) 0 % 05/04/24 16: Nucleated RBCs # 0.0 /100WBC 05/04/24 16:25 PT 16.20 SECONDS (12.1-14.9) H 05/04/24 16:25 INR 1.21 (0.8-1.2) H 05/04/24 16:25 D-Dimer 0.55 ug/mLFEU (0-0.59) 05/04/24 16:25 Sodium 139 mmol/L (136-145) 05/04/24 16:25 Potassium 4.5 mmol/L (3.5-5.1) 05/04/24 16:25 Chloride 105 mmol/L (98-107) 05/04/24 16:25 Carbon Dioxide 22 mmol/L (22-29) 05/04/24 16:25 Anion Gap 16.5 (5-19) 05/04/24 16:25 BUN 20 mg/dL (8-23) 05/04/24 16:25 Creatinine 1.2 mg/dL (0.7-1.2) 05/04/24 16:25 GFR Calculation Not Reportable 05/04/24 16:25 Glucose 195 mg/dL (65-115) H 05/04/24 16:25 Calculated Osmolality 296 mOsm/kg (285-295) H 05/04/24 16:25 Calcium 8.8 mg/dL (8.5-10.5) 05/04/24 16:25 Total Bilirubin 0.5 mg/dL (0.15-1.2) 05/04/24 16:25 AST 27 U/L (0-40) 05/04/24 16:25 ALT 38 U/L (0-41) 05/04/24 16:25 Alkaline Phosphatase 59 U/L (40-130) 05/04/24 16:25 Troponin T Baseline 19 ng/L (0-15) H 05/04/24 16:25 Troponin T 120 Minute 17.46 ng/L (0-15) H 05/04/24 18:32 Delta Troponin T -1.54 ABS# (0-10) L 05/04/24 18:32 Total Protein 6.0 g/dL (6.6-8.7) L 05/04/24 16:25 Albumin 3.7 g/dL (3.5-5.2) 05/04/24 16:25 Globulin 2.3 g/dL (1.3-4.6) 05/04/24 16:25 Lipase 36 U/L (13-60) 05/04/24 16:25 All radiology interpretation(s) finalized by discharge EKG Data EKG 1: I personally reviewed and interpreted this EKG as follows: EKG interpretation date: 05/04/24 EKG interpretation time: 16:13 Interpretation: sinus imani hr [address] elevation qrs 102 qtc 405 Discharge Plan Discharge Patient Disposition: Home Clinical Impression: Chest pain Condition: Stable Prescriptions: No Action magnesium oxide 400 mg (241.3 mg magnesium) tablet 400 mg PO BEDTIME omega 7-kmv-pdr-fish oil [Fish Oil] 1,000 mg (120 mg-180 mg) capsule 1 cap PO BID ezetimibe [Zetia] 10 mg tablet 10 mg PO DAILY (DME) 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 See Rx Instructions .Route .MEDSUPPLY Qty: 1 0RF Rx Instructions: As directed fluticasone propion-salmeterol [Wixela Inhub] 250-50 mcg/dose blister with device 1 inh inhalation BID Qty: 60 6RF furosemide 20 mg tablet 20 mg PO DAILY PRN (Reason: edema) Qty: 30 3RF venlafaxine 75 mg Tablet 75 mg PO QAM losartan 100 mg Tablet 100 mg PO BEDTIME rosuvastatin 40 mg Tablet 40 mg PO QPM tamsulosin [Flomax] 0.4 mg Capsule 0.8 mg PO QPM Qty: 0 0RF meclizine 25 mg tablet 25 mg PO TID PRN (Reason: Dizziness) glipizide 10 mg Tablet 10 mg PO QPM glucose 4 gram Tablet,Chewable See Rx Instructions .ROUTE .COMPLEX Rx Instructions: 5 tabs po as directed as needed for low blood sugar fluticasone propionate 50 mcg/actuation [place],Suspension 2 spray INTRANASAL DAILY PRN (Reason: Allergy Symptoms) Rx Instructions: administer into each nostril finasteride [Proscar] 5 mg Tablet 5 mg PO BEDTIME cholecalciferol (vitamin D3) [Vitamin D3] 25 mcg (1,000 unit) Tablet 25 mcg PO QAM cyclobenzaprine 10 mg Tablet 10 mg PO TID PRN (Reason: Muscle Spasm) ondansetron HCl 8 mg Tablet 4 mg PO Q6H PRN (Reason: Nausea And Vomiting) albuterol sulfate 90 mcg/actuation HFA aerosol inhaler 2 inh INHALATION Q4H PRN (Reason: shortness of breath or wheezing) Qty: 18 0RF metoprolol succinate [Toprol XL] 50 mg tablet extended release 24 hr 100 mg PO DAILY 90 Days Qty: 90 0RF Eliquis 5 mg tablet 5 mg PO BID 30 Days Qty: 60 0RF diltiazem HCl [Cardizem] 60 mg tablet 60 mg PO BID 30 Days Qty: 60 0RF Discharge Orders: Discharge ED (Routine); Ordered 05/04/24 Ordered By: Philomena Lynn Referrals: Carolyn Linares APRN [Primary Care Provider] - 4-7 days Discharge Diet: Advance as tolerated Discharge Activity: Resume usual activity Patient Instructions: Chest Pain (ED) Print Language: Bur[place]ian Coding Level of Care Code 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
[2024-05-04 16:42] LABS: Basophils % 0.5 %; Eosinophils # 0.1 10^3/uL (0.0-0.8); Eosinophils % 1.3 %; Hematocrit 45.9 % (37-53); Lymphocytes # 1.7 10^3/uL (0.8-4.8); Lymphocytes % 21.5 %; Mean Corpuscular Hemoglobin 31.1 pg (27-33); Mean Platelet Volume 11.2 fL (7.4-10.4); Monocytes # 0.7 10^3/uL (0.2-0.9); Monocytes % 8.4 %; Neutrophils # 5.41 10^3/uL (1.8-7.7); Neutrophils % 67.8 %; Nucleated Red Blood Cells % 0 %; Platelet Count 270 10^3/cmm (157-399); Red Blood Count 4.73 10^6/uL (3.85-5.65); Red Cell Distribution Width 15.1 % (12.1-15.1); White Blood Count 7.97 10^3/uL (3.29-11.43)
[2024-05-04 16:53] VITALS: BP 102/58; PULSE 60; RESP 20; O2SAT 93
[2024-05-04 17:10] LABS: INR 1.21 (0.8-1.2)
[2024-05-04 17:13] LABS: D Dimer 0.55 ug/mLFEU (0-0.59)
--- NOTE | 2024-05-04 17:13 | PC.NURSE ---
this nurse assumed pt care from Joy HANNA at 1705.
[2024-05-04 17:29] LABS: Troponin(5th) Baseline 19 ng/L (0-15)
[2024-05-04 17:31] LABS: Alanine Aminotransferase 38 U/L (0-41); Albumin Level 3.7 g/dL (3.5-5.2); Alkaline Phosphatase 59 U/L (40-130); Blood Urea Nitrogen 20 mg/dL (8-23); Calcium 8.8 mg/dL (8.5-10.5); Carbon Dioxide 22 mmol/L (22-29); Chloride 105 mmol/L (98-107); Creatinine Clr Calc Pharmacy 57.5473; Globulin 2.3 g/dL (1.3-4.6); Glucose 195 mg/dL (65-115); Lipase 36 U/L (13-60); Osmolality Calculated 296 mOsm/kg (285-295); Sodium 139 mmol/L (136-145); Total Bilirubin 0.5 mg/dL (0.15-1.2)
[2024-05-04 17:34] LABS: Anion Gap 16.5 (5-19); Aspartate Amino Transferase 27 U/L (0-40); Potassium 4.5 mmol/L (3.5-5.1)
[2024-05-04 18:02] VITALS: BP 94/52; PULSE 64; RESP 17; O2SAT 92
--- NOTE | 2024-05-04 18:07 | ECG_ITS ---
[email or web address] Date: 2024-[facility]-04 Pat Name: Rashad Michel Department: Room: Gender: Male Aging Room Hand: : [id number] Requested By: Philomena Lynn Order Number: [id number] Dayanna MD: Sourav Padilla M.D. Measurements Intervals [place] Rate: 64 P: 5 WA: 187 QRS: -11 QRSD: 106 T: 60 QT: 305 QTc: 316 Interpretive Statements SINUS RHYTHM WITH OCCASIONAL SUPRAVENTRICULAR PREMATURE COMPLEXES LOW QRS VOLTAGE IN PRECORDIAL LEADS [QRS DEFLECTION < 1.0 mV IN CHEST LEADS] Compared to ECG 05/04/2024 16:13:34 Sinus bradycardia no longer present ST (T wave) deviation no longer present Electronically Signed On 05-06-2024 19:36:38 [employer]ICE PRESIDENT by Sourav Padilla M.D. [email or web address]
[2024-05-04 19:21] LABS: Troponin 5 2HR 17.46 ng/L (0-15)
[2024-05-04 19:23] LABS: Troponin 5 2HR Delta -1.54 ABS# (0-10)
[2024-05-04 19:36] VITALS: BP 116/73; PULSE 64; RESP 19; O2SAT 94
[2024-05-04 20:08] VITALS: BP 116/73; PULSE 66; RESP 17; O2SAT 91
== END 2024-05-04 19:49 | disposition home or self-care (01) ==
PROVIDERS: Emergency Provider Emergency Medicine; PCP Nurse Practitioner Family
DX: R07.9 Chest pain, unspecified (principal); Z79.01 Long term (current) use of anticoagulants; Z87.891 Personal history of nicotine dependence; J44.9 Chronic obstructive pulmonary disease, unspecified; E11.9 Type 2 diabetes mellitus without complications; I50.9 Heart failure, unspecified
CPT/HCPCS: 36415; 71045; 80053; 83690; 84484; 85025; 85378; 85610; 93005; 99285

== ENCOUNTER → 2024-05-17 14:53 | Outpatient (BNVA) | payer OTHER, SELFPAY | PROVIDERS: PCP Nurse Practitioner Family; Visit Provider Nurse Practitioner Family | DX: I48.0 Paroxysmal atrial fibrillation (principal); I21.A9 Other myocardial infarction type; E78.5 Hyperlipidemia, unspecified; E11.9 Type 2 diabetes mellitus without complications; I27.20 Pulmonary hypertension, unspecified; I50.32 Chronic diastolic (congestive) heart failure | CPT/HCPCS: 99213 ==